=== PATIENT | female | born 1955 | race Caucasian/White ===

== ENCOUNTER 2022-11-21 11:33 | Day surgery (SDC) | payer MEDICARE, OTHER ==
[~2022-11-21 11:33] MED LIST: SODIUM CHLORIDE 0.9% 500 ML 500 ML in EMPTY BAG 1 BAG IV PRN
[2022-11-21 12:43] VITALS: RESP 16
[2022-11-21 14:22] VITALS: BP 119/75; PULSE 95; TEMP 98.8
--- NOTE | 2022-11-21 14:26 | XR ---
EXAMINATION TYPE: XR chest 1V portable DATE OF EXAM: 11/21/2022 COMPARISON: 11/19/2022 HISTORY: Postthoracentesis TECHNIQUE: Single frontal view of the chest is obtained. FINDINGS: There is right upper lobe and lower lobe consolidation with no sizable pleural effusion. N o definite pneumothorax. The right lung is clear. IMPRESSION: Left upper lobe and lower lobe consolidation with no sizable pneumothorax. Underlying ne oplasm in the differential diagnosis of the left hilum.
--- NOTE | 2022-11-21 15:06 | US ---
EXAMINATION TYPE: US chest DATE OF EXAM: 11/21/2022 COMPARISON: XR CLINICAL INDICATION: Female, 67 years old with history of J90 Pleural Effusion L; Pleural effusion le ft side. TECHNIQUE: Targeted ultrasound of the posterior lower bilateral hemithoraces EXAM MEASUREMENTS: Right Pleural Effusion pocket size: No fluid seen Left Pleural Effusion pocket size: 9.1 cm Left skin surface to fluid distance: 3.2 cm Right side NOT marked for possible thoracentesis outside the dept. Left side marked for possible thoracentesis outside the dept. Pulmonologists are able to review the images in the patient?s EMR. IMPRESSIONS: 1. Large left pleural effusion. 2. No sizable right pleural effusion.
[2022-11-22 03:00] LABS: Glucose, BF Source Pleural Fluid; Glucose, Body Fluid 89 mg/dL; LDH, Body Fluid Source Pleural Fluid; T. Protein, Body Fluid Source Pleural Fluid; Total Protein, Body Fluid 3860 mg/dL
[2022-11-22 04:30] LABS: Appearance,BF Clear
--- NOTE | 2022-11-26 15:28 | P.PCN ---
Date of Procedure: 11/21/22 Preoperative Diagnosis: left sided effusion Postoperative Diagnosis: left sided effusion Procedure(s) Performed: thoracentesis Anesthesia: local Surgeon: Chip Cruz Pathology: other Condition: stable Disposition: same day Operative Findings: A time out was performed and the chest x-ray was reviewed, the appropriate side was confirmed and marked. US marking was also obtained. My hands were washed immediately prior to the procedure. I wore a surgical cap, mask with protective eyewear, sterile gown and sterile gloves throughout the procedure. The patient was prepped and draped in a sterile manner using chlorhexidine scrub after the appropriate level was percussed and confirmed by ultrasound. 1% lidocaine was used to anesthesize the skin, subcutaneous tissue, superior aspect of the rib periosteum and parietal pleura. A finder needle was then introduced over the superior aspect of the rib to locate the pleural fluid; 2colored fluid was aspirated at a depth of approximately 2 cm. A 10-blade scalpel was used to vernon the skin at the insertion site. The [id number] needle was then introduced through the skin incision into the pleural space using negative aspiration pressure and the red colometric indicator to confirm appropriate positioning of the needle. The thoracentesis catheter was then threaded without difficulty. 600 ml of turbid colored-milky fluid was removed without difficulty. The catheter was then removed. No immediate complications were noted during the procedure. A post-procedure chest x-ray is pending at the time of this note. The fluid will be sent for studies. Estimated blood loss is 0cc
== END 2022-11-22 13:58 | disposition home or self-care (01) ==
LOC: PROCWHC3 11:33
PROVIDERS: ATTEND Internal Medicine Critical Care Medicine
DX: J90 Pleural effusion, not elsewhere classified (principal)
CPT/HCPCS: 32554; 71045; 76604; 82945; 83615; 84157; 87070; 87075; 87116; 87205; 87206; 88108; 88305; 88341; 88342; 89050

== ENCOUNTER 2022-12-06 09:09 | Emergency (ER) | payer MEDICARE, OTHER ==
[2022-12-06] MEDS ORDERED: SODIUM CHLORIDE 0.9% 1,000 ML IV STA (09:52)
[2022-12-06] MEDS ORDERED: ONDANSETRON 4 MG/2 ML VIAL IVP STA (09:52)
[2022-12-06] MEDS ORDERED: MORPHINE SULFATE 4 MG/ML SYRINGE IVP STA (09:52)
--- NOTE | 2022-12-06 09:55 | ED ---
Abdominal Pain HPI - General Chief Complaint: Abdominal Pain Stated Complaint: Middle Back Pain Time Seen by Provider: 12/06/22 09:34 Source: patient, RN notes reviewed Mode of arrival: ambulatory Limitations: no limitations - History of Present Illness Initial Comments: Patient is a 59-year-old female presenting to the emergency room with complaints of abdominal pain and nausea without vomiting along with decreased appetite. She is also reporting generalized malaise which has been ongoing but worsened in the last 48 hours. She is currently undergoing and oncologic workup. She had a thoracentesis completed by Dr. 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 Consequently she was referred to GI for EGD colonoscopy to further evaluate this etiology she underwent a colonoscopy yesterday along with EGD this was not completed at our facility but her sister has the reports with her along with images which demonstrates diverticulosis, peptic ulcer disease, and internal hem orrhoids with no identified malignancy. She is scheduled for a PET scan today at 2 PM. She does report some shortness of breath which has been ongoing but unchanged overall. She denies any chest pain, fevers or chills. Prior to her recent pleural effusion with workup resulting and metastatic adenocarcinoma she had no significant past medical history with the exception of glaucoma. - Related Data Home Medications Medication Instructions Recorded Confirmed Acetaminophen Tab [Tylenol] 1,000 mg PO DAILY PRN 11/21/22 11/21/22 Cholecalciferol [Vitamin D3 (25 1,000 unit PO DAILY 11/21/22 11/21/22 Mcg = 1000 Iu)] Latanoprost/Pf [Latanoprost 0.005% 1 drop BOTH EYES HS 11/21/22 11/21/22 Eye Drop] Loratadine [Claritin] 10 mg PO DAILY 11/21/22 11/21/22 Previous Rx's Medication Instructions Recorded LORazepam [Ativan] 0.5 mg PO TID PRN 3 Days #9 tab 12/06/22 Ondansetron Odt [Zofran Odt] 4 mg PO Q8HR PRN 7 Days #21 tab 12/06/22 Allergies Allergy/AdvReac Type Severity Reaction Status Date / Time No Known Allergies Allergy Verified 12/06/22 09:18 Review of Systems ROS Statement: Those systems with pertinent positive or pertinent negative responses have been documented in the HPI. ROS Other: All systems not noted in ROS Statement are negative. Past Medical History Past Medical History: Cancer Additional Past Medical History / Comment(s): LEFT CHEST DISCOMFORT RECENTLY. History of Any Multi-Drug Resistant Organisms: None Reported Past Surgical History: Adenoidectomy, Hysterectomy, Tonsillectomy Additional Past Surgical History / Comment(s): D& C. Past Anesthesia/Blood Transfusion Reactions: No Reported Reaction Past Psychological History: No Psychological Hx Reported Smoking Status: Never smoker Past Alcohol Use History: Occasional Past Drug Use History: None Reported General Exam - General Exam Comments Initial Comments: GENERAL: No acute distress, well developed, well nourished. Appears fatigued HEENT: Normocephalic, atraumatic. Pupils equal, round, reactive to light. Moist mucous membranes. LUNGS: No respiratory distress. Clear to auscultation, no adventitious sounds, no use of accessory muscles. HEART: Regular rate and rhythm without murmur, rub, or gallop. ABDOMEN: Normal bowel sounds. Concern for pelvic mass and hepatic nodule on palpation. Tenderness throughout, no rebound tenderness. BACK: Normal inspection. EXTREMITIES: No edema. No tenderness. Moves all extremities. NEUROLOGIC: Alert & oriented x 3. CN II-XII grossly intact. PSYCHIATRIC:Depressed and anxious at times. DERMATOLOGIC: Skin intact, without rashes or lesions noted. Limitations: no limitations Course Vital Signs 12/06/22 12/06/22 12/06/22 09:15 11:18 13:22 Temperature 97.3 F L 97 F L 97.6 F Pulse Rate 82 103 H 100 Respiratory 20 16 18 Rate Blood Pressure 155/78 187/88 175/79 O2 Sat by Pulse 99 96 97 Oximetry Medical Decision Making - Medical Decision Making Was pt. sent in by a medical professional or institution (, PA, PRE WAVE ASSEMBLER, urgent care, hospital, or [facility]...) When possible be specific @ -No Did you speak to anyone other than the patient for history (EMS, parent, family, police, friend...)? What history was obtained from this source @ -Yes, spoke with sister at bedside who is providing further information regarding history of present illness and most recent medical history events. Did you review nursing and triage notes (agree or disagree)? Why? @ -I reviewed and agree with nursing and triage notes Were old charts reviewed (outside hosp., previous admission, EMS record, old EKG, old radiological studies, urgent care reports/EKG's, [facility] records)? Report findings @ -Yes, pathology of pleural fluid 11/25/2022 reviewed along with paper reports and photographs of EGD colonoscopy that patient brought in with her from procedure completed yesterday 12/05/2022. Differential Diagnosis (chest pain, altered mental status, abdominal pain women, abdominal pain men, vaginal bleeding, weakness, fever, dyspnea, syncope, headache, dizziness, GI bleed, back pain, seizure, CVA, palpatations, mental health, musculoskeletal)? @ -Differential Abdominal Pain Women: Appendicitis, Cholecystitis, diverticulosis, ischemic bowel, pancreatitis, hepatitis, UTI, gastroenteritis, AAA, incarcerated hernia, bowel obstruction, constipation, inflammatory bowel, hepatitis, peptic ulcer disease, splenic infarction, perforated viscus, vulvitis, ovarian torsion, PID, kidney stone, placenta abruption, this is not meant to be an all-inclusive list EKG interpreted by me (3pts min.). @ -None done X-rays interpreted by me (1pt min.). @ -None done CT interpreted by me (1pt min.). @ -None done U/S interpreted by me (1pt. min.). @ -None done What testing was considered but not performed or refused? (CT, X-rays, U/S, labs)? Why? @ -Computed tomography scan was considered however due to the PET scan being scheduled at 2 PM today will defer diagnostic imaging at this time to prevent any interference with PET scan to be completed. What meds were considered but not given or refused? Why? @ -None Did you discuss the management of the patient with other professionals ( professionals i.e. , PA, PRE WAVE ASSEMBLER, lab, RT, psych nurse, director social service, systems software specialist, teacher, security officers and guards, case manager specialist)? Give summary @ -Yes, spoke with PET department regarding patients visit and adherence to restrictions require pre PET scan, patient to be discharge and proceed to PET scan. Was smoking cessation discussed for >3mins.? @ -No Was critical care preformed (if so, how long)? @ -No Were there social determinants of health that impacted care today? How? (Homelessness, low income, unemployed, alcoholism, drug addiction, transportation, low edu. Level, literacy, decrease access to med. care, correction, rehab)? @ -No Was there de-escalation of care discussed even if they declined (Discuss DNR or withdrawal of care, Hospice)? DNR status @ -No What co-morbidities impacted this encounter? (DM, HTN, Smoking, COPD, CAD, Cancer, CVA, ARF, Chemo, Hep., AIDS, mental health diagnosis, sleep apnea, morbid obesity)? @ -Recently diagnosed metastatic adenocarcinoma compatible with gastro intestinal origin. Was patient admitted / discharged? Hospital course, mention meds given and route, prescriptions, significant lab abnormalities, going to OR and other pertinent info. @ -67-year-old female presenting to the emergency room with complai nts of abdominal pain and nausea without vomiting along with decreased appetite. She is also reporting generalized malaise which has been ongoing but worsened in the last 48 hours. She is currently undergoing and oncologic workup. She had a thoracentesis completed by Dr. 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 No vomiting and vital signs stable. Long discussion with patient and sister at bedside regarding need for completion of PET scan is scheduled later today at 2 PM consequently computed tomography scan with contrast which would be the indicated study for her symptomatology workup is being deferred. Will obtain laboratory studies of CBC, CMP, amylase and lipase to ensure no acute abnormalities requiring treatment prior to PET scan. Will give IV hydration, morphine for pain and Zofran for nausea. Sister and patient both agreeable to this plan. Nausea improved with Zofran hydration pain persists despite morphine will give additional 1 L fluid bolus and Dilaudid. Laboratory studies overall stable CBC with elevated neutrophils 8.9 low lymphocytes 0.9 otherwise no abnormalities. CMP sodium low 131 chloride low 93, creatinine low 0.1 with a normal BUN glucose elevated 133 remaining electrolytes normal, liver function normal, amylase and lipase normal. PET scan department called regarding concerns of non adherence to protocol restrictions prior to PET scan; department advised no food or medications given that could alter results or prevent testing, patient to be discharge and proceed to PET scan. Pain improved with Dilaudid. Patient remains anxious and concerned about her inability to sleep at home. Discussion with patient and sister regarding need for continue tramadol for pain prescribed by oncology with furher discussion for pain medication adjustment with her oncologist. Will give short course of Ativan to utilize at for anxiety. Advised caution when taking multiple medications that may cause drowsiness. Questions and concerns answered. Strict return perimeters to the ER discussed. Will discharge home in stable condition with symptomatic management of abdominal pain and anxiety advising further follow up with her oncogist and primary care provider. Undiagnosed new problem with uncertain prognosis? @ -No Drug Therapy requiring intensive monitoring for toxicity (Heparin, Nitro, Insulin, Cardizem)? @ -No Were any procedures done? @ -No Diagnosis/symptom? @ -Abdominal pain Acute, or Chronic, or Acute on Chronic? @ -Acute Uncomplicated (without systemic symptoms) or Complicated (systemic symptoms)? @ -Uncomplicated Side effects of treatment? @ -No Exacerbation, Progression, or Severe Exacerbation? @ -No Poses a threat to life or bodily function? How? (Chest pain, [place], [place], pneumonia, PE, COPD, DKA, ARF, appy, cholecystitis, CVA, Diverticulitis, Homicidal, Suicidal, threat to staff... and all critical care pts) @ -No Diagnosis/symptom? @ -Anxeity with insomnia Acute, or Chronic, or Acute on Chronic? @ -Acute Uncomplicated (without systemic symptoms) or Complicated (systemic symptoms)? @ -Uncomplicated Side effects of treatment? @ -No Exacerbation, Progression, or Severe Exacerbation? @ -No Poses a threat to life or bodily function? How? (Chest pain, [place], [place], pneumonia, PE, COPD, DKA, ARF, appy, cholecystitis, CVA, Diverticulitis, Homicidal, Suicidal, threat to staff... and all critical care pts) @ -No Case discussed with Dr. Jaramillo. - Lab Data Result diagrams: 12/06/22 09:36 12/06/22 09:36 Lab Results 12/06/22 12/06/22 Range/Units 09:36 09:36 WBC 10.6 (3.8-10.6) k/uL RBC 4.13 (3.80-5.40) m/uL Hgb 12.5 (11.4-16.0) gm/dL Hct 37.3 (34.0-46.0) % MCV 90.4 (80.0-100.0) fL MCH 30.3 (25.0-35.0) pg MCHC 33.5 (31.0-37.0) g/dL RDW 14.8 (11.5-15.5) % Plt Count 319 (150-450) k/uL MPV 7.5 Neutrophils % 84 % Lymphocytes % 9 % Monocytes % 6 % Eosinophils % 0 % Basophils % 0 % Neutrophils # 8.9 H (1.3-7.7) k/uL Lymphocytes # 0.9 L (1.0-4.8) k/uL Monocytes # 0.7 (0-1.0) k/uL Eosinophils # 0.0 (0-0.7) k/uL Basophils # 0.0 (0-0.2) k/uL Hypochromasia Slight Poikilocytosis Slight Sodium 131 L (137-145) mmol/L Potassium 4.2 (3.5-5.1) mmol/L Chloride 93 L (98-107) mmol/L Carbon Dioxide 25 (22-30) mmol/L Anion Gap 13 mmol/L BUN 8 (7-17) mg/dL Creatinine 0.51 L (0.52-1.04) mg/dL Est GFR (CKD-EPI)AfAm >90 (>60 ml/min/1.73 sqM) Est GFR (CKD-EPI)NonAf >90 (>60 ml/min/1.73 sqM) Glucose 133 H (74-99) mg/dL Calcium 9.3 (8.4-10.2) mg/dL Total Bilirubin 1.0 (0.2-1.3) mg/dL AST 24 (14-36) U/L ALT 15 (4-34) U/L Alkaline Phosphatase 87 (38-126) U/L Total Protein 7.3 (6.3-8.2) g/dL Albumin 4.3 (3.5-5.0) g/dL Amylase 43 (30-110) U/L Lipase 44 (23-300) U/L Disposition Clinical Impression: Abdominal pain, Insomnia secondary to anxiety Disposition: HOME SELF-CARE Condition: Stable Instructions (If sedation given, give patient instructions): Abdominal Pain (ED) Additional Instructions: Please stay well hydrated. Utilize Zofran for nausea as needed. Utilize Ativan for severe anxiety and insomnia. Proceed with planned PET scan today. Continue follow-up with your oncologist, historical manuscripts curator and primary care provider. Please return to the Emergency Department if symptoms worsen or any other concerns. Prescriptions: LORazepam [Ativan] 0.5 mg PO TID PRN 3 Days #9 tab PRN Reason: Anxiety Ondansetron Odt [Zofran Odt] 4 mg PO Q8HR PRN 7 Days #21 tab PRN Reason: Nausea Is patient prescribed a controlled substance at d/c from ED?: No Referrals: Emeli Tanner MD [Primary Care Provider] - 1-2 days Time of Disposition: 12:53
[2022-12-06 10:03] LABS: Basophils % (A) 0 %; Eosinophils % (A) 0 %; HCT 37.3 % (34.0-46.0); HGB 12.5 gm/dL (11.4-16.0); Hypochromasia Slight; Lymphocytes # (A) 0.9 k/uL (1.0-4.8); Lymphocytes % (A) 9 %; MCH 30.3 pg (25.0-35.0); MCHC 33.5 g/dL (31.0-37.0); MCV 90.4 fL (80.0-100.0); Mean Platelet Volume 7.5; Monocytes # (A) 0.7 k/uL (0-1.0); Monocytes % (A) 6 %; Neutrophils # (A) 8.9 k/uL (1.3-7.7); Neutrophils % (A) 84 %; Platelet Count 319 k/uL (150-450); Poikilocytosis Slight; RBC 4.13 m/uL (3.80-5.40); RDW 14.8 % (11.5-15.5); WBC 10.6 k/uL (3.8-10.6)
[2022-12-06 10:08] LABS: ALT 15 U/L (4-34); AST 24 U/L (14-36); African American GFR (CKD) >90 (>60 ml/min/1.73 sqM); Albumin 4.3 g/dL (3.5-5.0); Alkaline Phosphatase 87 U/L (38-126); Amylase 43 U/L (30-110); Anion Gap 13 mmol/L; Blood Urea Nitrogen 8 mg/dL (7-17); Calcium 9.3 mg/dL (8.4-10.2); Carbon Dioxide 25 mmol/L (22-30); Chloride 93 mmol/L (98-107); Glucose 133 mg/dL (74-99); Lipase 44 U/L (23-300); Non-African American GFR(CKD) >90 (>60 ml/min/1.73 sqM); Potassium 4.2 mmol/L (3.5-5.1); Sodium 131 mmol/L (137-145); Total Protein 7.3 g/dL (6.3-8.2)
[2022-12-06] MEDS ORDERED: HYDROmorphone 1 MG/ML 1 ML SYRINGE IVP STA (10:40)
[2022-12-06] MEDS: SODIUM CHLORIDE 0.9% 1,000 ML IV STA ×2 (10:55→10:59)
[2022-12-06 13:24] VITALS: BP 175/79; PULSE 100; RESP 18; TEMP 97.6
== END 2022-12-06 13:24 | disposition home or self-care (01) ==
LOC: EC 09:09
DX: G47.00 Insomnia, unspecified (principal); R10.9 Unspecified abdominal pain
CPT/HCPCS: 36415; 80053; 82150; 83690; 85025; 99284; 96374; 96375 ×2; 96361 ×2; J2270; J2405; J1170

== ENCOUNTER → 2022-12-06 | Outpatient (CLI) | payer MEDICARE, OTHER ==
--- NOTE | 2022-12-07 09:54 | PE ---
EXAMINATION TYPE: PET CT fusion skull to thigh DATE OF EXAM: 12/06/2022 CLINICAL INDICATION:Female, 67 years old with history of R91.1 Solitary pulmonary nodule; TECHNIQUE: Following the intravenous administration of 11.38 mCi of F-18 FDG, whole body images are performed from the skull base to the midthigh. Images are reviewed on the computer in the coronal, axial, and sagittal planes. Reconstructed rotating images are created on independent workstation and reviewed on the computer. A non-contrast CT is performed in conjunction with the PET scan. Glucose level 115 mg/dL COMPARISON: CT None, PET/CT None, plain film 11/29/2022 FINDINGS: Mediastinal SUV mean is 2.1. Hepatic parenchyma SUV mean is 2.3. SKULL BASE AND NECK: No suspicious radiotracer activity. CHEST, MEDIASTINUM, AND HILAR REGION: Abnormal radiotracer activity throughout the thorax: * Left pulmonary hilum max SUV 7.0 exact measurements are difficult without IV contrast and measures roughly 27 x 19 x 34 mm. * Subtle uptake along the left pleura max SUV 2.2 laterally and inferiorly near the diaphragm max LOZANO V 3.3. Lymphadenopathy throughout the ascending exams include: * Subcarinal max SUV 4.5 measuring 9 mm in short axis. * AP window max SUV 4.0 measuring 10 mm. ABDOMEN AND PELVIS: No suspicious radiotracer activity. OSSEOUS STRUCTURES: * Focus of radiotracer activity within the L2 and T7 vertebrae axis SUV 5.6 and 6.2 respectively. * Additional abnormal radiotracer uptake near the medial aspect of the left 12th rib/posterior eleme nts of T11 max SUV 4.7. * Left sacrum lesion max SUV 8.2. * Right inferior pubic ramus lesion max SUV 4.9 right rib 8 posteriorly max SUV 3.4. OTHER CT: Mild emphysema changes are seen throughout the lungs. Thickening of the intralobular septa. Spleen is at the upper limits normal measuring 13.8 cm. There is scattered hepatic cysts. Gallstone present in the gallbladder. Atherosclerosis of the arterial vasculature. Scattered colonic diverticul a. Fat-containing umbilical hernia. IMPRESSION: Findings compatible with primary left pulmonary hilum malignancy with metastatic disease to the media stinum, osseous structures and likely the pleura given the left pleural effusion.
== END | disposition home or self-care (01) ==
LOC: RADPETMAIN 13:34
PROVIDERS: ATTEND Internal Medicine Critical Care Medicine
DX: J90 Pleural effusion, not elsewhere classified (principal); R91.1 Solitary pulmonary nodule
CPT/HCPCS: 78815; A9552

== ENCOUNTER → 2022-12-24 | Outpatient (CLI) | payer MEDICARE, OTHER ==
--- NOTE | 2022-12-25 22:14 | MR ---
EXAMINATION TYPE: MR brain wo/w con DATE OF EXAM: 12/24/2022 COMPARISON: Correlation PET/CT 12/06/2022 HISTORY: 67-year-old female C80.1, Lung cancer, evaluate for mets. TECHNIQUE: Multiplanar, multisequence images of the brain and brainstem were acquired before and aft er administration of 7 mL IV Gadavist. Diffusion weighted imaging is performed. FINDINGS: No evidence for acute infarction, hemorrhage, mass, mass effect, midline shift, herniation, effacemen t of basal cisterns, or extra-axial fluid collection. The ventricles and sulci are age-appropriate. Major intracranial flow voids are intact. Diminutive caliber to the bilateral vertebral and basilar a rteries. Persistent origin to the bilateral bisque placer. T2/FLAIR weighted sequences show moderate to severe scattered burden of T2 bright white matter change . Numerous foci present throughout the subcortical, deep, and periventricular regions. Changes are co nfluent in the periatrial white matter measuring up to 2.8 cm. Midline structures demonstrate normal morphology. The craniocervical junction is normal. Post contrast images demonstrate no evidence of pathologic enhancement. Dural venous sinuses are pat ent. Trace mucosal thickening. Mild lobulated mucosal thickening left maxillary sinus. IMPRESSION: 1. No acute intracranial abnormality seen. No abnormal enhancement to suggest intracranial metastases . 2. Moderate to severe scattered burden of T2 bright white matter change, likely chronic small vessel ischemic disease. 3. Diminutive caliber to the vertebral and basilar arteries. Correlate for any chronic symptoms of ve rtebrobasilar insufficiency.
== END | disposition home or self-care (01) ==
LOC: RADMRIMAIN 11:27
PROVIDERS: ATTEND Internal Medicine Hematology & Oncology
DX: C80.1 Malignant (primary) neoplasm, unspecified (principal); R90.82 White matter disease, unspecified
CPT/HCPCS: 70553; A9585

== ENCOUNTER 2023-01-13 09:21 | Inpatient (IN) | payer MEDICARE, OTHER ==
[2023-01-13] MEDS ORDERED: SODIUM CHLORIDE 0.9% 1,000 ML IV STA (10:38)
--- NOTE | 2023-01-13 10:39 | ED ---
General Adult HPI - General Chief complaint: Shortness of Breath Stated complaint: sob Time Seen by Provider: 01/13/23 10:14 Source: patient Mode of arrival: ambulatory - History of Present Illness Initial comments: Dictation was produced using [employer] dictation software. please excuse any grammatical, word or spelling errors. Chief Complaint: 67-year-old female presents emergency Department with generalized weakness History of Present Illness: Patient is 59-year-old female presents emergency department for generalized weakness. Patient states that she just started chemotherapy for treatment of lung cancer. She had her first treatment. She thought that her symptoms will last for 4 days however her symptoms are continuing. Patient has any fever. She comes complains of total body pain, nausea and generalized weakness. The ROS documented in this emergency department record has been reviewed and confirmed by me. Those systems with pertinent positive or negative responses have been documented in the HPI. All other systems are other negative and/or noncontributory. - Related Data Home Medications Medication Instructions Recorded Confirmed Cholecalciferol [Vitamin D3 (25 1,000 unit PO DAILY 11/21/22 01/13/23 Mcg = 1000 Iu)] Latanoprost/Pf [Latanoprost 0.005% 1 drop BOTH EYES HS 11/21/22 01/13/23 Eye Drop] Calcium Carbonate [Calcium] 600 mg PO DAILY 01/13/23 01/13/23 Folic Acid 1 mg PO DAILY 01/13/23 01/13/23 HYDROmorphone [Dilaudid] 2 mg PO Q6H 01/13/23 01/13/23 LORazepam [Ativan] 1 tab PO HS PRN 01/13/23 01/13/23 Previous Rx's Medication Instructions Recorded Ondansetron Odt [Zofran Odt] 4 mg PO Q8HR PRN 7 Days #21 tab 12/06/22 Allergies Allergy/AdvReac Type Severity Reaction Status Date / Time No Known Allergies Allergy Verified 01/13/23 12:23 Review of Systems ROS Statement: Those systems with pertinent positive or pertinent negative responses have been documented in the HPI. ROS Other: All systems not noted in ROS Statement are negative. Past Medical History Past Medical History: Cancer Additional Past Medical History / Comment(s): LEFT CHEST DISCOMFORT RECENTLY., chemo History of Any Multi-Drug Resistant Organisms: None Reported Past Surgical History: Adenoidectomy, Hysterectomy, Tonsillectomy Additional Past Surgical History / Comment(s): D& C. Past Anesthesia/Blood Transfusion Reactions: No Reported Reaction Past Psychological History: No Psychological Hx Reported Smoking Status: Never smoker Past Alcohol Use History: Occasional Past Drug Use History: None Reported General Exam - General Exam Comments Initial Comments: PHYSICAL EXAM: General Impression: Alert and oriented x3, pale HEENT: Normocephalic atraumatic, extra-ocular movements intact, pupils equal and reactive to light bilaterally, dry mucous membranes Cardiovascular: Heart regular rate and rhythm Chest: Able to complete full sentences, no retractions, no tachypnea Abdomen: abdomen soft, non-tender, non-distended, no organomegaly Musculoskeletal: Pulses present and equal in all extremities, no peripheral edema Motor: no focal deficits noted Neurological: CN II-XII grossly intact, no focal motor or sensory deficits noted Skin: Intact with no visualized rashes Psych: Normal affect and mood Course Vital Signs 01/13/23 01/13/23 09:29 13:23 Temperature 97.6 F Pulse Rate 131 H 121 H Respiratory 20 18 Rate Blood Pressure 104/69 124/62 O2 Sat by Pulse 98 98 Oximetry EKG Findings - EKG Comments: EKG Findings:: My EKG interpretation: Ventricular rate 123, sinus tachycardia, CT interval 90, QRS 97, QTC 379. No CT prolongation, no QTC prolongation, no ST or T-wave changes noted. Overall, this EKG is unremarkable Medical Decision Making - Medical Decision Making Was pt. sent in by a medical professional or institution (, PA, MINE DEPUTY, urgent care, hospital, or longterm...) When possible be specific @ -No Did you speak to anyone other than the patient for history (EMS, parent, family, police, friend...)? What history was obtained from this source @ -Case discussed with sister states that patient has cancer Did you review nursing and triage notes (agree or disagree)? Why? @ -I reviewed and agree with nursing and triage notes Were old charts reviewed (outside hosp., previous admission, EMS record, old EKG, old radiological studies, urgent care reports/EKG's, longterm records)? Report findings @ -No old charts were reviewed Differential Diagnosis (chest pain, altered mental status, abdominal pain women, abdominal pain men, vaginal bleeding, musculoskeletal, weakness, fever, dyspnea, syncope, headache, dizziness, GI bleed, back pain, seizure, CVA, palpatations, mental health)? @ -Differential Dyspnea: Coronary syndrome, arrhythmia, tamponade, asthma, COPD, pulmonary embolism, pneumonia, pneumothorax, pulmonary effusion, anaphylaxis, diabetic ketoacidosis, flailed chest, pulmonary contusion, diaphragmatic rupture, anemia, neuromuscular, this is not meant to be an all-inclusive list. EKG interpreted by me (3pts min.). @ -See above X-rays interpreted by me (1pt min.). @ -None done CT interpreted by me (1pt min.). @ -CT angiography of the chest shows no pulmonary embolism U/S interpreted by me (1pt. min.). @ -None done What testing was considered but not performed or refused? (CT, X-rays, U/S, labs)? Why? @ -None What meds were considered but not given or refused? Why? @ -None Did you discuss the management of the patient with other professionals (professionals i.e. , PA, MINE DEPUTY, lab, RT, psych nurse, social service assistant, maintenance custodian, teacher, commanding officer garage, top case assembler)? Give summary @ -Case discussed with Nereyda from oncology office who will be on consult Was smoking cessation discussed for >3mins.? @ -No Was critical care preformed (if so, how long)? @ -No Were there social determinants of health that impacted care today? How? (Homelessness, low income, unemployed, alcoholism, drug addiction, transportation, low edu. Level, literacy, decrease access to med. care, fdc, rehab)? @ -No Was there de-escalation of care discussed even if they declined (Discuss DNR or withdrawal of care, Hospice)? DNR status @ -No What co-morbidities impacted this encounter? (DM, HTN, Smoking, COPD, CAD, Cancer, CVA, ARF, Chemo, Hep., AIDS, mental health diagnosis, sleep apnea, morbid obesity)? @ -None Was patient admitted / discharged? Hospital course, mention meds given and route, prescriptions, significant lab abnormalities, going to OR and other pertinent info. @ -67-year-old female presents emergency department for dyspnea. She has history of lung cancer and on chemotherapy. Vital signs shows tachycardia 130. Restless within acceptable limits. Patient has severe pancytopenia. Labs otherwise within acceptable limits. D-dimer is elevated. CT angios the chest shows no acute processes. Occult blood is positive. Patient ordered for blood transfusion. We do have GI coverage in case patient has worsening GI bleeding. Patient be admitted for further care. Undiagnosed new problem with uncertain prognosis? @ -No Drug Therapy requiring intensive monitoring for toxicity (Heparin, Nitro, Insulin, Cardizem)? @ -No Were any procedures done? @ -No Diagnosis/symptom? Acute, or Chronic, or Acute on Chronic? Uncomplicated (without systemic symptoms) or Complicated (systemic symptoms)? @ -Symptomatic anemia secondary to side effect of chemotherapy Side effects of treatment? @ -No Exacerbation, Progression, or Severe Exacerbation? @ -No Poses a threat to life or bodily function? How? (Chest pain, [place], [place], pneumonia, PE, COPD, DKA, ARF, appy, cholecystitis, CVA, Diverticulitis, Homicidal, Suicidal, threat to staff... and all critical care pts) @ -yes - Lab Data Result diagrams: 01/13/23 11:03 01/13/23 11:03 Lab Results 01/13/23 01/13/23 01/13/23 Range/Units 11:03 11:03 11:03 WBC 0.9 L* (3.8-10.6) k/uL RBC 1.77 L (3.80-5.40) m/uL Hgb 5.4 L* D (11.4-16.0) gm/dL Hct 16.6 L* (34.0-46.0) % MCV 93.9 (80.0-100.0) fL MCH 30.5 (25.0-35.0) pg MCHC 32.5 (31.0-37.0) g/dL RDW 15.5 (11.5-15.5) % Plt Count 70 L D (150-450) k/uL MPV 8.3 Neutrophils % Not Reportable Lymphocytes % Not Reportable Monocytes % Not Reportable Eosinophils % Not Reportable Basophils % Not Reportable Neutrophils # Not Reportable Lymphocytes # Not Reportable Monocytes # Not Reportable Eosinophils # Not Reportable Basophils # Not Reportable Differential Comment Manual Slide Review Performed Hypochromasia Slight PT 12.0 (9.0-12.0) sec INR 1.2 H (<1.2) APTT 22.6 (22.0-30.0) sec D-Dimer (<0.60) mg/L FEU Sodium 131 L (137-145) mmol/L Potassium 4.2 (3.5-5.1) mmol/L Chloride 98 (98-107) mmol/L Carbon Dioxide 27 (22-30) mmol/L Anion Gap 6 mmol/L BUN 10 (7-17) mg/dL Creatinine 0.52 (0.52-1.04) mg/dL Est GFR (CKD-EPI)AfAm >90 (>60 ml/min/1.73 sqM) Est GFR (CKD-EPI)NonAf >90 (>60 ml/min/1.73 sqM) Glucose 95 (74-99) mg/dL POC Glucose (mg/dL) (70-110) mg/dL POC Glu Experimental Rocket Sled Mechanic ID Plasma Lactic Acid Jose (0.7-2.0) mmol/L Calcium 7.1 L (8.4-10.2) mg/dL Magnesium 2.2 (1.6-2.3) mg/dL Total Bilirubin 0.8 (0.2-1.3) mg/dL AST 16 (14-36) U/L ALT 16 (4-34) U/L Alkaline Phosphatase 78 (38-126) U/L Total Protein 4.8 L (6.3-8.2) g/dL Albumin 2.6 L (3.5-5.0) g/dL Urine Color Urine Appearance (Clear) Urine pH (5.0-8.0) Ur Specific [place] (1.001-1.035) Urine Protein (Negative) Urine Glucose (UA) (Negative) Urine Ketones (Negative) Urine Blood (Negative) Urine Nitrite (Negative) Urine Bilirubin (Negative) Urine Urobilinogen (<2.0) mg/dL Ur Leukocyte Esterase (Negative) Stool Occult Blood (Negative) Blood Type Blood Type Confirm Blood Type Recheck Bld Type Recheck Status Antibody Screen Crossmatch Spec Expiration Date 01/13/23 01/13/23 01/13/23 Range/Units 11:03 11:03 11:05 WBC (3.8-10.6) k/uL RBC (3.80-5.40) m/uL Hgb (11.4-16.0) gm/dL Hct (34.0-46.0) % MCV (80.0-100.0) fL MCH (25.0-35.0) pg MCHC (31.0-37.0) g/dL RDW (11.5-15.5) % Plt Count (150-450) k/uL MPV Neutrophils % Lymphocytes % Monocytes % Eosinophils % Basophils % Neutrophils # Lymphocytes # Monocytes # Eosinophils # Basophils # Differential Comment Manual Slide Review Hypochromasia PT (9.0-12.0) sec INR (<1.2) APTT (22.0-30.0) sec D-Dimer 2.48 H (<0.60) mg/L FEU Sodium (137-145) mmol/L Potassium (3.5-5.1) mmol/L Chloride (98-107) mmol/L Carbon Dioxide (22-30) mmol/L Anion Gap mmol/L BUN (7-17) mg/dL Creatinine (0.52-1.04) mg/dL Est GFR (CKD-EPI)AfAm (>60 ml/min/1.73 sqM) Est GFR (CKD-EPI)NonAf (>60 ml/min/1.73 sqM) Glucose (74-99) mg/dL POC Glucose (mg/dL) 96 (70-110) mg/dL POC Glu Experimental Rocket Sled Mechanic ID Elicia Conley Plasma Lactic Acid Jose 1.1 (0.7-2.0) mmol/L Calcium (8.4-10.2) mg/dL Magnesium (1.6-2.3) mg/dL Total Bilirubin (0.2-1.3) mg/dL AST (14-36) U/L ALT (4-34) U/L Alkaline Phosphatase (38-126) U/L Total Protein (6.3-8.2) g/dL Albumin (3.5-5.0) g/dL Urine Color Urine Appearance (Clear) Urine pH (5.0-8.0) Ur Specific [place] (1.001-1.035) Urine Protein (Negative) Urine Glucose (UA) (Negative) Urine Ketones (Negative) Urine Blood (Negative) Urine Nitrite (Negative) Urine Bilirubin (Negative) Urine Urobilinogen (<2.0) mg/dL Ur Leukocyte Esterase (Negative) Stool Occult Blood (Negative) Blood Type Blood Type Confirm Blood Type Recheck Bld Type Recheck Status Antibody Screen Crossmatch Spec Expiration Date 01/13/23 01/13/23 01/13/23 Range/Units 13:00 13:05 13:08 WBC (3.8-10.6) k/uL RBC (3.80-5.40) m/uL Hgb (11.4-16.0) gm/dL Hct (34.0-46.0) % MCV (80.0-100.0) fL MCH (25.0-35.0) pg MCHC (31.0-37.0) g/dL RDW (11.5-15.5) % Plt Count (150-450) k/uL MPV Neutrophils % Lymphocytes % Monocytes % Eosinophils % Basophils % Neutrophils # Lymphocytes # Monocytes # Eosinophils # Basophils # Differential Comment Manual Slide Review Hypochromasia PT (9.0-12.0) sec INR (<1.2) APTT (22.0-30.0) sec D-Dimer (<0.60) mg/L FEU Sodium (137-145) mmol/L Potassium (3.5-5.1) mmol/L Chloride (98-107) mmol/L Carbon Dioxide (22-30) mmol/L Anion Gap mmol/L BUN (7-17) mg/dL Creatinine (0.52-1.04) mg/dL Est GFR (CKD-EPI)AfAm (>60 ml/min/1.73 sqM) Est GFR (CKD-EPI)NonAf (>60 ml/min/1.73 sqM) Glucose (74-99) mg/dL POC Glucose (mg/dL) (70-110) mg/dL POC Glu Experimental Rocket Sled Mechanic ID Plasma Lactic Acid Jose (0.7-2.0) mmol/L Calcium (8.4-10.2) mg/dL Magnesium (1.6-2.3) mg/dL Total Bilirubin (0.2-1.3) mg/dL AST (14-36) U/L ALT (4-34) U/L Alkaline Phosphatase (38-126) U/L Total Protein (6.3-8.2) g/dL Albumin (3.5-5.0) g/dL Urine Color Urine Appearance (Clear) Urine pH (5.0-8.0) Ur Specific [place] (1.001-1.035) Urine Protein (Negative) Urine Glucose (UA) (Negative) Urine Ketones (Negative) Urine Blood (Negative) Urine Nitrite (Negative) Urine Bilirubin (Negative) Urine Urobilinogen (<2.0) mg/dL Ur Leukocyte Esterase (Negative) Stool Occult Blood Positive H (Negative) Blood Type O Positive Blood Type Confirm O Positive Blood Type Recheck No Previous Record Bld Type Recheck Status CABO Indicated Antibody Screen NEGATIVE Crossmatch See Detail Spec Expiration Date 01/16/2023 - 230701/13/23 Range/Units 13:23 WBC (3.8-10.6) k/uL RBC (3.80-5.40) m/uL Hgb (11.4-16.0) gm/dL Hct (34.0-46.0) % MCV (80.0-100.0) fL MCH (25.0-35.0) pg MCHC (31.0-37.0) g/dL RDW (11.5-15.5) % Plt Count (150-450) k/uL MPV Neutrophils % Lymphocytes % Monocytes % Eosinophils % Basophils % Neutrophils # Lymphocytes # Monocytes # Eosinophils # Basophils # Differential Comment Manual Slide Review Hypochromasia PT (9.0-12.0) sec INR (<1.2) APTT (22.0-30.0) sec D-Dimer (<0.60) mg/L FEU Sodium (137-145) mmol/L Potassium (3.5-5.1) mmol/L Chloride (98-107) mmol/L Carbon Dioxide (22-30) mmol/L Anion Gap mmol/L BUN (7-17) mg/dL Creatinine (0.52-1.04) mg/dL Est GFR (CKD-EPI)AfAm (>60 ml/min/1.73 sqM) Est GFR (CKD-EPI)NonAf (>60 ml/min/1.73 sqM) Glucose (74-99) mg/dL POC Glucose (mg/dL) (70-110) mg/dL POC Glu Experimental Rocket Sled Mechanic ID Plasma Lactic Acid Jose (0.7-2.0) mmol/L Calcium (8.4-10.2) mg/dL Magnesium (1.6-2.3) mg/dL Total Bilirubin (0.2-1.3) mg/dL AST (14-36) U/L ALT (4-34) U/L Alkaline Phosphatase (38-126) U/L Total Protein (6.3-8.2) g/dL Albumin (3.5-5.0) g/dL Urine Color Light Yellow Urine Appearance Clear (Clear) Urine pH 5.5 (5.0-8.0) Ur Specific [place] 1.006 (1.001-1.035) Urine Protein Negative (Negative) Urine Glucose (UA) Negative (Negative) Urine Ketones 1+ H (Negative) Urine Blood Negative (Negative) Urine Nitrite Negative (Negative) Urine Bilirubin Negative (Negative) Urine Urobilinogen <2.0 (<2.0) mg/dL Ur Leukocyte Esterase Negative (Negative) Stool Occult Blood (Negative) Blood Type Blood Type Confirm Blood Type Recheck Bld Type Recheck Status Antibody Screen Crossmatch Spec Expiration Date Disposition Clinical Impression: Anemia Disposition: ADMITTED IP TO THIS HOSP Condition: Serious Referrals: Emeli Tanner MD [Primary Care Provider] - 1-2 days Decision Time: 14:00
[2023-01-13 11:06] LABS: Glucose,Whole Blood 96 mg/dL (70-110)
[2023-01-13 11:26] LABS: Hypochromasia Slight; MCH 30.5 pg (25.0-35.0); MCHC 32.5 g/dL (31.0-37.0); MCV 93.9 fL (80.0-100.0); Mean Platelet Volume 8.3; RBC 1.77 m/uL (3.80-5.40); RDW 15.5 % (11.5-15.5)
[2023-01-13 11:38] LABS: INR 1.2 (<1.2); Partial Thromboplastin Time 22.6 sec (22.0-30.0)
[2023-01-13 11:41] LABS: HCT 16.6 % (34.0-46.0); HGB 5.4 gm/dL (11.4-16.0); WBC 0.9 k/uL (3.8-10.6)
[2023-01-13 11:51] LABS: ALT 16 U/L (4-34); AST 16 U/L (14-36); African American GFR (CKD) >90 (>60 ml/min/1.73 sqM); Albumin 2.6 g/dL (3.5-5.0); Alkaline Phosphatase 78 U/L (38-126); Anion Gap 6 mmol/L; Blood Urea Nitrogen 10 mg/dL (7-17); Calcium 7.1 mg/dL (8.4-10.2); Carbon Dioxide 27 mmol/L (22-30); Chloride 98 mmol/L (98-107); Glucose 95 mg/dL (74-99); Magnesium 2.2 mg/dL (1.6-2.3); Non-African American GFR(CKD) >90 (>60 ml/min/1.73 sqM); Potassium 4.2 mmol/L (3.5-5.1); Sodium 131 mmol/L (137-145); Total Bilirubin 0.8 mg/dL (0.2-1.3); Total Protein 4.8 g/dL (6.3-8.2)
[2023-01-13 12:22] LABS: Platelet Count 70 k/uL (150-450)
[2023-01-13 13:33] LABS: Appearance,Urine Clear (Clear); Bilirubin,Urine Negative (Negative); Blood,Urine Negative (Negative); Color,Urine Light Yellow; Glucose,Urine (UA) Negative (Negative); Ketones,Urine 1+ (Negative); Leukocyte Esterase,Urine Negative (Negative); Nitrite,Urine Negative (Negative); PH, Urine 5.5 (5.0-8.0); Protein,Urine Negative (Negative); Specific Gravity,Urine 1.006 (1.001-1.035); Urobilinogen,Urine <2.0 mg/dL (<2.0)
--- NOTE | 2023-01-13 14:21 | CT ---
CT CHEST FOR PULMONARY EMBOLISM. EXAMINATION TYPE: CT angio chest DATE OF EXAM: 01/13/2023 INDICATION: Positive D-dimer CT DLP: 310.1 mGycm, Automated exposure control for dose reduction was used. CONTRAST: Patient injected with 100 ml mL of Isovue 370. COMPARISON: None TECHNIQUE: CT of the chest is performed on a spiral scan at 2 mm thick sections. Study is performed with intravenous contrast timed for evaluation for pulmonary embolism. This will limit additional po rtions of the evaluation. 3-D MIP images reconstructed by the technologist are reviewed on the compu ter in the coronal and sagittal planes. FINDINGS: No persistent filling defects are evident to suggest an acute pulmonary embolism. No mediastinal or hilar adenopathy enlarged by CT criteria is evident. The ascending aorta diameter at the level of the main pulmonary artery is 2.8 cm. The main pulmonary artery diameter at the bifur cation is 2.7 cm. There is a moderate loculated appearing pleural effusion on the left with compressive atelectasis at the left lung base. Heart size appears normal. No pericardial effusion is evident. Pulmonary vasculature appears normal. No obvious pulmonary embolism is evident. Limited CT section through the upper abdomen are unremarkable. IMPRESSIONS: 1. Moderate loculated appearing left pleural effusion with adjacent atelectasis. Underlying neoplasm is not excluded. Follow-up is recommended. 2. No acute pulmonary embolism
[2023-01-13] MEDS ORDERED: NALOXONE 0.4 MG/ML 1 ML VIAL IV PRN (14:32)
[2023-01-13] MEDS ORDERED: LORazepam 1 MG TAB PO PRN (15:38)
[2023-01-13] MEDS: PANTOPRAZOLE 40 MG/10 ML VIAL IV SCH (16:33)
[2023-01-13] MEDS: HYDROmorphone 2 MG TAB PO SCH ×2 (16:33→22:47)
[2023-01-13] MEDS: SODIUM CHLORIDE 0.9% 1,000 ML IV SCH ×2 (16:35→23:41)
[2023-01-14] MEDS: HYDROmorphone 2 MG TAB PO SCH ×4 (04:39→23:10)
[2023-01-14 07:23] LABS: Anisocytosis Slight; Hypochromasia Slight; MCH 30.6 pg (25.0-35.0); MCHC 33.5 g/dL (31.0-37.0); MCV 91.2 fL (80.0-100.0); Poikilocytosis Slight; RBC 2.17 m/uL (3.80-5.40); RDW 17.1 % (11.5-15.5)
[2023-01-14 07:35] LABS: WBC 0.6 k/uL (3.8-10.6)
[2023-01-14 07:36] LABS: HCT 19.8 % (34.0-46.0); HGB 6.6 gm/dL (11.4-16.0)
[2023-01-14 07:44] LABS: Platelet Count 48 k/uL (150-450)
--- NOTE | 2023-01-14 09:01 | US ---
EXAMINATION TYPE: US chest DATE OF EXAM: 01/14/2023 Exam done portable COMPARISON: NONE CLINICAL INDICATION: Female, 67 years old with history of Markings for thoracentesis by pulmonary sta ff; TECHNIQUE: Targeted ultrasound of the posterior lower bilateral hemithoraces EXAM MEASUREMENTS: Left Pleural Effusion pocket size: 12.5 cm Left skin surface to fluid distance: 2.4 cm Right side NOT marked for possible thoracentesis outside the dept. Left side marked for possible thoracentesis outside the dept. Pulmonologists are able to review the images in the patient?s EMR. IMPRESSIONS: 1. Moderate to large left pleural effusion. 2. No right pleural effusion.
[2023-01-14] MEDS: FOLIC ACID 1 MG TAB PO SCH (09:47)
[2023-01-14] MEDS: PANTOPRAZOLE 40 MG/10 ML VIAL IV SCH (09:47)
--- NOTE | 2023-01-14 12:06 | P.CNPUL ---
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 She had undergone a thoracentesis on 11/26/2022 with 600 MLS removed and positive for malignancy. She has received radiation therapy to the skeletal system and the metastasis was involving the T7, L2 and posterior left ribs and sacrum of the right pubis. She then received a combination of carboplatinum, Alimta and Keytruda last week on 01/06/2023. She then developed extreme weakness, fatigue and dizziness and presented here to the emergency room yesterday. EKG revealed sinus rhythm. CT angiogram revealed a moderate loculated-appearing left pleural effusion with adjacent atelectasis. No acute pulmonary embolism. White count 0.9. Hemoglobin 5.4 on admission. Platelets 70,000. D-dimer 2.48. Sodium 131. Potassium 4.2. BUN 10. Creatinine 0.52. Stool for occult blood pos itive. She received 2 unit blood cells. She is seen today in consultation on the regular medical floor. She is currently sitting up in a chair at the bedside. Still remains quite weak. Quite pale. Morning labs revealed a WBC of 0.6. Hemoglobin 6.6. Platelets 48,000. Ultrasound revealed a moderate to large left pleural effusion measuring 12.5 cm. She currently denies any worsening shortness of breath, cough or congestion. She is maintaining O2 saturations in the 90s on room air. She's afebrile. Slightly tachycardic. Blood pressure stable. Review of Systems REVIEW OF SYSTEMS: CONSTITUTIONAL: Generalized weakness, fatigue, dizziness. Positive for poor appetite and weight loss. EYES: Denies change in vision. EARS, NOSE, MOUTH, THROAT: Denies headaches, denies sore throat. CARDIOVASCULAR: Denies chest pain, palpitations or syncopal episodes. RESPIRATORY: Denies shortness of breath, cough, congestion or hemoptysis. GASTROINTESTINAL: Positive for poor appetite, denies abdominal pain GENITOURINARY: Denies hematuria, denies infections. MUSKULOSKELETAL: Denies pain, denies swelling. INTEGUMENTARY: Denies rash, denies eczema. NEUROLOGICAL: Denies recent memory loss, no recent seizure activity. PSYCHIATRIC: Denies anxiety, denies depression. HEMATOLOGIC/LYMPHATIC: Positive for anemia. Past Medical History Past Medical History: Cancer Additional Past Medical History / Comment(s): LEFT CHEST DISCOMFORT RECENTLY., chemo 01/06/23. Radiation started beginning on December 2022. History of Any Multi-Drug Resistant Organisms: None Reported Past Surgical History: Adenoidectomy, Hysterectomy, Tonsillectomy Additional Past Surgical History / Comment(s): D& C. Past Anesthesia/Blood Transfusion Reactions: No Reported Reaction Past Psychological History: No Psychological Hx Reported Smoking Status: Never smoker Past Alcohol Use History: Occasional Additional Past Alcohol Use History / Comment(s): before diagnosis pt states she would occasionally have a glass of wine. Past Drug Use History: None Reported Medications and Allergies Home Medications Medication Instructions Recorded Confirmed Type Cholecalciferol [Vitamin D3 (25 1,000 unit PO DAILY 11/21/22 01/13/23 History Mcg = 1000 Iu)] Latanoprost/Pf [Latanoprost 0.005% 1 drop BOTH EYES HS 11/21/22 01/13/23 History Eye Drop] Ondansetron Odt [Zofran Odt] 4 mg PO Q8HR PRN 7 Days #21 tab 12/06/22 01/13/23 Rx Calcium Carbonate [Calcium] 600 mg PO DAILY 01/13/23 01/13/23 History Folic Acid 1 mg PO DAILY 01/13/23 01/13/23 History HYDROmorphone [Dilaudid] 2 mg PO Q6H 01/13/23 01/13/23 History LORazepam [Ativan] 1 tab PO HS PRN 01/13/23 01/13/23 History Allergies Allergy/AdvReac Type Severity Reaction Status Date / Time No Known Allergies Allergy Verified 01/13/23 12:23 Physical Exam Vitals: Vital Signs Temp Pulse Pulse Resp BP BP Pulse Ox 01/14/23 10:07 97.6 F 118 H 16 101/68 97 01/14/23 09:47 97.5 F L 118 H 16 91/54 97 01/14/23 09:37 97.3 F L 115 H 16 101/66 97 01/14/23 07:19 97.5 F L 114 H 18 106/69 98 06/27/23 01:37 98.2 F 127 H 18 133/79 93 L 01/14/23 00:21 121 H 01/13/23 23:26 98.3 F 121 H 18 111/70 92 L 01/13/23 22:56 97.6 F 123 H 16 131/75 95 01/13/23 22:00 115 H 20 140/62 94 L 01/13/23 21:05 97.5 F L 128 H 16 154/82 94 L 01/13/23 21:00 125 H 18 116/58 95 01/13/23 20:00 113 H 18 112/68 99 01/13/23 19:00 120 H 18 114/68 97 01/13/23 18:50 98.0 F 116 H 18 112/68 97 01/13/23 18:30 9.9 F L 128 H 18 135/76 97 01/13/23 18:20 98.2 F 130 H 18 137/75 01/13/23 18:03 98.0 F 125 H 18 136/67 97 01/13/23 17:00 116 H 28 H 119/59 96 01/13/23 16:23 114 H 16 112/64 98 01/13/23 16:00 115 H 26 H 108/56 98 01/13/23 15:30 98.3 F 116 H 16 104/41 98 01/13/23 15:10 97.4 F L 122 H 16 110/60 96 01/13/23 15:00 98 F 121 H 29 H 115/58 94 L 01/13/23 14:00 121 H 22 124/62 01/13/23 13:23 121 H 18 124/62 98 01/13/23 13:00 123 H 23 01/13/23 12:00 122 H 27 H Intake and Output 01/13/23 01/14/23 01/14/23 22:59 06:59 14:59 Intake Total 558 0 0 Balance 558 0 0 Intake: Oral 0 Blood Product 558 0 Unit 0 Rc Pheresis 2 As3 Unit 282 [id number] Rc Pheresis As-3 Unit 276 [id number] Other: Voiding Method Toilet Toilet # Voids 2 Weight 72.575 kg GENERAL EXAM: Alert, pale, weak 67-year-old female, on room air, fairly comfortable in no apparent distress. HEAD: Normocephalic. EYES: Normal reaction of pupils, equal size. NOSE: Clear with pink turbinates. THROAT: No erythema or exudates. NECK: No masses, no JVD. CHEST: No chest wall deformity. LUNGS: Equal air entry with crackles in the left lung base, diminished. CVS: S1 and S2 normal with no audible murmur, regular rhythm. ABDOMEN: No hepatosplenomegaly, normal bowel sounds, no guarding or rigidity. SPINE: No scoliosis or deformity SKIN: No rashes CENTRAL NERVOUS SYSTEM: No focal deficits, tone is normal in all 4 extremities. EXTREMITIES: There is 1+ peripheral edema. No clubbing, no cyanosis. Perip heral pulses are intact. Results - Laboratory Findings CBC and BMP: 01/14/23 06:54 01/13/23 11:03 PT/INR, D-dimer PT 12.0 sec (9.0-12.0) 01/13/23 11:03 INR 1.2 (<1.2) H 01/13/23 11:03 D-Dimer 2.48 mg/L FEU (<0.60) H 01/13/23 11:03 Abnormal lab findings: Abnormal Labs 01/13/23 01/13/23 01/13/23 11:03 11:03 11:03 WBC 0.9 L* RBC 1.77 L Hgb 5.4 L* D Hct 16.6 L* RDW Plt Count 70 L D INR 1.2 H D-Dimer Sodium 131 L Calcium 7.1 L Iron TIBC % Saturation Transferrin Total Protein 4.8 L Albumin 2.6 L Urine Ketones Stool Occult Blood Crossmatch 01/13/23 01/13/23 01/13/23 11:03 13:00 13:08 WBC RBC Hgb Hct RDW Plt Count INR D-Dimer 2.48 H Sodium Calcium Iron TIBC % Saturation Transferrin Total Protein Albumin Urine Ketones Stool Occult Blood Positive H Crossmatch See Detail 01/13/23 01/14/23 01/14/23 13:23 06:46 06:54 WBC 0.6 L* RBC 2.17 L Hgb 6.6 L* Hct 19.8 L* RDW 17.1 H Plt Count 48 L INR D-Dimer Sodium Calcium Iron 23 L TIBC 209 L % Saturation 11.00 L Transferrin 149.0 L Total Protein Albumin Urine Ketones 1+ H Stool Occult Blood Crossmatch - Diagnostic Findings Chest x-ray: image reviewed CT scan - chest: image reviewed Assessment and Plan Assessment: Generalized weakness, fatigue, dizziness secondary to pancytopenia secondary to chemotherapy. Initiated on chemotherapy/immunotherapy 01/06/2023. Possibly carboplatin, Alimta and Keytruda Pancytopenia with presenting hemoglobin 5.5, white count 0.6, platelets 48,000. Status post 3 units of packed red blood cells thus far. Receiving Zarxio Recurrent left-sided pleural effusion measuring 12.5 cm on ultrasound today Recent diagnosis of stage IV adenocarcinoma of suspected pulmonary primary with skeletal metastasis status post radiation Left-sided pleural effusion status post thoracentesis on 11/21/2022 with 600 ML's of fluid removed positive for pulmonary adenocarcinoma, a rare type of non- small cell lung cancer Lifelong nonsmoker Plan: The patient was seen and evaluated Chest x-ray, CT angiogram, labs and medications reviewed Ordered a third unit of packed red blood cells Patient has been initiated on Zarxio Ultrasound of the chest ordered and reviewed We'll plan for left-sided thoracentesis today Currently stable and on room air We will continue to follow and make further recommendations based on her clinical status I have personally seen and examined the patient, performed the documentation and the assessment and plan as written. Number of minutes spent on the visit: 20.
[2023-01-14] MEDS: polyethylene glycoL 3350 17 GM POWD.PACK PO SCH (12:34)
--- NOTE | 2023-01-14 13:36 | P.HPIM ---
History of Present Illness H&P Date: 01/14/23 History of present illness; patient is a 67-year-old lady with history of lung cancer on chemotherapy who presented to The ER because of generalized weakness. Patient stated that she started her chemotherapy recently but ever since her first session she is becoming me more and more weak. Denies any fever, denies any cough. Denies any nausea or vomiting. Did complain of blood in her stool. Patient is also complaining of swelling of her lower extremities that started after chemotherapy. Because of this generalized weakness, patient came to the ER, initial lab work done showed sodium 137, potassium 4.2, BUN 10, creatinine 0.52, CT chest done showed moderate loculated appearing left pleural effusion Patient was admitted to medicine service for further evaluation and treat REVIEW OF SYSTEMS: CONSTITUTIONAL: As mentioned in HPI HEENT: No recent visual problems or hearing problems. Denied any sore throat. CARDIOVASCULAR: No chest pain, orthopnea, PND, no palpitations, no syncope. PULMONARY: no cough, no hemoptysis. Complaining of shortness of breath on exertion GASTROINTESTINAL: No diarrhea, no nausea, no vomiting, no abdominal pain. Complaining of blood in stools NEUROLOGICAL: No headaches, no weakness, no numbness. HEMATOLOGICAL: Denies any bleeding or petechiae. GENITOURINARY: Denies any burning micturition, frequency, or urgency. MUSCULOSKELETAL/RHEUMATOLOGICAL: Denies any joint pain, or any muscle pain. ENDOCRINE: Denies any polyuria or polydipsia. The rest of the 14-point review of systems is negative. PHYSICAL EXAMINATION: GENERAL: The patient is alert and oriented x3, chronically ill-looking. HEENT: Pupils are round and equally reacting to light. EOMI. No scleral icterus. No conjunctival pallor. Normocephalic, atraumatic. No pharyngeal erythema. No thyromegaly. CARDIOVASCULAR: S1 and S2 present. No murmurs, rubs, or gallops. PULMONARY: Chest is clear to auscultation, no wheezing or crackles. ABDOMEN: Soft, nontender, nondistended, normoactive bowel sounds. No palpable organomegaly. MUSCULOSKELETAL: No joint swelling or deformity. EXTREMITIES: No cyanosis, clubbing. 1+ pitting edema lower extremities NEUROLOGICAL: Gross neurological examination did not reveal any focal deficits. SKIN: No rashes. Assessment and plan Pancytopenia secondary to chemotherapy Recurrent left-sided pleural effusion Recent diagnosis of stage IV adenocarcinoma of suspected pulmonary primary with skeletal metastasis status post radiation Blood in stools Monitor vital signs Monitor CBC Monitor CMP Patient received 2 units of packed red blood cells on 01/13 in the ER FOBT positive, consult GI Continue IV fluid Continue antiemetics Continue pain management Consult hematology oncolog pulmonology consulted for left sided pleural effusion Past Medical History Past Medical History: Cancer Additional Past Medical History / Comment(s): LEFT CHEST DISCOMFORT RECENTLY., chemo 01/06/23. Radiation started beginning on December 2022. History of Any Multi-Drug Resistant Organisms: None Reported Past Surgical History: Adenoidectomy, Hysterectomy, Tonsillectomy Additional Past Surgical History / Comment(s): D& C. Past Anesthesia/Blood Transfusion Reactions: No Reported Reaction Past Psychological History: No Psychological Hx Reported Smoking Status: Never smoker Past Alcohol Use History: Occasional Additional Past Alcohol Use History / Comment(s): before diagnosis pt states she would occasionally have a glass of wine. Past Drug Use History: None Reported Medications and Allergies Home Medications Medication Instructions Recorded Confirmed Type Cholecalciferol [Vitamin D3 (25 1,000 unit PO DAILY 11/21/22 01/13/23 History Mcg = 1000 Iu)] Latanoprost/Pf [Latanoprost 0.005% 1 drop BOTH EYES HS 11/21/22 01/13/23 History Eye Drop] Ondansetron Odt [Zofran Odt] 4 mg PO Q8HR PRN 7 Days #21 tab 12/06/22 01/13/23 Rx Calcium Carbonate [Calcium] 600 mg PO DAILY 01/13/23 01/13/23 History Folic Acid 1 mg PO DAILY 01/13/23 01/13/23 History HYDROmorphone [Dilaudid] 2 mg PO Q6H 01/13/23 01/13/23 History LORazepam [Ativan] 1 tab PO HS PRN 01/13/23 01/13/23 History Allergies Allergy/AdvReac Type Severity Reaction Status Date / Time No Known Allergies Allergy Verified 01/13/23 12:23 Physical Exam Vitals: Vital Signs Temp Pulse Pulse Resp BP BP Pulse Ox 01/14/23 10:07 97.6 F 118 H 16 101/68 97 01/14/23 09:47 97.5 F L 118 H 16 91/54 97 01/14/23 09:37 97.3 F L 115 H 16 101/66 97 01/14/23 07:19 97.5 F L 114 H 18 106/69 98 01/14/23 01:37 98.2 F 127 H 18 133/79 93 L 01/14/23 00:21 121 H 01/13/23 23:26 98.3 F 121 H 18 111/70 92 L 01/13/23 22:56 97.6 F 123 H 16 131/75 95 01/13/23 22:00 115 H 20 140/62 94 L 01/13/23 21:05 97.5 F L 128 H 16 154/82 94 L 01/13/23 21:00 125 H 18 116/58 95 01/13/23 20:00 113 H 18 112/68 99 01/13/23 19:00 120 H 18 114/68 97 01/13/23 18:50 98.0 F 116 H 18 112/68 97 01/13/23 18:30 9.9 F L 128 H 18 135/76 97 01/13/23 18:20 98.2 F 130 H 18 137/75 01/13/23 18:03 98.0 F 125 H 18 136/67 97 01/13/23 17:00 116 H 28 H 119/59 96 01/13/23 16:23 114 H 16 112/64 98 01/13/23 16:00 115 H 26 H 108/56 98 01/13/23 15:30 98.3 F 116 H 16 104/41 98 01/13/23 15:10 97.4 F L 122 H 16 110/60 96 01/13/23 15:00 98 F 121 H 29 H 115/58 94 L 01/13/23 14:00 121 H 22 124/62 01/13/23 13:23 121 H 18 124/62 98 01/13/23 13:00 123 H 23 01/13/23 12:00 122 H 27 H 01/13/23 11:00 125 H 29 H Intake and Output 01/13/23 01/14/23 01/14/23 22:59 06:59 14:59 Intake Total 558 0 0 Balance 558 0 0 Intake: Oral 0 Blood Product 558 0 Unit 0 Rc Pheresis 2 As3 Unit 282 [id number] Rc Pheresis As-3 Unit 276 [id number] Other: Voiding Method Toilet Toilet # Voids 2 Weight 72.575 kg Results CBC & Chem 7: 01/14/23 06:54 01/13/23 11:03 Labs: Abnormal Lab Results - Last 24 Hours (Table) 01/13/23 01/13/23 01/13/23 Range/Units 11:03 11:03 11:03 WBC 0.9 L* (3.8-10.6) k/uL RBC 1.77 L (3.80-5.40) m/uL Hgb 5.4 L* D (11.4-16.0) gm/dL Hct 16.6 L* (34.0-46.0) % RDW (11.5-15.5) % Plt Count 70 L D (150-450) k/uL INR 1.2 H (<1.2) D-Dimer (<0.60) mg/L FEU Sodium 131 L (137-145) mmol/L Calcium 7.1 L (8.4-10.2) mg/dL Total Protein 4.8 L (6.3-8.2) g/dL Albumin 2.6 L (3.5-5.0) g/dL Urine Ketones (Negative) Stool Occult Blood (Negative) Crossmatch 01/13/23 01/13/23 01/13/23 Range/Units 11:03 13:00 13:08 WBC (3.8-10.6) k/uL RBC (3.80-5.40) m/uL Hgb (11.4-16.0) gm/dL Hct (34.0-46.0) % RDW (11.5-15.5) % Plt Count (150-450) k/uL INR (<1.2) D-Dimer 2.48 H (<0.60) mg/L FEU Sodium (137-145) mmol/L Calcium (8.4-10.2) mg/dL Total Protein (6.3-8.2) g/dL Albumin (3.5-5.0) g/dL Urine Ketones (Negative) Stool Occult Blood Positive H (Negative) Crossmatch See Detail 06/26/23 06/27/23 Range/Units 13:23 06:54 WBC 0.6 L* (3.8-10.6) k/uL RBC 2.17 L (3.80-5.40) m/uL Hgb 6.6 L* (11.4-16.0) gm/dL Hct 19.8 L* (34.0-46.0) % RDW 17.1 H (11.5-15.5) % Plt Count 48 L (150-450) k/uL INR (<1.2) D-Dimer (<0.60) mg/L FEU Sodium (137-145) mmol/L Calcium (8.4-10.2) mg/dL Total Protein (6.3-8.2) g/dL Albumin (3.5-5.0) g/dL Urine Ketones 1+ H (Negative) Stool Occult Blood (Negative) Crossmatch Thrombosis Risk Factor Assmnt - Choose All That Apply Each Factor Represents 1 point: Swollen legs (current) Each Risk Factor Represents 2 Points: Age 61-74 years, Malignancy Other congenital or acquired thrombophilia - If yes, enter type in comment: No Thrombosis Risk Factor Assessment Total Risk Factor Score: 5 Thrombosis Risk Factor Assessment Level: High Risk
--- NOTE | 2023-01-14 14:25 | P.CONS ---
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 Patient was having increased shortness of breath and weakness. She came in for further evaluation was noted to have a hemoglobin of 5.4. 2 units of blood was ordered and transfused. Patient had a repeat hemoglobin this morning of 6.6 with another unit ordered and currently transfusing. Patient denies being on any anticoagulation, no previous history of GI bleed. Patient did have positive occult stool in the emergency department. She states that she has been having significant amount of constipation with only very small bowel movements due to getting Dilaudid regularly. She states last week she had a very hard stool she noticed that it was dark but denies any further plaque tarry stool, no blood in her stool. Denies any abdominal pain, nausea or vomiting. She also states she's noticed some increased swelling in her lower extremities. She had an EGD and colonoscopy done in November of this year done by Dr. Fields with small ulcer noted in upper endoscopy and diverticulosis on colonoscopy. She states it was done at [facility] as part of screening for her lung cancer. Patient currently denies any shortness of breath or chest pain, states that she has just chest discomfort and back pain, no abdominal pain, nausea or vomiting. Had a bowel movement yesterday denies any blood. She had a CT angiogram of the chest reporting moderate loculated appearing left pleural effusion with adjacent atelectasis. Underlying neoplasm is not excluded. Follow-up recommended. No acute pulmonary embolism. Chest ultrasound moderate to large left pleural effusion. No right pleural ef fusion. Labs WBC 0.6 hemoglobin 6.6 hematocrit 19.8 platelet count 48 pounds and height are 1.2 d-dimer 2.4 sodium 131 potassium 4.2 BUN 10 creatinine 0.5 iron 23 TIBC 209 saturation 11 ferritin 5087 total bilirubin 0.8 AST 16 ALT 16 alkaline phosphatase 78, vitamin B12 747 and folate 11.8 Review of Systems REVIEW OF SYSTEMS: CARDIOPULMONARY: No chest pain, positive shortness of breath. Positive chest wall discomfort. Gastrointestinal: No abdominal pain. No nausea or vomiting. No hematemesis, coffee-ground emesis. No rectal bleeding, or melena. GENITOURINARY: No dysuria or hematuria. MUSCULOSKELETAL: Reports normal range of motion. Complains of back pain and rib pain. SKIN: No rashes. No jaundice. ENDOCRINE: No chills, fevers. No excessive weight gain or loss. No polydipsia or polyuria. PSYCHIATRIC: Unremarkable. NEUROLOGY: No change in mental status. Denies dizziness, headache. ENT: Vision unremarkable. CONSTITUTIONAL: No recent weight loss. No fever, chills, night sweats. Past Medical History Past Medical History: Cancer Additional Past Medical History / Comment(s): LEFT CHEST DISCOMFORT RECENTLY., chemo 01/06/23. Radiation started beginning on December 2022. History of Any Multi-Drug Resistant Organisms: None Reported Past Surgical History: Adenoidectomy, Hysterectomy, Tonsillectomy Additional Past Surgical History / Comment(s): D& C. Past Anesthesia/Blood Transfusion Reactions: No Reported Reaction Past Psychological History: No Psychological Hx Reported Smoking Status: Never smoker Past Alcohol Use History: Occasional Additional Past Alcohol Use History / Comment(s): before diagnosis pt states she would occasionally have a glass of wine. Past Drug Use History: None Reported Medications and Allergies Home Medications Medication Instructions Recorded Confirmed Type Cholecalciferol [Vitamin D3 (25 1,000 unit PO DAILY 11/21/22 01/13/23 History Mcg = 1000 Iu)] Latanoprost/Pf [Latanoprost 0.005% 1 drop BOTH EYES HS 11/21/22 01/13/23 History Eye Drop] Ondansetron Odt [Zofran Odt] 4 mg PO Q8HR PRN 7 Days #21 tab 12/06/22 01/13/23 Rx Calcium Carbonate [Calcium] 600 mg PO DAILY 01/13/23 01/13/23 History Folic Acid 1 mg PO DAILY 01/13/23 01/13/23 History HYDROmorphone [Dilaudid] 2 mg PO Q6H 01/13/23 01/13/23 History LORazepam [Ativan] 1 tab PO HS PRN 01/13/23 01/13/23 History Allergies Allergy/AdvReac Type Severity Reaction Status Date / Time No Known Allergies Allergy Verified 01/13/23 12:23 Physical Exam Vitals: Vital Signs Temp Pulse Pulse Resp BP BP Pulse Ox 01/14/23 10:07 97.6 F 118 H 16 101/68 97 01/14/23 09:47 97.5 F L 118 H 16 91/54 97 01/14/23 09:37 97.3 F L 115 H 16 101/66 97 01/14/23 07:19 97.5 F L 114 H 18 106/69 98 01/14/23 01:37 98.2 F 127 H 18 133/79 93 L 01/14/23 00:21 121 H 01/13/23 23:26 98.3 F 121 H 18 111/70 92 L 01/13/23 22:56 97.6 F 123 H 16 131/75 95 01/13/23 22:00 115 H 20 140/62 94 L 01/13/23 21:05 97.5 F L 128 H 16 154/82 94 L 01/13/23 21:00 125 H 18 116/58 95 01/13/23 20:00 113 H 18 112/68 99 01/13/23 19:00 120 H 18 114/68 97 01/13/23 18:50 98.0 F 116 H 18 112/68 97 01/13/23 18:30 9.9 F L 128 H 18 135/76 97 01/13/23 18:20 98.2 F 130 H 18 137/75 01/13/23 18:03 98.0 F 125 H 18 136/67 97 01/13/23 17:00 116 H 28 H 119/59 96 01/13/23 16:23 114 H 16 112/64 98 01/13/23 16:00 115 H 26 H 108/56 98 01/13/23 15:30 98.3 F 116 H 16 104/41 98 01/13/23 15:10 97.4 F L 122 H 16 110/60 96 01/13/23 15:00 98 F 121 H 29 H 115/58 94 L 01/13/23 14:00 121 H 22 124/62 01/13/23 13:23 121 H 18 124/62 98 01/13/23 13:00 123 H 23 01/13/23 12:00 122 H 27 H 01/13/23 11:00 125 H 29 H 01/13/23 10:45 31 H Intake and Output 01/13/23 01/14/23 01/14/23 22:59 06:59 14:59 Intake Total 558 0 0 Balance 558 0 0 Intake: Oral 0 Blood Product 558 0 Unit 0 Rc Pheresis 2 As3 Unit 282 [id number] Rc Pheresis As-3 Unit 276 [id number] Other: Voiding Method Toilet Toilet # Voids 2 Weight 72.575 kg General appearance: The patient is alert, oriented, appears in no acute distress. HET: Head is normocephalic and atraumatic. Conjunctiva pink. Sclera anicteric. Neck: Supple without lymphadenopathy. Trachea midline. Heart: S1 S2. Regular rate and rhythm. Lungs: Clear to auscultation. Abdomen: Soft, nontender, nondistended with bowel sounds. No guarding or rigidity. Skin: No rashes. No jaundice. Extremities: Normal skin color and turgor. No pedal edema. Neurological: No focal deficits. Alert and oriented x3. Results CBC & Chem 7: 01/14/23 06:54 01/13/23 11:03 Labs: Abnormal Lab Results - Last 24 Hours (Table) 01/13/23 01/13/23 01/13/23 Range/Units 11:03 11:03 11:03 WBC 0.9 L* (3.8-10.6) k/uL RBC 1.77 L (3.80-5.40) m/uL Hgb 5.4 L* D (11.4-16.0) gm/dL Hct 16.6 L* (34.0-46.0) % RDW (11.5-15.5) % Plt Count 70 L D (150-450) k/uL INR 1.2 H (<1.2) D-Dimer (<0.60) mg/L FEU Sodium 131 L (137-145) mmol/L Calcium 7.1 L (8.4-10.2) mg/dL Total Protein 4.8 L (6.3-8.2) g/dL Albumin 2.6 L (3.5-5.0) g/dL Urine Ketones (Negative) Stool Occult Blood (Negative) Crossmatch 01/13/23 01/13/23 01/13/23 Range/Units 11:03 13:00 13:08 WBC (3.8-10.6) k/uL RBC (3.80-5.40) m/uL Hgb (11.4-16.0) gm/dL Hct (34.0-46.0) % RDW (11.5-15.5) % Plt Count (150-450) k/uL INR (<1.2) D-Dimer 2.48 H (<0.60) mg/L FEU Sodium (137-145) mmol/L Calcium (8.4-10.2) mg/dL Total Protein (6.3-8.2) g/dL Albumin (3.5-5.0) g/dL Urine Ketones (Negative) Stool Occult Blood Positive H (Negative) Crossmatch See Detail 01/13/23 01/14/23 Range/Units 13:23 06:54 WBC 0.6 L* (3.8-10.6) k/uL RBC 2.17 L (3.80-5.40) m/uL Hgb 6.6 L* (11.4-16.0) gm/dL Hct 19.8 L* (34.0-46.0) % RDW 17.1 H (11.5-15.5) % Plt Count 48 L (150-450) k/uL INR (<1.2) D-Dimer (<0.60) mg/L FEU Sodium (137-145) mmol/L Calcium (8.4-10.2) mg/dL Total Protein (6.3-8.2) g/dL Albumin (3.5-5.0) g/dL Urine Ketones 1+ H (Negative) Stool Occult Blood (Negative) Crossmatch Assessment and Plan (1) Anemia Narrative/Plan: This is an 59-year-old female with recent diagnosis of 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 Patient was noted to be severely anemic on admission with a hemoglobin of 5.4, as well as being pancytopenic. She is on chronic pain management and has had severe constipation causing hard stools and straining. States that last week she has only had possible Seybert dark but she reports no rectal bleeding. She did undergo EGD and colonoscopy as part of screening for her cancer workup in November of this year with Dr. Fields. Reports currently unavailable. Patient did have a positive occult stool however patient also has been having significant constipation and straining could be related to hemorrhoid or fissure. No other reports of blood in her stool. Continue with transfusion and recommendations from oncology. We'll defer endoscopic evaluation at this time continue to transfuse for hemoglobin less than 7. Current Visit: Yes Status: Acute Code(s): D64.9 - ANEMIA, UNSPECIFIED SNOMED Code(s): 185277310 (2) Pancytopenia Current Visit: Yes Status: Acute Code(s): D61.818 - OTHER PANCYTOPENIA SNOMED Code(s): 364930836 (3) Adenocarcinoma of lung, stage 4 Current Visit: Yes Status: Acute Code(s): C34.90 - MALIGNANT NEOPLASM OF UNSP PART OF UNSP BRONCHUS OR LUNG SNOMED Code(s): 625933767 (4) Constipation Narrative/Plan: MiraLAX added daily, can titrate to increase to twice a day if needed Current Visit: Yes Status: Acute Code(s): K59.00 - CONSTIPATION, UNSPECIFIED SNOMED Code(s): 14015481 (5) Positive fecal occult blood test Current Visit: Yes Status: Acute Code(s): R19.5 - OTHER FECAL ABNORMALITIES SNOMED Code(s): 73387130 Plan: 1. Continue symptomatic and supportive care 2. Diet as tolerated 3. Daily CBC, transfuse for hemoglobin less than 7 4. MiraLAX daily, can titrate up to twice a day if needed 5. We'll defer endoscopic evaluation at this time and await recommendations from oncology patient had recent EGD and colonoscopy done last month. 6. Await recommendations from hematology/oncology Thank you for this consultation, we will continue to follow. Dr. Eder Fields I agree with the dictator's note, documented as a scribe by Huong Fuentes.
--- NOTE | 2023-01-14 14:46 | XR ---
EXAMINATION TYPE: XR chest 1V portable DATE OF EXAM: 01/14/2023 2:37 PM COMPARISON: Chest radiographs from 11/21/2022 TECHNIQUE: XR chest 1V portable Frontal view of the chest. CLINICAL INDICATION:Female, 67 years old with history of post thoracentesis; FINDINGS: Lungs/Pleura: Small left pleural effusion associated atelectasis. There is no evidence of pleural eff usion, focal consolidation, or pneumothorax. Pulmonary vascularity: Unremarkable. Heart/mediastinum: Cardiomediastinal silhouette is unremarkable. Musculoskeletal: No acute osseous pathology. IMPRESSION: No evidence for pneumothorax, status post left thoracentesis. Persistent small left pleural effusion.
--- NOTE | 2023-01-14 15:54 | OP ---
OPERATIVE REPORT DATE OF SERVICE : PROCEDURE PERFORMED: Left-sided thoracentesis. PREOPERATIVE DIAGNOSIS: Malignant pleural effusion. POSTOPERATIVE DIAGNOSIS: Malignant pleural effusion. ANESTHESIA USED: 2 mL of 1% lidocaine. DESCRIPTION OF PROCEDURE: The patient was placed in a sitting upright position, and the area below the left scapula was prepared in a sterile fashion, and drapes were applied. The area was earlier localized by ultrasound, and the marking was placed roughly at the level of the 8th intercostal space and tip of the scapula. The area was anesthetized locally with lidocaine. Then, a small tiny stab wound was made. A 26-gauge needle was inserted at that site and advanced into the pleural space until the fluid was localized. Then, a standard thoracentesis catheter was inserted at the same site and advanced into the pleural space. As soon as the fluid was obtained, the catheter was advanced out of the needle into the pleural space, and the needle was pulled out of the pleural space. Freely flowing fluid was removed, roughly 1050 mL of carline-colored fluid was removed from the pleural space. Procedure was well tolerated. No complications. Chest x-ray showed no pneumothorax post thoracentesis. The fluid was discarded and was not sent for any diagnostic studies since the diagnosis was made previously on her pleural effusion. MMODL / IJN: [id number] /
[2023-01-14] MEDS: SALT AND SODA MOUTHWASH 1,000 ML PO SCH ×2 (17:50→22:31)
[2023-01-14] MEDS ORDERED: FILGRASTIM-SNDZ 480 MCG/0.8 ML SYRINGE SQ SCH (18:00)
--- NOTE | 2023-01-14 18:09 | P.CONS ---
History of Present Illness - Reason for Consult Consult date: 01/14/23 On treatment for NSCLC Requesting physician: Gabe Iyer - Chief Complaint SOB - History of Present Illness Mrs. Mcelroy is a female patient of Dr. Kang with a benign past medical history, recently diagnosed with NSCLC. Currently admitted for SOB, generalized body pain, weakness, persistent over last 2-3 days, reports that she has felt bad since treatment 8 days ago. She had associated symptoms of loss of appetite, very dry mouth, dry cough, bilateral lower extremity swelling. She reported some bright red blood with stool, she has been constipated, thought it was related to hemorrhoids, denied hematochezia or melena. Her shortness of breath is stable. Denied fevers, chills, chest pain, abdominal pain or distention, dysuria, hematuria, rashes, unusual bruising or petechiae. Patient went to her PCP with complaints of progressive cough and dyspnea x few weeks, she had a chest x-ray, referred for a CT chest due to elevated d-dimer, done at [facility]. This found 3.5 cm left pleural effusion, left infrahilar mass with postobstructive changes. 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 12/06/22 staging PET scan showed uptake in the left lung, left pleura and suspicious bone lesions at T7, L2, 12 posterior rib, left sacrum, right pubic ramus. EGD and colonoscopy were negative, gastric biopsy was ultimately benign. PDL 1, HER-2 were negative, TYRONE, NGS and liquid biopsy negative for targetable mutation. Patient was experiencing pain so, she received palliative radiation to sacrum and T7. She completed that around 01/01. She received her first cycle of Alimta and keytruda 01/06. Review of Systems 10 point review of systems is negative except as stated in HPI Past Medical History Past Medical History: Cancer Additional Past Medical History / Comment(s): LEFT CHEST DISCOMFORT RECENTLY., chemo 01/06/23. Radiation started beginning on December 2022. History of Any Multi-Drug Resistant Organisms: None Reported Past Surgical History: Adenoidectomy, Hysterectomy, Tonsillectomy Additional Past Surgical History / Comment(s): D& C. Past Anesthesia/Blood Transfusion Reactions: No Reported Reaction Past Psychological History: No Psychological Hx Reported Smoking Status: Never smoker Past Alcohol Use History: Occasional Additional Past Alcohol Use History / Comment(s): before diagnosis pt states she would occasionally have a glass of wine. Past Drug Use History: None Reported - Past Family History Father Family Medical History: No Reported History Mother Family Medical History: No Reported History Medications and Allergies Home Medications Medication Instructions Recorded Confirmed Type Cholecalciferol [Vitamin D3 (25 1,000 unit PO DAILY 11/21/22 01/13/23 History Mcg = 1000 Iu)] Latanoprost/Pf [Latanoprost 0.005% 1 drop BOTH EYES HS 11/21/22 01/13/23 History Eye Drop] Ondansetron Odt [Zofran Odt] 4 mg PO Q8HR PRN 7 Days #21 tab 12/06/22 01/13/23 Rx Calcium Carbonate [Calcium] 600 mg PO DAILY 01/13/23 01/13/23 History Folic Acid 1 mg PO DAILY 01/13/23 01/13/23 History HYDROmorphone [Dilaudid] 2 mg PO Q6H 01/13/23 01/13/23 History LORazepam [Ativan] 1 tab PO HS PRN 01/13/23 01/13/23 History Allergies Allergy/AdvReac Type Severity Reaction Status Date / Time No Known Allergies Allergy Verified 01/13/23 12:23 Physical Exam Vitals: Vital Signs Temp Pulse Pulse Resp BP BP Pulse Ox 01/14/23 10:07 97.6 F 118 H 16 101/68 97 01/14/23 09:47 97.5 F L 118 H 16 91/54 97 01/14/23 09:37 97.3 F L 115 H 16 101/66 97 01/14/23 07:19 97.5 F L 114 H 18 106/69 98 01/14/23 01:37 98.2 F 127 H 18 133/79 93 L 01/14/23 00:21 121 H 01/13/23 23:26 98.3 F 121 H 18 111/70 92 L 01/13/23 22:56 97.6 F 123 H 16 131/75 95 01/13/23 22:00 115 H 20 140/62 94 L 01/13/23 21:05 97.5 F L 128 H 16 154/82 94 L 01/13/23 21:00 125 H 18 116/58 95 01/13/23 20:00 113 H 18 112/68 99 01/13/23 19:00 120 H 18 114/68 97 01/13/23 18:50 98.0 F 116 H 18 112/68 97 01/13/23 18:30 9.9 F L 128 H 18 135/76 97 01/13/23 18:20 98.2 F 130 H 18 137/75 01/13/23 18:03 98.0 F 125 H 18 136/67 97 01/13/23 17:00 116 H 28 H 119/59 96 01/13/23 16:23 114 H 16 112/64 98 01/13/23 16:00 115 H 26 H 108/56 98 01/13/23 15:30 98.3 F 116 H 16 104/41 98 01/13/23 15:10 97.4 F L 122 H 16 110/60 96 01/13/23 15:00 98 F 121 H 29 H 115/58 94 L 01/13/23 14:00 121 H 22 124/62 01/13/23 13:23 121 H 18 124/62 98 01/13/23 13:00 123 H 23 01/13/23 12:00 122 H 27 H 01/13/23 11:00 125 H 29 H 01/13/23 10:45 31 H Intake and Output 01/13/23 01/14/23 01/14/23 22:59 06:59 14:59 Intake Total 558 0 0 Balance 558 0 0 Intake: Oral 0 Blood Product 558 0 Unit 0 Rc Pheresis 2 As3 Unit 282 [id number] Rc Pheresis As-3 Unit 276 [id number] Other: Voiding Method Toilet Toilet # Voids 2 Weight 72.575 kg - Constitutional General appearance: average body habitus, cooperative, no acute distress - EENT Dry mucous membranes, no ulcerations or thrush Eyes: anicteric sclerae, EOMI ENT: hearing grossly normal - Neck Neck: no lymphadenopathy - Respiratory Respiratory: right: CTA, left: diminished - Cardiovascular Rhythm: regular Heart sounds: normal: S1, S2 Abnormal Heart Sounds: no systolic murmur, no diastolic murmur, no rub, no S3 Gallop, no S4 Gallop, no click, no other leg Peripheral Edema: bilateral: 1+ (Nonpitting) - Gastrointestinal General gastrointestinal: no absent bowel sounds, no decreased bowel sounds, no distended, no hepatomegaly, no hyperactive bowel sounds, normal bowel sounds, no organomegaly, no rigid, no scaphoid, soft, no splenomegaly, no tenderness, no umbilical hernia, no ventral hernia - Integumentary Integumentary: normal - Neurologic Neurologic: CNII-XII intact - Musculoskeletal Musculoskeletal: strength equal bilaterally - Psychiatric Psychiatric: A&O x's 3, appropriate affect, intact judgment & insight Results CBC & Chem 7: 01/14/23 06:54 01/13/23 11:03 Labs: Abnormal Lab Results - Last 24 Hours (Table) 01/13/23 01/13/23 01/13/23 Range/Units 11:03 11:03 11:03 WBC 0.9 L* (3.8-10.6) k/uL RBC 1.77 L (3.80-5.40) m/uL Hgb 5.4 L* D (11.4-16.0) gm/dL Hct 16.6 L* (34.0-46.0) % RDW (11.5-15.5) % Plt Count 70 L D (150-450) k/uL INR 1.2 H (<1.2) D-Dimer (<0.60) mg/L FEU Sodium 131 L (137-145) mmol/L Calcium 7.1 L (8.4-10.2) mg/dL Total Protein 4.8 L (6.3-8.2) g/dL Albumin 2.6 L (3.5-5.0) g/dL Urine Ketones (Negative) Stool Occult Blood (Negative) Crossmatch 01/13/23 01/13/23 01/13/23 Range/Units 11:03 13:00 13:08 WBC (3.8-10.6) k/uL RBC (3.80-5.40) m/uL Hgb (11.4-16.0) gm/dL Hct (34.0-46.0) % RDW (11.5-15.5) % Plt Count (150-450) k/uL INR (<1.2) D-Dimer 2.48 H (<0.60) mg/L FEU Sodium (137-145) mmol/L Calcium (8.4-10.2) mg/dL Total Protein (6.3-8.2) g/dL Albumin (3.5-5.0) g/dL Urine Ketones (Negative) Stool Occult Blood Positive H (Negative) Crossmatch See Detail 01/13/23 01/14/23 Range/Units 13:23 06:54 WBC 0.6 L* (3.8-10.6) k/uL RBC 2.17 L (3.80-5.40) m/uL Hgb 6.6 L* (11.4-16.0) gm/dL Hct 19.8 L* (34.0-46.0) % RDW 17.1 H (11.5-15.5) % Plt Count 48 L (150-450) k/uL INR (<1.2) D-Dimer (<0.60) mg/L FEU Sodium (137-145) mmol/L Calcium (8.4-10.2) mg/dL Total Protein (6.3-8.2) g/dL Albumin (3.5-5.0) g/dL Urine Ketones 1+ H (Negative) Stool Occult Blood (Negative) Crossmatch Comments: Chest US report reviewed-marker for lt thoracentesis CT scan - chest: report reviewed (lt pl effusion, atelectasis, no PE) Assessment and Plan (1) Malaise and fatigue Current Visit: Yes Status: Acute Priority: High Code(s): R53.81 - OTHER MALAISE; R53.83 - OTHER FATIGUE SNOMED Code(s): 186000872 (2) Antineoplastic chemotherapy induced pancytopenia Current Visit: Yes Status: Acute Code(s): D61.810 - ANTINEOPLASTIC CHEMOTHERAPY INDUCED PANCYTOPENIA; T45.1X5A - ADVERSE EFFECT OF ANTINEOPLASTIC AND IMMUNOSUP DRUGS, INIT SNOMED Code(s): 755506310119835 (3) Adenocarcinoma of lung, stage 4 Current Visit: Yes Status: Acute Code(s): C34.90 - MALIGNANT NEOPLASM OF UNSP PART OF UNSP BRONCHUS OR LUNG SNOMED Code(s): 885969204 Plan: Malaise and fatigue -secondary to treatment, low counts, poor oral intake -She is receiving fluids -Patient reports that she ate breakfast this morning, tolerated well Chemotherapy induced pancytopenia -G-CSF started for a WBC of 0.6, no ANC. Continue until ANC is 1000 or higher -Hemoglobin 5.4 on admit. She has received 3 units of blood. Pending CBC in the a.m. to assess response. No gross bleeding reported. GI consulted. Transfuse for hemoglobin less than 7 -Platelets 48,000. Please hold aspirin, NSAIDs. Use SCDs for DVT prophylaxis. Metastatic non-small cell lung cancer -Palliative radiation to painful bone mets completed earlier this month -Patient is status post 1 cycle of chemotherapy/immunotherapy. -She had significant hematological toxicity after 1 treatment. Next cycle will be held until pt is fully recovered. F/U with Primary Onc before next cycle for evaluation and possible changes to therapy.
[2023-01-14] MEDS: LATANOPROST 0.005% OPHTH DROPS 2.5 ML BTL BOTH EYES SCH (22:31)
[2023-01-15] MEDS: SALT AND SODA MOUTHWASH 1,000 ML PO SCH ×5 (01:52→21:06)
[2023-01-15] MEDS: HYDROmorphone 2 MG TAB PO SCH ×4 (05:08→21:55)
[2023-01-15] MEDS: FOLIC ACID 1 MG TAB PO SCH (09:08)
[2023-01-15] MEDS: PANTOPRAZOLE 40 MG/10 ML VIAL IV SCH (09:08)
--- NOTE | 2023-01-15 10:40 | P.PN ---
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 She had undergone a thoracentesis on 11/26/2022 with 600 MLS removed and positive for malignancy. She has received radiation therapy to the skeletal system and the metastasis was involving the T7, L2 and posterior left ribs and sacrum of the right pubis. She then received a combination of carboplatinum, Alimta and Keytruda last week on 01/06/2023. She then developed extreme weakness, fatigue and dizziness and presented here to the emergency room yesterday. EKG revealed sinus rhythm. CT angiogram revealed a moderate loculated-appearing left pleural effusion with adjacent atelectasis. No acute pulmonary embolism. White count 0.9. Hemoglobin 5.4 on admission. Platelets 70,000. D-dimer 2.48. Sodium 131. Potassium 4.2. BUN 10. Creatinine 0.52. Stool for occult blood positive. She received 2 unit blood cells. She is seen today in consultation on the regular medical floor. She is currently sitting up in a chair at the bedside. Still remains quite weak. Quite pale. Morning labs revealed a WBC of 0.6. Hemoglobin 6.6. Platelets 48,000. Ultrasound revealed a moderate to large left pleural effusion measuring 12.5 cm. She currently denies any worsening shortness of breath, cough or congestion. She is maintaining O2 saturations in the 90s on room air. She's afebrile. Slightly tachycardic. Blood pressure stable. The patient is seen today 01/15/2023 in follow-up on the regular medical floor. She is currently sitting up in a chair at the bedside. Awake and alert in no acute distress. Feeling a bit better today compared to yesterday. Maintaining good O2 saturations in the mid to upper 90s on room air. Afebrile. Hemodynamically stable. She did undergo a left-sided thoracentesis yesterday with 1 L of cloudy yellow fluid removed. This was not sent for analysis again. Follow-up chest x-ray revealed improved aeration of the left lung. She is status post 3 units of packed red blood cells. Today's labs are still pending. She remains on Zarxio. Objective - Vital Signs Vital signs: Vital Signs Temp 98.4 F 01/15/23 07:12 Pulse 117 H 01/15/23 07:12 Resp 16 01/15/23 07:12 BP 109/70 01/15/23 07:12 Pulse Ox 100 01/15/23 07:12 FiO2 Intake & Output 01/14/23 01/15/23 01/15/23 18:59 06:59 18:59 Intake Total 790 Balance 790 Weight 72.575 kg Intake: Intake, IV Titration 240 Amount Sodium Chloride 0.9% 1, 240 000 ml @ 20 mls/hr IV . Q24H [facility] Rx#:[id number] Oral 240 Blood Product 310 Rc As-1 Unit 310 [id number] Other: Voiding Method Toilet Toilet # Voids 1 - Exam GENERAL EXAM: Alert, 67-year-old female, on room air, sitting up in a chair, fairly comfortable in no apparent distress. HEAD: Normocephalic. EYES: Normal reaction of pupils, equal size. NOSE: Clear with pink turbinates. THROAT: No erythema or exudates. NECK: No masses, no JVD. CHEST: No chest wall deformity. LUNGS: Equal air entry with crackles in the left lung base, diminished. CVS: S1 and S2 normal with no audible murmur, regular rhythm. ABDOMEN: No hepatosplenomegaly, normal bowel sounds, no guarding or rigidity. SPINE: No scoliosis or deformity SKIN: No rashes CENTRAL NERVOUS SYSTEM: No focal deficits, tone is normal in all 4 extremities. EXTREMITIES: There is 1+ peripheral edema. No clubbing, no cyanosis. Peripheral pulses are intact. - Labs CBC & Chem 7: 01/14/23 06:54 01/13/23 11:03 Labs: Abnormal Lab Results - Last 24 Hours (Table) 01/13/23 01/14/23 Range/Units 13:00 06:46 Iron 23 L (50-170) UG/DL TIBC 209 L (228-460) UG/DL % Saturation 11.00 L (12.00-45.00) Transferrin 149.0 L (204.0-354.0) mg/dL Ferritin 5087.0 H (10.0-291.0) ng/mL Crossmatch See Detail Assessment and Plan Assessment: Generalized weakness, fatigue, dizziness secondary to pancytopenia secondary to chemotherapy. Initiated on chemotherapy/immunotherapy 01/06/2023. Possibly carboplatin, Alimta and Keytruda Pancytopenia with presenting hemoglobin 5.5, white count 0.6, platelets 48,000. Status post 3 units of packed red blood cells thus far. Receiving Zarxio Recurrent left-sided pleural effusion status post left-sided thoracentesis on 0 01/14/2023 with 1 L of fluid removed Recent diagnosis of stage IV adenocarcinoma of pulmonary primary with skeletal metastasis status post radiation Left-sided pleural effusion status post thoracentesis on 11/21/2022 with 600 ML's of fluid removed positive for pulmonary adenocarcinoma, a rare type of non- small cell lung cancer Lifelong nonsmoker Plan: The patient was seen and evaluated Status post left-sided thoracentesis 01/14/2023 Chest x-ray showed improved aeration Medications reviewed Labs pending today Continued on Zarxio Currently stable and on room air We will continue to follow I have personally seen and examined the patient, performed the documentation and the assessment and plan as written. Number of minutes spent on the visit: 10.
[2023-01-15 11:04] LABS: ALT 13 U/L (8-44); AST 15 U/L (13-35); Albumin 2.8 d/dL (3.8-4.9); Albumin/Globulin Ratio 1.33 Ratio (1.60-3.17); Alkaline Phosphatase 73 U/L (41-126); BUN/Creat Ratio 13.67 Ratio (12.00-20.00); Blood Urea Nitrogen 8.2 mg/dL (9.0-27.0); Calcium 7.8 mg/dL (8.7-10.3); Carbon Dioxide 23.7 mmol/L (21.6-31.8); Chloride 104 mmol/L (96-109); Globulin 2.1 d/dL (1.6-3.3); Glucose 96 mg/dL (70-110); Potassium 3.7 mmol/L (3.5-5.5); Sodium 139 mmol/L (135-145); Total Bilirubin 0.9 mg/dL (0.3-1.2); Total Protein 4.9 d/dL (6.2-8.2)
[2023-01-15 11:56] LABS: Basophils # (M) 0 X 10*3/uL (0.00-0.10); HCT 27.8 % (37.2-46.3); Immature Platelet Fraction 7.7 % (1.1-6.1); MCH 29.6 pg (27.0-32.0); MCHC 32.4 d/dL (32.0-37.0); MCV 91.4 FL (80.0-97.0); Mean Platelet Volume 10.6 FL (9.5-12.2); NRBC Per 100 WBC 0.09 X 10*3/uL (0.00-0.01); Platelet Count 40 X 10*3/uL (140-440); RBC 3.04 X 10*6/uL (4.10-5.20); RDW 16.9 % (11.5-14.5); WBC 4.61 X 10*3/uL (4.50-10.00)
--- NOTE | 2023-01-15 15:12 | P.PN ---
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 Patient was having increased shortness of breath and weakness. She came in for further evaluation was noted to have a hemoglobin of 5.4. 2 units of blood was ordered and transfused. Patient had a repeat hemoglobin this morning of 6.6 with another unit ordered and currently transfusing. Patient denies being on any anticoagulation, no previous history of GI bleed. Patient did have positive occult stool in the emergency department. She states that she has been having significant amount of constipation with only very small bowel movements due to getting Dilaudid regularly. She states last week she had a very hard stool she noticed that it was dark but denies any further plaque tarry stool, no blood in her stool. Denies any abdominal pain, nausea or vomiting. She also states she's noticed some increased swelling in her lower extremities. She had an EGD and colonoscopy done in November of this year done by Dr. Fields with small ulcer noted in upper endoscopy and diverticulosis on colonoscopy. She states it was done at [facility] as part of screening for her lung cancer. Patient currently denies any shortness of breath or chest pain, states that she has just chest discomfort and back pain, no abdominal pain, nausea or vomiting. Had a bowel movement yesterday denies any blood. She had a CT angiogram of the chest reporting moderate loculated appearing left pleural effusion with adjacent atelectasis. Underlying neoplasm is not excluded. Follow-up recommended. No acute pulmonary embolism. Chest ultrasound moderate to large left pleural effusion. No right pleural ef fusion. 01/15/2023 Patient seen and examined today as a follow-up. Still complaints of any evidenc e of GI bleed. Denies abdominal pain, nausea or vomiting. Patient received a total of 3 units of blood. She states she is feeling better today. Oncology following closely. No acute changes through the night. Objective - Vital Signs Vital signs: Vital Signs Temp 98.4 F 01/15/23 07:12 Pulse 117 H 01/15/23 07:12 Resp 16 01/15/23 07:12 BP 109/70 01/15/23 07:12 Pulse Ox 100 01/15/23 07:12 FiO2 Intake & Output 01/14/23 01/15/23 01/15/23 18:59 06:59 18:59 Intake Total 790 Balance 790 Weight 72.575 kg Intake: Intake, IV Titration 240 Amount Sodium Chloride 0.9% 1, 240 000 ml @ 20 mls/hr IV . Q24H [facility] Rx#:[id number] Oral 240 Blood Product 310 Rc As-1 Unit 310 [id number] Other: Voiding Method Toilet Toilet # Voids 1 - Exam General appearance: The patient is alert, oriented, appears in no acute distress. HET: Head is normocephalic and atraumatic. Conjunctiva pink. Sclera anicteric. Neck: Supple without lymphadenopathy. Abdomen: Soft, nontender, nondistended with bowel sounds. No guarding or rigidity. Extremities: Normal skin color and turgor. No pedal edema Skin: No rashes, no jaundice Neurological: No focal deficits. Alert and oriented. 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 Patient was noted to be severely anemic on admission with a hemoglobin of 5.4, as well as being pancytopenic. She is on chronic pain management and has had severe constipation causing hard stools and straining. States that last week she has only had possible Seybert dark but she reports no rectal bleeding. She did undergo EGD and colonoscopy as part of screening for her cancer workup in November of this year with Dr. Fields. Reports currently unavailable. Patient did have a positive occult stool however patient also has been having significant constipation and straining could be related to hemorrhoid or fissure. No other reports of blood in her stool. Continue with transfusion and recommendations from oncology. We'll defer endoscopic evaluation at this time continue to transfuse for hemoglobin less than 7. Current Visit: Yes Status: Acute Code(s): D64.9 - ANEMIA, UNSPECIFIED SNOMED Code(s): 125795589 (2) Pancytopenia Current Visit: Yes Status: Acute Code(s): D61.818 - OTHER PANCYTOPENIA SNOMED Code(s): 096165918 (3) Adenocarcinoma of lung, stage 4 Current Visit: Yes Status: Acute Code(s): C34.90 - MALIGNANT NEOPLASM OF UNSP PART OF UNSP BRONCHUS OR LUNG SNOMED Code(s): 225119951 (4) Constipation Narrative/Plan: MiraLAX added daily, can titrate to increase to twice a day if needed Current Visit: Yes Status: Acute Code(s): K59.00 - CONSTIPATION, UNSPECIFIED SNOMED Code(s): 72989755 (5) Positive fecal occult blood test Current Visit: Yes Status: Acute Code(s): R19.5 - OTHER FECAL ABNORMALITIES SNOMED Code(s): 40218171 Plan: 1. Continue symptomatic and supportive care 2. Diet as tolerated 3. MiraLAX daily, can titrate up to twice a day if needed 4. We'll defer endoscopic evaluation at this time patient had recent EGD and co lonoscopy done last month. 5. Continue with recommendations from oncology Thank you for this consultation, we will sign off at this time. Dr. Eder Fields I agree with the dictator's note, documented as a scribe by Huong Fuentes.
[2023-01-15] MEDS: polyethylene glycoL 3350 17 GM POWD.PACK PO SCH (16:24)
--- NOTE | 2023-01-15 17:20 | P.PN ---
Subjective Progress Note Date: 01/15/23 Principal diagnosis: Severe anemia, chemotherapy induced pancytopenia In follow-up today patient reports feelingBetter. Denies any oral irritation, shortness of breath, she received some MiraLAX and had a good bowel movement, he denies any dark stool, no bright red blood. She had a 1050 cc left thoracentesis, no postprocedure complications. Objective - Vital Signs Vital signs: Vital Signs Temp 98.4 F 01/15/23 07:12 Pulse 117 H 01/15/23 07:12 Resp 16 01/15/23 07:12 BP 109/70 01/15/23 07:12 Pulse Ox 100 01/15/23 07:12 FiO2 Intake & Output 01/14/23 01/15/23 01/15/23 18:59 06:59 18:59 Intake Total 790 Balance 790 Weight 72.575 kg Intake: Intake, IV Titration 240 Amount Sodium Chloride 0.9% 1, 240 000 ml @ 20 mls/hr IV . Q24H [facility] Rx#:[id number] Oral 240 Blood Product 310 Rc As-1 Unit 310 [id number] Other: Voiding Method Toilet Toilet # Voids 1 - Constitutional General appearance: Present: average body habitus, cooperative, no acute distress - EENT Eyes: Present: anicteric sclerae, EOMI ENT: Present: hearing grossly normal - Respiratory Respiratory: right: CTA, left: wheezing (Left lower lobe) - Cardiovascular Rhythm: regular Heart sounds: normal: S1, S2 Abnormal Heart Sounds: Absent: systolic murmur, diastolic murmur, rub, S3 Gallop, S4 Gallop, click, other - Peripheral edema leg Peripheral Edema: bilateral: Trace - Integumentary Integumentary: Present: normal - Neurologic Neurologic: Present: CNII-XII intact - Musculoskeletal Musculoskeletal: Present: strength equal bilaterally - Psychiatric Psychiatric: Present: A&O x's 3, appropriate affect, intact judgment & insight - Labs CBC & Chem 7: 01/15/23 05:49 01/15/23 05:49 Labs: Abnormal Lab Results - Last 24 Hours (Table) 01/13/23 01/15/23 01/15/23 Range/Units 13:00 05:49 05:49 RBC 3.04 L (4.10-5.20) X 10*6/uL Hgb 9.0 L (12.0-15.0) d/dL Hct 27.8 L (37.2-46.3) % RDW 16.9 H (11.5-14.5) % Plt Count 40 L (140-440) X 10*3/uL NRBC/100 WBC Diff 0.09 H (0.00-0.01) X 10*3/uL Immature Plt Fraction 7.7 H (1.1-6.1) % BUN 8.2 L (9.0-27.0) mg/dL Calcium 7.8 L (8.7-10.3) mg/dL Total Protein 4.9 L (6.2-8.2) d/dL Albumin 2.8 L (3.8-4.9) d/dL Albumin/Globulin Ratio 1.33 L (1.60-3.17) Ratio Crossmatch See Detail Assessment and Plan (1) Malaise and fatigue Current Visit: Yes Status: Acute Priority: High Code(s): R53.81 - OTHER MALAISE; R53.83 - OTHER FATIGUE SNOMED Code(s): 665943060 (2) Antineoplastic chemotherapy induced pancytopenia Current Visit: Yes Status: Acute Code(s): D61.810 - ANTINEOPLASTIC CHEMOTHERAPY INDUCED PANCYTOPENIA; T45.1X5A - ADVERSE EFFECT OF ANTINEOPLASTIC AND IMMUNOSUP DRUGS, INIT SNOMED Code(s): 322878649601251 (3) Adenocarcinoma of lung, stage 4 Current Visit: Yes Status: Acute Code(s): C34.90 - MALIGNANT NEOPLASM OF UNSP PART OF UNSP BRONCHUS OR LUNG SNOMED Code(s): 286047716 Plan: Malaise and fatigue -secondary to treatment, low counts, poor oral intake -Patient doing much better today after blood transfusions, hydration Chemotherapy induced pancytopenia -WBC 4.6 today, no differential was done. Held G-CSF. CBC with differential in the a.m. -Hemoglobin 5.4 on admit. She has received 3 units of blood. Hemoglobin 9 this morning. Appropriate response to transfusions. -Platelets 40,000. Please hold aspirin, NSAIDs. Use SCDs for DVT prophylaxis. Metastatic non-small cell lung cancer -Palliative radiation to painful bone mets completed earlier this month -Patient is status post 1 cycle of chemotherapy/immunotherapy. -She had significant hematological toxicity after 1 treatment. Next cycle will be held until pt is fully recovered. F/U with Primary Onc before next cycle for evaluation and possible changes to therapy. -1050 cc left thoracentesis. Pleural fluid on the left side was positive previously. attests: I seen and examined patient, performed H&P, developed impression and plan of care. Discussed with dictator. Agree with documentation, dictated as a scribe.
[2023-01-15] MEDS: SODIUM CHLORIDE 0.9% 1,000 ML IV SCH ×2 (18:13→21:37)
[2023-01-15 18:21] LABS: Elliptocytes 2+; Eosinophils # (M) 0.05 X 10*3/uL (0.04-0.35); Lymphocytes # (M) 1.15 X 10*3/uL (0.90-5.00); Metamyelocytes % 1 % (0-0); Monocytes # (M) 0.74 X 10*3/uL (0.20-1.00); Neutrophils # (M) 2.63 X 10*3/uL (1.80-7.70); Neutrophils % (M) 57 %; Nucleated Red Blood Cells 5 /100 WBCS
[2023-01-15] MEDS: LATANOPROST 0.005% OPHTH DROPS 2.5 ML BTL BOTH EYES SCH (21:06)
[2023-01-16] MEDS: SALT AND SODA MOUTHWASH 1,000 ML PO SCH ×5 (02:18→20:49)
[2023-01-16] MEDS: HYDROmorphone 2 MG TAB PO SCH ×4 (05:18→21:58)
[2023-01-16 06:14] LABS: Glucose,Whole Blood 94 mg/dL (70-110)
[2023-01-16 06:43] LABS: Glucose,Whole Blood 105 mg/dL (70-110)
[2023-01-16 06:52] LABS: Anisocytosis Slight; HCT 31.5 % (34.0-46.0); HGB 10.7 gm/dL (11.4-16.0); Hypochromasia Slight; MCH 30.9 pg (25.0-35.0); MCHC 33.9 g/dL (31.0-37.0); Mean Platelet Volume 10.4; Poikilocytosis Slight; RBC 3.46 m/uL (3.80-5.40); RDW 16.1 % (11.5-15.5)
[2023-01-16 06:53] LABS: Platelet Count 37 k/uL (150-450)
[2023-01-16] MEDS ORDERED: ADENOSINE 3 MG/ML 2 ML VIAL IVP ONE (07:13)
--- NOTE | 2023-01-16 07:21 | XR ---
EXAMINATION TYPE: XR chest 1V portable DATE OF EXAM: 01/16/2023 7:11 AM COMPARISON: Chest radiographs from 01/14/2023 TECHNIQUE: XR chest 1V portable Portable AP radiograph of the chest. CLINICAL INDICATION:Female, 67 years old with history of Post thoracentesis; FINDINGS: Lungs/Pleura: Similar small left pleural effusion with associated atelectasis. No pneumothorax. Pulmonary vascularity: Unremarkable. Heart/mediastinum: Cardiomediastinal silhouette is prominent and stable. Musculoskeletal: No acute osseous pathology. IMPRESSION: Small left pleural effusion with associated atelectasis. No pneumothorax.
[2023-01-16 08:29] LABS: Eosinophils # (M) 0.09 k/uL (0-0.7); Neutrophils % (M) 84 %; Nucleated Red Blood Cells 2 /100 WBC (0-0); Total Cells Counted 200
[2023-01-16 08:30] LABS: Lymphocytes # (M) 0.88 k/uL (1.0-4.8); Monocytes # (M) 0.53 k/uL (0-1.0); Neutrophils # (M) 7.39 k/uL (1.3-7.7); WBC 8.8 k/uL (3.8-10.6)
[2023-01-16] MEDS ORDERED: AMIODARONE 360 MG in DEXTROSE 5% IN WATER 200 ML IV ONE ×2 (08:30)
[2023-01-16] MEDS ORDERED: DEXTROSE 5% IN WATER 100 ML with AMIODARONE 150 MG IV ONE (08:30)
[2023-01-16] MEDS: PANTOPRAZOLE 40 MG/10 ML VIAL IV SCH (09:16)
[2023-01-16] MEDS: FOLIC ACID 1 MG TAB PO SCH (09:20)
[2023-01-16] MEDS: polyethylene glycoL 3350 17 GM POWD.PACK PO SCH (09:21)
[2023-01-16 09:30] LABS: Magnesium 1.8 mg/dL (1.6-2.3)
--- NOTE | 2023-01-16 09:34 | P.PN ---
Subjective Progress Note Date: 01/15/23 Patient is evaluated today in the medical floor status post 3 units of packed red blood cells and hemoglobin today is stable at 9.0. Patient does report having a bowel movement that was not black tarry reports not having to strain as hard for BM after being started on MiraLAX. Pulmonary is following closely patient is status post left thoracentesis. She is currently resting comfortably on room air and is less short of breath ambulation. White count has improved up to 4.61 today. Sodium improved to 139. Folate and B12 normal. Remains tachycardic heart rate 120s. Review of Systems Constitutional: Denied any fatigue denied any fever. Cardio vascular: denied any chest pain, palpitations Gastrointestinal: denied any nausea, vomiting, diarrhea Pulmonary: Denied any shortness of breath cough Neurologic denied any new focal deficits All inpatient medications were reviewed and appropriate changes in these medications as dictated in the interval history and assessment and plan. PHYSICAL EXAMINATION: GENERAL: The patient is alert and oriented x3, not in any acute distress. Well developed, well nourished. HEENT: Pupils are round and equally reacting to light. EOMI. No scleral icterus. No conjunctival pallor. Normocephalic, atraumatic. No pharyngeal erythema. No thyromegaly. CARDIOVASCULAR: S1 and S2 present. No murmurs, rubs, or gallops. PULMONARY: Chest is clear to auscultation, no wheezing or crackles. ABDOMEN: Soft, nontender, nondistended, normoactive bowel sounds. No palpable organomegaly. MUSCULOSKELETAL: No joint swelling or deformity. EXTREMITIES: No cyanosis, clubbing, or pedal edema. NEUROLOGICAL: Gross neurological examination did not reveal any focal deficits. SKIN: No rashes. Assessment Pancytopenia secondary to chemotherapy Positive hemeoccult could be related to issues with chronic constipation Recurrent left-sided pleural effusion status post thoracentesis Acute hypoxic respiratory failure secondary to above improved and on room air Elevated D-Dimer with CTA negative for pulmonary embolism Recent diagnosis of stage IV adenocarcinoma of suspected pulmonary primary with skeletal metastasis status post radiation Chronic constipation GI prophylaxis protonix DVT prophylaxis mechanical with SCDs Full Code Plan Status post 3 units of PRBC this admission hemoglobin remains stable Patient has been weaned to room air GI consultation in place deferring endoscopic evaluation at this time recommending to transfuse for hemoglobin less than 7 Increase fluids to 55cc/hr Continue on bowel regimen with miralax and avoid straining with BM Pulmonary following Follow up AM labs monitor hemoglobin level The impression and plan of care has been dictated by Lali Wang, Nurse Practitioner as directed. Dr. Racquel MD I have performed a history and physical examination and medical decision making of this patient, discussed the same with the dictator, and agree with the dictators assessment and plan as written, documented as a scribe. Based on total visit time, I have performed more than 50% of this visit. Objective - Vital Signs Vital signs: Vital Signs Temp 98.8 F 01/15/23 12:55 Pulse 122 H 01/15/23 12:55 Resp 16 01/15/23 12:55 BP 122/75 01/15/23 12:55 Pulse Ox 99 01/15/23 12:55 FiO2 Intake & Output 01/14/23 01/15/23 01/15/23 18:59 06:59 18:59 Intake Total 790 Balance 790 Weight 72.575 kg Intake: Intake, IV Titration 240 Amount Sodium Chloride 0.9% 1, 240 000 ml @ 20 mls/hr IV . Q24H [facility] Rx#:[id number] Oral 240 Blood Product 310 Rc As-1 Unit 310 [id number] Other: Voiding Method Toilet Toilet # Voids 1 - Labs CBC & Chem 7: 01/16/23 06:16 01/15/23 05:49 Labs: Abnormal Lab Results - Last 24 Hours (Table) 01/13/23 01/15/23 01/15/23 Range/Units 13:00 05:49 05:49 RBC 3.04 L (4.10-5.20) X 10*6/uL Hgb 9.0 L (12.0-15.0) d/dL Hct 27.8 L (37.2-46.3) % RDW 16.9 H (11.5-14.5) % Plt Count 40 L (140-440) X 10*3/uL NRBC/100 WBC Diff 0.09 H (0.00-0.01) X 10*3/uL Immature Plt Fraction 7.7 H (1.1-6.1) % BUN 8.2 L (9.0-27.0) mg/dL Calcium 7.8 L (8.7-10.3) mg/dL Total Protein 4.9 L (6.2-8.2) d/dL Albumin 2.8 L (3.8-4.9) d/dL Albumin/Globulin Ratio 1.33 L (1.60-3.17) Ratio Crossmatch See Detail Assessment and Plan Time with Patient: Less than 30
--- NOTE | 2023-01-16 09:48 | US ---
EXAMINATION TYPE: US venous doppler duplex LE BI DATE OF EXAM: 01/16/2023 8:49 AM COMPARISON: NONE CLINICAL INDICATION: Female, 67 years old with history of ? DVT, edema; swelling, no h/o dvt, chemo p atient SIDE PERFORMED: Bilateral TECHNIQUE: The lower extremity deep venous system is examined utilizing real time linear array sonog viraj with graded compression, doppler sonography and color-flow sonography. VESSELS IMAGED: Common Femoral Vein Deep Femoral Vein Greater Saphenous Vein * Femoral Vein Popliteal Vein Small Saphenous Vein * Proximal Calf Veins (* superficial vessels) Grayscale, color doppler, spectral doppler imaging performed of the deep veins of the lower extremiti es. There is normal flow, compressibility, vascular waveforms. Right Leg: Negative for DVT Left Leg: Negative for DVT IMPRESSION: No ultrasound evidence for deep venous thrombosis of the bilateral lower extremities.
--- NOTE | 2023-01-16 10:58 | P.PN ---
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 She had undergone a thoracentesis on 11/26/2022 with 600 MLS removed and positive for malignancy. She has received radiation therapy to the skeletal system and the metastasis was involving the T7, L2 and posterior left ribs and sacrum of the right pubis. She then received a combination of carboplatinum, Alimta and Keytruda last week on 01/06/2023. She then developed extreme weakness, fatigue and dizziness and presented here to the emergency room yesterday. EKG revealed sinus rhythm. CT angiogram revealed a moderate loculated-appearing left pleural effusion with adjacent atelectasis. No acute pulmonary embolism. White count 0.9. Hemoglobin 5.4 on admission. Platelets 70,000. D-dimer 2.48. Sodium 131. Potassium 4.2. BUN 10. Creatinine 0.52. Stool for occult blood positive. She received 2 unit blood cells. She is seen today in consultation on the regular medical floor. She is currently sitting up in a chair at the bedside. Still remains quite weak. Quite pale. Morning labs revealed a WBC of 0.6. Hemoglobin 6.6. Platelets 48,000. Ultrasound revealed a moderate to large left pleural effusion measuring 12.5 cm. She currently denies any worsening shortness of breath, cough or congestion. She is maintaining O2 sa turations in the 90s on room air. She's afebrile. Slightly tachycardic. Blood pressure stable. The patient is seen today 01/15/2023 in follow-up on the regular medical floor. She is currently sitting up in a chair at the bedside. Awake and alert in no acute distress. Feeling a bit better today compared to yesterday. Maintaining good O2 saturations in the mid to upper 90s on room air. Afebrile. Hemodynamically stable. She did undergo a left-sided thoracentesis yesterday with 1 L of cloudy yellow fluid removed. This was not sent for analysis again. Follow-up chest x-ray revealed improved aeration of the left lung. She is status post 3 units of packed red blood cells. Today's labs are still pending. She remains on Zarxio. Patient was reevaluated today on 01/16/2023, patient had to be transferred to the ICU last night, mostly because she develops mostly cardiac arrhythmia in the form of supraventricular tachycardia.she was seen by cardiology on consultation, and now she is on amiodarone drip. Presently in sinus tachycardia,rate in the 125 range, hence am recommending a d-dimer today, also recommending a Doppler of the lower extremities, magnesium level, and thyroid profile. Considering low platelets, I'm not recommending a CT angiogram of the chest.clinically, the patient does not have the picture of acute pulmonary embolism.patient looks very comfortable, she is only on room air O2 saturations 99%.WBC count is 8.8 hemoglobin is 10.7.d-dimer is 2.49., magnesium level is 1.8. Objective - Vital Signs Vital signs: Vital Signs Temp 97.6 F 01/16/23 02:00 Pulse 102 H 01/16/23 10:00 Resp 16 01/16/23 10:00 BP 95/51 01/16/23 10:00 Pulse Ox 99 01/16/23 10:00 FiO2 Intake & Output 01/15/23 01/16/23 01/16/23 18:59 06:59 18:59 Intake Total 600 590 200 Output Total 400 Balance 600 590 -200 Intake: Intake, IV Titration 600 200 Amount Dextrose 5% in Water 100 100 ml @ 618 mls/hr IV .Q10M ONE with Amiodarone 150 mg Rx#:[id number] Sodium Chloride 0.9% 1, 600 100 000 ml @ 50 mls/hr IV . Q20H [facility] Rx#:[id number] Oral 590 Output: Urine 400 Other: Voiding Method Toilet # Voids 4 - Exam Physical Exam: Revealed a 67-year-old female in no distress. Head: Atraumatic, normocephalic. HEENT:[Neck is supple.] [No neck masses.] [No thyromegaly.] [No JVD.] Chest: [clear on the right side, diminished breath sounds and dullness at the left base. Cardiac Exam:tachycardic. [Normal S1 and S2, no S3 gallop, no murmur.] Abdomen: [Soft, nontender, no megaly, no rebound, no guarding, normal bowel sounds.] Extremities: [No clubbing, 2+ bipedal edema, no cyanosis.] Neurological Exam: [No focal neurologic deficit.] psychiatric: Normal mood, affect and normal mental status examination. Skin: No rashes. - Labs CBC & Chem 7: 01/16/23 06:16 01/15/23 05:49 Labs: Abnormal Lab Results - Last 24 Hours (Table) 01/15/23 01/15/23 01/16/23 Range/Units 05:49 05:49 06:16 RBC 3.04 L 3.46 L (4.10-5.20) X 10*6/uL Hgb 9.0 L 10.7 L D (12.0-15.0) d/dL Hct 27.8 L 31.5 L (37.2-46.3) % RDW 16.9 H 16.1 H (11.5-14.5) % Plt Count 40 L 37 L (140-440) X 10*3/uL Lymphocytes # (Manual) 0.88 L (1.0-4.8) k/uL Nucleated RBCs 2 H (0-0) /100 WBC NRBC/100 WBC Diff 0.09 H (0.00-0.01) X 10*3/uL Immature Plt Fraction 7.7 H (1.1-6.1) % Elliptocytes 2+ A D-Dimer (<0.60) mg/L FEU BUN 8.2 L (9.0-27.0) mg/dL Calcium 7.8 L (8.7-10.3) mg/dL Total Protein 4.9 L (6.2-8.2) d/dL Albumin 2.8 L (3.8-4.9) d/dL Albumin/Globulin Ratio 1.33 L (1.60-3.17) Ratio 01/16/23 Range/Units 08:58 RBC (4.10-5.20) X 10*6/uL Hgb (12.0-15.0) d/dL Hct (37.2-46.3) % RDW (11.5-14.5) % Plt Count (140-440) X 10*3/uL Lymphocytes # (Manual) (1.0-4.8) k/uL Nucleated RBCs (0-0) /100 WBC NRBC/100 WBC Diff (0.00-0.01) X 10*3/uL Immature Plt Fraction (1.1-6.1) % Elliptocytes D-Dimer 2.49 H (<0.60) mg/L FEU BUN (9.0-27.0) mg/dL Calcium (8.7-10.3) mg/dL Total Protein (6.2-8.2) d/dL Albumin (3.8-4.9) d/dL Albumin/Globulin Ratio (1.60-3.17) Ratio Assessment and Plan Assessment: impression:new onset supraventricular tachycardia, presently on amiodarone. Workup is in progress. Generalized weakness, fatigue, dizziness secondary to pancytopenia secondary to chemotherapy. Initiated on chemotherapy/immunotherapy 01/06/2023. Possibly carboplatin, Alimta and Keytruda, patient is improving as far as her symptoms of generalized weakness Pancytopenia with presenting hemoglobin 5.5, white count 0.6, platelets 48,000. Status post 3 units of packed red blood cells thus far. Receiving Zarxio. Improving based on CBC today however the platelets remained low Recurrent left-sided pleural effusion status post left-sided thoracentesis on 01/14/2023 with 1 L of fluid removed Recent diagnosis of stage IV adenocarcinoma of pulmonary primary with skeletal metastasis status post radiation Left-sided pleural effusion status post thoracentesis on 11/21/2022 with 600 ML's of fluid removed positive for pulmonary adenocarcinoma, a rare type of non- small cell lung cancer Lifelong nonsmoker Recommendation: may have to consider CT angiogram of the chest at this point however clinically my index of suspicion for pulmonary embolism is rather low. We will check v enous Doppler in the meantime continue to monitor in the ICU Continue amiodarone Check venous Doppler Check electrolytes and magnesium Medications reviewed Labs pending today GI and DVT prophylaxis Currently stable and on room air We will continue to follow Time with Patient: Less than 30
[2023-01-16 11:35] LABS: African American GFR (CKD) >90 (>60 ml/min/1.73 sqM); Anion Gap 3 mmol/L; Blood Urea Nitrogen 5 mg/dL (7-17); Carbon Dioxide 27 mmol/L (22-30); Chloride 107 mmol/L (98-107); Glucose 113 mg/dL (74-99); Non-African American GFR(CKD) >90 (>60 ml/min/1.73 sqM); Potassium 3.3 mmol/L (3.5-5.1); Sodium 137 mmol/L (137-145)
[2023-01-16] MEDS ORDERED: Potassium Replacement Protocol 1 EACH MISC MISCELLANE PRN (11:40)
[2023-01-16] MEDS ORDERED: MAGNESIUM SULFATE-D5W PMX 1 GM in DEXTROSE/WATER 1 100ML.BAG IVPB ONE (11:42)
[2023-01-16] MEDS ORDERED: Magnesium Replacement Protocol 1 EACH MISC MISCELLANE PRN (11:42)
--- NOTE | 2023-01-16 11:42 | CONS ---
CONSULTATION CHIEF COMPLAINT: SVT. HISTORY OF PRESENT ILLNESS: Petra is a 67-year-old lady with history of metastatic adenocarcinoma of the lung, stage IV, with pleural effusion, thoracenteses, pancytopenia and anemia, who presented to hospital with shortness of breath and tachycardia. She was in sinus tachycardia on her initial presentation, subsequently developed an SVT and was given adenosine following which she converted to sinus rhythm. We were consulted for the same. At the time of my evaluation, she is in sinus rhythm with sinus tachycardia. I started the patient on amiodarone because of recurrent SVT. She is looking poorly. Denies any chest pain or difficulty in breathing. PAST MEDICAL HISTORY: Significant for metastatic adenocarcinoma. MEDICATIONS: Include, 1. Dilaudid. 2. Ativan. 3. Vitamin D. 4. Zofran. 5. calcium. ALLERGIES: There are no known drug allergies. FAMILY HISTORY: Negative for premature coronary artery disease. SOCIAL HISTORY: Negative for current smoking, chews, or drug abuse. REVIEW OF SYSTEMS: A review of systems has been performed. Pertinents are as documented. PHYSICAL EXAMINATION: VITAL SIGNS: Heart rate is 110 beats per minute, blood pressure is 94/50, respiratory rate is 18. NECK: There is no jugular venous distention. Carotid upstroke is diminished. There is no bruit. CHEST: Reveals diminished air entry at the bases. HEART: Reveals first and second heart sounds. Systolic murmur at the left lower sternal border. ABDOMEN: Soft. EXTREMITIES: Exam of extremities did not reveal any edema. Peripheral pulses are felt. LABORATORY DATA: Showed a hemoglobin of 10.7, platelet count is 37. TSH is normal at 1.9. ASSESSMENT: 1. Paroxysmal supraventricular tachycardia. 2. Stage IV lung cancer. 3. Pancytopenia. PLAN: We will obtain a 2D echo and leave the patient on amiodarone at this time. MMODL / IJN: [id number] /
[2023-01-16] MEDS: POTASSIUM CHLORIDE ER 20 MEQ TAB.ER PO SCH ×2 (12:25→14:41)
--- NOTE | 2023-01-16 13:16 | P.PN ---
Subjective Progress Note Date: 01/16/23 Patient is evaluated today in the medical floor status post 3 units of packed red blood cells and hemoglobin today is stable at 9.0. Patient does report having a bowel movement that was not black tarry reports not having to strain as hard for BM after being started on MiraLAX. Pulmonary is following closely patient is status post left thoracentesis. She is currently resting comfortably on room air and is less short of breath ambulation. White count has improved up to 4.61 today. Sodium improved to 139. Folate and B12 normal. Remains tachycardic heart rate 120s. 01/16/2023 Patient is evaluated today in the intensive care unit. Had an episode up in the bathroom today attempting to have a BM. Heart rate up into the 160s and EKG reveals SVT patient received adenosine and was started on amiodarone bolus and gtt. Cardiology was consulted. Hemoglobin today 10.7. Platelet count of 37. No evidence of active bleeding. Potassium of 3.3. kidney function stable. TSH normal at 1.960. D-Dimer repeated at 2.49 venous doppler performed negative for DVT bilaterally. Echocardiogram done and pending. Heart rate has improved. Review of Systems Constitutional: Denied any fatigue denied any fever. Cardio vascular: denied any chest pain, palpitations Gastrointestinal: denied any nausea, vomiting, diarrhea Pulmonary: Denied any shortness of breath cough Neurologic denied any new focal deficits All inpatient medications were reviewed and appropriate changes in these medications as dictated in the interval history and assessment and plan. PHYSICAL EXAMINATION: GENERAL: The patient is alert and oriented x3, not in any acute distress. Well developed, well nourished. HEENT: Pupils are round and equally reacting to light. EOMI. No scleral icterus. No conjunctival pallor. Normocephalic, atraumatic. No pharyngeal erythema. No thyromegaly. CARDIOVASCULAR: S1 and S2 present. No murmurs, rubs, or gallops. PULMONARY: Chest is clear to auscultation, no wheezing or crackles. ABDOMEN: Soft, nontender, nondistended, normoactive bowel sounds. No palpable organomegaly. MUSCULOSKELETAL: No joint swelling or deformity. EXTREMITIES: No cyanosis, clubbing, or pedal edema. NEUROLOGICAL: Gross neurological examination did not reveal any focal deficits. SKIN: No rashes. Assessment Paroxysmal suprventricular tachycardia Pancytopenia secondary to chemotherapy Positive hemeoccult could be related to issues with chronic constipation Recurrent left-sided pleural effusion status post thoracentesis Acute hypoxic respiratory failure secondary to above improved and on room air Elevated D-Dimer with CTA negative for pulmonary embolism Recent diagnosis of stage IV adenocarcinoma of suspected pulmonary primary with skeletal metastasis status post radiation Chronic constipation GI prophylaxis protonix DVT prophylaxis mechanical with SCDs Full Code Plan Continue close monitoring in intensive care unit on amiodarone gtt Echocardiogram pending Status post 3 units of PRBC this admission hemoglobin remains stable Patient has been weaned to room air GI consultation in place deferring endoscopic evaluation at this time recommending to transfuse for hemoglobin less than 7 Continue on bowel regimen with miralax and avoid straining with BM Pulmonary following Follow up AM labs monitor hemoglobin level The impression and plan of care has been dictated by Lali Wang, Nurse Practitioner as directed. Dr. Racquel MD I have performed a history and physical examination and medical decision making of this patient, discussed the same with the dictator, and agree with the dictators assessment and plan as written, documented as a scribe. Based on total visit time, I have performed more than 50% of this visit. Objective - Vital Signs Vital signs: Vital Signs Temp 97.6 F 01/16/23 02:00 Pulse 150 H 01/16/23 06:30 Resp 18 01/16/23 06:10 BP 127/75 01/16/23 06:30 Pulse Ox 98 01/16/23 06:24 FiO2 Intake & Output 01/15/23 01/16/23 01/16/23 18:59 06:59 18:59 Intake Total 600 590 Balance 600 590 Intake: Intake, IV Titration 600 Amount Sodium Chloride 0.9% 1, 600 000 ml @ 50 mls/hr IV . Q20H [facility] Rx#:[id number] Oral 590 Other: Voiding Method Toilet # Voids 4 - Labs CBC & Chem 7: 01/16/23 06:16 01/16/23 09:38 Labs: Abnormal Lab Results - Last 24 Hours (Table) 01/15/23 01/15/23 01/16/23 Range/Units 05:49 05:49 06:16 RBC 3.04 L 3.46 L (4.10-5.20) X 10*6/uL Hgb 9.0 L 10.7 L D (12.0-15.0) d/dL Hct 27.8 L 31.5 L (37.2-46.3) % RDW 16.9 H 16.1 H (11.5-14.5) % Plt Count 40 L 37 L (140-440) X 10*3/uL Lymphocytes # (Manual) 0.88 L (1.0-4.8) k/uL Nucleated RBCs 2 H (0-0) /100 WBC NRBC/100 WBC Diff 0.09 H (0.00-0.01) X 10*3/uL Immature Plt Fraction 7.7 H (1.1-6.1) % Elliptocytes 2+ A D-Dimer (<0.60) mg/L FEU BUN 8.2 L (9.0-27.0) mg/dL Calcium 7.8 L (8.7-10.3) mg/dL Total Protein 4.9 L (6.2-8.2) d/dL Albumin 2.8 L (3.8-4.9) d/dL Albumin/Globulin Ratio 1.33 L (1.60-3.17) Ratio // Range/Units 08:58 RBC (4.10-5.20) X 10*6/uL Hgb (12.0-15.0) d/dL Hct (37.2-46.3) % RDW (11.5-14.5) % Plt Count (140-440) X 10*3/uL Lymphocytes # (Manual) (1.0-4.8) k/uL Nucleated RBCs (0-0) /100 WBC NRBC/100 WBC Diff (0.00-0.01) X 10*3/uL Immature Plt Fraction (1.1-6.1) % Elliptocytes D-Dimer 2.49 H (<0.60) mg/L FEU BUN (9.0-27.0) mg/dL Calcium (8.7-10.3) mg/dL Total Protein (6.2-8.2) d/dL Albumin (3.8-4.9) d/dL Albumin/Globulin Ratio (1.60-3.17) Ratio Assessment and Plan Time with Patient: Less than 30
[2023-01-16] MEDS: SODIUM CHLORIDE 0.9% 1,000 ML IV SCH (16:05)
[2023-01-16] MEDS: AMIODARONE 450 MG in DEXTROSE 5% IN WATER 250 ML IV SCH ×2 (16:08)
--- NOTE | 2023-01-16 16:10 | P.PN ---
Subjective Progress Note Date: 01/16/23 Principal diagnosis: Severe anemia, chemotherapy induced pancytopenia In follow-up today patient seen in ICU, transferred here overnight for SVT. She is getting an echo when seen, she was very scared, near tears but, she calmed down as I spoke to her. She had no acute c/o. Objective - Vital Signs Vital signs: Vital Signs Temp 97.6 F 01/16/23 02:00 Pulse 108 H 01/16/23 14:00 Resp 32 H 01/16/23 14:00 BP 112/62 01/16/23 14:00 Pulse Ox 97 01/16/23 14:00 FiO2 Intake & Output 01/15/23 01/16/23 01/16/23 18:59 06:59 18:59 Intake Total 376 609 2271 Output Total 1250 Balance 600 590 -225 Intake: Intake, IV Titration 600 565 Amount Amiodarone 360 mg In 165 Dextrose 5% in Water 200 ml @ 1 MG/MIN 33.333 mls/ hr IV .Q6H [facility] Rx#: [id number] Dextrose 5% in Water 100 100 ml @ 618 mls/hr IV .Q10M ONE with Amiodarone 150 mg Rx#:[id number] Sodium Chloride 0.9% 1, 600 300 000 ml @ 50 mls/hr IV . Q20H [facility] Rx#:[id number] Oral 590 460 Output: Urine 1250 Other: Voiding Method Toilet Bedpan # Voids 4 - Constitutional General appearance: Present: average body habitus, cooperative, no acute distress - EENT Eyes: Present: anicteric sclerae, EOMI ENT: Present: hearing grossly normal - Respiratory Details: Respirations even and unlabored at rest - Cardiovascular Details: Tachycardia on monitor - Neurologic Neurologic: Present: CNII-XII intact (Grossly) - Psychiatric Psychiatric: Present: A&O x's 3, appropriate affect, intact judgment & insight - Labs CBC & Chem 7: 01/16/23 06:16 01/16/23 09:38 Labs: Abnormal Lab Results - Last 24 Hours (Table) 01/15/23 01/16/23 01/16/23 Range/Units 05:49 06:16 08:58 RBC 3.46 L (3.80-5.40) m/uL Hgb 10.7 L D (11.4-16.0) gm/dL Hct 31.5 L (34.0-46.0) % RDW 16.1 H (11.5-15.5) % Plt Count 37 L (150-450) k/uL Lymphocytes # (Manual) 0.88 L (1.0-4.8) k/uL Nucleated RBCs 2 H (0-0) /100 WBC Elliptocytes 2+ A D-Dimer 2.49 H (<0.60) mg/L FEU Potassium (3.5-5.1) mmol/L BUN (7-17) mg/dL Creatinine (0.52-1.04) mg/dL Glucose (74-99) mg/dL Calcium (8.4-10.2) mg/dL 01/16/23 Range/Units 09:38 RBC (3.80-5.40) m/uL Hgb (11.4-16.0) gm/dL Hct (34.0-46.0) % RDW (11.5-15.5) % Plt Count (150-450) k/uL Lymphocytes # (Manual) (1.0-4.8) k/uL Nucleated RBCs (0-0) /100 WBC Elliptocytes D-Dimer (<0.60) mg/L FEU Potassium 3.3 L (3.5-5.1) mmol/L BUN 5 L (7-17) mg/dL Creatinine 0.46 L (0.52-1.04) mg/dL Glucose 113 H (74-99) mg/dL Calcium 7.0 L (8.4-10.2) mg/dL - Imaging and Cardiology Chest x-ray: report reviewed Venous US: report reviewed Assessment and Plan (1) SVT (supraventricular tachycardia) Current Visit: Yes Status: Acute Priority: High Code(s): I47.1 - SUPRAVENTRICULAR TACHYCARDIA SNOMED Code(s): 9894850 (2) Malaise and fatigue Current Visit: Yes Status: Resolved Priority: High Code(s): R53.81 - OTHER MALAISE; R53.83 - OTHER FATIGUE SNOMED Code(s): 511548770 (3) Antineoplastic chemotherapy induced pancytopenia Current Visit: Yes Status: Acute Priority: High Code(s): D61.810 - ANTINEOPLASTIC CHEMOTHERAPY INDUCED PANCYTOPENIA; T45.1X5A - ADVERSE EFFECT OF ANTINEOPLASTIC AND IMMUNOSUP DRUGS, INIT SNOMED Code(s): 158636181541688 (4) Adenocarcinoma of lung, stage 4 Current Visit: Yes Status: Acute Priority: High Code(s): C34.90 - MALIGNANT NEOPLASM OF UNSP PART OF UNSP BRONCHUS OR LUNG SNOMED Code(s): 313938706 Plan: SVT -Cardiology has seen patient -Patient is in the ICU, on amiodarone -Pending echo results -Patient is status post thoracentesis yesterday, chest x-ray did not show pneumothorax -Doppler of the bilateral lower extremities was negative for DVT -Found 2 case studies about sustained SVT and IO therapy. CK, troponin, ESR, CRP all ordered. Pending echo results-trying to contact dept. If there are suspicious findings on the echo suggestive of myocarditis, without other underlying causes ruled out, pulse dose steroid therapy should be initiated. Will f/u on labs ordered STAT Malaise and fatigue -secondary to treatment, low counts, poor oral intake -Patient was doing much better yesterday. She does not seem to be worse today, other then being scared. Chemotherapy induced pancytopenia -WBC 8.8. ANC 7300. G-CSF stopped yesterday. -Hemoglobin 5.4 on admit. She has received 3 units of blood. Hemoglobin 10.7 today. -Platelets 37,000. Please hold aspirin, NSAIDs. Use SCDs for DVT prophylaxis. Metastatic non-small cell lung cancer -Palliative radiation to painful bone mets completed earlier this month -Patient is status post 1 cycle of chemotherapy/immunotherapy. -She had significant hematological toxicity after 1 treatment. Next cycle will be held until pt is fully recovered. F/U with Primary Onc before next cycle for evaluation and possible changes to therapy. -1050 cc left thoracentesis. Pleural fluid on the left side was positive previously. CXR today did not show significant re-accumulation or pneumothorax
[2023-01-16 17:10] LABS: Creatine Kinase MB 0.6 ng/mL (0.0-2.4); Troponin I <0.012 ng/mL (0.000-0.034)
[2023-01-16] MEDS: LATANOPROST 0.005% OPHTH DROPS 2.5 ML BTL BOTH EYES SCH (20:49)
[2023-01-17] MEDS: HYDROmorphone 2 MG TAB PO SCH ×4 (04:05→21:19)
[2023-01-17] MEDS: SALT AND SODA MOUTHWASH 1,000 ML PO SCH ×6 (04:06→23:34)
[2023-01-17 04:29] LABS: African American GFR (CKD) >90 (>60 ml/min/1.73 sqM); Anion Gap 0 mmol/L; Blood Urea Nitrogen 3 mg/dL (7-17); Calcium 6.9 mg/dL (8.4-10.2); Carbon Dioxide 29 mmol/L (22-30); Chloride 108 mmol/L (98-107); Glucose 103 mg/dL (74-99); Non-African American GFR(CKD) >90 (>60 ml/min/1.73 sqM); Potassium 3.9 mmol/L (3.5-5.1); Sodium 137 mmol/L (137-145)
[2023-01-17 04:36] LABS: Anisocytosis Slight; HCT 24.5 % (34.0-46.0); HGB 7.9 gm/dL (11.4-16.0); Hypochromasia Slight; MCH 29.9 pg (25.0-35.0); MCHC 32.5 g/dL (31.0-37.0); MCV 92.2 fL (80.0-100.0); Mean Platelet Volume 11.6; Platelet Count 30 k/uL (150-450); Poikilocytosis Slight; RBC 2.66 m/uL (3.80-5.40); RDW 16.2 % (11.5-15.5); WBC 5.7 k/uL (3.8-10.6)
[2023-01-17 05:25] LABS: Anisocytosis (M) Present; Band Neutrophils % 6 %; Lymphocytes # (M) 0.91 k/uL (1.0-4.8); Metamyelocytes # (M) 0.11 k/uL (0); Metamyelocytes % 2 %; Monocytes # (M) 0.86 k/uL (0-1.0); Neutrophils % (M) 61 %; Nucleated Red Blood Cells 0 /100 WBC (0-0); Polychromasia Present; Total Cells Counted 100
[2023-01-17] MEDS ORDERED: Potassium Replacement Protocol 1 EACH MISC MISCELLANE PRN (07:13)
[2023-01-17] MEDS ORDERED: POTASSIUM CHLORIDE ER 20 MEQ TAB.ER PO SCH (08:00)
--- NOTE | 2023-01-17 08:35 | XR ---
EXAMINATION TYPE: XR chest 1V DATE OF EXAM: 01/16/2023 CLINICAL HISTORY: Difficulty breathing progress study. TECHNIQUE: Single AP portable semiupright view of the chest is obtained. COMPARISON: Chest x-ray from one day earlier and older studies. FINDINGS: Persistent cardiomegaly with small to moderate size left pleural effusion and associated l eft basilar opacity. Persistent tiny right pleural effusion. Stable mild cardiomegaly. Osseous struct ures are intact. IMPRESSION: Cardiomegaly with small to moderate size left pleural fluid collection and associated lef t basilar compressive atelectasis and tiny right pleural effusion all redemonstrated. No significant change from one day earlier.
[2023-01-17] MEDS: PANTOPRAZOLE 40 MG/10 ML VIAL IV SCH (08:41)
[2023-01-17] MEDS: FUROSEMIDE 10 MG/ML 4 ML VIAL IV SCH (08:53)
[2023-01-17] MEDS: polyethylene glycoL 3350 17 GM POWD.PACK PO SCH (08:59)
[2023-01-17] MEDS: FOLIC ACID 1 MG TAB PO SCH (08:59)
--- NOTE | 2023-01-17 10:23 | PN ---
PROGRESS NOTE SUBJECTIVE: This is a 67-year-old lady who is admitted to ICU with metastatic adenocarcinoma of the lung, pleural effusion, pancytopenia, and anemia, and had an episode of SVT, for which we were consulted. She was started on IV amiodarone and is currently on oral amiodarone, doing well and remains in sinus rhythm. I am going to change the amiodarone p.o. 400 b.i.d. OBJECTIVE: VITAL SIGNS: Heart rate is 100 beats per minute, blood pressure is 97/69, respiratory rate 18. CHEST: Reveals diminished air entry at the bases. HEART: Reveals first and second heart sounds. No gallop. Has a systolic murmur at the left lower sternal border. ABDOMEN: Soft. EXTREMITIES: Did not reveal any edema. Peripheral pulses are felt. LABORATORY DATA: Lab show that the TSH is 1.9. Troponin is negative. Hemoglobin is 7.9, potassium is 3.9, creatinine is 0.5. ASSESSMENT AND PLAN: 1. Paroxysmal supraventricular tachycardia. 2. Metastatic adenocarcinoma of the lung. PLAN: The patient is stable from cardiac standpoint. Continue the oral amiodarone. MMODL / IJN: [id number] /
[2023-01-17] MEDS: AMIODARONE 450 MG in DEXTROSE 5% IN WATER 250 ML IV SCH ×2 (11:07)
[2023-01-17] MEDS: AMIODARONE 200 MG TAB PO SCH ×2 (11:20→21:19)
--- NOTE | 2023-01-17 12:03 | P.PN ---
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 She had undergone a thoracentesis on 11/26/2022 with 600 MLS removed and positive for malignancy. She has received radiation therapy to the skeletal system and the metastasis was involving the T7, L2 and posterior left ribs and sacrum of the right pubis. She then received a combination of carboplatinum, Alimta and Keytruda last week on 01/06/2023. She then developed extreme weakness, fatigue and dizziness and presented here to the emergency room yesterday. EKG revealed sinus rhythm. CT angiogram revealed a moderate loculated-appearing left pleural effusion with adjacent atelectasis. No acute pulmonary embolism. White count 0.9. Hemoglobin 5.4 on admission. Platelets 70,000. D-dimer 2.48. Sodium 131. Potassium 4.2. BUN 10. Creatinine 0.52. Stool for occult blood positive. She received 2 unit blood cells. She is seen today in consultation on the regular medical floor. She is currently sitting up in a chair at the bedside. Still remains quite weak. Quite pale. Morning labs revealed a WBC of 0.6. Hemoglobin 6.6. Platelets 48,000. Ultrasound revealed a moderate to large left pleural effusion measuring 12.5 cm. She currently denies any worsening shortness of breath, cough or congestion. She is maintaining O2 sa turations in the 90s on room air. She's afebrile. Slightly tachycardic. Blood pressure stable. The patient is seen today 01/15/2023 in follow-up on the regular medical floor. She is currently sitting up in a chair at the bedside. Awake and alert in no acute distress. Feeling a bit better today compared to yesterday. Maintaining good O2 saturations in the mid to upper 90s on room air. Afebrile. Hemodynamically stable. She did undergo a left-sided thoracentesis yesterday with 1 L of cloudy yellow fluid removed. This was not sent for analysis again. Follow-up chest x-ray revealed improved aeration of the left lung. She is status post 3 units of packed red blood cells. Today's labs are still pending. She remains on Zarxio. Patient was reevaluated today on 01/16/2023, patient had to be transferred to the ICU last night, mostly because she develops mostly cardiac arrhythmia in the form of supraventricular tachycardia.she was seen by cardiology on consultation, and now she is on amiodarone drip. Presently in sinus tachycardia,rate in the 125 range, hence am recommending a d-dimer today, also recommending a Doppler of the lower extremities, magnesium level, and thyroid profile. Considering low platelets, I'm not recommending a CT angiogram of the chest.clinically, the patient does not have the picture of acute pulmonary embolism.patient looks very comfortable, she is only on room air O2 saturations 99%.WBC count is 8.8 hemoglobin is 10.7.d-dimer is 2.49., magnesium level is 1.8. patient was reevaluated today on 01/17/2023, remains in the ICU, patient was actually transferred to the ICU mostly because of paroxysmal supraventricular tachycardia. We saw this patient initially for pleural effusion/malignant pleural effusion secondary to metastatic adenocarcinoma of the lung. Patient is doing well, she is on amiodarone of 0.5 mg per minute, chest x-ray is showing evidence of mild interstitial edema, and recurrent left-sided pleural effusion, hence I'm recommending a dose of Lasix 40 mg IV push daily. Patient will develop worsening pleural effusion again because it was malignant and Provera malignant and this was the second time we drained this patient, she will eventually require a Pleurx catheter placement on outpatient basis as well as thoracic surgery to evaluate and possibly set her up on outpatient basis for Pleurx catheter placement.WC count today is 5.7 hemoglobin is 7.9, patient did receivea total of 3 units of packed RBCs since admission, and the patient developed basically pancytopenia from chemotherapy. She also had some positive Hemoccult.platelets remained low at 13,000. Electrolytes are normal renal profile is normal Objective - Vital Signs Vital signs: Vital Signs Temp 97.9 F 01/17/23 08:00 Pulse 117 H 01/17/23 11:00 Resp 22 01/17/23 11:00 BP 111/74 01/17/23 11:00 Pulse Ox 100 01/17/23 10:00 FiO2 Intake & Output 01/16/23 01/17/23 01/17/23 18:59 06:59 18:59 Intake Total 1289 502 76 Output Total 1600 1750 1500 Balance -338 -7784 -9801 Weight 73 kg Intake: Intake, IV Titration 829 402 76 Amount Amiodarone 360 mg In 165 Dextrose 5% in Water 200 ml @ 1 MG/MIN 33.333 mls/ hr IV .Q6H ONE Rx#: [id number] Amiodarone 450 mg In 64 192 16 Dextrose 5% in Water 250 ml @ 0.5 MG/MIN 16.667 mls/hr IV .Q15H GURU Rx#: [id number] Dextrose 5% in Water 100 100 ml @ 618 mls/hr IV .Q10M ONE with Amiodarone 150 mg Rx#:[id number] Sodium Chloride 0.9% 1, 500 210 60 000 ml @ 50 mls/hr IV . Q20H GURU Rx#:[id number] Oral 460 100 Output: Urine 1600 1750 1500 Other: Voiding Method Bedpan Bedpan - Exam Physical Exam: Revealed a 67-year-old female in no distress.on room air. Head: Atraumatic, normocephalic. HEENT:[Neck is supple.] [No neck masses.] [No thyromegaly.] [No JVD.] Chest: [clear on the right side, diminished breath sounds and dullness at the left base. Cardiac Exam:tachycardic. [Normal S1 and S2, no S3 gallop, no murmur.] Abdomen: [Soft, nontender, no megaly, no rebound, no guarding, normal bowel sounds.] Extremities: [No clubbing, 2+ bipedal edema, no cyanosis.] Neurological Exam: [No focal neurologic deficit.] psychiatric: Normal mood, affect and normal mental status examination. Skin: No rashes. - Labs CBC & Chem 7: 01/17/23 03:52 01/17/23 03:52 Labs: Abnormal Lab Results - Last 24 Hours (Table) 01/16/23 01/16/23 01/17/23 Range/Units 16:12 16:12 03:52 RBC 2.66 L (3.80-5.40) m/uL Hgb 7.9 L D (11.4-16.0) gm/dL Hct 24.5 L (34.0-46.0) % RDW 16.2 H (11.5-15.5) % Plt Count 30 L (150-450) k/uL Lymphocytes # (Manual) 0.91 L (1.0-4.8) k/uL Metamyelocytes # (Man) 0.11 H (0) k/uL ESR 46 H (0-20) mm/hr Chloride (98-107) mmol/L BUN (7-17) mg/dL Creatinine (0.52-1.04) mg/dL Glucose (74-99) mg/dL Calcium (8.4-10.2) mg/dL C-Reactive Protein 5.8 H (<1.0) mg/dL 01/17/23 Range/Units 03:52 RBC (3.80-5.40) m/uL Hgb (11.4-16.0) gm/dL Hct (34.0-46.0) % RDW (11.5-15.5) % Plt Count (150-450) k/uL Lymphocytes # (Manual) (1.0-4.8) k/uL Metamyelocytes # (Man) (0) k/uL ESR (0-20) mm/hr Chloride 108 H (98-107) mmol/L BUN 3 L (7-17) mg/dL Creatinine 0.51 L (0.52-1.04) mg/dL Glucose 103 H (74-99) mg/dL Calcium 6.9 L (8.4-10.2) mg/dL C-Reactive Protein (<1.0) mg/dL Assessment and Plan Assessment: impression:new onset supraventricular tachycardia, remains on amiodaronewe will avoid heparin since the patient has very low platelets. Generalized weakness, fatigue, dizziness secondary to pancytopenia secondary to chemotherapy. Initiated on chemotherapy/immunotherapy 01/06/2023. Possibly carboplatin, Alimta and Keytruda, patient is improving as far as her symptoms of generalized weakness Pancytopenia with presenting hemoglobin 5.5, white count 0.6, platelets 48,000. Status post 3 units of packed red blood cells thus far. received Zarxio. Improving based on CBC today however the platelets remained low Recurrent left-sided pleural effusion status post left-sided thoracentesis on 01/14/2023 with 1 L of fluid removed, patient has thoracentesis 2, she will eventually require a Pleurx catheter placement on outpatient basis will ask thoracic surgery to evaluate and set up for evaluation on outpatient basis Recent diagnosis of stage IV adenocarcinoma of pulmonary primary with skeletal metastasis status post radiation Left-sided pleural effusion status post thoracentesis on 11/21/2022 with 600 ML's of fluid removed positive for pulmonary adenocarcinoma, a rare type of non- small cell lung cancer Lifelong nonsmoker chemotherapy-induced thrombocytopenia Recommendation: continue to monitor in the ICU Continue amiodarone, as per cardiology on the case. lower extremities venous Doppler came back negative for DVT. Medications reviewed continue GI prophylaxis Currently stable and on room air once the patient is on oral amiodarone, could consider transferring the patient to a monitor bed on the cardiac floor. We will continue to follow Time with Patient: Less than 30
--- NOTE | 2023-01-17 12:53 | CA ---
Transthoracic Echo Report Name: Petra Mcelroy Age: 67 Gender: F : 1955 Exam Date: 01/16/2023 11:05 Exam Location: [facility] Ht (in): 63 Wt (lb): 160 Ordering Physician: Louie Fields MD ([id number]) Attending/Referring Phys: Chip Cruz MD Toppiece Chopper Nikita Bee Procedure CPT: Indications: New SVT Cardiac Hx: Technical Quality: Technically very difficult. Contrast 1: Lumason Total Dose (mL): 5 Contrast 2: Agitated Saline Total Dose (mL): 10 MEASUREMENTS (Male / Female) Normal Values 2D ECHO LV Diastolic Diameter PLAX 4.0 cm 4.2 - 5.9 / 3.9 - 5.3 cm LV Systolic Diameter PLAX 2.6 cm IVS Diastolic Thickness 0.9 cm 0.6 - 1.0 / 0.6 - 0.9 cm LVPW Diastolic Thickness 1.0 cm 0.6 - 1.0 / 0.6 - 0.9 cm LV Relative Wall Thickness 0.5 RV Internal Dim ED PLAX 3.2 cm LVOT Diameter 1.8 cm Aortic Root Diameter 2.7 cm LA Systolic Diameter LX 2.0 cm 3.0 - 4.0 / 2.7 - 3.8 cm LV Diastolic Volume MOD BP 40.6 cm??? 67 - 155 / 56 - 104 cm??? LV Systolic Volume MOD BP 20.3 cm??? 22 - 58 / 19 - 49 cm??? LV Ejection Fraction MOD BP 50.0 % >= 55 % LV Diastolic Volume MOD 4C 41.5 cm??? LV Systolic Volume MOD 4C 17.3 cm??? LV Ejection Fraction MOD 4C 58.3 % LV Diastolic Length 4C 6.9 cm LV Systolic Length 4C 6.3 cm LV Diastolic Volume MOD 2C 37.8 cm??? LV Systolic Volume MOD 2C 21.7 cm??? LV Ejection Fraction MOD 2C 42.7 % LV Diastolic Length 2C 7.3 cm LV Systolic Length 2C 7.0 cm DOPPLER AV Peak Velocity 173.2 cm/s AV Peak Gradient 12.0 mmHg LVOT Peak Velocity 147.1 cm/s LVOT Peak Gradient 8.7 mmHg AV Area Cont Eq pk 2.1 cm??? MV Peak Velocity 118.3 cm/s MV Peak Gradient 5.6 mmHg MV Mean Velocity 71.6 cm/s MV Mean Gradient 2.4 mmHg MV Velocity Time Integral 26.9 cm Mitral E Point Velocity 90.9 cm/s Mitral A Point Velocity 91.3 cm/s Mitral E to A Ratio 1.0 MV Deceleration Time 116.2 ms TR Peak Velocity 208.3 cm/s TR Peak Gradient 17.4 mmHg Right Ventricular Systolic Press 22.9 mmHg FINDINGS Left Ventricle Left ventricular ejection fraction is estimated at 50-55 %. Normal LV size and wall thickness. Right Ventricle Normal right ventricular size. RVSP= 32 mmhg Right Atrium Normal right atrial size. Left Atrium Normal left atrial size. Mitral Valve Mitral valve not well visualized. No mitral regurgitation. No mitral stenosis. Aortic Valve Aortic valve not well visualized. No aortic valve stenosis or regurgitation. Tricuspid Valve Structurally normal tricuspid valve. Mild to moderate TR. Pulmonic Valve Structurally normal pulmonic valve. No pulmonic regurgitation. Pericardium Pleural effusion. Aorta Normal size aortic root and proximal ascending aorta. CONCLUSIONS Technically difficult with limited views. Echo contrast was used LV systolic function is normal mild mitral and tricuspid regurgitation no pulmonary hypertension no pericardial effusion Previewed by: Dr. Damon Merino MD (Electronically Signed) Final Date: 17 January 2023 12:52
--- NOTE | 2023-01-17 13:29 | P.GSCN ---
History of Present Illness Consult date: 01/17/23 Reason for Consult: Recurrent left-sided malignant pleural effusion, need for Pleurx catheter Requesting physician: Valeria Kunz History of present illness: This is a 67-year-old female who follows outpatient with Dr. Emeli Tanner for primary care, Dr. Celestino Dubon for radiation oncology, and Dr. Анна Kang for oncology. She has a history of stage IV metastatic adenocarcinoma of the lung status post 1 round of chemo and immunotherapy as well as radiation to bony metastasis. She has never smoked. She underwent left sided thoracentesis on 11/21/2022 with removal of 600 mL of pleural fluid which was positive for adenocarcinoma. Unfortunately she reported to [facility] emergency room 12/13/2022 with complaints of generalized weakness. On admission she was noted to be pancytopenic with hemoglobin of 5.4 and platelet count 70,000, she did receive 3 units packed red blood cells. She was admitted for evaluation and treatment. She did develop paroxysmal SVT and was seen by cardiology, currently on amiodarone for such. In addition, she was short of breath and was noted to have a recurrent left-sided pleural effusion on chest x-ray as well as CAT scan. She underwent a second thoracentesis on the left side on January 14 with removal of 1 L of fluid. Due to anticipation of future recurrent pleural effusion consultation was placed to cardiothoracic surgery for Pleurx catheter placement by Dr. Kunz. Review of Systems Review of systems was completed and was negative except as noted - Constitutional Reports fatigue, Reports malaise, Reports weakness - Cardiovascular Reports rapid heart beat, Reports shortness of breath Past Medical History Past Medical History: Cancer Additional Past Medical History / Comment(s): LEFT CHEST DISCOMFORT RECENTLY., chemo 01/06/23. Radiation started beginning on December 2022. Recurrent malignant left-sided pleural effusion History of Any Multi-Drug Resistant Organisms: None Reported Past Surgical History: Adenoidectomy, Hysterectomy, Tonsillectomy Additional Past Surgical History / Comment(s): D& C. left sided thoracentesis 11/21/2022 with removal of 600 mL malignant effusion, left-sided thoracentesis 01/14/2023 with removal of 1 L fluid Past Anesthesia/Blood Transfusion Reactions: No Reported Reaction Past Psychological History: No Psychological Hx Reported Smoking Status: Never smoker Past Alcohol Use History: Occasional Additional Past Alcohol Use History / Comment(s): before diagnosis pt states she would occasionally have a glass of wine. Past Drug Use History: None Reported - Past Family History Father Family Medical History: No Reported History Mother Family Medical History: No Reported History Medications and Allergies Home Medications Medication Instructions Recorded Confirmed Type Cholecalciferol [Vitamin D3 (25 1,000 unit PO DAILY 11/21/22 01/13/23 History Mcg = 1000 Iu)] Latanoprost/Pf [Latanoprost 0.005% 1 drop BOTH EYES HS 11/21/22 01/13/23 History Eye Drop] Ondansetron Odt [Zofran Odt] 4 mg PO Q8HR PRN 7 Days #21 tab 12/06/22 01/13/23 Rx Calcium Carbonate [Calcium] 600 mg PO DAILY 01/13/23 01/13/23 History Folic Acid 1 mg PO DAILY 01/13/23 01/13/23 History HYDROmorphone [Dilaudid] 2 mg PO Q6H 01/13/23 01/13/23 History LORazepam [Ativan] 1 tab PO HS PRN 01/13/23 01/13/23 History Allergies Allergy/AdvReac Type Severity Reaction Status Date / Time No Known Allergies Allergy Verified 01/13/23 12:23 Surgical - Exam Vital Signs Temp Pulse Resp BP Pulse Ox 97.6 F 131 H 20 104/69 98 01/13/23 09:29 01/13/23 09:29 01/13/23 09:29 01/13/23 09:29 01/13/23 09:29 CONSTITUTIONAL: Awake and alert, cooperative, no pain, appears exhausted EYES: Pupils equal, round, reactive to light, normal ocular movement ENT: Moist mucous membranes without oral lesions present NECK: No masses, no bruits, trachea midline RESPIRATORY: Lungs sounds clear to auscultation bilaterally. Respirations even, nonlabored. Currently on room air with oxygen saturation 100% CARDIOVASCULAR: S1, S2 present. Tachycardic but regular rate and rhythm, sinus tach on telemetry. Palpable peripheral pulses bilaterally. No edema present. GASTROINTESTINAL: Abdomen soft, nontender, nondistended without masses or organomegaly noted. There is no rebound or guarding present. Active bowel sounds present 4 quadrants. GENITOURINARY: Deferred INTEGUMENTARY: Skin is warm and dry NEUROLOGIC: Cranial nerves II through XII intact, normal coordination, no obvious motor or sensory deficits, speech is normal MUSKULOSKELETAL: Able to move all extremities, strength equal bilaterally, normal posture PSYCHIATRIC: Alert and oriented to person place and time, appropriate affect, intact judgment and insight Results - Labs 01/17/23 03:52 01/17/23 03:52 Abnormal Lab Results - Last 24 Hours (Table) 01/16/23 01/16/23 01/17/23 Range/Units 16:12 16:12 03:52 RBC 2.66 L (3.80-5.40) m/uL Hgb 7.9 L D (11.4-16.0) gm/dL Hct 24.5 L (34.0-46.0) % RDW 16.2 H (11.5-15.5) % Plt Count 30 L (150-450) k/uL Lymphocytes # (Manual) 0.91 L (1.0-4.8) k/uL Metamyelocytes # (Man) 0.11 H (0) k/uL ESR 46 H (0-20) mm/hr Chloride (98-107) mmol/L BUN (7-17) mg/dL Creatinine (0.52-1.04) mg/dL Glucose (74-99) mg/dL Calcium (8.4-10.2) mg/dL C-Reactive Protein 5.8 H (<1.0) mg/dL 01/17/23 Range/Units 03:52 RBC (3.80-5.40) m/uL Hgb (11.4-16.0) gm/dL Hct (34.0-46.0) % RDW (11.5-15.5) % Plt Count (150-450) k/uL Lymphocytes # (Manual) (1.0-4.8) k/uL Metamyelocytes # (Man) (0) k/uL ESR (0-20) mm/hr Chloride 108 H (98-107) mmol/L BUN 3 L (7-17) mg/dL Creatinine 0.51 L (0.52-1.04) mg/dL Glucose 103 H (74-99) mg/dL Calcium 6.9 L (8.4-10.2) mg/dL C-Reactive Protein (<1.0) mg/dL Diabetes panel 01/17/23 Range/Units 03:52 Sodium 137 (137-145) mmol/L Potassium 3.9 (3.5-5.1) mmol/L Chloride 108 H (98-107) mmol/L Carbon Dioxide 29 (22-30) mmol/L BUN 3 L (7-17) mg/dL Creatinine 0.51 L (0.52-1.04) mg/dL Glucose 103 H (74-99) mg/dL Calcium 6.9 L (8.4-10.2) mg/dL Calcium panel 01/17/23 Range/Units 03:52 Calcium 6.9 L (8.4-10.2) mg/dL Pituitary panel 01/17/23 Range/Units 03:52 Sodium 137 (137-145) mmol/L Potassium 3.9 (3.5-5.1) mmol/L Chloride 108 H (98-107) mmol/L Carbon Dioxide 29 (22-30) mmol/L BUN 3 L (7-17) mg/dL Creatinine 0.51 L (0.52-1.04) mg/dL Glucose 103 H (74-99) mg/dL Calcium 6.9 L (8.4-10.2) mg/dL Adrenal panel 01/17/23 Range/Units 03:52 Sodium 137 (137-145) mmol/L Potassium 3.9 (3.5-5.1) mmol/L Chloride 108 H (98-107) mmol/L Carbon Dioxide 29 (22-30) mmol/L BUN 3 L (7-17) mg/dL Creatinine 0.51 L (0.52-1.04) mg/dL Glucose 103 H (74-99) mg/dL Calcium 6.9 L (8.4-10.2) mg/dL - Imaging Chest x-ray: report reviewed, image reviewed CT scan - chest: report reviewed, image reviewed Assessment and Plan Assessment: Stage IV metastatic adenocarcinoma of the lung status post 1 round of chemo and immunotherapy as well as radiation to bony metastasis Pancytopenia, present on admission SVT Recurrent left-sided malignant pleural effusion, status post thoracentesis 2 Fatigue, malaise, shortness of breath, secondary to above Lifelong nonsmoker Plan: The patient was seen and examined sitting up in a chair in the intensive care unit in no acute distress. Chart/diagnostics reviewed. The case will be discussed in detail with Dr. Barrett. Discussed with the patient as well as her sister the recommendation for Pleurx catheter when pleural fluid re-accumulates as is the anticipation due to her lung cancer. The usual perioperative care was discussed with the patient regarding Pleurx catheter, all questions were a nswered. The patient is not interested in Pleurx at this time, she wishes to go home and discuss with Dr. Kang. Our contact information will be given to the patient, she is encouraged to contact our office if and when she decides she would like to proceed with Pleurx catheter placement. I have personally seen and examined the patient, performed the documentation and the assessment and plan as written. Number of minutes spent on the visit: 30. HILARY Hensley
--- NOTE | 2023-01-17 13:35 | P.PN ---
Subjective Progress Note Date: 01/17/23 Principal diagnosis: Severe anemia, chemotherapy induced pancytopenia In follow-up Patient still in ICU. She is sitting up in the chair. She is tolerating oral intake. She denies any chest pain, shortness of breath, palpitations. Objective - Vital Signs Vital signs: Vital Signs Temp 97.9 F 01/17/23 08:00 Pulse 117 H 01/17/23 11:00 Resp 22 01/17/23 11:00 BP 111/74 01/17/23 11:00 Pulse Ox 100 01/17/23 10:00 FiO2 Intake & Output 01/16/23 01/17/23 01/17/23 18:59 06:59 18:59 Intake Total 1289 502 76 Output Total 1600 1750 1500 Balance -311 -6453 -1594 Weight 73 kg Intake: Intake, IV Titration 829 402 76 Amount Amiodarone 360 mg In 165 Dextrose 5% in Water 200 ml @ 1 MG/MIN 33.333 mls/ hr IV .Q6H [facility] Rx#: [id number] Amiodarone 450 mg In 64 192 16 Dextrose 5% in Water 250 ml @ 0.5 MG/MIN 16.667 mls/hr IV .Q15H [facility] Rx#: [id number] Dextrose 5% in Water 100 100 ml @ 618 mls/hr IV .Q10M [facility] with Amiodarone 150 mg Rx#:[id number] Sodium Chloride 0.9% 1, 500 210 60 000 ml @ 50 mls/hr IV . Q20H [facility] Rx#:[id number] Oral 460 100 Output: Urine 1600 1750 1500 Other: Voiding Method Bedpan Bedpan - Constitutional General appearance: Present: average body habitus, cooperative, no acute distress - EENT Eyes: Present: anicteric sclerae, EOMI ENT: Present: hearing grossly normal - Respiratory Details: Diminished Bilaterally - Cardiovascular Details: Tachycardia Heart sounds: normal: S1, S2 Abnormal Heart Sounds: Absent: systolic murmur, diastolic murmur, rub, S3 Gallop, S4 Gallop, click, other - Peripheral edema leg Peripheral Edema: bilateral: 1+ (Nonpitting) - Gastrointestinal General gastrointestinal: Present: normal bowel sounds, soft - Integumentary Integumentary: Present: normal - Neurologic Neurologic: Present: CNII-XII intact - Musculoskeletal Musculoskeletal: Present: strength equal bilaterally - Psychiatric Psychiatric: Present: A&O x's 3, appropriate affect, intact judgment & insight - Labs CBC & Chem 7: 01/17/23 03:52 01/17/23 03:52 Labs: Abnormal Lab Results - Last 24 Hours (Table) 01/16/23 01/16/23 01/17/23 Range/Units 16:12 16:12 03:52 RBC 2.66 L (3.80-5.40) m/uL Hgb 7.9 L D (11.4-16.0) gm/dL Hct 24.5 L (34.0-46.0) % RDW 16.2 H (11.5-15.5) % Plt Count 30 L (150-450) k/uL Lymphocytes # (Manual) 0.91 L (1.0-4.8) k/uL Metamyelocytes # (Man) 0.11 H (0) k/uL ESR 46 H (0-20) mm/hr Chloride (98-107) mmol/L BUN (7-17) mg/dL Creatinine (0.52-1.04) mg/dL Glucose (74-99) mg/dL Calcium (8.4-10.2) mg/dL C-Reactive Protein 5.8 H (<1.0) mg/dL 01/17/23 Range/Units 03:52 RBC (3.80-5.40) m/uL Hgb (11.4-16.0) gm/dL Hct (34.0-46.0) % RDW (11.5-15.5) % Plt Count (150-450) k/uL Lymphocytes # (Manual) (1.0-4.8) k/uL Metamyelocytes # (Man) (0) k/uL ESR (0-20) mm/hr Chloride 108 H (98-107) mmol/L BUN 3 L (7-17) mg/dL Creatinine 0.51 L (0.52-1.04) mg/dL Glucose 103 H (74-99) mg/dL Calcium 6.9 L (8.4-10.2) mg/dL C-Reactive Protein (<1.0) mg/dL - Imaging and Cardiology Chest x-ray: report reviewed Assessment and Plan (1) SVT (supraventricular tachycardia) Current Visit: Yes Status: Acute Priority: High Code(s): I47.1 - SUPRAVENTRICULAR TACHYCARDIA SNOMED Code(s): 6789819 (2) Malaise and fatigue Current Visit: Yes Status: Resolved Priority: High Code(s): R53.81 - OTHER MALAISE; R53.83 - OTHER FATIGUE SNOMED Code(s): 292250533 (3) Antineoplastic chemotherapy induced pancytopenia Current Visit: Yes Status: Acute Priority: High Code(s): D61.810 - ANTINEOPLASTIC CHEMOTHERAPY INDUCED PANCYTOPENIA; T45.1X5A - ADVERSE EFFECT OF ANTINEOPLASTIC AND IMMUNOSUP DRUGS, INIT SNOMED Code(s): 367722104550134 (4) Adenocarcinoma of lung, stage 4 Current Visit: Yes Status: Acute Priority: High Code(s): C34.90 - MALIGNANT NEOPLASM OF UNSP PART OF UNSP BRONCHUS OR LUNG SNOMED Code(s): 640278897 Plan: SVT -Cardiology has seen patient. She is on oral antiarrhythmics. Dose being adjusted per cardiology -ECHO resulted-discussed with Cardiology MACROECONOMICS PROFESSOR who reviewed with Home Insurance Agent. No evidence of myocarditis or pericarditis. -CK, troponin, TSH, cortisol WNL. ESR and CRP elevated. Nothing to suggest myocardial injury. -If pt has refractory arrhythmia then would start high dose steroids. Concern being an immunotherapy related cardiac arrhythmia. -Cont treatment per Cardiology for now -Doppler of the bilateral lower extremities was negative for DVT Malaise and fatigue -secondary to treatment, low counts, poor oral intake -resolved, pt reports feeling overall good. Chemotherapy induced pancytopenia -WBC 5.7. She received 1 dose of G-CSF with recovery of her WBC/ANC. -Hemoglobin 5.4 on admit. She has received 3 units of blood. Hemoglobin 7.9. -Platelets 30,000. Please hold aspirin, NSAIDs. Use SCDs for DVT prophylaxis. Metastatic non-small cell lung cancer -Palliative radiation to painful bone mets completed earlier this month -Patient is status post 1 cycle of chemotherapy/immunotherapy. -She had significant hematological toxicity after 1 treatment. F/U with Primary Onc before next cycle for evaluation and possible change of therapy. -1050 cc left thoracentesis 3 days ago. Pleural fluid on the left side was positive previously. CXR today read stable. -Agree with evaluation for possible pleurex drain in the outpt setting. Agree with note as documented above. Concern for immunotherapy induced arrhythmia currently responding to amiodarone. No evidence for myocarditis at this time. If there is refractory arrhythmia, she would need 1g methylprednisolone daily for 3 days. Discontinuation of pem brolizumab could be considered if no other etiology identified for SVT. Stephanie Sinclair MD
[2023-01-17 13:38] VITALS: BMI 28.5
--- NOTE | 2023-01-17 14:17 | P.PN ---
Subjective Progress Note Date: 01/17/23 Patient is evaluated today in the medical floor status post 3 units of packed red blood cells and hemoglobin today is stable at 9.0. Patient does report having a bowel movement that was not black tarry reports not having to strain as hard for BM after being started on MiraLAX. Pulmonary is following closely patient is status post left thoracentesis. She is currently resting comfortably on room air and is less short of breath ambulation. White count has improved up to 4.61 today. Sodium improved to 139. Folate and B12 normal. Remains tachycardic heart rate 120s. 01/16/2023 Patient is evaluated today in the intensive care unit. Had an episode up in the bathroom today attempting to have a BM. Heart rate up into the 160s and EKG reveals SVT patient received adenosine and was started on amiodarone bolus and gtt. Cardiology was consulted. Hemoglobin today 10.7. Platelet count of 37. No evidence of active bleeding. Potassium of 3.3. kidney function stable. TSH normal at 1.960. D-Dimer repeated at 2.49 venous doppler performed negative for DVT bilaterally. Echocardiogram done and pending. Heart rate has improved. 01/17/2023 Patient evaluated today sitting up in the chair has been downgraded from ICU. Taken off the amiodarone gtt and started on oral amiodarone today. Heart rate remains elevated 110-120s sinus tacyhcardia. Patient is started on IV lasix today, fluids have been stopped. Lower extremity edema continues patient declining compression stocks or dylan wrap and discussed elevating lower extremities when sitting. Chest xray today reveals small to moderate left pleural fluid collection and associated left basilar compressive atelectasis tiny right pleural effusion. Echocardiogram done showing normal LV systolic function mild MR and TR. It was a technically difficult study with limited views. Pleurx cathteter placement was discussed with patient and was evaluated by cardiothoracic services. Patient is declining procedure and will follow up with oncology and CT services outpatient. Hemoglobin 7.9 today, platelet count 30. Discussed with oncology no transfusion today. Review of Systems Constitutional: No fever, reports fatigue. Cardio vascular: denied any chest pain, palpitations Gastrointestinal: denied any nausea, vomiting, diarrhea Pulmonary: Denied any shortness of breath cough Neurologic denied any new focal deficits All inpatient medications were reviewed and appropriate changes in these medications as dictated in the interval history and assessment and plan. PHYSICAL EXAMINATION: GENERAL: The patient is alert and oriented x3, not in any acute distress. Well developed, well nourished. HEENT: Pupils are round and equally reacting to light. EOMI. No scleral icterus. No conjunctival pallor. Normocephalic, atraumatic. No pharyngeal erythema. No th yromegaly. CARDIOVASCULAR: S1 and S2 present. No murmurs, rubs, or gallops. PULMONARY: Chest is clear to auscultation, no wheezing or crackles. Diminished left posterior lung lower lobe ABDOMEN: Soft, nontender, nondistended, normoactive bowel sounds. No palpable organomegaly. MUSCULOSKELETAL: No joint swelling or deformity. EXTREMITIES: No cyanosis, clubbing. Lower extremity foot and ankle edema bilaterally. NEUROLOGICAL: Gross neurological examination did not reveal any focal deficits. SKIN: No rashes. 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 status post radiation Chronic constipation GI prophylaxis protonix DVT prophylaxis mechanical with SCDs Full Code Plan Down graded from intensive care unit Continue on oral amiodarone and cardiac monitoring IV lasix daily started and recommend strict intake and output Status post 3 units of PRBC this admission hemoglobin remains stable Patient has been weaned to room air GI consultation in place deferring endoscopic evaluation at this time recommending to transfuse for hemoglobin less than 7 Continue on bowel regimen with miralax and avoid straining with BM Pulmonary following Follow up AM labs monitor hemoglobin level The impression and plan of care has been dictated by Lali Wang, Nurse Practitioner as directed. Dr. Racquel MD I have performed a history and physical examination and medical decision making of this patient, discussed the same with the dictator, and agree with the dictators assessment and plan as written, documented as a scribe. Based on total visit time, I have performed more than 50% of this visit. Objective - Vital Signs Vital signs: Vital Signs Temp 97.9 F 01/17/23 08:00 Pulse 118 H 01/17/23 12:00 Resp 23 01/17/23 12:00 BP 99/62 01/17/23 12:00 Pulse Ox 100 01/17/23 10:00 FiO2 Intake & Output 01/16/23 01/17/23 01/17/23 18:59 06:59 18:59 Intake Total 1289 502 76 Output Total 1600 1750 2350 Balance -296 -6753 -8542 Weight 73 kg 73 kg Intake: Intake, IV Titration 829 402 76 Amount Amiodarone 360 mg In 165 Dextrose 5% in Water 200 ml @ 1 MG/MIN 33.333 mls/ hr IV .Q6H [facility] Rx#: [id number] Amiodarone 450 mg In 64 192 16 Dextrose 5% in Water 250 ml @ 0.5 MG/MIN 16.667 mls/hr IV .Q15H [facility] Rx#: [id number] Dextrose 5% in Water 100 100 ml @ 618 mls/hr IV .Q10M ONE with Amiodarone 150 mg Rx#:[id number] Sodium Chloride 0.9% 1, 500 210 60 000 ml @ 50 mls/hr IV . Q20H [facility] Rx#:[id number] Oral 460 100 Output: Urine 1600 1750 2350 Other: Voiding Method Bedpan Bedpan Bedside Commode - Labs CBC & Chem 7: 01/17/23 03:52 01/17/23 03:52 Labs: Abnormal Lab Results - Last 24 Hours (Table) 01/16/23 01/16/23 01/17/23 Range/Units 16:12 16:12 03:52 RBC 2.66 L (3.80-5.40) m/uL Hgb 7.9 L D (11.4-16.0) gm/dL Hct 24.5 L (34.0-46.0) % RDW 16.2 H (11.5-15.5) % Plt Count 30 L (150-450) k/uL Lymphocytes # (Manual) 0.91 L (1.0-4.8) k/uL Metamyelocytes # (Man) 0.11 H (0) k/uL ESR 46 H (0-20) mm/hr Chloride (98-107) mmol/L BUN (7-17) mg/dL Creatinine (0.52-1.04) mg/dL Glucose (74-99) mg/dL Calcium (8.4-10.2) mg/dL C-Reactive Protein 5.8 H (<1.0) mg/dL 01/17/23 Range/Units 03:52 RBC (3.80-5.40) m/uL Hgb (11.4-16.0) gm/dL Hct (34.0-46.0) % RDW (11.5-15.5) % Plt Count (150-450) k/uL Lymphocytes # (Manual) (1.0-4.8) k/uL Metamyelocytes # (Man) (0) k/uL ESR (0-20) mm/hr Chloride 108 H (98-107) mmol/L BUN 3 L (7-17) mg/dL Creatinine 0.51 L (0.52-1.04) mg/dL Glucose 103 H (74-99) mg/dL Calcium 6.9 L (8.4-10.2) mg/dL C-Reactive Protein (<1.0) mg/dL Assessment and Plan Time with Patient: Less than 30
[2023-01-17] MEDS: LATANOPROST 0.005% OPHTH DROPS 2.5 ML BTL BOTH EYES SCH (21:20)
[2023-01-18] MEDS: HYDROmorphone 2 MG TAB PO SCH ×4 (04:13→23:12)
[2023-01-18] MEDS: SALT AND SODA MOUTHWASH 1,000 ML PO SCH ×5 (06:16→23:14)
[2023-01-18 06:39] LABS: HCT 25.5 % (34.0-46.0); HGB 8.3 gm/dL (11.4-16.0); Hypochromasia Slight; MCH 30.1 pg (25.0-35.0); MCHC 32.3 g/dL (31.0-37.0); MCV 93.2 fL (80.0-100.0); Mean Platelet Volume 10.7; Poikilocytosis Slight; RBC 2.74 m/uL (3.80-5.40)
[2023-01-18 06:54] LABS: Platelet Count 61 k/uL (150-450)
[2023-01-18 07:03] LABS: African American GFR (CKD) >90 (>60 ml/min/1.73 sqM); Anion Gap 3 mmol/L; Blood Urea Nitrogen 9 mg/dL (7-17); Calcium 7.1 mg/dL (8.4-10.2); Carbon Dioxide 29 mmol/L (22-30); Chloride 104 mmol/L (98-107); Glucose 104 mg/dL (74-99); Non-African American GFR(CKD) >90 (>60 ml/min/1.73 sqM); Sodium 136 mmol/L (137-145)
[2023-01-18] MEDS: FOLIC ACID 1 MG TAB PO SCH (09:24)
[2023-01-18] MEDS: PANTOPRAZOLE 40 MG/10 ML VIAL IV SCH ×2 (09:25→12:52)
[2023-01-18] MEDS: FUROSEMIDE 10 MG/ML 4 ML VIAL IV SCH ×2 (09:25→11:37)
[2023-01-18] MEDS: AMIODARONE 200 MG TAB PO SCH ×2 (09:25→20:26)
[2023-01-18] MEDS: polyethylene glycoL 3350 17 GM POWD.PACK PO SCH ×2 (10:04→15:20)
[2023-01-18] MEDS ORDERED: METOPROLOL SUCCINATE (ER) 25 MG TAB.ER.24H PO SCH (10:15)
--- NOTE | 2023-01-18 10:16 | P.PN ---
Subjective Progress Note Date: 01/18/23 HISTORY OF PRESENT ILLNESS: This is a 59-year-old female who was transferred out of the ICU yesterday to the cardiac stepdown unit. Patient examined this morning at the bedside. She is sitting up in the chair. Patient denies chest pain or pressure. She denies shortness of breath. No further episodes of SVT on telemetry. Vital signs are stable this morning. She was started on oral amiodarone yesterday per Dr. Fields. PHYSICAL EXAM: VITAL SIGNS: Reviewed. GENERAL: Well-developed in no acute distress. NECK: Supple. No JVD or thyromegaly LUNGS: Respirations even and unlabored. Lungs essentially clear to auscultation bilaterally, diminished. HEART: Regular rate and rhythm. S1 and S2 heard. EXTREMITIES: Normal range of motion. No clubbing or cyanosis. Peripheral pulses intact. No lower extremity edema ASSESSMENT: Stage IV metastatic adenocarcinoma of the lung status post chemo and radiation Paroxysmal SVT Pancytopenia Recurrent left-sided malignant pleural effusion, status post thoracentesis 2 PLAN: Continue current cardiac medications Continue oral amiodarone. Decreased to 200 mg twice a day after one week. Begin metoprolol succinate 25mg daily. Continue to monitor blood pressure Patient has been started on IV Lasix per pulmonary medicine. Continue telemetry monitoring Patient is currently stable from a cardiac standpoint Further recommendations pending patient's course Nurse practitioner note has been reviewed by physician. Signing provider agrees with the documented findings, assessment, and plan of care. Objective - Vital Signs Vital signs: Vital Signs Temp 97.9 F 01/18/23 07:48 Pulse 112 H 01/18/23 07:48 Resp 16 01/18/23 07:48 BP 103/68 01/18/23 07:48 Pulse Ox 99 01/18/23 07:48 FiO2 Intake & Output 01/17/23 01/18/23 01/18/23 18:59 06:59 18:59 Intake Total 386 237 180 Output Total 2350 Balance -1964 237 180 Weight 73 kg 76 kg Intake: Intake, IV Titration 76 Amount Amiodarone 450 mg In 16 Dextrose 5% in Water 250 ml @ 0.5 MG/MIN 16.667 mls/hr IV .Q15H [facility] Rx#: [id number] Sodium Chloride 0.9% 1, 60 000 ml @ 50 mls/hr IV . Q20H [facility] Rx#:[id number] Oral 310 237 180 Output: Urine 2350 Other: Voiding Method Bedside Commode Bedside Commode # Voids 2 # Bowel Movements 1 1 - Labs CBC & Chem 7: 01/18/23 06:18 01/18/23 06:18 Labs: Abnormal Lab Results - Last 24 Hours (Table) 01/18/23 01/18/23 Range/Units 06:18 06:18 RBC 2.74 L (3.80-5.40) m/uL Hgb 8.3 L (11.4-16.0) gm/dL Hct 25.5 L (34.0-46.0) % RDW 16.0 H (11.5-15.5) % Plt Count 61 L D (150-450) k/uL Sodium 136 L (137-145) mmol/L Glucose 104 H (74-99) mg/dL Calcium 7.1 L (8.4-10.2) mg/dL
--- NOTE | 2023-01-18 10:23 | P.PN ---
Subjective Progress Note Date: 01/18/23 Principal diagnosis: chemotherapy-induced pancytopenia,metastatic lung cancer This is a very pleasant 67-year-old female patient with a recent diagnosis of stage IV metastatic adenocarcinoma of the lung with skeletal involvement. She had undergone a thoracentesis on 11/26/2022 with 600 MLS removed and positive for malignancy. She has received radiation therapy to the skeletal system and the metastasis was involving the T7, L2 and posterior left ribs and sacrum of the right pubis. She then received a combination of carboplatinum, Alimta and Keytruda last week on 01/06/2023. She then developed extreme weakness, fatigue and dizziness and presented here to the emergency room yesterday. EKG revealed sinus rhythm. CT angiogram revealed a moderate loculated-appearing left pleural effusion with adjacent atelectasis. No acute pulmonary embolism. White count 0.9. Hemoglobin 5.4 on admission. Platelets 70,000. D-dimer 2.48. Sodium 131. Potassium 4.2. BUN 10. Creatinine 0.52. Stool for occult blood positive. She received 2 unit blood cells. She is seen today in consultation on the regular medical floor. She is currently sitting up in a chair at the bedside. Still remains quite weak. Quite pale. Morning labs revealed a WBC of 0.6. Hemoglobin 6.6. Platelets 48,000. Ultrasound revealed a moderate to large left pleural effusion measuring 12.5 cm. She currently denies any worsening shortness of breath, cough or congestion. She is maintaining O2 sa turations in the 90s on room air. She's afebrile. Slightly tachycardic. Blood pressure stable. The patient is seen today 01/15/2023 in follow-up on the regular medical floor. She is currently sitting up in a chair at the bedside. Awake and alert in no acute distress. Feeling a bit better today compared to yesterday. Maintaining good O2 saturations in the mid to upper 90s on room air. Afebrile. Hemodynamically stable. She did undergo a left-sided thoracentesis yesterday with 1 L of cloudy yellow fluid removed. This was not sent for analysis again. Follow-up chest x-ray revealed improved aeration of the left lung. She is status post 3 units of packed red blood cells. Today's labs are still pending. She remains on Zarxio. Patient was reevaluated today on 01/16/2023, patient had to be transferred to the ICU last night, mostly because she develops mostly cardiac arrhythmia in the form of supraventricular tachycardia.she was seen by cardiology on consultation, and now she is on amiodarone drip. Presently in sinus tachycardia,rate in the 125 range, hence am recommending a d-dimer today, also recommending a Doppler of the lower extremities, magnesium level, and thyroid profile. Considering low platelets, I'm not recommending a CT angiogram of the chest.clinically, the patient does not have the picture of acute pulmonary embolism.patient looks very comfortable, she is only on room air O2 saturations 99%.WBC count is 8.8 hemoglobin is 10.7.d-dimer is 2.49., magnesium level is 1.8. patient was reevaluated today on 01/17/2023, remains in the ICU, patient was actually transferred to the ICU mostly because of paroxysmal supraventricular tachycardia. We saw this patient initially for pleural effusion/malignant pleural effusion secondary to metastatic adenocarcinoma of the lung. Patient is doing well, she is on amiodarone of 0.5 mg per minute, chest x-ray is showing evidence of mild interstitial edema, and recurrent left-sided pleural effusion, hence I'm recommending a dose of Lasix 40 mg IV push daily. Patient will develop worsening pleural effusion again because it was malignant and Provera malignant and this was the second time we drained this patient, she will eventually require a Pleurx catheter placement on outpatient basis as well as thoracic surgery to evaluate and possibly set her up on outpatient basis for Pleurx catheter placement.WC count today is 5.7 hemoglobin is 7.9, patient did receivea total of 3 units of packed RBCs since admission, and the patient developed basically pancytopenia from chemotherapy. She also had some positive Hemoccult.platelets remained low at 13,000. Electrolytes are normal renal profile is normal Reevaluated today on , patient is now on the cardiac floor, doing well, relatively asymptomatic, on room air, O2 sats is 99%, she is hemodynamically stable, and her arrhythmia has been under control. Patient is being followed by many consultants including cardiology for her SVT, and she is on multiple meds including amiodarone orally, and she is also on metoprolol 25 mg daily. Patient remains on Lasix 40 mg IV push daily. Objective - Vital Signs Vital signs: Vital Signs Temp 97.9 F 01/18/23 07:48 Pulse 112 H 01/18/23 07:48 Resp 16 01/18/23 07:48 BP 103/68 01/18/23 07:48 Pulse Ox 99 01/18/23 07:48 FiO2 Intake & Output 01/17/23 01/18/23 01/18/23 18:59 06:59 18:59 Intake Total 386 237 180 Output Total 2350 Balance -1964 237 180 Weight 73 kg 76 kg Intake: Intake, IV Titration 76 Amount Amiodarone 450 mg In 16 Dextrose 5% in Water 250 ml @ 0.5 MG/MIN 16.667 mls/hr IV .Q15H [facility] Rx#: [id number] Sodium Chloride 0.9% 1, 60 000 ml @ 50 mls/hr IV . Q20H [facility] Rx#:[id number] Oral 310 237 180 Output: Urine 2350 Other: Voiding Method Bedside Commode Bedside Commode # Voids 2 # Bowel Movements 1 1 - Exam Physical Exam: Revealed a 67-year-old female in no distress.on room air. Head: Atraumatic, normocephalic. HEENT:[Neck is supple.] [No neck masses.] [No thyromegaly.] [No JVD.] Chest: [clear on the right side, diminished breath sounds and dullness at the left base. Cardiac Exam:. [Normal S1 and S2, no S3 gallop, no murmur.] Abdomen: [Soft, nontender, no megaly, no rebound, no guarding, normal bowel sounds.] Extremities: [No clubbing, 2+ bipedal edema, no cyanosis.] Neurological Exam: [No focal neurologic deficit.] psychiatric: Normal mood, affect and normal mental status examination. Skin: No rashes. - Labs CBC & Chem 7: 01/18/23 06:18 01/18/23 06:18 Labs: Abnormal Lab Results - Last 24 Hours (Table) 01/18/23 01/18/23 Range/Units 06:18 06:18 RBC 2.74 L (3.80-5.40) m/uL Hgb 8.3 L (11.4-16.0) gm/dL Hct 25.5 L (34.0-46.0) % RDW 16.0 H (11.5-15.5) % Plt Count 61 L D (150-450) k/uL Sodium 136 L (137-145) mmol/L Glucose 104 H (74-99) mg/dL Calcium 7.1 L (8.4-10.2) mg/dL Assessment and Plan Assessment: impression: new onset supraventricular tachycardia, remains on amiodarone, being addressed by cardiology. Generalized weakness, fatigue, dizziness secondary to pancytopenia secondary to chemotherapy. Resolved. Thrombocytopenia secondary to chemotherapy, improving platelet count today is 61,000 Recurrent left-sided pleural effusion status post left-sided thoracentesis on 01/14/2023 with 1 L of fluid removed, patient has thoracentesis 2, may require Pleurx catheter placement on outpatient basis patient declined to have one done on this admission Recent diagnosis of stage IV adenocarcinoma of pulmonary primary with skeletal metastasis status post radiation Left-sided pleural effusion status post thoracentesis on 11/21/2022 with 600 ML 's of fluid removed positive for pulmonary adenocarcinoma, a rare type of non- small cell lung cancer Lifelong nonsmoker Recommendation: Continue present treatment plan Consider discharge planning if cleared by other consultants including cardiology. Medications reviewed, no changes made. Patient should have follow-up on outpatient basis with Dr. Cruz regarding her pleural effusion continue GI prophylaxis Currently stable and on room air We will continue to follow Time with Patient: Less than 30
[2023-01-18 10:25] LABS: Band Neutrophils % 7 %; Metamyelocytes % 7 %; Neutrophils % (M) 51 %; Promyelocytes % 1 %
[2023-01-18] MEDS: PANTOPRAZOLE 40 MG TABLET PO SCH (11:47)
[2023-01-18] MEDS: FUROSEMIDE 20 MG TAB PO SCH (11:47)
[2023-01-18 12:38] LABS: Blast Cells # (M) 0.06 k/uL (0); Nucleated Red Blood Cells 1 /100 WBC (0-0); Promyelocytes # (M) 0.06 k/uL (0); Total Cells Counted 200
[2023-01-18 13:48] LABS: Myelocytes % 10 %
[2023-01-18 14:01] LABS: WBC 6.3 k/uL (3.8-10.6)
[2023-01-18 14:02] LABS: Lymphocytes # (M) 0.88 k/uL (1.0-4.8)
[2023-01-18 14:03] LABS: Metamyelocytes # (M) 0.44 k/uL (0); Monocytes # (M) 0.76 k/uL (0-1.0); Myelocytes # (M) 0.63 k/uL (0)
--- NOTE | 2023-01-18 16:55 | P.PN ---
Subjective Progress Note Date: 01/18/23 Patient is evaluated today in the medical floor status post 3 units of packed red blood cells and hemoglobin today is stable at 9.0. Patient does report having a bowel movement that was not black tarry reports not having to strain as hard for BM after being started on MiraLAX. Pulmonary is following closely patient is status post left thoracentesis. She is currently resting comfortably on room air and is less short of breath ambulation. White count has improved up to 4.61 today. Sodium improved to 139. Folate and B12 normal. Remains tachycardic heart rate 120s. 01/16/2023 Patient is evaluated today in the intensive care unit. Had an episode up in the bathroom today attempting to have a BM. Heart rate up into the 160s and EKG reveals SVT patient received adenosine and was started on amiodarone bolus and gtt. Cardiology was consulted. Hemoglobin today 10.7. Platelet count of 37. No evidence of active bleeding. Potassium of 3.3. kidney function stable. TSH normal at 1.960. D-Dimer repeated at 2.49 venous doppler performed negative for DVT bilaterally. Echocardiogram done and pending. Heart rate has improved. 01/17/2023 Patient evaluated today sitting up in the chair has been downgraded from ICU. Taken off the amiodarone gtt and started on oral amiodarone today. Heart rate remains elevated 110-120s sinus tacyhcardia. Patient is started on IV lasix today, fluids have been stopped. Lower extremity edema continues patient declining compression stocks or camila wrap and discussed elevating lower extremities when sitting. Chest xray today reveals small to moderate left pleural fluid collection and associated left basilar compressive atelectasis tiny right pleural effusion. Echocardiogram done showing normal LV systolic function mild MR and TR. It was a technically difficult study with limited views. Pleurx cathteter placement was discussed with patient and was evaluated by cardiothoracic services. Patient is declining procedure and will follow up with oncology and CT services outpatient. Hemoglobin 7.9 today, platelet count 30. Discussed with oncology no transfusion today. 01/18/2023 Patient is evaluated today sitting up in chair. Continues to report lower extremity edema and ok with CAMILA wrapping yesterday patient had refused. Lost IV access and lasix has been transitioned to oral patient would have benefited from an additional day of IV lasix. Continues on oral amiodarone and patient is given a low-dose of beta gertrude this morning by cardiology services. Coninue to monitor heart rate and blood pressure. Hemoglobin 8.3 today, platelet count to 61, sodium 136. Review of Systems Constitutional: No fever, reports fatigue. Cardio vascular: denied any chest pain, palpitations Gastrointestinal: denied any nausea, vomiting, diarrhea Pulmonary: Denied any shortness of breath cough Neurologic denied any new focal deficits All inpatient medications were reviewed and appropriate changes in these medications as dictated in the interval history and assessment and plan. PHYSICAL EXAMINATION: GENERAL: The patient is alert and oriented x3, not in any acute distress. Well developed, well nourished. HEENT: Pupils are round and equally reacting to light. EOMI. No scleral icterus. No conjunctival pallor. Normocephalic, atraumatic. No pharyngeal erythema. No thyromegaly. CARDIOVASCULAR: S1 and S2 present. No murmurs, rubs, or gallops. PULMONARY: Chest is clear to auscultation, no wheezing or crackles. Diminished left posterior lung lower lobe ABDOMEN: Soft, nontender, nondistended, normoactive bowel sounds. No palpable organomegaly. MUSCULOSKELETAL: No joint swelling or deformity. EXTREMITIES: No cyanosis, clubbing. Lower extremity foot and ankle edema bilaterally. NEUROLOGICAL: Gross neurological examination did not reveal any focal deficits. SKIN: No rashes. 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 Status post 3 units of PRBC this admission hemoglobin remains stable Patient has been weaned to room air GI consultation in place deferring endoscopic evaluation at this time recommending to transfuse for hemoglobin less than 7 Continue on bowel regimen with miralax and avoid straining with BM Pulmonary following Follow up AM labs monitor hemoglobin level Possible DC the next 24 hours The impression and plan of care has been dictated by Lali Wang, Nurse Practitioner as directed. Dr. Racquel MD I have performed a history and physical examination and medical decision making of this patient, discussed the same with the dictator, and agree with the dictators assessment and plan as written, documented as a scribe. Based on total visit time, I have performed more than 50% of this visit. Objective - Vital Signs Vital signs: Vital Signs Temp 98.2 F 01/18/23 12:00 Pulse 105 H 01/18/23 12:00 Resp 15 01/18/23 12:00 BP 107/68 01/18/23 12:00 Pulse Ox 96 01/18/23 12:20 FiO2 Intake & Output 01/17/23 01/18/23 01/18/23 18:59 06:59 18:59 Intake Total 386 237 960 Output Total 2350 Balance -1964 237 960 Weight 73 kg 76 kg Intake: Intake, IV Titration 76 Amount Amiodarone 450 mg In 16 Dextrose 5% in Water 250 ml @ 0.5 MG/MIN 16.667 mls/hr IV .Q15H GURU Rx#: [id number] Sodium Chloride 0.9% 1, 60 000 ml @ 50 mls/hr IV . Q20H GURU Rx#:[id number] Oral 310 237 960 Output: Urine 2350 Other: Voiding Method Bedside Commode Bedside Commode Toilet # Voids 2 # Bowel Movements 1 1 - Labs CBC & Chem 7: 01/18/23 06:18 01/18/23 06:18 Labs: Abnormal Lab Results - Last 24 Hours (Table) 01/18/23 01/18/23 Range/Units 06:18 06:18 RBC 2.74 L (3.80-5.40) m/uL Hgb 8.3 L (11.4-16.0) gm/dL Hct 25.5 L (34.0-46.0) % RDW 16.0 H (11.5-15.5) % Plt Count 61 L D (150-450) k/uL Lymphocytes # (Manual) 0.88 L (1.0-4.8) k/uL Metamyelocytes # (Man) 0.44 H (0) k/uL Myelocytes # (Manual) 0.63 H (0) k/uL Promyelocytes # (Man) 0.06 H (0) k/uL Blast Cells # (Man) 0.06 H (0) k/uL Nucleated RBCs 1 H (0-0) /100 WBC Sodium 136 L (137-145) mmol/L Glucose 104 H (74-99) mg/dL Calcium 7.1 L (8.4-10.2) mg/dL Assessment and Plan Time with Patient: Less than 30
[2023-01-18] MEDS: LATANOPROST 0.005% OPHTH DROPS 2.5 ML BTL BOTH EYES SCH (20:21)
[2023-01-19] MEDS: HYDROmorphone 2 MG TAB PO SCH ×2 (04:21→09:35)
[2023-01-19] MEDS: SALT AND SODA MOUTHWASH 1,000 ML PO SCH ×2 (04:23→12:34)
[2023-01-19] MEDS: PANTOPRAZOLE 40 MG TABLET PO SCH (06:52)
[2023-01-19 08:13] LABS: Anisocytosis Slight; HCT 25.7 % (34.0-46.0); HGB 8.4 gm/dL (11.4-16.0); Hypochromasia Slight; MCH 30.5 pg (25.0-35.0); MCHC 32.7 g/dL (31.0-37.0); MCV 93.4 fL (80.0-100.0); Mean Platelet Volume 10.5; RBC 2.75 m/uL (3.80-5.40); RDW 16.1 % (11.5-15.5)
[2023-01-19 08:26] LABS: Platelet Count 120 k/uL (150-450)
[2023-01-19 08:34] LABS: African American GFR (CKD) >90 (>60 ml/min/1.73 sqM); Anion Gap 3 mmol/L; Blood Urea Nitrogen 9 mg/dL (7-17); Calcium 7.1 mg/dL (8.4-10.2); Carbon Dioxide 31 mmol/L (22-30); Chloride 103 mmol/L (98-107); Glucose 97 mg/dL (74-99); Non-African American GFR(CKD) >90 (>60 ml/min/1.73 sqM); Sodium 137 mmol/L (137-145)
[2023-01-19] MEDS ORDERED: FUROSEMIDE 20 MG TAB PO SCH (09:00)
[2023-01-19] MEDS ORDERED: METOPROLOL SUCCINATE (ER) 50 MG TAB.ER.24H PO SCH (09:00)
[2023-01-19 09:26] LABS: Band Neutrophils % 7 %; Eosinophils # (M) 0.09 k/uL (0-0.7); Metamyelocytes % 11 %; Myelocytes % 12 %; Neutrophils % (M) 48 %; Nucleated Red Blood Cells 1 /100 WBC (0-0); Total Cells Counted 200
[2023-01-19 09:27] LABS: Metamyelocytes # (M) 1.01 k/uL (0); Monocytes # (M) 1.01 k/uL (0-1.0); WBC 9.2 k/uL (3.8-10.6)
[2023-01-19] MEDS: polyethylene glycoL 3350 17 GM POWD.PACK PO SCH (09:34)
[2023-01-19] MEDS: AMIODARONE 200 MG TAB PO SCH (09:35)
[2023-01-19] MEDS: FUROSEMIDE 20 MG TAB PO SCH (09:36)
[2023-01-19] MEDS: FOLIC ACID 1 MG TAB PO SCH (09:37)
--- NOTE | 2023-01-19 10:12 | P.PN ---
Subjective Progress Note Date: 01/19/23 HISTORY OF PRESENT ILLNESS: This is a 59-year-old female who was transferred out of the ICU yesterday to the cardiac stepdown unit. Patient examined this morning at the bedside. She is sitting up in the chair. Patient denies chest pain or pressure. She denies shortness of breath. No further episodes of SVT on telemetry. Vital signs are stable this morning. She was started on oral amiodarone yesterday per Dr. Fields. 01/19 Patient is seen today in follow-up. Yesterday, patient was started on Toprol-XL 25 mg daily. Her heart rate today is running 102-106. She is also on amiodarone at 400 mg twice daily. She is on oral Lasix as an IV could not be started yesterday. She continues to have some lower extremity edema which she states has been chronic. She denies having any chest pain, no palpitations, no fluttering feeling in her chest. She has ambulated with her room and has had no symptoms no lightheadedness or dizziness as well. Blood pressure 99/64, pulse ox 90% on room air. PHYSICAL EXAM: VITAL SIGNS: Reviewed. GENERAL: Well-developed in no acute distress. LUNGS: Respirations even and unlabored. Lungs essentially clear to auscultation bilaterally, diminished. HEART: Regular rate and rhythm. S1 and S2 heard. EXTREMITIES: Normal range of motion. No clubbing or cyanosis. Peripheral pulses intact. 1+ lower extremity edema ASSESSMENT: Stage IV metastatic adenocarcinoma of the lung status post chemo and radiation Paroxysmal SVT Pancytopenia Recurrent left-sided malignant pleural effusion, status post thoracentesis 2 PLAN: Continue current cardiac medications Continue amiodarone at a lower dose of 200 mg twice daily. Increase metoprolol succinate 25 mg daily. Continue to monitor blood pressure Patient continued on Lasix 20 mg oral daily. Continue telemetry monitoring Patient is currently stable from a cardiac standpoint Nurse practitioner note has been reviewed by physician. Signing provider agrees with the documented findings, assessment, and plan of care. Objective - Vital Signs Vital signs: Vital Signs Temp 98.6 F 01/19/23 07:58 Pulse 102 H 01/19/23 07:58 Resp 17 01/19/23 07:58 BP 99/64 01/19/23 07:58 Pulse Ox 98 01/19/23 07:58 FiO2 Intake & Output 01/18/23 01/19/23 01/19/23 18:59 06:59 18:59 Intake Total 1140 220 180 Output Total 300 Balance 1140 -80 180 Weight 75.7 kg Intake: Oral 1140 220 180 Output: Urine 300 Other: Voiding Method Toilet Toilet # Voids 1 - Labs CBC & Chem 7: 01/19/23 07:08 01/19/23 07:08 Labs: Abnormal Lab Results - Last 24 Hours (Table) 01/18/23 01/19/23 01/19/23 Range/Units 06:18 07:08 07:08 RBC 2.75 L (3.80-5.40) m/uL Hgb 8.4 L (11.4-16.0) gm/dL Hct 25.7 L (34.0-46.0) % RDW 16.1 H (11.5-15.5) % Plt Count 120 L D (150-450) k/uL Lymphocytes # (Manual) 0.88 L (1.0-4.8) k/uL Metamyelocytes # (Man) 0.44 H (0) k/uL Myelocytes # (Manual) 0.63 H (0) k/uL Promyelocytes # (Man) 0.06 H (0) k/uL Blast Cells # (Man) 0.06 H (0) k/uL Nucleated RBCs 1 H (0-0) /100 WBC Carbon Dioxide 31 H (22-30) mmol/L Calcium 7.1 L (8.4-10.2) mg/dL
--- NOTE | 2023-01-19 12:42 | P.PN ---
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 She had undergone a thoracentesis on 11/26/2022 with 600 MLS removed and positive for malignancy. She has received radiation therapy to the skeletal system and the metastasis was involving the T7, L2 and posterior left ribs and sacrum of the right pubis. She then received a combination of carboplatinum, Alimta and Keytruda last week on 01/06/2023. She then developed extreme weakness, fatigue and dizziness and presented here to the emergency room yesterday. EKG revealed sinus rhythm. CT angiogram revealed a moderate loculated-appearing left pleural effusion with adjacent atelectasis. No acute pulmonary embolism. White count 0.9. Hemoglobin 5.4 on admission. Platelets 70,000. D-dimer 2.48. Sodium 131. Potassium 4.2. BUN 10. Creatinine 0.52. Stool for occult blood positive. She received 2 unit blood cells. She is seen today in consultation on the regular medical floor. She is currently sitting up in a chair at the bedside. Still remains quite weak. Quite pale. Morning labs revealed a WBC of 0.6. Hemoglobin 6.6. Platelets 48,000. Ultrasound revealed a moderate to large left pleural effusion measuring 12.5 cm. She currently denies any worsening shortness of breath, cough or congestion. She is maintaining O2 sa turations in the 90s on room air. She's afebrile. Slightly tachycardic. Blood pressure stable. The patient is seen today 01/15/2023 in follow-up on the regular medical floor. She is currently sitting up in a chair at the bedside. Awake and alert in no acute distress. Feeling a bit better today compared to yesterday. Maintaining good O2 saturations in the mid to upper 90s on room air. Afebrile. Hemodynamically stable. She did undergo a left-sided thoracentesis yesterday with 1 L of cloudy yellow fluid removed. This was not sent for analysis again. Follow-up chest x-ray revealed improved aeration of the left lung. She is status post 3 units of packed red blood cells. Today's labs are still pending. She remains on Zarxio. Patient was reevaluated today on 01/16/2023, patient had to be transferred to the ICU last night, mostly because she develops mostly cardiac arrhythmia in the form of supraventricular tachycardia.she was seen by cardiology on consultation, and now she is on amiodarone drip. Presently in sinus tachycardia,rate in the 125 range, hence am recommending a d-dimer today, also recommending a Doppler of the lower extremities, magnesium level, and thyroid profile. Considering low platelets, I'm not recommending a CT angiogram of the chest.clinically, the patient does not have the picture of acute pulmonary embolism.patient looks very comfortable, she is only on room air O2 saturations 99%.WBC count is 8.8 hemoglobin is 10.7.d-dimer is 2.49., magnesium level is 1.8. patient was reevaluated today on 01/17/2023, remains in the ICU, patient was actually transferred to the ICU mostly because of paroxysmal supraventricular tachycardia. We saw this patient initially for pleural effusion/malignant pleural effusion secondary to metastatic adenocarcinoma of the lung. Patient is doing well, she is on amiodarone of 0.5 mg per minute, chest x-ray is showing evidence of mild interstitial edema, and recurrent left-sided pleural effusion, hence I'm recommending a dose of Lasix 40 mg IV push daily. Patient will develop worsening pleural effusion again because it was malignant and Provera malignant and this was the second time we drained this patient, she will eventually require a Pleurx catheter placement on outpatient basis as well as thoracic surgery to evaluate and possibly set her up on outpatient basis for Pleurx catheter placement.WC count today is 5.7 hemoglobin is 7.9, patient did receivea total of 3 units of packed RBCs since admission, and the patient developed basically pancytopenia from chemotherapy. She also had some positive Hemoccult.platelets remained low at 13,000. Electrolytes are normal renal profile is normal Reevaluated today on , patient is now on the cardiac floor, doing well, relatively asymptomatic, on room air, O2 sats is 99%, she is hemodynamically stable, and her arrhythmia has been under control. Patient is being followed by many consultants including cardiology for her SVT, and she is on multiple meds including amiodarone orally, and she is also on metoprolol 25 mg daily. Patient remains on Lasix 40 mg IV push daily. Reevaluated today on 01/19/2023, patient is on room air, doing well, relatively asymptomatic, patient is now on amiodarone and on Toprol for her atrial fibrillation. Rate seems to be fairly well controlled. Patient does not seem to be an evidence distress, her pancytopenia has resolved, I believe the patient could be considered for discharge planning if cleared by cardiology to go home. And should follow up with her oncologist regarding her metastatic lung cancer. Labs today are unremarkable, platelets are up to 120,000. WBC count is 9.2 hemoglobin is 8.4 last chest x-ray showed small left-sided pleural effusion, it will eventually re-billed and she will eventually require outpatient thoracentesis or possibly Pleurx catheter placement down the line Objective - Vital Signs Vital signs: Vital Signs Temp 98.6 F 01/19/23 07:58 Pulse 102 H 01/19/23 07:58 Resp 17 01/19/23 07:58 BP 99/64 01/19/23 07:58 Pulse Ox 98 01/19/23 07:58 FiO2 Intake & Output 01/18/23 01/19/23 01/19/23 18:59 06:59 18:59 Intake Total 1140 220 180 Output Total 300 Balance 1140 -80 180 Weight 75.7 kg Intake: Oral 1140 220 180 Output: Urine 300 Other: Voiding Method Toilet Toilet Toilet # Voids 1 - Exam Physical Exam: Revealed a 67-year-old female in no distress.on room air. Head: Atraumatic, normocephalic. HEENT:[Neck is supple.] [No neck masses.] [No thyromegaly.] [No JVD.] Chest: [clear on the right side, diminished breath sounds and dullness at the left base. Cardiac Exam:. [Normal S1 and S2, no S3 gallop, no murmur.] Abdomen: [Soft, nontender, no megaly, no rebound, no guarding, normal bowel sounds.] Extremities: [No clubbing, 2+ bipedal edema, no cyanosis.] Neurological Exam: [No focal neurologic deficit.] psychiatric: Normal mood, affect and normal mental status examination. Skin: No rashes. - Labs CBC & Chem 7: 01/19/23 07:08 01/19/23 07:08 Labs: Abnormal Lab Results - Last 24 Hours (Table) 01/18/23 01/19/23 01/19/23 Range/Units 06:18 07:08 07:08 RBC 2.75 L (3.80-5.40) m/uL Hgb 8.4 L (11.4-16.0) gm/dL Hct 25.7 L (34.0-46.0) % RDW 16.1 H (11.5-15.5) % Plt Count 120 L D (150-450) k/uL Lymphocytes # (Manual) 0.88 L (1.0-4.8) k/uL Monocytes # (Manual) 1.01 H (0-1.0) k/uL Metamyelocytes # (Man) 0.44 H 1.01 H (0) k/uL Myelocytes # (Manual) 0.63 H 1.10 H (0) k/uL Promyelocytes # (Man) 0.06 H (0) k/uL Blast Cells # (Man) 0.06 H (0) k/uL Nucleated RBCs 1 H 1 H (0-0) /100 WBC Carbon Dioxide 31 H (22-30) mmol/L Calcium 7.1 L (8.4-10.2) mg/dL Assessment and Plan Assessment: impression: new onset supraventricular tachycardia, on amiodarone and metoprolol orally. Generalized weakness, fatigue, dizziness secondary to pancytopenia secondary to chemotherapy. Resolved. Thrombocytopenia secondary to chemotherapy, improving platelet count today is 120,000 Recurrent left-sided pleural effusion status post left-sided thoracentesis on 01/14/2023 with 1 L of fluid removed, patient has thoracentesis 2, may require Pleurx catheter placement on outpatient basis patient declined to have one done on this admission Recent diagnosis of stage IV adenocarcinoma of pulmonary primary with skeletal metastasis status post radiation Left-sided pleural effusion status post thoracentesis on 11/21/2022 with 600 ML's of fluid removed positive for pulmonary adenocarcinoma, a rare type of non- small cell lung cancer Lifelong nonsmoker Recommendation: Continue present treatment plan Consider discharge planning once cleared by cardiology. Labs were reviewed today medications were reviewed today and discussed with the patient Patient should have follow-up on outpatient basis with Dr. Cruz regarding her pleural effusion continue GI prophylaxis We will continue to follow Time with Patient: Less than 30
[2023-01-19 12:43] VITALS: BP 106/69; PULSE 99; RESP 16; TEMP 97.9
[2023-01-19] MEDS ORDERED: AMIODARONE 200 MG TAB PO SCH (21:00)
--- NOTE | 2023-01-19 23:53 | P.DS ---
Providers Date of admission: 01/13/23 14:34 Attending physician: Vini Donohue Consults: 01/13/23 13:51 Consult Physician Routine Consulting Provider: Анна Kang Consult Reason/Comments: cancer Do you want consulting provider notified?: Yes 01/14/23 11:01 Consult Physician Routine Consulting Provider: Chip Cruz Consult Reason/Comments: Left-sided pleural effusion Do you want consulting provider notified?: Yes 01/16/23 06:30 Consult Physician Stat Consulting Provider: Louie Fields Consult Reason/Comments: SVT Do you want consulting provider notified?: Yes 01/16/23 06:56 Consult Physician Stat Consulting Provider: Valeria Kunz Consult Reason/Comments: ICU management Do you want consulting provider notified?: Already Contacted 01/17/23 08:48 Consult Physician Routine Consulting Provider: Joss Barrett Consult Reason/Comments: ? Pleurx catheter Do you want consulting provider notified?: Already Contacted Primary care physician: Emeli Tanner Hospital Course: Final Diagnosis Generalized weakness due to chemotherapy has had 1 treatment so far Paroxysmal suprventricular tachycardia now in normal sinus rhythm Pancytopenia secondary to chemotherapy Positive hemeoccult could be related to issues with chronic constipation Recurrent left-sided malignant pleural effusion status post thoracentesis Acute hypoxic respiratory failure secondary to above improved and on room air Mild acute diastolic CHF treated with IV lasix Elevated D-Dimer with CTA negative for pulmonary embolism 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 Recommending to continue on oral lasix 20 mg daily. Has been started on oral amiodarone and oral metoprolol for the SVT and heart rate is now in normal sinus mechanism and heart rate is controlled. Continue with lower extremity compression and elevate lower extremities while sitting. Follow up with Dr. Cruz in 1 week for further monitoring of the pleural effusion. Follow up with CT services if and when patient requires pleruex catheter and wishing to undergo procedure it was offered this hospital stay and patient declined. Follow up labs in 2 to 3 days and follow with cardiology, oncology and primary provider. Hospital Course This is a 67 year old female with recent diagnosis of stage IV lung cancer currently undergoing radiation and chemotherapy. Patient also has recurrent left sided malignant pleural effusion. Patient presents to the hospital with ongoing weakness after receiving first round of chemotherapy. Does not have any fever, no chest pain. Does report generalized body aches an weakness. Was found to have pancytopenia with white count of 0.9, hgb of 5.4, platelet count of 70, sodium of 131. Patient admitted to the hospital under medicine and consult placed to oncology. Patient also had GI and pulmonary consultation. Patient received 3 units of packed red blood cells and hemoglobin has stabilized currently 8.4. Patient has issues of chronic constipation and straining with BM and was given medication this hospital stay as had positive hemeoccult thought to be due to the constipation. Patient does report having a bowel movement that was not black tarry reports not having to strain as hard for BM after being started on MiraLAX. GI has deferred endoscopic evaluation this admission She had an EGD and colonoscopy done in November of this year done by Dr. Fields with small ulcer noted in upper endoscopy and diverticulosis on colonoscopy. On admission CT angiogram of the chest reporting moderate loculated appearing left pleural effusion with adjacent atelectasis. Underlying neoplasm is not excluded. Follow-up recommended. No acute pulmonary embolism. a chest ultrasound was done which does reveal a moderate to large left pleural effusion, no right pleural effusion, pulmonary was consulted and patient underwent left thoracentesis. Patient has remained tachycardic this admission. Patient was being considered for discharge due to stabilized hemoglobin. Patient went into SVT heart rate up to the 170s was given adenosine and amiodarone and required ICU monitoring. Cardiology was consulted patient converted back to normal sinus rhythm and will discharge on amiodarone and metoprolol. Patient did complain of lower extremity edema and was treated with IV lasix. An echocardiogram done reveals normal LV systolic function with mild mitral and tricuspid regurgitation. No pericardial effusion. Patient was transitioned to oral lasix and recommending to elevate lower extremities while sitting and also to use compression stockings. venous doppler negative for DVT. Patient overall feels improved no shortness of breath, no chest pain. Hemoglobin stabilized and currently 8.4 platelets up to 120. Patients lungs are clear, S1 S2 auscultated and abdomen is soft and nontender. Has mild lower extremity edema which has improved. Currently afebrile, heart rate 99, blood pressure 106/69 and 97% on room air. Discharged home with the above mentioned recommendations and follow up. Please see medication reconciliation for a list of current medication. Thank you for allowing us to participate in the care of this patient. The impression and plan of care has been dictated by Lali Wang, Nurse Practitioner as directed. Dr. Racquel MD I have performed a history and physical examination and medical decision making of this patient, discussed the same with the dictator, and agree with the dictators assessment and plan as written, documented as a scribe. Based on total visit time, I have performed more than 50% of this visit. Patient Condition at Discharge: Fair Plan - Discharge Summary Discharge Rx Participant: No New Discharge Prescriptions: New Amiodarone [Cordarone] 200 mg PO BID #60 tab Pantoprazole [Protonix] 40 mg PO AC-BRKFST #30 tab Furosemide [Lasix] 20 mg PO DAILY #30 tab polyethylene glycoL 3350 [Miralax] 17 gm PO DAILY packet Metoprolol Succinate (ER) [Toprol XL] 50 mg PO DAILY #30 tab Continue Cholecalciferol [Vitamin D3 (25 Mcg = 1000 Iu)] 1,000 unit PO DAILY Ondansetron Odt [Zofran ODT] 4 mg PO Q8HR PRN 7 Days #21 tab PRN Reason: Nausea LORazepam [Ativan] 1 tab PO HS PRN PRN Reason: Anxiety Folic Acid 1 mg PO DAILY Latanoprost/Pf [Latanoprost 0.005% Eye Drop] 1 drop BOTH EYES HS HYDROmorphone [Dilaudid] 2 mg PO Q6H Calcium Carbonate [Calcium] 600 mg PO DAILY Discharge Medication List Cholecalciferol [Vitamin D3 (25 Mcg = 1000 Iu)] 1,000 unit PO DAILY 11/21/22 [History] Latanoprost/Pf [Latanoprost 0.005% Eye Drop] 1 drop BOTH EYES HS 11/21/22 [History] Ondansetron Odt [Zofran ODT] 4 mg PO Q8HR PRN 7 Days #21 tab 12/06/22 [Rx] Calcium Carbonate [Calcium] 600 mg PO DAILY 01/13/23 [History] Folic Acid 1 mg PO DAILY 01/13/23 [History] HYDROmorphone [Dilaudid] 2 mg PO Q6H 01/13/23 [History] LORazepam [Ativan] 1 tab PO HS PRN 01/13/23 [History] Amiodarone [Cordarone] 200 mg PO BID #60 tab 01/19/23 [Rx] Furosemide [Lasix] 20 mg PO DAILY #30 tab 01/19/23 [Rx] Metoprolol Succinate (ER) [Toprol XL] 50 mg PO DAILY #30 tab 01/19/23 [Rx] Pantoprazole [Protonix] 40 mg PO AC-BRKFST #30 tab 01/19/23 [Rx] polyethylene glycoL 3350 [Miralax] 17 gm PO DAILY packet 01/19/23 [Rx] Follow up Appointment(s)/Referral(s): Emeli Tanner MD [Primary Care Provider] - 1-2 days Анна Kang MD [STAFF PHYSICIAN] - 2 Weeks Chip Cruz MD [STAFF PHYSICIAN] - 1 Week Joss Barrett MD [STAFF PHYSICIAN] - As Needed (Please call our office if/when you decide on pleurx catheter placement) Louie Fields MD [STAFF PHYSICIAN] - 1 Week Ambulatory/Diagnostic Orders: Basic Metabolic Panel [LAB.AMB] Time Frame: 3 Days, Location: None Selected Complete Blood Count w/diff [LAB.AMB] Time Frame: 3 Days, Location: None Selected Patient Instructions/Handouts: Supraventricular Tachycardia (DC), Pancytopenia (GEN) Activity/Diet/Wound Care/Special Instructions: Continue with lower extremity compression and elevate lower extremities while sitting Follow up with Dr. Cruz in 1 week for further monitoring of the pleural effusion Discharge Disposition: HOME SELF-CARE
== END 2023-01-19 15:08 | disposition home or self-care (01) | DRG 808 ==
LOC: EC 09:21 → 5NMEDONC 14:34 → 2SICU 01-16 06:49 → 3SCARD 01-17 16:30
PROVIDERS: ADMIT Hospitalist; ATTEND Hospitalist
PROC: 30233N1 Transfusion of Nonautologous Red Blood Cells into Peripheral Vein, Percutaneous Approach (ICD-10-PCS; 2023-01-13)
PROC: 0W9B3ZZ Drainage of Left Pleural Cavity, Percutaneous Approach (ICD-10-PCS; principal; 2023-01-14)
DX: D61.810 Antineoplastic chemotherapy induced pancytopenia (principal); I50.33 Acute on chronic diastolic (congestive) heart failure; J96.01 Acute respiratory failure with hypoxia; C79.51 Secondary malignant neoplasm of bone; C34.90 Malignant neoplasm of unspecified part of unspecified bronchus or lung; J91.0 Malignant pleural effusion; I47.1 Supraventricular tachycardia; J98.11 Atelectasis; K92.1 Melena; D69.59 Other secondary thrombocytopenia; I48.91 Unspecified atrial fibrillation; G89.3 Neoplasm related pain (acute) (chronic); T45.1X5A Adverse effect of antineoplastic and immunosuppressive drugs, initial encounter; K59.09 Other constipation; Z79.899 Other long term (current) drug therapy; Z92.3 Personal history of irradiation
CPT/HCPCS: 36415; 36430; 71045; 71275; 76604; 80048; 80053; 81003; 82272; 82533; 82553; 82607; 82728; 82746; 83540; 83550; 83605; 83735; 84443; 84484; 85025; 85379; 85610; 85652; 85730; 86140; 86850; 86900; 86901; 86920; 93005; 93306; 93970; 94760; 96361; 96374; 99285

== ENCOUNTER 2023-02-09 19:12 | Inpatient (IN) | payer MEDICARE, OTHER ==
[2023-02-09 20:24] LABS: Anisocytosis Slight; Basophils % (A) 0 %; Eosinophils # (A) 0.1 k/uL (0-0.7); Eosinophils % (A) 0 %; HCT 23.7 % (34.0-46.0); HGB 7.4 gm/dL (11.4-16.0); Hypochromasia Marked; Lymphocytes # (A) 1.8 k/uL (1.0-4.8); Lymphocytes % (A) 11 %; MCH 28.8 pg (25.0-35.0); MCHC 31.3 g/dL (31.0-37.0); MCV 91.9 fL (80.0-100.0); Mean Platelet Volume 11.1; Monocytes # (A) 1.6 k/uL (0-1.0); Monocytes % (A) 10 %; Neutrophils % (A) 77 %; Platelet Count 154 k/uL (150-450); Poikilocytosis Marked; RBC 2.58 m/uL (3.80-5.40); RDW 17.7 % (11.5-15.5); WBC 16.9 k/uL (3.8-10.6)
[2023-02-09 20:31] LABS: INR 1.3 (<1.2); Partial Thromboplastin Time 24.2 sec (22.0-30.0); Prothrombin Time 12.8 sec (9.0-12.0)
[2023-02-09] MEDS ORDERED: HYDROmorphone 0.5 MG/0.5 ML SYRINGE IVP STA (20:36)
[2023-02-09] MEDS ORDERED: LORazepam 2 MG/ML INJ IV STA (20:36)
--- NOTE | 2023-02-09 20:43 | XR ---
EXAMINATION TYPE: XR chest 2V DATE OF EXAM: 02/09/2023 8:24 PM COMPARISON: Chest radiographs from 01/17/2023, PET/CT 12/06/2022 TECHNIQUE: XR chest 2V Frontal and lateral views of the chest. CLINICAL INDICATION:Female, 67 years old with history of SOB; FINDINGS: Lungs/Pleura: Likely left pleural effusion. No evidence right pleural fusion. There is no evidence of pleural effusion, focal consolidation, or pneumothorax. Pulmonary vascularity: Unremarkable. Heart/mediastinum: Cardiomediastinal silhouette is partially obscured due to overlying and adjacent o pacities. Musculoskeletal: No acute osseous pathology. IMPRESSION: Cardiomediastinal silhouette is partially obscured due to suspected Loculated left pleural effusion s een on prior imaging.
[2023-02-09 20:47] LABS: ALT 15 U/L (4-34); AST 25 U/L (14-36); African American GFR (CKD) 56 (>60 ml/min/1.73 sqM); Albumin 2.6 g/dL (3.5-5.0); Alkaline Phosphatase 134 U/L (38-126); Anion Gap 6 mmol/L; Blood Urea Nitrogen 17 mg/dL (7-17); Calcium 7.7 mg/dL (8.4-10.2); Carbon Dioxide 30 mmol/L (22-30); Chloride 103 mmol/L (98-107); Glucose 99 mg/dL (74-99); Magnesium 1.7 mg/dL (1.6-2.3); Non-African American GFR(CKD) 49 (>60 ml/min/1.73 sqM); Sodium 139 mmol/L (137-145); Total Bilirubin 1.7 mg/dL (0.2-1.3); Total Protein 5.2 g/dL (6.3-8.2)
[2023-02-09 20:55] LABS: NT-Pro-B-Type Natriuretic Pept 1340 pg/mL
[2023-02-09] MEDS ORDERED: NALOXONE 0.4 MG/ML 1 ML VIAL IV PRN (21:29)
[2023-02-09] MEDS ORDERED: HYDROmorphone 1 MG/ML 1 ML SYRINGE IVP PRN (21:29)
[2023-02-09] MEDS ORDERED: cefTRIAXone IN SWFI 1,000 MG/10 ML SYRINGE IVP STA (22:15)
--- NOTE | 2023-02-09 22:27 | ED ---
General Adult HPI - General Chief complaint: Shortness of Breath Stated complaint: SOB Time Seen by Provider: 02/09/23 19:20 Source: patient Mode of arrival: wheelchair Limitations: no limitations - History of Present Illness Initial comments: This is a 67-year-old female with a past medical history including stage IV lung cancer presents emergency department for increasing shortness of breath. The patient was to have a left-sided thoracentesis performed on Friday however noted that she had increasing shortness of breath and hypoxia at home and could not tolerate it until Friday. The patient stated that she had increasing shortness of breath and was speaking in shortened sentences secondary to the shortness of breath. The patient stated that she has been in the ICU after the first dose of chemotherapy and has not had any chemotherapy since December. The patient was otherwise denying any other acute pain or distress. - Related Data Home Medications Medication Instructions Recorded Confirmed Cholecalciferol [Vitamin D3 (25 25 mcg PO DAILY 11/21/22 02/09/23 Mcg = 1000 Iu)] Latanoprost/Pf [Latanoprost 0.005% 1 drop BOTH EYES HS 11/21/22 02/09/23 Eye Drop] Calcium Carbonate [Calcium] 600 mg PO DAILY 01/13/23 02/09/23 Folic Acid 1 mg PO DAILY 01/13/23 02/09/23 HYDROmorphone [Dilaudid] 2 mg PO TID PRN 01/13/23 02/09/23 LORazepam [Ativan] 1 tab PO HS PRN 01/13/23 02/09/23 Pantoprazole [Protonix] 40 mg PO DAILY 02/09/23 02/09/23 Previous Rx's Medication Instructions Recorded Amiodarone [Cordarone] 200 mg PO BID #60 tab 01/19/23 Furosemide [Lasix] 20 mg PO DAILY #30 tab 01/19/23 Metoprolol Succinate (ER) [Toprol 50 mg PO DAILY #30 tab 01/19/23 XL] Allergies Allergy/AdvReac Type Severity Reaction Status Date / Time No Known Allergies Allergy Verified 02/09/23 20:41 Review of Systems ROS Statement: Those systems with pertinent positive or pertinent negative responses have been documented in the HPI. ROS Other: All systems not noted in ROS Statement are negative. Past Medical History Past Medical History: Atrial Fibrillation, Cancer, Hypertension Additional Past Medical History / Comment(s): LEFT CHEST DISCOMFORT RECENTLY., chemo 01/06/23. Radiation started beginning on December 2022. Recurrent malignant left-sided pleural effusion History of Any Multi-Drug Resistant Organisms: None Reported Past Surgical History: Adenoidectomy, Hysterectomy, Tonsillectomy Additional Past Surgical History / Comment(s): D& C. left sided thoracentesis 11/21/2022 with removal of 600 mL malignant effusion, left-sided thoracentesis 01/14/2023 with removal of 1 L fluid Past Anesthesia/Blood Transfusion Reactions: No Reported Reaction Past Psychological History: No Psychological Hx Reported Smoking Status: Never smoker Past Alcohol Use History: Occasional Past Drug Use History: None Reported - Past Family History Father Family Medical History: No Reported History Mother Family Medical History: No Reported History General Exam Limitations: no limitations General appearance: alert, in distress (2/2 to shortness of breath) Head exam: Present: atraumatic, normocephalic, normal inspection Eye exam: Present: normal appearance, PERRL Pupils: Present: normal accommodation ENT exam: Present: normal exam, normal oropharynx, mucous membranes moist Neck exam: Present: normal inspection, full ROM Respiratory exam: Present: decreased breath sounds (on the left lung zarate, clear breath sounds over the right lung zarate), other (Tachypneic) Cardiovascular Exam: Present: regular rate, normal rhythm, normal heart sounds GI/Abdominal exam: Present: soft, normal bowel sounds Extremities exam: Present: normal inspection, full ROM, pedal edema Back exam: Present: normal inspection, full ROM Neurological exam: Present: alert, oriented X3, CN II-XII intact Psychiatric exam: Present: normal affect, normal mood Skin exam: Present: warm, dry Course Vital Signs 02/09/23 02/09/23 02/09/23 19:13 19:54 21:00 Temperature 98.3 F Pulse Rate 107 H 101 H Respiratory 24 32 H Rate Blood Pressure 102/68 121/67 O2 Sat by Pulse 91 L 92 L 96 Oximetry 02/09/23 22:00 Temperature Pulse Rate 96 Respiratory 24 Rate Blood Pressure 103/60 O2 Sat by Pulse 99 Oximetry EKG Findings - EKG Comments: EKG Findings:: An EKG was obtained and was interpreted by myself showing a rate of 105, DC interval of 88, QRS duration 112 and QTC of 423. This EKG showed a sinus tachycardia with short DC interval however there was no ST segment elevation or depression noted. Medical Decision Making - Medical Decision Making Was pt. sent in by a medical professional or institution ([facility] Chiu, [employer] SECRETARY, urgent care, hospital, or residential...) When possible be specific @ -No Did you speak to anyone other than the patient for history (EMS, parent, family, police, friend...)? What history was obtained from this source @ -No Did you review nursing and triage notes (agree or disagree)? Why? @ -I reviewed and agree with nursing and triage notes Were old charts reviewed (outside hosp., previous admission, EMS record, old EKG, old radiological studies, urgent care reports/EKG's, residential records)? Report findings @ -No old charts were reviewed Differential Diagnosis (chest pain, altered mental status, abdominal pain women, abdominal pain men, vaginal bleeding, weakness, fever, dyspnea, syncope, headache, dizziness, GI bleed, back pain, seizure, CVA, palpatations, mental health)? @ -Worsening pleural effusion, pneumonia, lung abscess EKG interpreted by me (3pts min.). @ -As above X-rays interpreted by me (1pt min.). @ -Chest x-ray was obtained and was interpreted by myself showing cardio mediastinal silhouette partially obscured due to suspected loculated left pleural effusion CT interpreted by me (1pt min.). @ -None done U/S interpreted by me (1pt. min.). @ -None done What testing was considered but not performed or refused? (CT, X-rays, U/S, labs)? Why? @ -None What meds were considered but not given or refused? Why? @ -None Did you discuss the management of the patient with other professionals (professionals i.e. [employer]LE[employer] Chiu, ALUMNI SECRETARY, lab, RT, psych nurse, social security specialist, sidewalk repairer, teacher, juvenile corrections officer, case mgr)? Give summary @ -Yes, admitting physician was contacted regarding patient admission. Was smoking cessation discussed for >3mins.? @ -No Was critical care preformed (if so, how long)? @ -No Were there social determinants of health that impacted care today? How? (Homelessness, low income, unemployed, alcoholism, drug addiction, transportation, low edu. Level, literacy, decrease access to med. care, penitentiary, rehab)? @ -No Was there de-escalation of care discussed even if they declined (Discuss DNR or withdrawal of care, Hospice)? DNR status @ -No What co-morbidities impacted this encounter? (DM, HTN, Smoking, COPD, CAD, Cancer, CVA, ARF, Chemo, Hep., AIDS, mental health diagnosis, sleep apnea, morbid obesity)? @ -Stage IV lung cancer Was patient admitted / discharged? Hospital course, mention meds given and route, prescriptions, significant lab abnormalities, going to OR and other per tinent info. @ -The patient was seen and evaluated in the emergency department. Physical exam, the patient was resting in bed with shortness of breath. Vital signs admission were otherwise stable however the patient had some mild hypoxia. The patient was tachypnic. Due to the patient's complaints, laboratory workup was obtained as was a chest x-ray and EKG. Laboratory workup was significant for an elevated white blood cell count of 16.9. The patient's troponin was also mildly elevated however due to the patient's shortness of breath the setting of worsening pleural effusion, there was likely strain on the heart and unlikely ACS at this time. Heparin will be held at this time. The patient did receive Ativan and Dilaudid for her home dose of medications. Due to the patient's elevated white blood cell count of 16.9 in the setting of possible loculated pleural effusion, the patient did have blood cultures obtained and was given a dose of clindamycin and Rocephin for possible lung abscess. The patient remained stable however due to the patient's worsening pleural effusion did require admission. The admitting physician was contacted regarding admission and did accept the patient for admission. The patient's oncologist was placed on consult as well as the interventional radiologist for possible thoracentesis tomorrow. The patient was agreeable to this and was admitted in stable condition. Undiagnosed new problem with uncertain prognosis? @ -No Drug Therapy requiring intensive monitoring for toxicity (Heparin, Nitro, Insulin, Cardizem)? @ -No Were any procedures done? @ -No Diagnosis/symptom? @ -Left pleural effusion, stage IV lung cancer, shortness of breath Acute, or Chronic, or Acute on Chronic? @ -Acute on chronic Uncomplicated (without systemic symptoms) or Complicated (systemic symptoms)? @ -Complicated Side effects of treatment? @ -No Exacerbation, Progression, or Severe Exacerbation? @ -No Poses a threat to life or bodily function? How? (Chest pain, [place], [place], pneumonia, PE, COPD, DKA, ARF, appy, cholecystitis, CVA, Diverticulitis, Homicidal, Suicidal, threat to staff... and all critical care pts) @ -Yes, worsening effusion can lead to hypoxia and permanent damage and possible . - Lab Data Result diagrams: 02/09/23 19:31 02/09/23 19:31 Lab Results 02/09/23 02/09/23 02/09/23 Range/Units 19:31 19:31 19:31 WBC 16.9 H (3.8-10.6) k/uL RBC 2.58 L (3.80-5.40) m/uL Hgb 7.4 L (11.4-16.0) gm/dL Hct 23.7 L (34.0-46.0) % MCV 91.9 (80.0-100.0) fL MCH 28.8 (25.0-35.0) pg MCHC 31.3 (31.0-37.0) g/dL RDW 17.7 H (11.5-15.5) % Plt Count 154 (150-450) k/uL MPV 11.1 Neutrophils % 77 % Lymphocytes % 11 % Monocytes % 10 % Eosinophils % 0 % Basophils % 0 % Neutrophils # 13.0 H (1.3-7.7) k/uL Lymphocytes # 1.8 (1.0-4.8) k/uL Monocytes # 1.6 H (0-1.0) k/uL Eosinophils # 0.1 (0-0.7) k/uL Basophils # 0.0 (0-0.2) k/uL Hypochromasia Marked Poikilocytosis Marked Anisocytosis Slight PT 12.8 H (9.0-12.0) sec INR 1.3 H (<1.2) APTT 24.2 (22.0-30.0) sec Sodium 139 (137-145) mmol/L Potassium 3.0 L (3.5-5.1) mmol/L Chloride 103 (98-107) mmol/L Carbon Dioxide 30 (22-30) mmol/L Anion Gap 6 mmol/L BUN 17 (7-17) mg/dL Creatinine 1.16 H (0.52-1.04) mg/dL Est GFR (CKD-EPI)AfAm 56 (>60 ml/min/1.73 sqM) Est GFR (CKD-EPI)NonAf 49 (>60 ml/min/1.73 sqM) Glucose 99 (74-99) mg/dL Calcium 7.7 L (8.4-10.2) mg/dL Magnesium 1.7 (1.6-2.3) mg/dL Total Bilirubin 1.7 H (0.2-1.3) mg/dL AST 25 (14-36) U/L ALT 15 (4-34) U/L Alkaline Phosphatase 134 H (38-126) U/L Troponin I (0.000-0.034) ng/mL NT-Pro-B Natriuret Pep 1340 pg/mL Total Protein 5.2 L (6.3-8.2) g/dL Albumin 2.6 L (3.5-5.0) g/dL 02/09/23 Range/Units 19:31 WBC (3.8-10.6) k/uL RBC (3.80-5.40) m/uL Hgb (11.4-16.0) gm/dL Hct (34.0-46.0) % MCV (80.0-100.0) fL MCH (25.0-35.0) pg MCHC (31.0-37.0) g/dL RDW (11.5-15.5) % Plt Count (150-450) k/uL MPV Neutrophils % % Lymphocytes % % Monocytes % % Eosinophils % % Basophils % % Neutrophils # (1.3-7.7) k/uL Lymphocytes # (1.0-4.8) k/uL Monocytes # (0-1.0) k/uL Eosinophils # (0-0.7) k/uL Basophils # (0-0.2) k/uL Hypochromasia Poikilocytosis Anisocytosis PT (9.0-12.0) sec INR (<1.2) APTT (22.0-30.0) sec Sodium (137-145) mmol/L Potassium (3.5-5.1) mmol/L Chloride (98-107) mmol/L Carbon Dioxide (22-30) mmol/L Anion Gap mmol/L BUN (7-17) mg/dL Creatinine (0.52-1.04) mg/dL Est GFR (CKD-EPI)AfAm (>60 ml/min/1.73 sqM) Est GFR (CKD-EPI)NonAf (>60 ml/min/1.73 sqM) Glucose (74-99) mg/dL Calcium (8.4-10.2) mg/dL Magnesium (1.6-2.3) mg/dL Total Bilirubin (0.2-1.3) mg/dL AST (14-36) U/L ALT (4-34) U/L Alkaline Phosphatase (38-126) U/L Troponin I 0.047 H* (0.000-0.034) ng/mL NT-Pro-B Natriuret Pep pg/mL Total Protein (6.3-8.2) g/dL Albumin (3.5-5.0) g/dL Disposition Clinical Impression: Loculated pleural effusion, Stage 4 lung cancer, Shortness of breath Disposition: ADMITTED IP TO THIS [facility] Condition: Stable Is patient prescribed a controlled substance at d/c from ED?: No Referrals: Emeli Tanner MD [Primary Care Provider] - 1-2 days Time of Disposition: 21:00 Decision to Admit Reason: Admit from EC Decision Date: 02/09/23 Decision Time: 21:00
[2023-02-09] MEDS ORDERED: CLINDAMYCIN 600 MG in DEXTROSE 5% IN WATER 50 ML IVPB ONE ×2 (22:30)
[2023-02-10] MEDS ORDERED: LORazepam 1 MG TAB PO PRN (08:49)
[2023-02-10 09:29] LABS: Anisocytosis Slight; Basophils % (A) 0 %; Eosinophils # (A) 0.1 k/uL (0-0.7); Eosinophils % (A) 1 %; HCT 23.7 % (34.0-46.0); HGB 7.3 gm/dL (11.4-16.0); Hypochromasia Marked; Lymphocytes # (A) 1.4 k/uL (1.0-4.8); Lymphocytes % (A) 9 %; MCH 28.7 pg (25.0-35.0); MCHC 30.6 g/dL (31.0-37.0); MCV 93.8 fL (80.0-100.0); Mean Platelet Volume 11.2; Monocytes # (A) 1.6 k/uL (0-1.0); Monocytes % (A) 10 %; Neutrophils # (A) 12.6 k/uL (1.3-7.7); Neutrophils % (A) 78 %; Platelet Count 140 k/uL (150-450); Poikilocytosis Moderate; RBC 2.53 m/uL (3.80-5.40); RDW 17.6 % (11.5-15.5); WBC 16.1 k/uL (3.8-10.6)
[2023-02-10 09:47] LABS: African American GFR (CKD) 58 (>60 ml/min/1.73 sqM); Anion Gap 7 mmol/L; Blood Urea Nitrogen 17 mg/dL (7-17); Calcium 7.7 mg/dL (8.4-10.2); Carbon Dioxide 30 mmol/L (22-30); Chloride 105 mmol/L (98-107); Glucose 98 mg/dL (74-99); Non-African American GFR(CKD) 51 (>60 ml/min/1.73 sqM); Potassium 3.1 mmol/L (3.5-5.1); Sodium 142 mmol/L (137-145)
[2023-02-10] MEDS ORDERED: Potassium Replacement Protocol 1 EACH MISC MISCELLANE PRN (10:05)
--- NOTE | 2023-02-10 10:39 | XR ---
EXAMINATION TYPE: XR chest 1V portable DATE OF EXAM: 02/10/2023 10:34 AM COMPARISON: Chest radiographs from 02/09/2023 TECHNIQUE: XR chest 1V portable Portable AP radiograph of the chest. CLINICAL INDICATION:Female, 67 years old with history of post left thoracentesis; FINDINGS: Lungs/Pleura: Decreased size of now small to moderate sized left pleural effusion status post thorace ntesis. There is associated left versus atelectasis. No pneumothorax. Pulmonary vascularity: Unremarkable. Heart/mediastinum: Cardiomediastinal silhouette is enlarged and stable. Musculoskeletal: No acute osseous pathology. IMPRESSION: Decreased size of now small to moderate-sized left pleural effusion status post thoracentesis with as sociated atelectasis. No pneumothorax.
--- NOTE | 2023-02-10 10:43 | US ---
INDICATION: Patient age:Female; 67 years old; Reason for study: Left-sided pleural effusion; PHH. COMPARISON: Chest radiograph 02/09/2023, CTA chest 01/13/2023 PROCEDURE: Informed consent was obtained. The risks of the procedure were extensively explained incl uding risk of pneumothorax and need for chest tube placement. Procedure was performed in the ultraso und procedure suite. Ultrasound imaging of the chest demonstrates large left pleural effusion. An ap propriate access site was localized to the posterior left pleural space. Timeout was taken per protoc ol. The skin was prepped and draped in the usual sterile fashion and then locally anesthetized with 1% lidocaine. The pleural cavity was then accessed via a 5-Arabic one-step needle/catheter. Approxi mately 1060 cc of carline-colored serous fluid was obtained. Samples were sent to the lab for analysis. Patient tolerated procedure well without immediate complication. Hemostasis at the procedural site w as obtained with a sterile bandage placed. Immediate following the procedure, a chest x-ray was revie wed. No post procedure pneumothorax was identified. The patient was sent back to their bed in stable condition. IMPRESSION: Ultrasound guided left thoracentesis, with approximately 1060 cc of carline-colored serous fluid drained. Pathology results pending. No immediate complications were evident.
[2023-02-10] MEDS: CALCIUM CARBONATE 500 MG CHEWABLE PO SCH (10:48)
[2023-02-10] MEDS: AMIODARONE 200 MG TAB PO SCH ×2 (10:49→20:24)
[2023-02-10] MEDS: FOLIC ACID 1 MG TAB PO SCH (10:49)
[2023-02-10] MEDS: PANTOPRAZOLE 40 MG TABLET PO SCH (10:49)
[2023-02-10] MEDS: CHOLECALCIFEROL 25 MCG (1000 IU) TABLET PO SCH (10:49)
[2023-02-10] MEDS: HYDROmorphone 2 MG TAB PO PRN ×2 (11:02→20:30)
[2023-02-10] MEDS: POTASSIUM CHLORIDE 10 MEQ in WATER FOR INJECTION 1 100ML.BAG IVPB SCH ×2 (11:03→12:48)
--- NOTE | 2023-02-10 12:21 | P.CNPUL ---
History of Present Illness Consult date: 02/10/23 Requesting physician: Nara Montero Reason for consult: dyspnea, hypoxemia, pleural effusion, abnormal CXR/CT Chief complaint: Shortness of breath. History of present illness: Pulmonary consult dated 02/10/2023. 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 The patient has had thoracentesis performed a total of 3 times, the most recent today. She has received radiation therapy to the skeletal system, because of metastasis, to T7, L2, posterior left ribs, and sacrum. She's received combination of carboplatin, Alimta, Keytruda. The patient was last evaluated by my partner, in December. At that time, she did undergo another thoracentesis, her second. Also, at that time, he recommended that she see cardiothoracic surgery for placement of a Pleurx catheter. At that time, she decided not to have the Pleurx catheter placed, and unfortunately, she was readmitted to the hospital, with a large left-sided pleural effusion, and was drained. 1060 mL of carline-colored fluid was removed. Currently she is on 2 L of oxygen. Was receiving potassium replacement therapy. White count was 16.1, hemoglobin 7.3, hematocrit 23.7, and a platelet count of 140,000. Sodium 142, potassium 3.1, chlorides 105, CO2 30, BUN 17, and creatinine 1.12. Chest x-ray showed a large left-sided pleural effusion, which was significantly reduced after thoracentesis, without evidence of pneumothorax. Review of Systems REVIEW OF SYSTEMS: CONSTITUTIONAL: Weakness. NEUROLOGIC: [ Negative.] HEENT: [ Negative.] CARDIAC: [Negative.] PULMONARY: Shortness of breath. GI: [Negative.] : [Negative.] RHEUMATOLOGIC: [ Negative.] IMMUNOLOGIC: [ Negative.] ENDOCRINE: [Negative. ] DERMATOLOGIC: [Negative.] Past Medical History Past Medical History: Atrial Fibrillation, Cancer, Hypertension Additional Past Medical History / Comment(s): LEFT CHEST DISCOMFORT RECENTLY., chemo first dose 01/06/23. Radiation started beginning on December 2022. Recurrent m alignant left-sided pleural effusion History of Any Multi-Drug Resistant Organisms: None Reported Past Surgical History: Adenoidectomy, Hysterectomy, Tonsillectomy Additional Past Surgical History / Comment(s): D& C. left sided thoracentesis 11/21/2022 with removal of 600 mL malignant effusion, left-sided thoracentesis 01/14/2023 with removal of 1 L fluid Past Anesthesia/Blood Transfusion Reactions: No Reported Reaction Past Psychological History: No Psychological Hx Reported Smoking Status: Never smoker Past Alcohol Use History: Occasional Additional Past Alcohol Use History / Comment(s): before diagnosis pt states she would occasionally have a glass of wine. Past Drug Use History: None Reported - Past Family History Father Family Medical History: No Reported History Mother Family Medical History: No Reported History Medications and Allergies Home Medications Medication Instructions Recorded Confirmed Type Cholecalciferol [Vitamin D3 (25 25 mcg PO DAILY 11/21/22 02/09/23 History Mcg = 1000 Iu)] Latanoprost/Pf [Latanoprost 0.005% 1 drop BOTH EYES HS 11/21/22 02/09/23 History Eye Drop] Calcium Carbonate [Calcium] 600 mg PO DAILY 01/13/23 02/09/23 History Folic Acid 1 mg PO DAILY 01/13/23 02/09/23 History HYDROmorphone [Dilaudid] 2 mg PO TID PRN 01/13/23 02/09/23 History LORazepam [Ativan] 1 tab PO HS PRN 01/13/23 02/09/23 History Amiodarone [Cordarone] 200 mg PO BID #60 tab 01/19/23 02/09/23 Rx Furosemide [Lasix] 20 mg PO DAILY #30 tab 01/19/23 02/09/23 Rx Metoprolol Succinate (ER) [Toprol 50 mg PO DAILY #30 tab 01/19/23 02/09/23 Rx XL] Pantoprazole [Protonix] 40 mg PO DAILY 02/09/23 02/09/23 History Allergies Allergy/AdvReac Type Severity Reaction Status Date / Time No Known Allergies Allergy Verified 02/09/23 20:41 Physical Exam Osteopathic Statement: *. No significant issues noted on an osteopathic structural exam other than those noted in the History and Physical/Consult. Vitals: Vital Signs Temp Pulse Pulse Resp BP BP Pulse Ox 02/10/23 10:54 98.3 F 103 H 22 107/70 97 02/10/23 10:15 106 H 18 116/65 99 02/10/23 10:08 108 H 18 120/63 100 02/10/23 09:50 106 H 20 108/59 99 02/10/23 07:45 97.5 F L 98 18 93/59 99 02/10/23 01:58 97.8 F 93 20 103/69 98 02/09/23 22:38 98.0 F 103 H 20 124/79 97 02/09/23 22:00 96 24 103/60 99 02/09/23 21:00 101 H 32 H 121/67 96 02/09/23 19:54 92 L 02/09/23 19:15 22 02/09/23 19:13 98.3 F 107 H 24 102/68 91 L Intake and Output 02/09/23 02/10/23 02/10/23 22:59 06:59 14:59 Intake Total 0 Balance 0 Intake: Oral 0 Other: Voiding Method Toilet # Voids 2 Weight 70 kg No acute distress, oriented 3. Pale. Currently on 2 L. HEENT examination is grossly unremarkable. Neck supple. Full range of motion. No adenopathy thyromegaly or neck vein distention. Cardiovascular examination reveals regular rhythm rate. S1-S2 normal. No S3 or S4. No discernible murmur noted. Heart rate 103 bpm. Lungs reveal diminished breath sounds on the left. No wheezes. No rhonchi. 2 L saturation 97%. Abdomen soft bowel sounds are heard. No masses or tenderness. Extremities are intact. No cyanosis clubbing or edema. Skin is without rash or lesion. Neurologic examination is brief but nonfocal. Results - Laboratory Findings CBC and BMP: 02/10/23 09:13 02/10/23 09:13 PT/INR, D-dimer PT 12.8 sec (9.0-12.0) H 02/09/23 19:31 INR 1.3 (<1.2) H 02/09/23 19:31 Abnormal lab findings: Abnormal Labs 02/09/23 02/09/23 02/09/23 19:31 19:31 19:31 WBC 16.9 H RBC 2.58 L Hgb 7.4 L Hct 23.7 L MCHC RDW 17.7 H Plt Count Neutrophils # 13.0 H Monocytes # 1.6 H PT 12.8 H INR 1.3 H Potassium 3.0 L Creatinine 1.16 H Calcium 7.7 L Total Bilirubin 1.7 H Alkaline Phosphatase 134 H Troponin I Total Protein 5.2 L Albumin 2.6 L 02/09/23 02/10/23 02/10/23 19:31 09:13 09:13 WBC 16.1 H RBC 2.53 L Hgb 7.3 L Hct 23.7 L MCHC 30.6 L RDW 17.6 H Plt Count 140 L Neutrophils # 12.6 H Monocytes # 1.6 H PT INR Potassium 3.1 L Creatinine 1.12 H Calcium 7.7 L Total Bilirubin Alkaline Phosphatase Troponin I 0.047 H* Total Protein Albumin - Diagnostic Findings Chest x-ray: image reviewed Assessment and Plan Assessment: Acute on chronic shortness of breath, secondary to recurrent left-sided malignant effusion. Generalized weakness, and fatigue, secondary to anemia, and chemotherapy-induced side effects. Recent diagnosis of stage IV adenocarcinoma of suspected pulmonary primary, with skeletal metastasis, S/P radiation. Recurrent left-sided pleural effusion, status post thoracentesis 3. Lifelong nonsmoker. Plan: Plan dated 02/10/2023. The patient underwent left-sided thoracentesis ready by interventional radiology, with a bit more than 1000 mL of fluid removed. This was her third thoracentesis. On her last visit, in late December, she was offered Pleurx catheter placement, but refused. She was seen by cardiothoracic surgery/Dr. Barrett. We will ask them to see her again, he gets at this time, she is agreeable to Pleurx catheter placement. Consult has not been placed, we will place one. Prognosis is certainly guarded. Time with Patient: Greater than 30
[2023-02-10] MEDS: POTASSIUM CHLORIDE ER 20 MEQ TAB.ER PO SCH ×2 (13:04→14:32)
--- NOTE | 2023-02-10 16:08 | P.GSCN ---
History of Present Illness Consult date: 02/10/23 Reason for Consult: Recurrent pleural effusion, need for Pleurx catheter Requesting physician: Debbi Sheth History of present illness: This is a 67-year-old female patient follows outpatient with Dr. Tanner for primary, Dr. Celestino Dubon for radiation oncology, and Dr. Chelsey Kang for oncology. She is a previous medical history of stage IV metastatic adenocarcinoma of the lung status post chemo and immunotherapy as well as radiation to her bony metastasis, multiple left-sided thoracentesis for recurrent pleural effusions, and lifelong nonsmoker. We saw this patient at the end of December under consultation for Pleurx catheter placement. At that time the patient did not wish to have a Pleurx catheter placed and wanted to discuss with her oncologist outpatient. Our contact information was given to the patient for future Pleurx catheter planning. She was discharged on January 19. Unfortunately she reported back to [facility] emergency room yesterday with complaints of significant shortness of breath and severe weakness and debility. Chest x- ray demonstrated large left-sided effusion and she underwent thoracentesis today with removal of 1 L fluid. Cardiothoracic surgery was again placed on consult for placement of Pleurx catheter. Review of Systems - Constitutional Reports weakness - Respiratory Reports dyspnea Past Medical History Past Medical History: Atrial Fibrillation, Cancer, Hypertension Additional Past Medical History / Comment(s): LEFT CHEST DISCOMFORT RECENTLY., chemo first dose 01/06/23. Radiation started beginning on December 2022. Recurrent malignant left-sided pleural effusion History of Any Multi-Drug Resistant Organisms: None Reported Past Surgical History: Adenoidectomy, Hysterectomy, Tonsillectomy Additional Past Surgical History / Comment(s): D& C. left sided thoracentesis 11/21/2022 with removal of 600 mL malignant effusion, left-sided thoracentesis 01/14/2023 with removal of 1 L fluid, left-sided thoracentesis 02/10/2023 with removal of 1 L fluid Past Anesthesia/Blood Transfusion Reactions: No Reported Reaction Past Psychological History: No Psychological Hx Reported Smoking Status: Never smoker Past Alcohol Use History: Occasional Additional Past Alcohol Use History / Comment(s): before diagnosis pt states she would occasionally have a glass of wine. Past Drug Use History: None Reported - Past Family History Father Family Medical History: No Reported History Mother Family Medical History: No Reported History Medications and Allergies Home Medications Medication Instructions Recorded Confirmed Type Cholecalciferol [Vitamin D3 (25 25 mcg PO DAILY 11/21/22 02/09/23 History Mcg = 1000 Iu)] Latanoprost/Pf [Latanoprost 0.005% 1 drop BOTH EYES HS 11/21/22 02/09/23 History Eye Drop] Calcium Carbonate [Calcium] 600 mg PO DAILY 01/13/23 02/09/23 History Folic Acid 1 mg PO DAILY 01/13/23 02/09/23 History HYDROmorphone [Dilaudid] 2 mg PO TID PRN 01/13/23 02/09/23 History LORazepam [Ativan] 1 tab PO HS PRN 01/13/23 02/09/23 History Amiodarone [Cordarone] 200 mg PO BID #60 tab 01/19/23 02/09/23 Rx Furosemide [Lasix] 20 mg PO DAILY #30 tab 01/19/23 02/09/23 Rx Metoprolol Succinate (ER) [Toprol 50 mg PO DAILY #30 tab 01/19/23 02/09/23 Rx XL] Pantoprazole [Protonix] 40 mg PO DAILY 02/09/23 02/09/23 History Allergies Allergy/AdvReac Type Severity Reaction Status Date / Time No Known Allergies Allergy Verified 02/09/23 20:41 Surgical - Exam Vital Signs Temp Pulse Resp BP Pulse Ox 98.3 F 107 H 24 102/68 91 L 02/09/23 19:13 02/09/23 19:13 02/09/23 19:13 02/09/23 19:13 02/09/23 19:13 CONSTITUTIONAL: Awake and alert, appears very weak EYES: Pupils equal, round, reactive to light, normal ocular movement ENT: Moist mucous membranes without oral lesions present NECK: No masses, no bruits, trachea midline RESPIRATORY: Lungs sounds diminished on the left. Respirations even, nonlabored. Currently on 2 L nasal cannula with oxygen saturation 96% CARDIOVASCULAR: S1, S2 present. Tachycardic but regular rate and rhythm. Palpable peripheral pulses bilaterally. No edema present GASTROINTESTINAL: Abdomen soft, nontender, nondistended without masses or organomegaly noted. There is no rebound or guarding present. Active bowel sounds present 4 quadrants. GENITOURINARY: Deferred INTEGUMENTARY: Skin is warm and dry with evidence of good perfusion. NEUROLOGIC: Cranial nerves II through XII intact, normal coordination, no obvious motor or sensory deficits, speech is normal MUSKULOSKELETAL: Able to move all extremities, strength equal bilaterally, very weak PSYCHIATRIC: Alert and oriented to person place and time Results - Labs 02/13/23 02:56 02/13/23 02:56 Abnormal Lab Results - Last 24 Hours (Table) 02/09/23 02/09/23 02/09/23 Range/Units 19:31 19:31 19:31 WBC 16.9 H (3.8-10.6) k/uL RBC 2.58 L (3.80-5.40) m/uL Hgb 7.4 L (11.4-16.0) gm/dL Hct 23.7 L (34.0-46.0) % MCHC (31.0-37.0) g/dL RDW 17.7 H (11.5-15.5) % Plt Count (150-450) k/uL Neutrophils # 13.0 H (1.3-7.7) k/uL Monocytes # 1.6 H (0-1.0) k/uL PT 12.8 H (9.0-12.0) sec INR 1.3 H (<1.2) Potassium 3.0 L (3.5-5.1) mmol/L Creatinine 1.16 H (0.52-1.04) mg/dL Calcium 7.7 L (8.4-10.2) mg/dL Total Bilirubin 1.7 H (0.2-1.3) mg/dL Alkaline Phosphatase 134 H (38-126) U/L Troponin I (0.000-0.034) ng/mL Total Protein 5.2 L (6.3-8.2) g/dL Albumin 2.6 L (3.5-5.0) g/dL 02/09/23 02/10/23 02/10/23 Range/Units 19:31 09:13 09:13 WBC 16.1 H (3.8-10.6) k/uL RBC 2.53 L (3.80-5.40) m/uL Hgb 7.3 L (11.4-16.0) gm/dL Hct 23.7 L (34.0-46.0) % MCHC 30.6 L (31.0-37.0) g/dL RDW 17.6 H (11.5-15.5) % Plt Count 140 L (150-450) k/uL Neutrophils # 12.6 H (1.3-7.7) k/uL Monocytes # 1.6 H (0-1.0) k/uL PT (9.0-12.0) sec INR (<1.2) Potassium 3.1 L (3.5-5.1) mmol/L Creatinine 1.12 H (0.52-1.04) mg/dL Calcium 7.7 L (8.4-10.2) mg/dL Total Bilirubin (0.2-1.3) mg/dL Alkaline Phosphatase (38-126) U/L Troponin I 0.047 H* (0.000-0.034) ng/mL Total Protein (6.3-8.2) g/dL Albumin (3.5-5.0) g/dL Diabetes panel 02/09/23 02/10/23 Range/Units 19:31 09:13 Sodium 139 142 (137-145) mmol/L Potassium 3.0 L 3.1 L (3.5-5.1) mmol/L Chloride 103 105 (98-107) mmol/L Carbon Dioxide 30 30 (22-30) mmol/L BUN 17 17 (7-17) mg/dL Creatinine 1.16 H 1.12 H (0.52-1.04) mg/dL Glucose 99 98 (74-99) mg/dL Calcium 7.7 L 7.7 L (8.4-10.2) mg/dL AST 25 (14-36) U/L ALT 15 (4-34) U/L Alkaline Phosphatase 134 H (38-126) U/L Total Protein 5.2 L (6.3-8.2) g/dL Albumin 2.6 L (3.5-5.0) g/dL Calcium panel 02/09/23 02/10/23 Range/Units 19:31 09:13 Calcium 7.7 L 7.7 L (8.4-10.2) mg/dL Albumin 2.6 L (3.5-5.0) g/dL Pituitary panel 02/09/23 02/10/23 Range/Units 19:31 09:13 Sodium 139 142 (137-145) mmol/L Potassium 3.0 L 3.1 L (3.5-5.1) mmol/L Chloride 103 105 (98-107) mmol/L Carbon Dioxide 30 30 (22-30) mmol/L BUN 17 17 (7-17) mg/dL Creatinine 1.16 H 1.12 H (0.52-1.04) mg/dL Glucose 99 98 (74-99) mg/dL Calcium 7.7 L 7.7 L (8.4-10.2) mg/dL Adrenal panel 02/09/23 02/10/23 Range/Units 19:31 09:13 Sodium 139 142 (137-145) mmol/L Potassium 3.0 L 3.1 L (3.5-5.1) mmol/L Chloride 103 105 (98-107) mmol/L Carbon Dioxide 30 30 (22-30) mmol/L BUN 17 17 (7-17) mg/dL Creatinine 1.16 H 1.12 H (0.52-1.04) mg/dL Glucose 99 98 (74-99) mg/dL Calcium 7.7 L 7.7 L (8.4-10.2) mg/dL Total Bilirubin 1.7 H (0.2-1.3) mg/dL AST 25 (14-36) U/L ALT 15 (4-34) U/L Alkaline Phosphatase 134 H (38-126) U/L Total Protein 5.2 L (6.3-8.2) g/dL Albumin 2.6 L (3.5-5.0) g/dL - Imaging Chest x-ray: report reviewed, image reviewed Assessment and Plan Assessment: Stage IV metastatic adenocarcinoma of the lung status post 1 round of chemo and immunotherapy as well as radiation to bony metastasis Recurrent left-sided malignant pleural effusion, status post thoracentesis 3 Fatigue, malaise, shortness of breath, secondary to above Lifelong nonsmoker Plan: The patient was seen and examined laying in bed on the medical oncology unit in no acute distress. Chart/diagnostics reviewed. The case was reviewed with Dr. Toro and Dr. Barrett. Discussed with the patient as well as her sister the recommendation for Pleurx catheter, they are agreeable now. As the patient was just drained this morning need to have fluid reaccumulate for Pleurx catheter placement which does not need to be done inpatient. We will plan for elective o utpatient Pleurx catheter placement next Friday, February [address] Barrett. The will allow fluid to reaccumulate appropriately for Pleurx catheter placement. Patient may be discharged from our standpoint to return as an outpatient. Management of other comorbidities per internal medicine, pulmon ology, oncology. I have personally seen and examined the patient, performed the documentation and the assessment and plan as written. Number of minutes spent on the visit: 30. Joyce Teague, DENTAL INSTRUMENT MAKER-C I have seen and evaluated the patient with the DENTAL INSTRUMENT MAKER above. Agree with her assessment and findings. Plan for pleurX placement next week when she re-accumu lates some fluid. I spent 35 minutes reviewing the data and discussing findings with the patient and the team. Time with Patient: Greater than 30
--- NOTE | 2023-02-10 16:11 | P.CONS ---
History of Present Illness - Reason for Consult Consult date: 02/10/23 stage IV lung adeno Requesting physician: Mervin Pond - Chief Complaint SOB - History of Present Illness due to setup he is a pleasant 67-year-old patient of Dr. Kang who presented in late October 2022 with complaints of progressive cough and dyspnea, persistent over several weeks. She had an abnormal chest x-ray and elevated d- dimer so, she was referred for CT Chest which she had done at [facility] 11/14/22. Left pleural effusion with a 3.5 cm left infrahilar mass with postobstructive changes was noted. 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 12/06/22 staging PET showed suspicious uptake in the left lung hilum, mild uptake in the left pleura, suspicious bony lesions at T7, L2, T12 posterior left rib, left sacrum, right pubic ramus. Somatic testing and IHC testing were all negative for any targetable mutations. EGD and colonoscopy were negative, gastric biopsy was likely benign. She had palliative radiation to painful T7 and sacrum. 01/06/23 she started treatment, she was due to be on doublet chemotherapy and one immunotherapy But, [place] agents have been on shortage. Despite receiving only one chemotherapy agent she ended up in the hospital with significant pancytopenia, neutropenic fever, she required transfusions as well as G-CSF. 01/29/[address] Kang and he had a discussion with the patient and her friend. He reiterated that the patient's overall prognosis is poor. She is not a candidate for additional treatment at this time. Comfort care was discussed but patient declined she also declined palliative care and would like to see how she feels over the next few weeks. She declined a Pleurx drain and was provided with a standing order for thoracentesis was generated 02/04, she was scheduled for her first thoracentesis 02/12. Patient is currently admitted because her O2 saturation was low at hime and she was experiencing shortness of breath. She is status post 1L right thoracentesis with some improvement in her respiratory status. She continues to remain weak in general. We discussed that pleural effusion is malignant and would return. She is interested now in meeting with someone for placement of a Pleurx drain so that she will not have to return to the hospital. She denied fevers, nausea, vomiting, her pain is currently controlled on Dilaudid, no acute changes in bowel or bladder habits. Review of Systems 10 point ROS is neg except as stated in HPI Past Medical History Past Medical History: Atrial Fibrillation, Cancer, Hypertension Additional Past Medical History / Comment(s): LEFT CHEST DISCOMFORT RECENTLY., chemo first dose 01/06/23. Radiation started beginning on December 2022. Recurrent malignant left-sided pleural effusion History of Any Multi-Drug Resistant Organisms: None Reported Past Surgical History: Adenoidectomy, Hysterectomy, Tonsillectomy Additional Past Surgical History / Comment(s): D& C. left sided thoracentesis 11/21/2022 with removal of 600 mL malignant effusion, left-sided thoracentesis 01/14/2023 with removal of 1 L fluid Past Anesthesia/Blood Transfusion Reactions: No Reported Reaction Past Psychological History: No Psychological Hx Reported Smoking Status: Never smoker Past Alcohol Use History: Occasional Additional Past Alcohol Use History / Comment(s): before diagnosis pt states she would occasionally have a glass of wine. Past Drug Use History: None Reported - Past Family History Father Family Medical History: No Reported History Mother Family Medical History: No Reported History Medications and Allergies Home Medications Medication Instructions Recorded Confirmed Type Cholecalciferol [Vitamin D3 (25 25 mcg PO DAILY 11/21/22 02/09/23 History Mcg = 1000 Iu)] Latanoprost/Pf [Latanoprost 0.005% 1 drop BOTH EYES HS 11/21/22 02/09/23 History Eye Drop] Calcium Carbonate [Calcium] 600 mg PO DAILY 01/13/23 02/09/23 History Folic Acid 1 mg PO DAILY 01/13/23 02/09/23 History HYDROmorphone [Dilaudid] 2 mg PO TID PRN 01/13/23 02/09/23 History LORazepam [Ativan] 1 tab PO HS PRN 01/13/23 02/09/23 History Amiodarone [Cordarone] 200 mg PO BID #60 tab 01/19/23 02/09/23 Rx Furosemide [Lasix] 20 mg PO DAILY #30 tab 01/19/23 02/09/23 Rx Metoprolol Succinate (ER) [Toprol 50 mg PO DAILY #30 tab 07/02/23 07/23/23 Rx XL] Pantoprazole [Protonix] 40 mg PO DAILY 02/09/23 02/09/23 History Allergies Allergy/AdvReac Type Severity Reaction Status Date / Time No Known Allergies Allergy Verified 02/09/23 20:41 Physical Exam Vitals: Vital Signs Temp Pulse Pulse Resp BP BP Pulse Ox 02/10/23 07:45 97.5 F L 98 18 93/59 99 02/10/23 01:58 97.8 F 93 20 103/69 98 02/09/23 22:38 98.0 F 103 H 20 124/79 97 02/09/23 22:00 96 24 103/60 99 02/09/23 21:00 101 H 32 H 121/67 96 02/09/23 19:54 92 L 02/09/23 19:15 22 02/09/23 19:13 98.3 F 107 H 24 102/68 91 L Intake and Output 02/09/23 02/10/23 02/10/23 22:59 06:59 14:59 Intake Total 0 Balance 0 Intake: Oral 0 Other: Voiding Method Toilet # Voids 2 Weight 70 kg - Constitutional General appearance: average body habitus, cooperative, no acute distress - EENT Eyes: anicteric sclerae, EOMI ENT: hearing grossly normal, normal oropharynx - Neck Neck: no lymphadenopathy - Respiratory Diminished bases right > left - Cardiovascular Rhythm: regular Heart sounds: normal: S1, S2 Abnormal Heart Sounds: no systolic murmur, no diastolic murmur, no rub, no S3 Gallop, no S4 Gallop, no click, no other leg Peripheral Edema: bilateral: 1+, Pitting - Gastrointestinal General gastrointestinal: no absent bowel sounds, no decreased bowel sounds, no distended, no hepatomegaly, no hyperactive bowel sounds, normal bowel sounds, no organomegaly, no rigid, no scaphoid, soft, no splenomegaly, tenderness, no umbilical hernia, no ventral hernia - Neurologic Neurologic: CNII-XII intact (Grossly) - Musculoskeletal Musculoskeletal: generalized weakness - Psychiatric Psychiatric: A&O x's 3, appropriate affect, intact judgment & insight Results CBC & Chem 7: 02/10/23 09:13 02/10/23 09:13 Labs: Abnormal Lab Results - Last 24 Hours (Table) 02/09/23 02/09/23 02/09/23 Range/Units 19:31 19:31 19:31 WBC 16.9 H (3.8-10.6) k/uL RBC 2.58 L (3.80-5.40) m/uL Hgb 7.4 L (11.4-16.0) gm/dL Hct 23.7 L (34.0-46.0) % RDW 17.7 H (11.5-15.5) % Neutrophils # 13.0 H (1.3-7.7) k/uL Monocytes # 1.6 H (0-1.0) k/uL PT 12.8 H (9.0-12.0) sec INR 1.3 H (<1.2) Potassium 3.0 L (3.5-5.1) mmol/L Creatinine 1.16 H (0.52-1.04) mg/dL Calcium 7.7 L (8.4-10.2) mg/dL Total Bilirubin 1.7 H (0.2-1.3) mg/dL Alkaline Phosphatase 134 H (38-126) U/L Troponin I (0.000-0.034) ng/mL Total Protein 5.2 L (6.3-8.2) g/dL Albumin 2.6 L (3.5-5.0) g/dL 02/09/23 Range/Units 19:31 WBC (3.8-10.6) k/uL RBC (3.80-5.40) m/uL Hgb (11.4-16.0) gm/dL Hct (34.0-46.0) % RDW (11.5-15.5) % Neutrophils # (1.3-7.7) k/uL Monocytes # (0-1.0) k/uL PT (9.0-12.0) sec INR (<1.2) Potassium (3.5-5.1) mmol/L Creatinine (0.52-1.04) mg/dL Calcium (8.4-10.2) mg/dL Total Bilirubin (0.2-1.3) mg/dL Alkaline Phosphatase (38-126) U/L Troponin I 0.047 H* (0.000-0.034) ng/mL Total Protein (6.3-8.2) g/dL Albumin (3.5-5.0) g/dL Chest x-ray: report reviewed Assessment and Plan (1) Shortness of breath Current Visit: Yes Status: Acute Priority: High Code(s): R06.02 - SHORTNESS OF BREATH SNOMED Code(s): 481559382 (2) Loculated pleural effusion Current Visit: Yes Status: Acute Priority: High Code(s): J90 - PLEURAL EFFUSION, NOT ELSEWHERE CLASSIFIED SNOMED Code(s): 819697041 (3) Adenocarcinoma of lung, stage 4 Current Visit: Yes Status: Chronic Priority: High Code(s): C34.90 - MALIGNANT NEOPLASM OF UNSP PART OF UNSP BRONCHUS OR LUNG SNOMED Code(s): 009765750 Plan: Pleural effusion -Secondary to malignancy -Patient is status post thoracentesis -Case discussed briefly with Pulmonary DNP. Recommendation is CTS to place Pleurx. -Consult placed for the same Stage IV non-small cell lung cancer -Patient recently met with Dr. Kang. Patient's performance status is poor. She is not a candidate for any additional treatment at this time. Recommendation was for palliative care or hospice. Patient was not interested in either service at that time, was not ready for that type of decision today when seen. Pleurx catheter was recommended because the malignant effusion is going to be recurrent. Patient declined at that time. When seen today patient reports that she would like to discuss having Pleurx catheter placed. As above, consult placed for the same. -Follow-up with Dr. Kang placed in the chart
[2023-02-10] MEDS: LATANOPROST 0.005% OPHTH DROPS 2.5 ML BTL BOTH EYES SCH (20:24)
--- NOTE | 2023-02-11 02:34 | P.HPIM ---
History of Present Illness H&P Date: 02/10/23 This is a 67 year old female with medical history of atrial fibrillation, hypertension, and stage IV lung cancer with recurrent malignant left pleural effusion status post thoracentesis. Patient presents with complaint of increasing shortness of breath. Patient was scheduled for left sided thoracente sis on Friday however had progressive dyspnea and hypoxia at home came into the ER for evaluation. Since recent diagnosis of lung cancer, patient has had one round of chemotherapy which patient ended up in the ICU after and has not had chemo since. Patient had issues with anemia and also during previous hospital stay patient had an episode of SVT which resulted in ICU stay. Patient has been unable to get in with pulmonary in the office since discharge and was concerned with low oxygen at home. Was in to see nitrator operator on Friday and pt reports cardiology felt she was doing well. Chest xray on admission reveals suspected loculated left pleural effusion and intervention radiology has been consulted for left sided thoracentesis. Patient has leukocytosis of 16.4 on admission, hemoglobin 7.4. INR 1.3. Potassium low at 3.0 and magnesium 1.7. Troponin is mildly elevated at 0.047 which will be trended. BNP slightly elevated at 1340. Oncology has been consulted recommending CT to see patient for possible Pleurex catheter placement and pulmonary will also be consulted. Patient is started on empiric antibiotics. REVIEW OF SYSTEMS: CONSTITUTIONAL: No fever, no malaise, no fatigue. HEENT: No recent visual problems or hearing problems. Denied any sore throat. CARDIOVASCULAR: No chest pain, orthopnea, PND, no palpitations, no syncope. PULMONARY: Reports shortness of breath, no cough, no hemoptysis. GASTROINTESTINAL: No diarrhea, no nausea, no vomiting, no abdominal pain. NEUROLOGICAL: No headaches, Reports weakness. HEMATOLOGICAL: Denies any bleeding or petechiae. GENITOURINARY: Denies any burning micturition, frequency, or urgency. MUSCULOSKELETAL/RHEUMATOLOGICAL: Denies any joint pain, swelling, or any muscle pain. ENDOCRINE: Denies any polyuria or polydipsia. The rest of the 14-point review of systems is negative. PHYSICAL EXAMINATION: GENERAL: The patient is alert and oriented x3, not in any acute distress. Well developed, well nourished. HEENT: Pupils are round and equally reacting to light. EOMI. No scleral icterus. No conjunctival pallor. Normocephalic, atraumatic. No pharyngeal erythema. No thyromegaly. CARDIOVASCULAR: S1 and S2 present. No murmurs, rubs, or gallops. PULMONARY: Chest is clear to auscultation, no wheezing or crackles. ABDOMEN: Soft, nontender, nondistended, normoactive bowel sounds. No palpable organomegaly. MUSCULOSKELETAL: No joint swelling or deformity. EXTREMITIES: No cyanosis, clubbing, or pedal edema. NEUROLOGICAL: Gross neurological examination did not reveal any focal deficits. SKIN: No rashes. 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 Dr. Racquel MD I have performed a history and physical examination and medical decision making of this patient, discussed the same with the dictator, and agree with the dictators assessment and plan as written, documented as a scribe. Based on total visit time, I have performed more than 50% of this visit. Past Medical History Past Medical History: Atrial Fibrillation, Cancer, Hypertension Additional Past Medical History / Comment(s): LEFT CHEST DISCOMFORT RECENTLY., chemo first dose 01/06/23. Radiation started beginning on December 2022. Recurrent malignant left-sided pleural effusion History of Any Multi-Drug Resistant Organisms: None Reported Past Surgical History: Adenoidectomy, Hysterectomy, Tonsillectomy Additional Past Surgical History / Comment(s): D& C. left sided thoracentesis 11/21/2022 with removal of 600 mL malignant effusion, left-sided thoracentesis 01/14/2023 with removal of 1 L fluid Past Anesthesia/Blood Transfusion Reactions: No Reported Reaction Past Psychological History: No Psychological Hx Reported Smoking Status: Never smoker Past Alcohol Use History: Occasional Additional Past Alcohol Use History / Comment(s): before diagnosis pt states she would occasionally have a glass of wine. Past Drug Use History: None Reported - Past Family History Father Family Medical History: No Reported History Mother Family Medical History: No Reported History Medications and Allergies Home Medications Medication Instructions Recorded Confirmed Type Cholecalciferol [Vitamin D3 (25 25 mcg PO DAILY 11/21/22 02/09/23 History Mcg = 1000 Iu)] Latanoprost/Pf [Latanoprost 0.005% 1 drop BOTH EYES HS 11/21/22 02/09/23 History Eye Drop] Calcium Carbonate [Calcium] 600 mg PO DAILY 01/13/23 02/09/23 History Folic Acid 1 mg PO DAILY 01/13/23 02/09/23 History HYDROmorphone [Dilaudid] 2 mg PO TID PRN 01/13/23 02/09/23 History LORazepam [Ativan] 1 tab PO HS PRN 01/13/23 02/09/23 History Amiodarone [Cordarone] 200 mg PO BID #60 tab 01/19/23 02/09/23 Rx Furosemide [Lasix] 20 mg PO DAILY #30 tab 01/19/23 02/09/23 Rx Metoprolol Succinate (ER) [Toprol 50 mg PO DAILY #30 tab 01/19/23 02/09/23 Rx XL] Pantoprazole [Protonix] 40 mg PO DAILY 02/09/23 02/09/23 History Allergies Allergy/AdvReac Type Severity Reaction Status Date / Time No Known Allergies Allergy Verified 02/09/23 20:41 Physical Exam Vitals: Vital Signs Temp Pulse Pulse Resp BP BP Pulse Ox 02/10/23 07:45 97.5 F L 98 18 93/59 99 02/10/23 01:58 97.8 F 93 20 103/69 98 02/09/23 22:38 98.0 F 103 H 20 124/79 97 02/09/23 22:00 96 24 103/60 99 02/09/23 21:00 101 H 32 H 121/67 96 02/09/23 19:54 92 L 02/09/23 19:15 22 02/09/23 19:13 98.3 F 107 H 24 102/68 91 L Intake and Output 02/09/23 02/10/23 02/10/23 22:59 06:59 14:59 Intake Total 0 Balance 0 Intake: Oral 0 Other: Voiding Method Toilet # Voids 2 Weight 70 kg Results CBC & Chem 7: 02/10/23 09:13 02/10/23 09:13 Labs: Abnormal Lab Results - Last 24 Hours (Table) 02/09/23 02/09/23 02/09/23 Range/Units 19:31 19:31 19:31 WBC 16.9 H (3.8-10.6) k/uL RBC 2.58 L (3.80-5.40) m/uL Hgb 7.4 L (11.4-16.0) gm/dL Hct 23.7 L (34.0-46.0) % MCHC (31.0-37.0) g/dL RDW 17.7 H (11.5-15.5) % Plt Count (150-450) k/uL Neutrophils # 13.0 H (1.3-7.7) k/uL Monocytes # 1.6 H (0-1.0) k/uL PT 12.8 H (9.0-12.0) sec INR 1.3 H (<1.2) Potassium 3.0 L (3.5-5.1) mmol/L Creatinine 1.16 H (0.52-1.04) mg/dL Calcium 7.7 L (8.4-10.2) mg/dL Total Bilirubin 1.7 H (0.2-1.3) mg/dL Alkaline Phosphatase 134 H (38-126) U/L Troponin I (0.000-0.034) ng/mL Total Protein 5.2 L (6.3-8.2) g/dL Albumin 2.6 L (3.5-5.0) g/dL 02/09/23 02/10/23 02/10/23 Range/Units 19:31 09:13 09:13 WBC 16.1 H (3.8-10.6) k/uL RBC 2.53 L (3.80-5.40) m/uL Hgb 7.3 L (11.4-16.0) gm/dL Hct 23.7 L (34.0-46.0) % MCHC 30.6 L (31.0-37.0) g/dL RDW 17.6 H (11.5-15.5) % Plt Count 140 L (150-450) k/uL Neutrophils # 12.6 H (1.3-7.7) k/uL Monocytes # 1.6 H (0-1.0) k/uL PT (9.0-12.0) sec INR (<1.2) Potassium 3.1 L (3.5-5.1) mmol/L Creatinine 1.12 H (0.52-1.04) mg/dL Calcium 7.7 L (8.4-10.2) mg/dL Total Bilirubin (0.2-1.3) mg/dL Alkaline Phosphatase (38-126) U/L Troponin I 0.047 H* (0.000-0.034) ng/mL Total Protein (6.3-8.2) g/dL Albumin (3.5-5.0) g/dL Thrombosis Risk Factor Assmnt - Choose All That Apply Any of the Below Risk Factors Present?: Yes Each Factor Represents 1 point: Obesity (BMI >25), Serious lung disease incl. pneumonia (< 1month), Swollen legs (current) Other Risk Factors: Yes Each Risk Factor Represents 2 Points: Age 61-74 years, Malignancy Other congenital or acquired thrombophilia - If yes, enter type in comment: No Thrombosis Risk Factor Assessment Total Risk Factor Score: 7 Thrombosis Risk Factor Assessment Level: High Risk Assessment and Plan Time with Patient: Less than 30
--- NOTE | 2023-02-11 06:02 | P.PN ---
Subjective Progress Note Date: 02/11/23 Principal diagnosis: Shortness of breath, recurrent pleural effusion. Pulmonary consult dated 02/10/2023. 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 The patient has had thoracentesis performed a total of 3 times, the most recent today. She has received radiation therapy to the skeletal system, because of metastasis, to T7, L2, posterior left ribs, and sacrum. She's received combination of carboplatin, Alimta, Keytruda. The patient was last evaluated by my partner, in December. At that time, she did underg o another thoracentesis, her second. Also, at that time, he recommended that she see cardiothoracic surgery for placement of a Pleurx catheter. At that time, she decided not to have the Pleurx catheter placed, and unfortunately, she was readmitted to the hospital, with a large left-sided pleural effusion, and was drained. 1060 mL of carline-colored fluid was removed. Currently she is on 2 L of oxygen. Was receiving potassium replacement therapy. White count was 16.1, hemoglobin 7.3, hematocrit 23.7, and a platelet count of 140,000. Sodium 142, potassium 3.1, chlorides 105, CO2 30, BUN 17, and creatinine 1.12. Chest x-ray showed a large left-sided pleural effusion, which was significantly reduced after thoracentesis, without evidence of pneumothorax. Progress note dated 02/11/2023. 67-year-old female with history of stage IV metastatic adenocarcinoma of the lung. The patient has had recurrent left-sided pleural effusion. She has been drained at least 3 times. 2 times, by my partners. This most recent time, by interventional radiology. The patient was offered a Pleurx catheter on her last admission, but refused. She is agreeable now. Yesterday, she had a bit more than 1 L removed from the left pleural space. She is already set up to see Dr. Barrett. No new labs as yet. Currently she is on 2 L of oxygen. No IV fluids. Objective - Vital Signs Vital signs: Vital Signs Temp 97.7 F 02/11/23 01:13 Pulse 102 H 02/11/23 01:13 Resp 20 02/11/23 01:13 BP 107/62 02/11/23 01:13 Pulse Ox 100 07/25/23 01:13 FiO2 Intake & Output 02/10/23 02/10/23 02/11/23 06:59 18:59 06:59 Intake Total 0 350 Balance 0 350 Weight 70 kg Intake: Oral 0 350 Other: Voiding Method Toilet Toilet # Voids 2 3 1 # Bowel Movements 1 - Exam No acute distress, oriented 3. No respiratory distress. 2 L saturations 100%. Oxygen can probably be discontinued. HEENT examination is grossly unremarkable. Neck supple. Full range of motion. No adenopathy thyromegaly or neck vein distention. Cardiovascular examination reveals regular rhythm rate. S1-S2 normal. No S3 or S4. No discernible murmur noted. Heart rate 92 bpm. Lungs reveal diminished breath sounds on the left. Right lung is clear. No wheezes. No rhonchi. No crackles. Abdomen soft bowel sounds are heard. No masses or tenderness. Extremities are intact. No cyanosis clubbing or edema. Skin is without rash or lesion. Neurologic examination is brief but nonfocal. - Labs CBC & Chem 7: 02/10/23 09:13 02/10/23 09:13 Labs: Abnormal Lab Results - Last 24 Hours (Table) 02/10/23 02/10/23 02/10/23 Range/Units 09:13 09:13 11:21 WBC 16.1 H (3.8-10.6) k/uL RBC 2.53 L (3.80-5.40) m/uL Hgb 7.3 L (11.4-16.0) gm/dL Hct 23.7 L (34.0-46.0) % MCHC 30.6 L (31.0-37.0) g/dL RDW 17.6 H (11.5-15.5) % Plt Count 140 L (150-450) k/uL Neutrophils # 12.6 H (1.3-7.7) k/uL Monocytes # 1.6 H (0-1.0) k/uL Potassium 3.1 L (3.5-5.1) mmol/L Creatinine 1.12 H (0.52-1.04) mg/dL Calcium 7.7 L (8.4-10.2) mg/dL Procalcitonin 0.32 H (0.02-0.09) ng/mL Assessment and Plan Assessment: Acute on chronic shortness of breath, secondary to recurrent left-sided malignant effusion. Generalized weakness, and fatigue, secondary to anemia, and chemotherapy-induced side effects. Recent diagnosis of stage IV adenocarcinoma of suspected pulmonary primary, with skeletal metastasis, S/P radiation. Recurrent left-sided pleural effusion, status post thoracentesis 3. Lifelong nonsmoker. Plan: Plan dated 02/10/2023. The patient underwent left-sided thoracentesis ready by interventional radiology, with a bit more than 1000 mL of fluid removed. This was her third thoracentesis. On her last visit, in late December, she was offered Pleurx catheter placement, but refused. She was seen by cardiothoracic surgery/Dr. Barrett. We will ask them to see her again, he gets at this time, she is agreeable to Pleurx catheter placement. Consult has not been placed, we will place one. Prognosis is certainly guarded. Plan dated 02/11/2023. The patient is scheduled to see Dr. Barrett next week for Pleurx catheter placement. The patient's on 2 L and her saturations are 100%. Oxygen can probably be discontinued. No new labs as yet. The patient's in no respiratory distress. Overall prognosis remains guarded. The patient could be considered for discharge, but will leave that up to the primary service. Time with Patient: Less than 30
[2023-02-11] MEDS: HYDROmorphone 2 MG TAB PO PRN ×3 (06:59→23:52)
[2023-02-11] MEDS: PANTOPRAZOLE 40 MG TABLET PO SCH (08:45)
[2023-02-11] MEDS: CALCIUM CARBONATE 500 MG CHEWABLE PO SCH (08:45)
[2023-02-11] MEDS: CHOLECALCIFEROL 25 MCG (1000 IU) TABLET PO SCH (08:46)
[2023-02-11] MEDS: FUROSEMIDE 20 MG TAB PO SCH (08:46)
[2023-02-11] MEDS: AMIODARONE 200 MG TAB PO SCH ×2 (08:46→19:54)
[2023-02-11] MEDS: METOPROLOL SUCCINATE (ER) 50 MG TAB.ER.24H PO SCH (08:47)
[2023-02-11] MEDS: FOLIC ACID 1 MG TAB PO SCH (08:47)
[2023-02-11 11:13] LABS: HCT 22.3 % (37.2-46.3); HGB 6.2 d/dL (12.0-15.0); MCH 27.1 pg (27.0-32.0); MCHC 27.8 d/dL (32.0-37.0); MCV 97.4 FL (80.0-97.0); Mean Platelet Volume 12.9 FL (9.5-12.2); NRBC Per 100 WBC 0.05 X 10*3/uL (0.00-0.01); Platelet Count 133 X 10*3/uL (140-440); RBC 2.29 X 10*6/uL (4.10-5.20); RDW 18.6 % (11.5-14.5); WBC 12.89 X 10*3/uL (4.50-10.00)
[2023-02-11 11:17] LABS: BUN/Creat Ratio 11.27 Ratio (12.00-20.00); Blood Urea Nitrogen 12.4 mg/dL (9.0-27.0); Calcium 8.1 mg/dL (8.7-10.3); Carbon Dioxide 28.5 mmol/L (21.6-31.8); Chloride 112 mmol/L (96-109); Glucose 106 mg/dL (70-110); Magnesium 1.9 mg/dL (1.5-2.4); Potassium 4.1 mmol/L (3.5-5.5); Sodium 149 mmol/L (135-145)
[2023-02-11 11:55] LABS: Anisocytosis (M) 2+; Basophils # (M) 0 X 10*3/uL (0.00-0.10); Eosinophils # (M) 0 X 10*3/uL (0.04-0.35); Hypochromasia (M) 2+; Lymphocytes # (M) 1.16 X 10*3/uL (0.90-5.00); Metamyelocytes % 4 % (0-0); Monocytes # (M) 0.52 X 10*3/uL (0.20-1.00); Myelocytes % 1 % (0-0); Neutrophils # (M) 10.57 X 10*3/uL (1.80-7.70); Neutrophils % (M) 82 %; Nucleated Red Blood Cells 2 /100 WBCS; Polychromasia 2+
--- NOTE | 2023-02-11 14:22 | P.PN ---
Subjective Progress Note Date: 02/11/23 Principal diagnosis: SOB, malignant pleural effusion In follow-up today patient was able to shower, or shortness of breath is improved since the thoracentesis. No fevers, nausea, her lower legs and feet are pretty significantly swollen. She is still able to ambulate short distances though. Objective - Vital Signs Vital signs: Vital Signs Temp 97.4 F L 02/11/23 12:39 Pulse 103 H 02/11/23 12:39 Resp 18 02/11/23 12:39 BP 97/59 02/11/23 12:39 Pulse Ox 100 02/11/23 12:39 FiO2 Intake & Output 02/10/23 02/11/23 02/11/23 18:59 06:59 18:59 Intake Total 350 Balance 350 Intake: Oral 350 Other: Voiding Method Toilet # Voids 3 1 # Bowel Movements 1 - Constitutional General appearance: Present: average body habitus, cooperative, mild distress - EENT Eyes: Present: anicteric sclerae, EOMI ENT: Present: hearing grossly normal - Respiratory Respiratory: bilateral: CTA, diminished, rales (bases) - Cardiovascular Rhythm: regular - Peripheral edema foot Peripheral Edema: bilateral: 3+, Pitting - Gastrointestinal General gastrointestinal: Present: normal bowel sounds, soft - Neurologic Neurologic: Present: CNII-XII intact (Closely) - Musculoskeletal Musculoskeletal: Present: generalized weakness, strength equal bilaterally - Psychiatric Psychiatric: Present: A&O x's 3, appropriate affect, intact judgment & insight - Labs CBC & Chem 7: 02/11/23 06:46 02/11/23 06:46 Labs: Abnormal Lab Results - Last 24 Hours (Table) 02/10/23 02/11/23 02/11/23 Range/Units 11:21 06:46 06:46 WBC 12.89 H (4.50-10.00) X 10*3/uL RBC 2.29 L (4.10-5.20) X 10*6/uL Hgb 6.2 H* (12.0-15.0) d/dL Hct 22.3 L (37.2-46.3) % MCV 97.4 H (80.0-97.0) FL MCHC 27.8 L (32.0-37.0) d/dL RDW 18.6 H (11.5-14.5) % Plt Count 133 L (140-440) X 10*3/uL MPV 12.9 H (9.5-12.2) FL Eosinophils # (Manual) 0 L (0.04-0.35) X 10*3/uL NRBC/100 WBC Diff 0.05 H (0.00-0.01) X 10*3/uL Polychromasia 2+ A Hypochromasia (manual) 2+ A Anisocytosis (manual) 2+ A Sodium 149 H (135-145) mmol/L Chloride 112 H (96-109) mmol/L Est GFR (CKD-EPI) 55 L (>=60) BUN/Creatinine Ratio 11.27 L (12.00-20.00) Ratio Calcium 8.1 L (8.7-10.3) mg/dL Procalcitonin 0.32 H (0.02-0.09) ng/mL Crossmatch 02/11/23 Range/Units 12:58 WBC (4.50-10.00) X 10*3/uL RBC (4.10-5.20) X 10*6/uL Hgb (12.0-15.0) d/dL Hct (37.2-46.3) % MCV (80.0-97.0) FL MCHC (32.0-37.0) d/dL RDW (11.5-14.5) % Plt Count (140-440) X 10*3/uL MPV (9.5-12.2) FL Eosinophils # (Manual) (0.04-0.35) X 10*3/uL NRBC/100 WBC Diff (0.00-0.01) X 10*3/uL Polychromasia Hypochromasia (manual) Anisocytosis (manual) Sodium (135-145) mmol/L Chloride (96-109) mmol/L Est GFR (CKD-EPI) (>=60) BUN/Creatinine Ratio (12.00-20.00) Ratio Calcium (8.7-10.3) mg/dL Procalcitonin (0.02-0.09) ng/mL Crossmatch See Detail Microbiology - Last 24 Hours (Table) 02/09/23 23:26 Blood Culture - Preliminary Blood Assessment and Plan (1) Shortness of breath Current Visit: Yes Status: Acute Priority: High Code(s): R06.02 - SHORTNESS OF BREATH SNOMED Code(s): 455095985 (2) Loculated pleural effusion Current Visit: Yes Status: Acute Priority: High Code(s): J90 - PLEURAL EFFUSION, NOT ELSEWHERE CLASSIFIED SNOMED Code(s): 245436830 (3) Adenocarcinoma of lung, stage 4 Current Visit: Yes Status: Chronic Priority: High Code(s): C34.90 - MALIGNANT NEOPLASM OF UNSP PART OF UNSP BRONCHUS OR LUNG SNOMED Code(s): 509436682 Plan: Pleural effusion -Secondary to malignancy -Patient is status post thoracentesis -CTS has seen pt, plan is to place Pleurx next week outpt. Stage IV non-small cell lung cancer -Patient recently met with Dr. Kang. Patient's performance status is poor. She is not a candidate for systemic treatment at this time. Recommendation was for palliative care or hospice. Patient was not interested in either service at that time, cont to not be ready for that decision today when seen. -Follow-up with Dr. Kang placed in the chart Anemia -Pt Hgb dropped after 1 cycle of treatment, has never fully recovered -Iron studies about 4 weeks ago, anemia of inflammation, ferritin in the 5,000 range -Hemoglobin 6.2 today, IM ordered a unit of blood. 20 mg of Lasix post transfusion. Shortness of breath -Multifactorial including lung cancer, anemia, malignant pleural effusion -Improved s/p thoracentesis. Pleurex drain planned to palliate symptoms -1 unit PRBCs for Hgb 6.2. CBC in AM attests: I have seen and examined patient, performed H&P, developed impres arnaldo and plan of care. Discussed with dictator. Agree with documentation, dictated as a scribe.
[2023-02-11] MEDS ORDERED: FUROSEMIDE 10 MG/ML 2 ML VIAL IV ONE (15:00)
--- NOTE | 2023-02-11 19:12 | P.PN ---
Subjective Progress Note Date: 02/11/23 This is a 67 year old female with medical history of atrial fibrillation, hypertension, and stage IV lung cancer with recurrent malignant left pleural effusion status post thoracentesis. Patient presents with complaint of increasing shortness of breath. Patient was scheduled for left sided thoracentesis on Friday however had progressive dyspnea and hypoxia at home came into the ER for evaluation. Since recent diagnosis of lung cancer, patient has had one round of chemotherapy which patient ended up in the ICU after and has not had chemo since. Patient had issues with anemia and also during previous hospital stay patient had an episode of SVT which resulted in ICU stay. Patient has been unable to get in with pulmonary in the office since discharge and was concerned with low oxygen at home. 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 Chest xray on admission reveals suspected loculated left pleural effusion and intervention radiology has been consulted for left sided thoracentesis. Patient has leukocytosis of 16.4 on admission, hemoglobin 7.4. INR 1.3. Potassium low at 3.0 and magnesium 1.7. Troponin is mildly elevated at 0.047 which will be trended. BNP slightly elevated at 1340. Oncology has been consulted recommending CT to see patient for possible Pleurex catheter placement and pulmonary will also be consulted. Patient is started on empiric antibiotics. 02/11/2023 Patient is evaluated today resting in bed. Continues to report fatigue and weakness. Does report improvement in shortness of breath. Hemoglobin today 6.2, patient will receive 1 unit of PRBC. Cardiothoracic has evaluated and recommending outpatient placement of pleurex/pigtail catheter if/when fluid rebuilds on the lung. White count improved to 12.89. Patient has been resumed on oral lasix, sodium was up to 149 today. Procalcitonin mildly elevated 0.32 and patient remains on IV ceftriaxone. Review of Systems Constitutional: Denied any fatigue denied any fever. Cardio vascular: denied any chest pain, palpitations Gastrointestinal: denied any nausea, vomiting, diarrhea Pulmonary: Reports shortness of breath with exertion cough Neurologic denied any new focal deficits All inpatient medications were reviewed and appropriate changes in these medications as dictated in the interval history and assessment and plan. PHYSICAL EXAMINATION: GENERAL: The patient is alert and oriented x3, not in any acute distress. Well developed, well nourished. HEENT: Pupils are round and equally reacting to light. EOMI. No scleral icterus. No conjunctival pallor. Normocephalic, atraumatic. No pharyngeal erythema. No thyromegaly. CARDIOVASCULAR: S1 and S2 present. No murmurs, rubs, or gallops. PULMONARY: Chest is clear to auscultation, no wheezing or crackles. ABDOMEN: Soft, nontender, nondistended, normoactive bowel sounds. No palpable organomegaly. MUSCULOSKELETAL: No joint swelling or deformity. EXTREMITIES: No cyanosis, clubbing, or pedal edema. NEUROLOGICAL: Gross neurological examination did not reveal any focal deficits. SKIN: No rashes. 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 Generalized weakness due to malignancy Paroxysmal SVT previous admission Chronic constipation GI prophylaxis Full Code Plan Status post thoracentesis Cardiothoracic consultation placed recommending Pleurex catheter placement this will be done on an outpatient basis. Patient to receive 1 unit of PRBC today and follow up labs in AM. Oncology and pulmonary following Home with homecare on discharge. The impression and plan of care has been dictated by Lali Wang Nurse Practitioner as directed. Dr. Racquel MD I have performed a history and physical examination and medical decision making of this patient, discussed the same with the dictator, and agree with the dictators assessment and plan as written, documented as a scribe. Based on total visit time, I have performed more than 50% of this visit. Objective - Vital Signs Vital signs: Vital Signs Temp 97.3 F L 02/11/23 07:22 Pulse 114 H 02/11/23 08:45 Resp 18 02/11/23 07:22 BP 106/69 02/11/23 08:45 Pulse Ox 99 02/11/23 08:22 FiO2 Intake & Output 02/10/23 02/11/23 02/11/23 18:59 06:59 18:59 Intake Total 350 Balance 350 Intake: Oral 350 Other: Voiding Method Toilet # Voids 3 1 # Bowel Movements 1 - Labs CBC & Chem 7: 02/11/23 06:46 02/11/23 06:46 Labs: Abnormal Lab Results - Last 24 Hours (Table) 02/10/23 Range/Units 11:21 Procalcitonin 0.32 H (0.02-0.09) ng/mL Assessment and Plan Time with Patient: Less than 30
[2023-02-11] MEDS: LATANOPROST 0.005% OPHTH DROPS 2.5 ML BTL BOTH EYES SCH (19:51)
[2023-02-12] MEDS: PANTOPRAZOLE 40 MG TABLET PO SCH (09:08)
[2023-02-12] MEDS: CHOLECALCIFEROL 25 MCG (1000 IU) TABLET PO SCH (09:08)
[2023-02-12] MEDS: CALCIUM CARBONATE 500 MG CHEWABLE PO SCH (09:08)
[2023-02-12] MEDS: FOLIC ACID 1 MG TAB PO SCH (09:08)
[2023-02-12] MEDS: AMIODARONE 200 MG TAB PO SCH ×2 (09:09→20:28)
[2023-02-12] MEDS: FUROSEMIDE 20 MG TAB PO SCH (09:09)
[2023-02-12] MEDS: METOPROLOL SUCCINATE (ER) 50 MG TAB.ER.24H PO SCH (09:10)
[2023-02-12] MEDS: HYDROmorphone 2 MG TAB PO PRN ×2 (09:34→20:28)
[2023-02-12 10:49] LABS: African American GFR (CKD) 54 (>60 ml/min/1.73 sqM); Anion Gap 4 mmol/L; Blood Urea Nitrogen 16 mg/dL (7-17); Calcium 7.5 mg/dL (8.4-10.2); Carbon Dioxide 32 mmol/L (22-30); Chloride 106 mmol/L (98-107); Glucose 90 mg/dL (74-99); Non-African American GFR(CKD) 47 (>60 ml/min/1.73 sqM); Potassium 3.7 mmol/L (3.5-5.1); Sodium 142 mmol/L (137-145)
[2023-02-12 11:19] LABS: Anisocytosis Slight; HCT 25.6 % (34.0-46.0); HGB 7.8 gm/dL (11.4-16.0); Hypochromasia Marked; MCH 28.6 pg (25.0-35.0); MCHC 30.5 g/dL (31.0-37.0); Mean Platelet Volume 13.8; Poikilocytosis Marked; RBC 2.72 m/uL (3.80-5.40)
[2023-02-12 12:09] LABS: Band Neutrophils % 1 %; Lymphocytes # (M) 2.03 k/uL (1.0-4.8); Metamyelocytes # (M) 0.16 k/uL (0); Metamyelocytes % 1 %; Monocytes # (M) 1.56 k/uL (0-1.0); Myelocytes # (M) 0.16 k/uL (0); Myelocytes % 1 %; Neutrophils % (M) 75 %; Nucleated Red Blood Cells 1 /100 WBC (0-0); Total Cells Counted 200; WBC 15.6 k/uL (3.8-10.6)
[2023-02-12 12:18] LABS: Polychromasia Present
[2023-02-12 12:19] LABS: Platelet Count 156 k/uL (150-450)
[2023-02-12 12:20] LABS: Large Platelets Present
--- NOTE | 2023-02-12 13:09 | P.PN ---
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 The patient has had thoracentesis performed a total of 3 times, the most recent today. She has received radiation therapy to the skeletal system, because of metastasis, to T7, L2, posterior left ribs, and sacrum. She's received combination of carboplatin, Alimta, Keytruda. The patient was last evaluated by my partner, in December. At that time, she did undergo another thoracentesis, her second. Also, at that time, he recommended that she see cardiothoracic surgery for placement of a Pleurx catheter. At that time, she decided not to have the Pleurx catheter placed, and unfortunately, she was readmitted to the hospital, with a large left-sided pleural effusion, and was drained. 1060 mL of carline-colored fluid was removed. Currently she is on 2 L of oxygen. Was receiving potassium replacement therapy. White count was 16.1, hemoglobin 7.3, hematocrit 23.7, and a platelet count of 140,000. Sodium 142, potassium 3.1, chlorides 105, CO2 30, BUN 17, and creatinine 1.12. Chest x-ray showed a large left-sided pleural effusion, which was significantly reduced after thoracentesis, without evidence of pneumothorax. Progress note dated 02/11/2023. 67-year-old female with history of stage IV metastatic adenocarcinoma of the lung. The patient has had recurrent left-sided pleural effusion. She has been drained at least 3 times. 2 times, by my partners. This most recent time, by interventional radiology. The patient was offered a Pleurx catheter on her last admission, but refused. She is agreeable now. Yesterday, she had a bit more than 1 L removed from the left pleural space. She is already set up to see Dr. Barrett. No new labs as yet. Currently she is on 2 L of oxygen. No IV fluids. The patient is seen today 02/12/2023 and follow-up on the regular medical floor. She is up ambulating in her room. Awake and alert in no acute distress. No worsening shortness of breath, cough or congestion. She is maintaining O2 saturations up to 100% on 1 L/m per nasal cannula. She did receive 1 unit of packed red blood cells yesterday. Current hemoglobin 7.8. White count 15.6. Platelets 156. Sodium 142. Potassium 3.7. Bicarb 32. BUN 16. Creatinine 1.20. Glucose 90. Objective - Vital Signs Vital signs: Vital Signs Temp 98.8 F 02/12/23 11:08 Pulse 109 H 02/12/23 11:08 Resp 16 02/12/23 11:08 BP 86/58 02/12/23 11:08 Pulse Ox 94 L 02/12/23 11:08 FiO2 Intake & Output 02/11/23 02/12/23 02/12/23 18:59 06:59 18:59 Intake Total 521 240 Balance 521 240 Intake: Oral 240 240 Blood Product 281 Rc Pheresis 2 As3 Unit 281 [id number] Other: Voiding Method Toilet # Voids 4 1 # Bowel Movements 2 1 - Exam GENERAL EXAM: Alert, pleasant 67-year-old female, on 1 L nasal cannula, comfortable in no apparent distress. HEAD: Normocephalic. EYES: Normal reaction of pupils, equal size. NOSE: Clear with pink turbinates. THROAT: No erythema or exudates. NECK: No masses, no JVD. CHEST: No chest wall deformity. LUNGS: Equal air entry with no crackles, wheeze, rhonchi or dullness. Diminished on the left base. CVS: S1 and S2 normal with no audible murmur, regular rhythm. ABDOMEN: No hepatosplenomegaly, normal bowel sounds, no guarding or rigidity. SPINE: No scoliosis or deformity SKIN: No rashes CENTRAL NERVOUS SYSTEM: No focal deficits, tone is normal in all 4 extremities. EXTREMITIES: There is no peripheral edema. No clubbing, no cyanosis. Peripheral pulses are intact. - Labs CBC & Chem 7: 02/12/23 09:36 02/12/23 09:36 Labs: Abnormal Lab Results - Last 24 Hours (Table) 02/11/23 02/12/23 02/12/23 Range/Units 12:58 09:36 09:36 WBC 15.6 H (3.8-10.6) k/uL RBC 2.72 L (3.80-5.40) m/uL Hgb 7.8 L (11.4-16.0) gm/dL Hct 25.6 L (34.0-46.0) % MCHC 30.5 L (31.0-37.0) g/dL RDW 17.0 H (11.5-15.5) % Neutrophils # (Manual) 11.80 H (1.3-7.7) k/uL Monocytes # (Manual) 1.56 H (0-1.0) k/uL Metamyelocytes # (Man) 0.16 H (0) k/uL Myelocytes # (Manual) 0.16 H (0) k/uL Nucleated RBCs 1 H (0-0) /100 WBC Carbon Dioxide 32 H (22-30) mmol/L Creatinine 1.20 H (0.52-1.04) mg/dL Calcium 7.5 L (8.4-10.2) mg/dL Crossmatch See Detail Microbiology - Last 24 Hours (Table) 02/09/23 23:26 Blood Culture - Preliminary Blood Assessment and Plan Assessment: Acute on chronic shortness of breath, secondary to recurrent left-sided malignant effusion. Generalized weakness, and fatigue, secondary to anemia, and chemotherapy-induced side effects. Recent diagnosis of stage IV adenocarcinoma of suspected pulmonary primary, with skeletal metastasis, S/P radiation. Recurrent left-sided pleural effusion, status post thoracentesis 3. Lifelong nonsmoker. Plan: The patient was seen and evaluated Medications and labs reviewed Stable for discharge from the pulmonary standpoint Keep her appointment with CT services for probable complex catheter placement Follow-up in our office in 1 week I have personally seen and examined the patient, performed the documentation and the assessment and plan as written. Number of minutes spent on the visit: 10.
--- NOTE | 2023-02-12 15:06 | P.PN ---
Subjective Progress Note Date: 02/12/23 Principal diagnosis: SOB, malignant pleural effusion In follow-up today patient Reporting significant tiredness/fatigue. Her breathing is comfortable at rest. She denies any pain. Objective - Vital Signs Vital signs: Vital Signs Temp 98.8 F 02/12/23 11:08 Pulse 109 H 02/12/23 11:08 Resp 16 02/12/23 11:08 BP 86/58 02/12/23 11:08 Pulse Ox 94 L 02/12/23 11:08 FiO2 Intake & Output 02/11/23 02/12/23 02/12/23 18:59 06:59 18:59 Intake Total 521 240 Balance 521 240 Intake: Oral 240 240 Blood Product 281 Rc Pheresis 2 As3 Unit 281 [id number] Other: Voiding Method Toilet # Voids 4 1 # Bowel Movements 2 1 - Labs CBC & Chem 7: 02/12/23 09:36 02/12/23 09:36 Labs: Abnormal Lab Results - Last 24 Hours (Table) 02/11/23 02/12/23 02/12/23 Range/Units 12:58 09:36 09:36 WBC 15.6 H (3.8-10.6) k/uL RBC 2.72 L (3.80-5.40) m/uL Hgb 7.8 L (11.4-16.0) gm/dL Hct 25.6 L (34.0-46.0) % MCHC 30.5 L (31.0-37.0) g/dL RDW 17.0 H (11.5-15.5) % Neutrophils # (Manual) 11.80 H (1.3-7.7) k/uL Monocytes # (Manual) 1.56 H (0-1.0) k/uL Metamyelocytes # (Man) 0.16 H (0) k/uL Myelocytes # (Manual) 0.16 H (0) k/uL Nucleated RBCs 1 H (0-0) /100 WBC Carbon Dioxide 32 H (22-30) mmol/L Creatinine 1.20 H (0.52-1.04) mg/dL Calcium 7.5 L (8.4-10.2) mg/dL Crossmatch See Detail Microbiology - Last 24 Hours (Table) 07/23/23 23:26 Blood Culture - Preliminary Blood Assessment and Plan (1) Shortness of breath Current Visit: Yes Status: Acute Priority: High Code(s): R06.02 - SHORT NESS OF BREATH SNOMED Code(s): 977212808 (2) Loculated pleural effusion Current Visit: Yes Status: Acute Priority: High Code(s): J90 - PLEURAL EFFUSION, NOT ELSEWHERE CLASSIFIED SNOMED Code(s): 701777375 (3) Adenocarcinoma of lung, stage 4 Current Visit: Yes Status: Chronic Priority: High Code(s): C34.90 - MALIGNANT NEOPLASM OF UNSP PART OF UNSP BRONCHUS OR LUNG SNOMED Code(s): 928813074 Plan: Pleural effusion -Secondary to malignancy -Patient is status post thoracentesis -CTS has seen pt, plan is to place Pleurx next week outpt. Stage IV non-small cell lung cancer -Patient recently met with Dr. Kang. Patient's performance status is poor. She is not a candidate for systemic treatment at this time. Recommendation was for palliative care or hospice. Patient was not interested in either service at that time, cont to not be ready for that decision today when seen. She has decided on visiting nurses for now -Follow-up with Dr. Kang placed in the chart Anemia -Pt Hgb dropped after 1 cycle of treatment, has never fully recovered -Iron studies about 4 weeks ago, anemia of inflammation, ferritin in the 5,000 range -Hemoglobin 7.8 status post 1 unit of blood, 20 mg of Lasix post transfusion. Shortness of breath -Better today than yesterday -Multifactorial including lung cancer, anemia, malignant pleural effusion -Improved s/p thoracentesis. Pleurex drain planned to palliate symptoms, Patient has appointment for the same -1 unit PRBCs for Hgb 6.2, Hemoglobin 7.8 today
--- NOTE | 2023-02-12 16:50 | P.PN ---
Subjective Progress Note Date: 02/12/23 This is a 67 year old female with medical history of atrial fibrillation, hypertension, and stage IV lung cancer with recurrent malignant left pleural effusion status post thoracentesis. Patient presents with complaint of increasing shortness of breath. Patient was scheduled for left sided thoracentesis on Friday however had progressive dyspnea and hypoxia at home came into the ER for evaluation. Since recent diagnosis of lung cancer, patient has had one round of chemotherapy which patient ended up in the ICU after and has not had chemo since. Patient had issues with anemia and also during previous hospital stay patient had an episode of SVT which resulted in ICU stay. Patient has been unable to get in with pulmonary in the office since discharge and was concerned with low oxygen at home. 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 Chest xray on admission reveals suspected loculated left pleural effusion and intervention radiology has been consulted for left sided thoracentesis. Patient has leukocytosis of 16.4 on admission, hemoglobin 7.4. INR 1.3. Potassium low at 3.0 and magnesium 1.7. Troponin is mildly elevated at 0.047 which will be trended. BNP slightly elevated at 1340. Oncology has been consulted recommending CT to see patient for possible Pleurex catheter placement and pulmonary will also be consulted. Patient is started on empiric antibiotics. 02/11/2023 Patient is evaluated today resting in bed. Continues to report fatigue and weakness. Does report improvement in shortness of breath. Hemoglobin today 6.2, patient will receive 1 unit of PRBC. Cardiothoracic has evaluated and recommending outpatient placement of pleurex/pigtail catheter if/when fluid rebuilds on the lung. White count improved to 12.89. Patient has been resumed on oral lasix, sodium was up to 149 today. Procalcitonin mildly elevated 0.32 and patient remains on IV ceftriaxone. 02/12/2023 Patient is evaluated today sitting up in chair continues to report fatigue and weakness. Hemoglobin improved up to 7.4 today no signs of acute bleeding. Review of Systems Constitutional: Denied any fatigue denied any fever. Cardio vascular: denied any chest pain, palpitations Gastrointestinal: denied any nausea, vomiting, diarrhea Pulmonary: Reports shortness of breath with exertion cough Neurologic denied any new focal deficits All inpatient medications were reviewed and appropriate changes in these medications as dictated in the interval history and assessment and plan. PHYSICAL EXAMINATION: GENERAL: The patient is alert and oriented x3, not in any acute distress. Well developed, well nourished. HEENT: Pupils are round and equally reacting to light. EOMI. No scleral icterus. No conjunctival pallor. Normocephalic, atraumatic. No pharyngeal erythema. No thyromegaly. CARDIOVASCULAR: S1 and S2 present. No murmurs, rubs, or gallops. PULMONARY: Chest is clear to auscultation, no wheezing or crackles. ABDOMEN: Soft, nontender, nondistended, normoactive bowel sounds. No palpable organomegaly. MUSCULOSKELETAL: No joint swelling or deformity. EXTREMITIES: No cyanosis, clubbing, or pedal edema. NEUROLOGICAL: Gross neurological examination did not reveal any focal deficits. SKIN: No rashes. 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 Generalized weakness due to malignancy Paroxysmal SVT previous admission Chronic constipation GI prophylaxis Full Code Plan Status post thoracentesis patient to follow up outpatient for Pleurex catheter Monitor blood pressure change metoprolol to 25 mg po BID, amiodarone to decrease to 200 mg daily on Friday. Oncology and pulmonary following Home with homecare on discharge patient will D/C home tomorrow. The impression and plan of care has been dictated by Nurse Artur Peng as directed. Dr. Racquel MD I have performed a history and physical examination and medical decision making of this patient, discussed the same with the dictator, and agree with the dict ators assessment and plan as written, documented as a scribe. Based on total visit time, I have performed more than 50% of this visit. Objective - Vital Signs Vital signs: Vital Signs Temp 98.8 F 02/12/23 11:08 Pulse 120 H 02/12/23 15:40 Resp 16 02/12/23 11:08 BP 107/71 02/12/23 15:40 Pulse Ox 94 L 02/12/23 15:40 FiO2 Intake & Output 07/25/23 07/26/23 07/26/23 18:59 06:59 18:59 Intake Total 521 240 Balance 521 240 Intake: Oral 240 240 Blood Product 281 Rc Pheresis 2 As3 Unit 281 [id number] Other: Voiding Method Toilet # Voids 4 1 # Bowel Movements 2 1 - Labs CBC & Chem 7: 02/12/23 09:36 02/12/23 09:36 Labs: Abnormal Lab Results - Last 24 Hours (Table) 02/11/23 02/12/23 02/12/23 Range/Units 12:58 09:36 09:36 WBC 15.6 H (3.8-10.6) k/uL RBC 2.72 L (3.80-5.40) m/uL Hgb 7.8 L (11.4-16.0) gm/dL Hct 25.6 L (34.0-46.0) % MCHC 30.5 L (31.0-37.0) g/dL RDW 17.0 H (11.5-15.5) % Neutrophils # (Manual) 11.80 H (1.3-7.7) k/uL Monocytes # (Manual) 1.56 H (0-1.0) k/uL Metamyelocytes # (Man) 0.16 H (0) k/uL Myelocytes # (Manual) 0.16 H (0) k/uL Nucleated RBCs 1 H (0-0) /100 WBC Carbon Dioxide 32 H (22-30) mmol/L Creatinine 1.20 H (0.52-1.04) mg/dL Calcium 7.5 L (8.4-10.2) mg/dL Crossmatch See Detail Microbiology - Last 24 Hours (Table) 02/09/23 23:26 Blood Culture - Preliminary Blood Assessment and Plan Time with Patient: Less than 30
[2023-02-12] MEDS: METOPROLOL TARTRATE 25 MG TAB PO SCH (20:28)
[2023-02-12] MEDS: LATANOPROST 0.005% OPHTH DROPS 2.5 ML BTL BOTH EYES SCH (20:29)
[2023-02-13 04:27] LABS: African American GFR (CKD) 52 (>60 ml/min/1.73 sqM); Anion Gap 5 mmol/L; Blood Urea Nitrogen 18 mg/dL (7-17); Calcium 7.5 mg/dL (8.4-10.2); Carbon Dioxide 30 mmol/L (22-30); Chloride 104 mmol/L (98-107); Glucose 94 mg/dL (74-99); Non-African American GFR(CKD) 45 (>60 ml/min/1.73 sqM); Potassium 3.4 mmol/L (3.5-5.1); Sodium 139 mmol/L (137-145)
[2023-02-13] MEDS: HYDROmorphone 2 MG TAB PO PRN ×2 (05:20→22:17)
[2023-02-13] MEDS: AMIODARONE 200 MG TAB PO SCH ×2 (07:53→20:38)
[2023-02-13] MEDS: CHOLECALCIFEROL 25 MCG (1000 IU) TABLET PO SCH (09:05)
[2023-02-13] MEDS: CALCIUM CARBONATE 500 MG CHEWABLE PO SCH (09:05)
[2023-02-13] MEDS: PANTOPRAZOLE 40 MG TABLET PO SCH (09:06)
[2023-02-13] MEDS: METOPROLOL TARTRATE 25 MG TAB PO SCH ×2 (09:06→20:38)
[2023-02-13] MEDS: FOLIC ACID 1 MG TAB PO SCH (09:06)
[2023-02-13 09:07] LABS: Acanthocytes 2+; Basophils # (M) 0.16 X 10*3/uL (0.00-0.10); Elliptocytes 2+; Eosinophils # (M) 0 X 10*3/uL (0.04-0.35); HGB 6.5 d/dL (12.0-15.0); Hypochromasia (M) 2+; Lymphocytes # (M) 1.41 X 10*3/uL (0.90-5.00); MCH 27.7 pg (27.0-32.0); MCHC 29.5 d/dL (32.0-37.0); MCV 93.6 FL (80.0-97.0); Mean Platelet Volume 12.1 FL (9.5-12.2); Metamyelocytes % 1 % (0-0); Microcytosis (M) 2+; Monocytes # (M) 0.63 X 10*3/uL (0.20-1.00); NRBC Per 100 WBC 0.09 X 10*3/uL (0.00-0.01); Neutrophils # (M) 13.29 X 10*3/uL (1.80-7.70); Neutrophils % (M) 85 %; Nucleated Red Blood Cells 1 /100 WBCS; Platelet Count 138 X 10*3/uL (140-440); Polychromasia 2+; RBC 2.35 X 10*6/uL (4.10-5.20); RDW 18.2 % (11.5-14.5); WBC 15.64 X 10*3/uL (4.50-10.00)
[2023-02-13] MEDS ORDERED: POTASSIUM CHLORIDE ER 20 MEQ TAB.ER PO STA (10:23)
--- NOTE | 2023-02-13 11:38 | P.PN ---
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 The patient has had thoracentesis performed a total of 3 times, the most recent today. She has received radiation therapy to the skeletal system, because of metastasis, to T7, L2, posterior left ribs, and sacrum. She's received combination of carboplatin, Alimta, Keytruda. The patient was last evaluated by my partner, in December. At that time, she did undergo another thoracentesis, her second. Also, at that time, he recommended that she see cardiothoracic surgery for placement of a Pleurx catheter. At that time, she decided not to have the Pleurx catheter placed, and unfortunately, she was readmitted to the hospital, with a large left-sided pleural effusion, and was drained. 1060 mL of carline-colored fluid was removed. Currently she is on 2 L of oxygen. Was receiving potassium replacement therapy. White count was 16.1, hemoglobin 7.3, hematocrit 23.7, and a platelet count of 140,000. Sodium 142, potassium 3.1, chlorides 105, CO2 30, BUN 17, and creatinine 1.12. Chest x-ray showed a large left-sided pleural effusion, which was significantly reduced after thoracentesis, without evidence of pneumothorax. Progress note dated 02/11/2023. 67-year-old female with history of stage IV metastatic adenocarcinoma of the lung. The patient has had recurrent left-sided pleural effusion. She has been drained at least 3 times. 2 times, by my partners. This most recent time, by interventional radiology. The patient was offered a Pleurx catheter on her last admission, but refused. She is agreeable now. Yesterday, she had a bit more than 1 L removed from the left pleural space. She is already set up to see Dr. Barrett. No new labs as yet. Currently she is on 2 L of oxygen. No IV fluids. The patient is seen today 02/12/2023 and follow-up on the regular medical floor. She is up ambulating in her room. Awake and alert in no acute distress. No worsening shortness of breath, cough or congestion. She is maintaining O2 saturations up to 100% on 1 L/m per nasal cannula. She did receive 1 unit of packed red blood cells yesterday. Current hemoglobin 7.8. White count 15.6. Platelets 156. Sodium 142. Potassium 3.7. Bicarb 32. BUN 16. Creatinine 1.20. Glucose 90. The patient is seen today 02/13/2023 in follow-up on the regular medical floor. She is sitting up in a chair. Awake and alert in no acute distress. Maintaining O2 saturations in the 90s on room air. No IV fluids. She did receive 1 unit of packed red blood cells so far this admission. Today's hemoglobin again in 6.5. White count 15.6. Platelets 138. Sodium 139. Potassium 3.4. Bicarb 30. BUN 18. Creatinine 1.24. She remains on antibiotics in the form of ceftriaxone. Objective - Vital Signs Vital signs: Vital Signs Temp 97.7 F 02/13/23 07:25 Pulse 97 02/13/23 10:30 Resp 16 02/13/23 10:30 BP 91/60 02/13/23 07:25 Pulse Ox 93 L 02/13/23 08:52 FiO2 Intake & Output 02/12/23 02/13/23 02/13/23 18:59 06:59 18:59 Intake Total 50 600 0 Balance 50 600 0 Intake: Intake, IV Titration 50 Amount cefTRIAXone 1 gm In 50 Sodium Chloride 0.9% 50 ml @ 100 mls/hr IVPB Q24HR [facility] Rx#:[id number] Oral 600 Blood Product 0 Rc Irr As1 Unit 0 [id number] Other: Voiding Method Toilet Toilet # Voids 2 - Exam GENERAL EXAM: Alert, pleasant 67-year-old female, on room air, comfortable in no apparent distress. HEAD: Normocephalic. EYES: Normal reaction of pupils, equal size. NOSE: Clear with pink turbinates. THROAT: No erythema or exudates. NECK: No masses, no JVD. CHEST: No chest wall deformity. LUNGS: Equal air entry with no crackles, wheeze, rhonchi or dullness. Diminished on the left base. CVS: S1 and S2 normal with no audible murmur, regular rhythm. ABDOMEN: No hepatosplenomegaly, normal bowel sounds, no guarding or rigidity. SPINE: No scoliosis or deformity SKIN: No rashes CENTRAL NERVOUS SYSTEM: No focal deficits, tone is normal in all 4 extremities. EXTREMITIES: There is no peripheral edema. No clubbing, no cyanosis. Peripheral pulses are intact. - Labs CBC & Chem 7: 02/13/23 02:56 02/13/23 02:56 Labs: Abnormal Lab Results - Last 24 Hours (Table) 02/11/23 02/11/23 02/12/23 Range/Units 06:46 12:58 09:36 WBC 15.6 H (3.8-10.6) k/uL RBC (4.10-5.20) X 10*6/uL Hgb (12.0-15.0) d/dL Hct (37.2-46.3) % MCHC (32.0-37.0) d/dL RDW (11.5-14.5) % Plt Count (140-440) X 10*3/uL Neutrophils # (Manual) 10.57 H 11.80 H (1.80-7.70) X 10*3/uL Monocytes # (Manual) 1.56 H (0-1.0) k/uL Eosinophils # (Manual) (0.04-0.35) X 10*3/uL Basophils # (Manual) (0.00-0.10) X 10*3/uL Metamyelocytes # (Man) 0.16 H (0) k/uL Myelocytes # (Manual) 0.16 H (0) k/uL Nucleated RBCs 1 H (0-0) /100 WBC NRBC/100 WBC Diff (0.00-0.01) X 10*3/uL Polychromasia Hypochromasia (manual) Microcytosis (manual) Elliptocytes Acanthocytes (Spur) Potassium (3.5-5.1) mmol/L BUN (7-17) mg/dL Creatinine (0.52-1.04) mg/dL Calcium (8.4-10.2) mg/dL Crossmatch See Detail 02/13/23 02/13/23 Range/Units 02:56 02:56 WBC 15.64 H (3.8-10.6) k/uL RBC 2.35 L (4.10-5.20) X 10*6/uL Hgb 6.5 H* (12.0-15.0) d/dL Hct 22.0 L (37.2-46.3) % MCHC 29.5 L (32.0-37.0) d/dL RDW 18.2 H (11.5-14.5) % Plt Count 138 L (140-440) X 10*3/uL Neutrophils # (Manual) 13.29 H (1.80-7.70) X 10*3/uL Monocytes # (Manual) (0-1.0) k/uL Eosinophils # (Manual) 0 L (0.04-0.35) X 10*3/uL Basophils # (Manual) 0.16 H (0.00-0.10) X 10*3/uL Metamyelocytes # (Man) (0) k/uL Myelocytes # (Manual) (0) k/uL Nucleated RBCs (0-0) /100 WBC NRBC/100 WBC Diff 0.09 H (0.00-0.01) X 10*3/uL Polychromasia 2+ A Hypochromasia (manual) 2+ A Microcytosis (manual) 2+ A Elliptocytes 2+ A Acanthocytes (Spur) 2+ A Potassium 3.4 L (3.5-5.1) mmol/L BUN 18 H (7-17) mg/dL Creatinine 1.24 H (0.52-1.04) mg/dL Calcium 7.5 L (8.4-10.2) mg/dL Crossmatch Microbiology - Last 24 Hours (Table) 02/09/23 23:26 Blood Culture - Preliminary Blood Assessment and Plan Assessment: Acute on chronic shortness of breath, secondary to recurrent left-sided maligna nt effusion. Generalized weakness, and fatigue, secondary to anemia, and chemotherapy-induced side effects. Anemia requiring 1 unit of packed red blood cells. Current hemoglobin today 6.5 Recent diagnosis of stage IV adenocarcinoma of suspected pulmonary primary, with skeletal metastasis, S/P radiation. Recurrent left-sided pleural effusion, status post thoracentesis 3. Lifelong nonsmoker. Plan: The patient was seen and evaluated Chest x-ray, medications and labs reviewed Currently stable and on room air Plan is for outpatient PleurX catheter placement per CT services I have personally seen and examined the patient, performed the documentation and the assessment and plan as written. Number of minutes spent on the visit: 10.
--- NOTE | 2023-02-13 12:45 | P.PN ---
Subjective Progress Note Date: 02/13/23 Principal diagnosis: NSCLC, pleural effusion At today's visit patient is resting in bedside chair. She is reporting feeling very fatigued and weak. S/P thoracentesis on Friday. CBC today revealed hemoglobin 6.5. 1 unit PRBCs ordered. Objective - Vital Signs Vital signs: Vital Signs Temp 98.7 F 02/13/23 12:04 Pulse 94 02/13/23 12:04 Resp 16 02/13/23 12:04 BP 91/61 02/13/23 12:04 Pulse Ox 95 02/13/23 12:04 FiO2 Intake & Output 02/12/23 02/13/23 02/13/23 18:59 06:59 18:59 Intake Total 50 600 0 Balance 50 600 0 Intake: Intake, IV Titration 50 Amount cefTRIAXone 1 gm In 50 Sodium Chloride 0.9% 50 ml @ 100 mls/hr IVPB Q24HR [facility] Rx#:[id number] Oral 600 Blood Product 0 Rc Irr As1 Unit 0 [id number] Other: Voiding Method Toilet Toilet # Voids 2 - Constitutional General appearance: Present: average body habitus, no acute distress - EENT Eyes: Present: anicteric sclerae, EOMI ENT: Present: hearing grossly normal - Respiratory Details: breathing even and unlabored - Cardiovascular Details: skin warm and dry - Integumentary Integumentary: Present: pale. Absent: cyanotic - Neurologic Neurologic Comment(s): grossly intact - Musculoskeletal Musculoskeletal: Present: generalized weakness - Psychiatric Psychiatric: Present: A&O x's 3, appropriate affect, intact judgment & insight - Labs CBC & Chem 7: 02/13/23 02:56 02/13/23 02:56 Labs: Abnormal Lab Results - Last 24 Hours (Table) 02/11/23 02/11/23 02/13/23 Range/Units 06:46 12:58 02:56 WBC 15.64 H (4.50-10.00) X 10*3/uL RBC 2.35 L (4.10-5.20) X 10*6/uL Hgb 6.5 H* (12.0-15.0) d/dL Hct 22.0 L (37.2-46.3) % MCHC 29.5 L (32.0-37.0) d/dL RDW 18.2 H (11.5-14.5) % Plt Count 138 L (140-440) X 10*3/uL Neutrophils # (Manual) 10.57 H 13.29 H (1.80-7.70) X 10*3/uL Eosinophils # (Manual) 0 L (0.04-0.35) X 10*3/uL Basophils # (Manual) 0.16 H (0.00-0.10) X 10*3/uL NRBC/100 WBC Diff 0.09 H (0.00-0.01) X 10*3/uL Polychromasia 2+ A Hypochromasia (manual) 2+ A Microcytosis (manual) 2+ A Elliptocytes 2+ A Acanthocytes (Spur) 2+ A Potassium (3.5-5.1) mmol/L BUN (7-17) mg/dL Creatinine (0.52-1.04) mg/dL Calcium (8.4-10.2) mg/dL Crossmatch See Detail 02/13/23 Range/Units 02:56 WBC (4.50-10.00) X 10*3/uL RBC (4.10-5.20) X 10*6/uL Hgb (12.0-15.0) d/dL Hct (37.2-46.3) % MCHC (32.0-37.0) d/dL RDW (11.5-14.5) % Plt Count (140-440) X 10*3/uL Neutrophils # (Manual) (1.80-7.70) X 10*3/uL Eosinophils # (Manual) (0.04-0.35) X 10*3/uL Basophils # (Manual) (0.00-0.10) X 10*3/uL NRBC/100 WBC Diff (0.00-0.01) X 10*3/uL Polychromasia Hypochromasia (manual) Microcytosis (manual) Elliptocytes Acanthocytes (Spur) Potassium 3.4 L (3.5-5.1) mmol/L BUN 18 H (7-17) mg/dL Creatinine 1.24 H (0.52-1.04) mg/dL Calcium 7.5 L (8.4-10.2) mg/dL Crossmatch Microbiology - Last 24 Hours (Table) 02/09/23 23:26 Blood Culture - Preliminary Blood Assessment and Plan (1) Loculated pleural effusion Current Visit: Yes Status: Acute Priority: High Code(s): J90 - PLEURAL EFFUSION, NOT ELSEWHERE CLASSIFIED SNOMED Code(s): 579747041 (2) Shortness of breath Current Visit: Yes Status: Acute Priority: High Code(s): R06.02 - SHORTN ESS OF BREATH SNOMED Code(s): 033439878 (3) Adenocarcinoma of lung, stage 4 Current Visit: Yes Status: Chronic Priority: High Code(s): C34.90 - MALIG NANT NEOPLASM OF UNSP PART OF UNSP BRONCHUS OR LUNG SNOMED Code(s): 308029107 (4) Anemia Current Visit: Yes Status: Acute Priority: High Code(s): D64.9 - ANEMIA, UNSPECIFIED SNOMED Code(s): 120984745 Plan: Pleural effusion -Secondary to malignancy -Patient is status post thoracentesis -CTS has seen pt, plan is to place Pleurx next week outpt. Stage IV non-small cell lung cancer -Patient recently met with Dr. Kang. Patient's performance status is poor. She is not a candidate for systemic treatment at this time. Recommendation was for palliative care or hospice. Patient was not interested in either service at that time, cont to not be ready for that decision today when seen. She has decided on visiting nurses for now -Follow-up with Dr. Kang placed in the chart Anemia -Pt Hgb dropped after 1 cycle of treatment, has never fully recovered -Iron studies about 4 weeks ago, anemia of inflammation, ferritin in the 5,000 range -S/p 1 unit PRBCs. Hemoglobin today 6.5, additional unit of irradiated blood ordered. Shortness of breath -Multifactorial including lung cancer, anemia, malignant pleural effusion -Improved s/p thoracentesis. Pleurex drain planned to palliate symptoms, Patient has appointment for the same
--- NOTE | 2023-02-13 14:09 | XR ---
EXAMINATION TYPE: XR chest 2V DATE OF EXAM: 02/13/2023 10:50 AM COMPARISON: Chest radiographs from 02/10/2023 TECHNIQUE: XR chest 2V Frontal and lateral views of the chest. CLINICAL INDICATION:Female, 67 years old with history of shortness of breath; FINDINGS: Lungs/Pleura: Increasing left large pleural effusion with associated atelectasis. No right pleural ef fusion. There is no evidence of right pleural effusion, focal consolidation, or pneumothorax. Pulmonary vascularity: Unremarkable. Heart/mediastinum: Cardiomediastinal silhouette is unremarkable. Musculoskeletal: No acute osseous pathology. IMPRESSION: Large left pleural effusion which has increased from 02/10/2023.
[2023-02-13] MEDS: SODIUM CHLORIDE 0.9% 1,000 ML IV SCH (15:24)
--- NOTE | 2023-02-13 15:43 | P.PN ---
Subjective Progress Note Date: 02/13/23 This is a 67 year old female with medical history of atrial fibrillation, hypertension, and stage IV lung cancer with recurrent malignant left pleural effusion status post thoracentesis. Patient presents with complaint of increasing shortness of breath. Patient was scheduled for left sided thoracentesis on Friday however had progressive dyspnea and hypoxia at home came into the ER for evaluation. Since recent diagnosis of lung cancer, patient has had one round of chemotherapy which patient ended up in the ICU after and has not had chemo since. Patient had issues with anemia and also during previous hospital stay patient had an episode of SVT which resulted in ICU stay. Patient has been unable to get in with pulmonary in the office since discharge and was concerned with low oxygen at home. Was in to see clerical assigner on Friday and pt reports cardiology felt she was doing well. Chest xray on admission reveals suspected loculated left pleural effusion and intervention radiology has been consulted for left sided thoracentesis. Patient has leukocytosis of 16.4 on admission, hemoglobin 7.4. INR 1.3. Potassium low at 3.0 and magnesium 1.7. Troponin is mildly elevated at 0.047 which will be trended. BNP slightly elevated at 1340. Oncology has been consulted recommending CT to see patient for possible Pleurex catheter placement and pulmonary will also be consulted. Patient is started on empiric antibiotics. 02/11/2023 Patient is evaluated today resting in bed. Continues to report fatigue and weakness. Does report improvement in shortness of breath. Hemoglobin today 6.2, patient will receive 1 unit of PRBC. Cardiothoracic has evaluated and recommending outpatient placement of pleurex/pigtail catheter if/when fluid rebuilds on the lung. White count improved to 12.89. Patient has been resumed on oral lasix, sodium was up to 149 today. Procalcitonin mildly elevated 0.32 and patient remains on IV ceftriaxone. 02/12/2023 Patient is evaluated today sitting up in chair continues to report fatigue and weakness. Hemoglobin improved up to 7.4 today no signs of acute bleeding. 02/13/2023 Patient is evaluated today resting in bed continues to report fatigue. Absolutely reveal a white count of 15.64, hemoglobin of 6.5, sodium 139, potassium 3.4, BUN of 18, creatinine 1.24. Patient did have a chest x-ray today which reveals large left pleural effusion which is increased in size from 02/10/2023. Patient is scheduled to undergo Pleurx catheter placement outpatient consider re evaluation by CT as pleural effusion has increased in size from thoracentesis on admission. Review of Systems Constitutional: Reports fatigue denied any fever. Cardio vascular: denied any chest pain, palpitations Gastrointestinal: denied any nausea, vomiting, diarrhea Pulmonary: Reports shortness of breath with exertion cough Neurologic denied any new focal deficits All inpatient medications were reviewed and appropriate changes in these medications as dictated in the interval history and assessment and plan. PHYSICAL EXAMINATION: GENERAL: The patient is alert and oriented x3, not in any acute distress. Well developed, well nourished. HEENT: Pupils are round and equally reacting to light. EOMI. No scleral icterus. No conjunctival pallor. Normocephalic, atraumatic. No pharyngeal erythema. No thyromegaly. CARDIOVASCULAR: S1 and S2 present. No murmurs, rubs, or gallops. PULMONARY: Chest is clear to auscultation, no wheezing or crackles. ABDOMEN: Soft, nontender, nondistended, normoactive bowel sounds. No palpable organomegaly. MUSCULOSKELETAL: No joint swelling or deformity. EXTREMITIES: No cyanosis, clubbing, or pedal edema. NEUROLOGICAL: Gross neurological examination did not reveal any focal deficits. SKIN: No rashes. Assessment and plan Recurrent left-sided malignant pleural effusion status post thoracentesis Acute hypoxic respiratory failure secondary to above Shortness of breath Recent diagnosis of stage IV adenocarcinoma of pulmonary primary with skeletal metastasis status post radiation Acute kidney injury prerenal Leukocyosis Hypokalemia Anemia of inflammation, hemoglobin dropped after first chemotherapy treatement back in December. Generalized weakness due to malignancy Paroxysmal SVT previous admission Chronic constipation GI prophylaxis Full Code Plan Status post thoracentesis patient to follow up outpatient for Pleurex catheter Monitor blood pressure change metoprolol to 25 mg po BID, amiodarone to decrease to 200 mg daily on Friday. Oncology and pulmonary following Home with homecare on discharge patient will D/C home tomorrow. The impression and plan of care has been dictated by Lali Wang, Nurse Practitioner as directed. Dr. Racquel MD I have performed a history and physical examination and medical decision making of this patient, discussed the same with the dictator, and agree with the dictators assessment and plan as written, documented as a scribe. Based on total visit time, I have performed more than 50% of this visit. Objective - Vital Signs Vital signs: Vital Signs Temp 98.1 F 02/13/23 13:30 Pulse 100 02/13/23 13:30 Resp 24 02/13/23 13:30 BP 102/69 02/13/23 13:30 Pulse Ox 96 02/13/23 13:30 FiO2 Intake & Output 02/12/23 02/13/23 02/13/23 18:59 06:59 18:59 Intake Total 50 600 310 Balance 50 600 310 Intake: Intake, IV Titration 50 Amount cefTRIAXone 1 gm In 50 Sodium Chloride 0.9% 50 ml @ 100 mls/hr IVPB Q24HR [facility] Rx#:[id number] Oral 600 Blood Product 310 Rc Irr As1 Unit 310 [id number] Other: Voiding Method Toilet Toilet # Voids 2 - Labs CBC & Chem 7: 02/13/23 02:56 02/13/23 02:56 Labs: Abnormal Lab Results - Last 24 Hours (Table) 02/11/23 02/11/23 02/13/23 Range/Units 06:46 12:58 02:56 WBC 15.64 H (4.50-10.00) X 10*3/uL RBC 2.35 L (4.10-5.20) X 10*6/uL Hgb 6.5 H* (12.0-15.0) d/dL Hct 22.0 L (37.2-46.3) % MCHC 29.5 L (32.0-37.0) d/dL RDW 18.2 H (11.5-14.5) % Plt Count 138 L (140-440) X 10*3/uL Neutrophils # (Manual) 10.57 H 13.29 H (1.80-7.70) X 10*3/uL Eosinophils # (Manual) 0 L (0.04-0.35) X 10*3/uL Basophils # (Manual) 0.16 H (0.00-0.10) X 10*3/uL NRBC/100 WBC Diff 0.09 H (0.00-0.01) X 10*3/uL Polychromasia 2+ A Hypochromasia (manual) 2+ A Microcytosis (manual) 2+ A Elliptocytes 2+ A Acanthocytes (Spur) 2+ A Potassium (3.5-5.1) mmol/L BUN (7-17) mg/dL Creatinine (0.52-1.04) mg/dL Calcium (8.4-10.2) mg/dL Crossmatch See Detail 02/13/23 Range/Units 02:56 WBC (4.50-10.00) X 10*3/uL RBC (4.10-5.20) X 10*6/uL Hgb (12.0-15.0) d/dL Hct (37.2-46.3) % MCHC (32.0-37.0) d/dL RDW (11.5-14.5) % Plt Count (140-440) X 10*3/uL Neutrophils # (Manual) (1.80-7.70) X 10*3/uL Eosinophils # (Manual) (0.04-0.35) X 10*3/uL Basophils # (Manual) (0.00-0.10) X 10*3/uL NRBC/100 WBC Diff (0.00-0.01) X 10*3/uL Polychromasia Hypochromasia (manual) Microcytosis (manual) Elliptocytes Acanthocytes (Spur) Potassium 3.4 L (3.5-5.1) mmol/L BUN 18 H (7-17) mg/dL Creatinine 1.24 H (0.52-1.04) mg/dL Calcium 7.5 L (8.4-10.2) mg/dL Crossmatch Microbiology - Last 24 Hours (Table) 02/09/23 23:26 Blood Culture - Preliminary Blood Assessment and Plan Time with Patient: Less than 30
[2023-02-13 16:37] LABS: RBC,Urine 1 /hpf (0-5); Squamous Epithelial Cell,Urine <1 /hpf (0-4); WBC,Urine 2 /hpf (0-5)
[2023-02-13 17:42] LABS: Appearance,Urine Clear (Clear); Color,Urine Yellow
[2023-02-13 17:43] LABS: Bilirubin,Urine Negative (Negative); Blood,Urine Trace (Negative); Glucose,Urine (UA) Negative (Negative); Ketones,Urine Negative (Negative); Nitrite,Urine Negative (Negative); PH, Urine 6.5 (5.0-8.0); Protein,Urine TR (Negative); Specific Gravity,Urine <1.005 (1.001-1.035); Urobilinogen,Urine <2.0 mg/dL (<2.0)
[2023-02-13 17:44] LABS: Leukocyte Esterase,Urine Negative (Negative)
[2023-02-13] MEDS: LATANOPROST 0.005% OPHTH DROPS 2.5 ML BTL BOTH EYES SCH (20:43)
[2023-02-14] MEDS: SODIUM CHLORIDE 0.9% 1,000 ML IV SCH (06:01)
[2023-02-14 07:50] LABS: Anisocytosis Slight; Basophils # (A) 0.1 k/uL (0-0.2); Basophils % (A) 1 %; Eosinophils # (A) 0.1 k/uL (0-0.7); Eosinophils % (A) 1 %; HCT 27.5 % (34.0-46.0); HGB 8.5 gm/dL (11.4-16.0); Hypochromasia Marked; Lymphocytes # (A) 1.5 k/uL (1.0-4.8); Lymphocytes % (A) 11 %; MCHC 31.1 g/dL (31.0-37.0); MCV 93.3 fL (80.0-100.0); Mean Platelet Volume 13.3; Monocytes # (A) 1.3 k/uL (0-1.0); Monocytes % (A) 10 %; Neutrophils # (A) 10.7 k/uL (1.3-7.7); Neutrophils % (A) 76 %; Platelet Count 158 k/uL (150-450); Poikilocytosis Marked; RBC 2.95 m/uL (3.80-5.40); RDW 16.5 % (11.5-15.5)
[2023-02-14 08:33] LABS: Band Neutrophils % 7 %; Lymphocytes # (M) 1.54 k/uL (1.0-4.8); Metamyelocytes # (M) 0.28 k/uL (0); Metamyelocytes % 2 %; Monocytes # (M) 0.14 k/uL (0-1.0); Neutrophils % (M) 79 %; Nucleated Red Blood Cells 0 /100 WBC (0-0); Total Cells Counted 100
[2023-02-14 08:34] LABS: Hypochromasia (M) Present; Polychromasia Present
[2023-02-14 08:35] LABS: Ovalocytes Present
[2023-02-14] MEDS: FOLIC ACID 1 MG TAB PO SCH (09:17)
[2023-02-14] MEDS: CHOLECALCIFEROL 25 MCG (1000 IU) TABLET PO SCH (09:17)
[2023-02-14] MEDS: CALCIUM CARBONATE 500 MG CHEWABLE PO SCH (09:18)
[2023-02-14] MEDS: AMIODARONE 200 MG TAB PO SCH (09:18)
[2023-02-14] MEDS: PANTOPRAZOLE 40 MG TABLET PO SCH (09:18)
[2023-02-14] MEDS: METOPROLOL TARTRATE 25 MG TAB PO SCH ×2 (09:18→20:32)
--- NOTE | 2023-02-14 11:44 | P.PN ---
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 The patient has had thoracentesis performed a total of 3 times, the most recent today. She has received radiation therapy to the skeletal system, because of metastasis, to T7, L2, posterior left ribs, and sacrum. She's received combination of carboplatin, Alimta, Keytruda. The patient was last evaluated by my partner, in December. At that time, she did undergo another thoracentesis, her second. Also, at that time, he recommended that she see cardiothoracic surgery for placement of a Pleurx catheter. At that time, she decided not to have the Pleurx catheter placed, and unfortunately, she was readmitted to the hospital, with a large left-sided pleural effusion, and was drained. 1060 mL of carline-colored fluid was removed. Currently she is on 2 L of oxygen. Was receiving potassium replacement therapy. White count was 16.1, hemoglobin 7.3, hematocrit 23.7, and a platelet count of 140,000. Sodium 142, potassium 3.1, chlorides 105, CO2 30, BUN 17, and creatinine 1.12. Chest x-ray showed a large left-sided pleural effusion, which was significantly reduced after thoracentesis, without evidence of pneumothorax. Progress note dated 02/11/2023. 67-year-old female with history of stage IV metastatic adenocarcinoma of the lung. The patient has had recurrent left-sided pleural effusion. She has been drained at least 3 times. 2 times, by my partners. This most recent time, by interventional radiology. The patient was offered a Pleurx catheter on her last admission, but refused. She is agreeable now. Yesterday, she had a bit more than 1 L removed from the left pleural space. She is already set up to see Dr. Barrett. No new labs as yet. Currently she is on 2 L of oxygen. No IV fluids. The patient is seen today 02/12/2023 and follow-up on the regular medical floor. She is up ambulating in her room. Awake and alert in no acute distress. No worsening shortness of breath, cough or congestion. She is maintaining O2 saturations up to 100% on 1 L/m per nasal cannula. She did receive 1 unit of packed red blood cells yesterday. Current hemoglobin 7.8. White count 15.6. Platelets 156. Sodium 142. Potassium 3.7. Bicarb 32. BUN 16. Creatinine 1.20. Glucose 90. The patient is seen today 02/13/2023 in follow-up on the regular medical floor. She is sitting up in a chair. Awake and alert in no acute distress. Maintaining O2 saturations in the 90s on room air. No IV fluids. She did receive 1 unit of packed red blood cells so far this admission. Today's hemoglobin again in 6.5. White count 15.6. Platelets 138. Sodium 139. Potassium 3.4. Bicarb 30. BUN 18. Creatinine 1.24. She remains on antibiotics in the form of ceftriaxone. The patient is seen today 02/14/2023 in follow-up on the regular medical floor. Up in a chair at the bedside. Awake and alert in no acute distress. Feeling a bit stronger today. She did receive a second unit of packed red blood cells yesterday. She is maintaining good O2 saturations in the 90s on room air. Chest x-ray continues to reveal increasing left-sided pleural effusion. Computed tomography scan of the chest is pending. Plan is for Pleurx catheter placement versus another thoracentesis. White count 14.0. Hemoglobin 8.5. Platelets 158. Urinalysis negative. Remains on antibiotics in the form of ceftriaxone. Objective - Vital Signs Vital signs: Vital Signs Temp 96.9 F L 02/14/23 07:45 Pulse 95 02/14/23 11:00 Resp 20 02/14/23 11:00 BP 104/71 02/14/23 07:45 Pulse Ox 99 02/14/23 09:46 FiO2 Intake & Output 02/13/23 02/14/23 02/14/23 18:59 06:59 18:59 Intake Total 560 900 Balance 560 900 Intake: Intake, IV Titration 250 500 Amount Sodium Chloride 0.9% 1, 200 500 000 ml @ 50 mls/hr IV . Q20H [facility] Rx#:[id number] cefTRIAXone 1 gm In 50 Sodium Chloride 0.9% 50 ml @ 100 mls/hr IVPB Q24HR [facility] Rx#:[id number] Oral 400 Blood Product 310 Rc Irr As1 Unit 310 [id number] Other: Voiding Method Toilet Toilet Toilet # Voids 1 - Exam GENERAL EXAM: Alert, oriented 67-year-old female, up in a chair, on room air, comfortable in no apparent distress. HEAD: Normocephalic. EYES: Normal reaction of pupils, equal size. NOSE: Clear with pink turbinates. THROAT: No erythema or exudates. NECK: No masses, no JVD. CHEST: No chest wall deformity. LUNGS: Equal air entry with no crackles, wheeze, rhonchi or dullness. Diminished on the left base. CVS: S1 and S2 normal with no audible murmur, regular rhythm. ABDOMEN: No hepatosplenomegaly, normal bowel sounds, no guarding or rigidity. SPINE: No scoliosis or deformity SKIN: No rashes CENTRAL NERVOUS SYSTEM: No focal deficits, tone is normal in all 4 extremities. EXTREMITIES: There is no peripheral edema. No clubbing, no cyanosis. Peripheral pulses are intact. - Labs CBC & Chem 7: 02/14/23 06:08 02/13/23 02:56 Labs: Abnormal Lab Results - Last 24 Hours (Table) 02/11/23 02/14/23 Range/Units 12:58 06:08 WBC 14.0 H (3.8-10.6) k/uL RBC 2.95 L (3.80-5.40) m/uL Hgb 8.5 L (11.4-16.0) gm/dL Hct 27.5 L (34.0-46.0) % RDW 16.5 H (11.5-15.5) % Neutrophils # 10.7 H (1.3-7.7) k/uL Neutrophils # (Manual) 12.00 H (1.3-7.7) k/uL Monocytes # 1.3 H (0-1.0) k/uL Metamyelocytes # (Man) 0.28 H (0) k/uL Crossmatch See Detail Microbiology - Last 24 Hours (Table) 02/09/23 23:26 Blood Culture - Preliminary Blood Assessment and Plan Assessment: Acute on chronic shortness of breath, secondary to recurrent left-sided malignant effusion. Generalized weakness, and fatigue, secondary to anemia, and chemotherapy-induced side effects. Anemia requiring 2 units of packed red blood cells. Current hemoglobin today 8.5 Recent diagnosis of stage IV adenocarcinoma of suspected pulmonary primary, with skeletal metastasis, S/P radiation. Recurrent left-sided pleural effusion, status post thoracentesis 3. Lifelong nonsmoker. Plan: The patient was seen and evaluated Chest x-ray, medications and labs reviewed CT scan of the chest pending May have Pleurx catheter placed this admission Currently stable and on room air I have personally seen and examined the patient, performed the documentation and the assessment and plan as written. Number of minutes spent on the visit: 10.
--- NOTE | 2023-02-14 11:55 | CT ---
EXAMINATION TYPE: CT chest wo con DATE OF EXAM: 02/14/2023 COMPARISON: 01/13/2023 HISTORY: 67-year-old female Left pleural effusion TECHNIQUE: Contiguous axial scanning of the chest without IV contrast. Coronal and sagittal reconstru ctions performed. CT DLP: 236.7mGycm. Automatic exposure control utilized for a dose reduction. FINDINGS: The heart is normal size with a small 1 cm thick pericardial effusion which is slightly increased fro m prior. Aorta normal caliber with minimal atherosclerotic arch calcifications and conventional transverse of branching anatomy. No thoracic lymphadenopathy by CT size criteria. There is ongoing large effusion filling the left mid and lower lung with areas of collapsed lingula a nd left lower lobe. The previous loculated component along the left lateral upper to midlung has improved. There seems to be some irregular pleural thickening along the medial and posterior aspect of the left upper lung, n ow with nodular areas measuring up to 2.1 cm, increased in the interval. Irregular thickening along t he left side of the mediastinum also appears much thicker now, measuring up to 2.2 cm thick versus 1. 3 cm, previously. Septal lines throughout the visualized left upper lobe. 4 mm anterior right upper lobe pulmonary nodule, axial image 13 appears new. Some mosaic attenuation in the right lower lung probably relates to air trapping. Spleen prominently enlarged, not entirely included in the [id number]. Vague 1.8 cm hypodense les ion redemonstrated lateral upper aspect of the spleen. A few scattered benign hepatic cysts are suggested measuring up to 1.2 cm. However, more indeterminate subtle lesions on noncontrast exam measuring 1.5 cm near the right hepati c dome, 2.2 cm anterior right liver lobe, anterior mid liver measuring 1.4 cm, and posterior right li tye lobe, measuring 1.6 cm, and 1.5 cm at the mid hepatic dome (all not well seen previously). 2 cm gallstone. Bones: Diffusely heterogeneous marrow density with areas of both lucency and sclerosis suggesting oss eous metastatic disease. IMPRESSION: 1. Large left pleural effusion remains with volume loss and collapse of the inferior lingula and left lower lobe. 2. The previous loculated component along the lateral upper to mid left lung has resolved. However, i rregular pleural thickening along the medial and posterior aspect of the left upper lung is increasin g now measuring 2.2 cm thick versus 1.3 cm, previously. New areas of associated nodularity measure up to 2.1 cm. Correlate for progression in pleural disease. Soft tissue now cut off the left upper lobe bronchus. 3. A new 4 mm anterior right upper lobe pulmonary nodule. 4. Suspect underlying hepatic metastases measuring up to 2.2 cm and solitary splenic metastasis measu ring 1.8 cm. 5. Diffusely heterogeneous marrow density suggests osseous metastatic disease.
[2023-02-14 12:31] VITALS: BMI 27.3
--- NOTE | 2023-02-14 13:49 | P.PN ---
Subjective Progress Note Date: 02/14/23 Principal diagnosis: Stage IV metastatic adenocarcinoma of the lung status post 1 round of chemo and immunotherapy as well as radiation to bony metastasis, recurrent left-sided mal ignant pleural effusion, status post thoracentesis, fatigue, malaise, shortness of breath, lifelong nonsmoker The patient was seen and examined sitting up in a recliner on the medical oncology unit with sister present. Appears more alert and less fatigued than previous although does still appear worn out. She is currently on room air in no acute distress. Chest x-ray was obtained this morning and does demonstrate reaccumulation of left-sided pleural fluid. We were asked to see patient again about the possibility of moving up her Pleurx catheter insertion date. Discussed with Dr. Barrett, chest CT ordered confirming large left pleural effusion with compressive atelectasis as well as new 4 mm anterior right upper lobe pulmonary nodule, underlying hepatic metastasis and solitary splenic metastasis with diffusely heterogenous marrow densities suggesting osseous metastatic disease. We will plan for left-sided Pleurx catheter placement February 16 in the morning with Dr. Barrett. This was discussed the patient and her sister at the bedside and they are in agreement, it was made very clear that this is palliative and not curative. Internal medicine and pulmonology were updated as well. Objective - Vital Signs Vital signs: Vital Signs Temp 96.9 F L 02/14/23 07:45 Pulse 95 02/14/23 11:00 Resp 20 02/14/23 11:00 BP 104/71 02/14/23 07:45 Pulse Ox 99 02/14/23 09:46 FiO2 Intake & Output 02/13/23 02/14/23 02/14/23 18:59 06:59 18:59 Intake Total 560 900 Balance 560 900 Weight 70 kg Intake: Intake, IV Titration 250 500 Amount Sodium Chloride 0.9% 1, 200 500 000 ml @ 50 mls/hr IV . Q20H [facility] Rx#:[id number] cefTRIAXone 1 gm In 50 Sodium Chloride 0.9% 50 ml @ 100 mls/hr IVPB Q24HR [facility] Rx#:[id number] Oral 400 Blood Product 310 Rc Irr As1 Unit 310 [id number] Other: Voiding Method Toilet Toilet Toilet # Voids 1 - Exam CONSTITUTIONAL: Appears comfortable, cooperative, no acute distress RESPIRATORY: Lungs sounds diminished on the right. Respirations even, nonlabored. Currently on room air with oxygen saturation 100% CARDIOVASCULAR: S1, S2 present. Regular rate and rhythm. Palpable peripheral pulses bilaterally. No edema present GASTROINTESTINAL: Abdomen soft, nontender, nondistended. Active bowel sounds present 4 quadrants. Tolerating diet. Positive bowel movement. GENITOURINARY: Continues to void INTEGUMENTARY: Skin is warm and dry NEUROLOGIC: Cranial nerves II through XII intact MUSKULOSKELETAL: Able to move all extremities, strength equal bilaterally although very weak PSYCHIATRIC: Alert and oriented to person place and time, flat affect - Allied health notes Allied health notes reviewed: nursing - Labs CBC & Chem 7: 02/14/23 06:08 02/13/23 02:56 Labs: Abnormal Lab Results - Last 24 Hours (Table) 02/11/23 02/14/23 Range/Units 12:58 06:08 WBC 14.0 H (3.8-10.6) k/uL RBC 2.95 L (3.80-5.40) m/uL Hgb 8.5 L (11.4-16.0) gm/dL Hct 27.5 L (34.0-46.0) % RDW 16.5 H (11.5-15.5) % Neutrophils # 10.7 H (1.3-7.7) k/uL Neutrophils # (Manual) 12.00 H (1.3-7.7) k/uL Monocytes # 1.3 H (0-1.0) k/uL Metamyelocytes # (Man) 0.28 H (0) k/uL Crossmatch See Detail Microbiology - Last 24 Hours (Table) 02/09/23 23:26 Blood Culture - Preliminary Blood - Imaging and Cardiology Chest x-ray: report reviewed, image reviewed CT scan - chest: report reviewed, image reviewed Assessment and Plan Assessment: Stage IV metastatic adenocarcinoma of the lung status post 1 round of chemo and immunotherapy as well as radiation to bony metastasis Recurrent left-sided malignant pleural effusion, status post thoracentesis 3 Fatigue, malaise, shortness of breath, secondary to above Lifelong nonsmoker Plan: We will plan for left-sided Pleurx catheter placement on Friday with Dr. Barrett Nothing by mouth after midnight Friday morning Increase activity as tolerated Home care ordered, patient requesting [facility] home care who had been previously authorized for post Pleurx placement From our standpoint patient may be discharged after Pleurx catheter placement Patient has poor prognosis, recommend palliative/hospice Management of other comorbidities per internal medicine, pulmonology, oncology.
[2023-02-14 14:54] LABS: BUN/Creat Ratio 13.25 Ratio (12.00-20.00); Blood Urea Nitrogen 15.9 mg/dL (9.0-27.0); Calcium 7.9 mg/dL (8.7-10.3); Carbon Dioxide 25.9 mmol/L (21.6-31.8); Chloride 110 mmol/L (96-109); Glucose 88 mg/dL (70-110); Potassium 4.1 mmol/L (3.5-5.5); Sodium 147 mmol/L (135-145)
--- NOTE | 2023-02-14 15:39 | P.PN ---
Subjective Progress Note Date: 02/14/23 This is a 67 year old female with medical history of atrial fibrillation, hypertension, and stage IV lung cancer with recurrent malignant left pleural effusion status post thoracentesis. Patient presents with complaint of increasing shortness of breath. Patient was scheduled for left sided thoracentesis on Friday however had progressive dyspnea and hypoxia at home came into the ER for evaluation. Since recent diagnosis of lung cancer, patient has had one round of chemotherapy which patient ended up in the ICU after and has not had chemo since. Patient had issues with anemia and also during previous hospital stay patient had an episode of SVT which resulted in ICU stay. Patient has been unable to get in with pulmonary in the office since discharge and was concerned with low oxygen at home. 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 Chest xray on admission reveals suspected loculated left pleural effusion and intervention radiology has been consulted for left sided thoracentesis. Patient has leukocytosis of 16.4 on admission, hemoglobin 7.4. INR 1.3. Potassium low at 3.0 and magnesium 1.7. Troponin is mildly elevated at 0.047 which will be trended. BNP slightly elevated at 1340. Oncology has been consulted recommending CT to see patient for possible Pleurex catheter placement and pulmonary will also be consulted. Patient is started on empiric antibiotics. 02/11/2023 Patient is evaluated today resting in bed. Continues to report fatigue and weakness. Does report improvement in shortness of breath. Hemoglobin today 6.2, patient will receive 1 unit of PRBC. Cardiothoracic has evaluated and recommending outpatient placement of pleurex/pigtail catheter if/when fluid rebuilds on the lung. White count improved to 12.89. Patient has been resumed on oral lasix, sodium was up to 149 today. Procalcitonin mildly elevated 0.32 and patient remains on IV ceftriaxone. 02/12/2023 Patient is evaluated today sitting up in chair continues to report fatigue and weakness. Hemoglobin improved up to 7.4 today no signs of acute bleeding. 02/13/2023 Patient is evaluated today resting in bed continues to report fatigue. Absolutely reveal a white count of 15.64, hemoglobin of 6.5, sodium 139, potassium 3.4, BUN of 18, creatinine 1.24. Patient did have a chest x-ray today which reveals large left pleural effusion which is increased in size from 02/10/2023. Patient is scheduled to undergo Pleurx catheter placement outpatient consider re evaluation by CT as pleural effusion has cardiothoracic in size from thoracentesis on admission. 02/14/2023 Patient is evaluated again sitting up in chair and continues to report fatigue and shortness of breath and worse with exertion. Hemoglobin has improved to 8.5. White count is down to 14. Creatinine is improving. Sodium 147. Chest xray f/u done now showing a large left pleural effusion and there is concern with discharge home that patient will return with shortness of breath before her appt . on Friday for PleurX catheter. Discussed with cardiothoracic team and Chest CT follow up reveals large left pleural effusion remains with volume loss a collapse of the inferior lingula and left lower lobe. The previous loculated component along the lateral upper to mid left lung has resolved. However irregular pleural thickening along the medial aspect of left upper lung is increasing in thickness. There are new areas of associated nodularity measuring up to 2.1 cm. There is progression in the pleural disease and the soft tissue has now cut off the left upper lobe bronchus. A new 4 mm anterior right upper lobe pulmonary nodule. Suspect underlying hepatic metastasis and solitary spl enic metastasis. Diffusely heterogenesis marrow density suggests osseous metastatic disease. Cardiothoracic planning on placing a Pleurx catheter on Friday. Hematology following. Review of Systems Constitutional: Reports fatigue denied any fever. Cardio vascular: denied any chest pain, palpitations Gastrointestinal: denied any nausea, vomiting, diarrhea Pulmonary: Reports shortness of breath with exertion cough Neurologic denied any new focal deficits reports diffuse generalized weakness. All inpatient medications were reviewed and appropriate changes in these medications as dictated in the interval history and assessment and plan. PHYSICAL EXAMINATION: GENERAL: The patient is alert and oriented x3, not in any acute distress. Well developed, well nourished. HEENT: Pupils are round and equally reacting to light. EOMI. No scleral icterus. No conjunctival pallor. Normocephalic, atraumatic. No pharyngeal erythema. No thyromegaly. CARDIOVASCULAR: S1 and S2 present. No murmurs, rubs, or gallops. PULMONARY: Chest is clear to auscultation, no wheezing or crackles. ABDOMEN: Soft, nontender, nondistended, normoactive bowel sounds. No palpable organomegaly. MUSCULOSKELETAL: No joint swelling or deformity. EXTREMITIES: No cyanosis, clubbing, or pedal edema. NEUROLOGICAL: Gross neurological examination did not reveal any focal deficits. SKIN: No rashes. Assessment and plan -Recurrent left-sided malignant pleural effusion status post thoracentesis and with reaccumulation of the pleural effusion on most recent chest xray. -Acute hypoxic respiratory failure secondary to above -Shortness of breath -Recent diagnosis of 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 Patient ended up in the hospital. Most recent CT shows h epatic and splenic metastasis. -Acute kidney injury prerenal -Leukocyosis -Hypokalemia -Anemia of inflammation, hemoglobin dropped after first chemotherapy treatement back in December. -Generalized weakness due to malignancy -Paroxysmal SVT previous admission -Chronic constipation GI prophylaxis Full Code Plan Status post thoracentesis cardiothoracic has re-evaluated the patient and patient scheduled to undergo PleurX catheter placement on Friday. Monitor blood pressure change metoprolol to 25 mg po BID, amiodarone to decrease to 200 mg daily. Follow up Labs in AM Recommending compression stockings/dylan wrap to bilateral lower extremity Chest CT shows progression in metastatic disease and pulmonary disease. The impression and plan of care has been dictated by Lali Wang, Nurse Practitioner as directed. Dr. Racquel MD I have performed a history and physical examination and medical decision making of this patient, discussed the same with the dictator, and agree with the dictators assessment and plan as written, documented as a scribe. Based on total visit time, I have performed more than 50% of this visit. Objective - Vital Signs Vital signs: Vital Signs Temp 96.9 F L 02/14/23 07:45 Pulse 95 02/14/23 11:00 Resp 20 02/14/23 11:00 BP 104/71 02/14/23 07:45 Pulse Ox 99 02/14/23 09:46 FiO2 Intake & Output 02/13/23 02/14/23 02/14/23 18:59 06:59 18:59 Intake Total 560 900 Balance 560 900 Weight 70 kg Intake: Intake, IV Titration 250 500 Amount Sodium Chloride 0.9% 1, 200 500 000 ml @ 50 mls/hr IV . Q20H [facility] Rx#:[id number] cefTRIAXone 1 gm In 50 Sodium Chloride 0.9% 50 ml @ 100 mls/hr IVPB Q24HR [facility] Rx#:[id number] Oral 400 Blood Product 310 Rc Irr As1 Unit 310 [id number] Other: Voiding Method Toilet Toilet Toilet # Voids 1 - Labs CBC & Chem 7: 02/14/23 06:08 02/14/23 06:08 Labs: Abnormal Lab Results - Last 24 Hours (Table) 02/11/23 02/14/23 02/14/23 Range/Units 12:58 06:08 06:08 WBC 14.0 H (3.8-10.6) k/uL RBC 2.95 L (3.80-5.40) m/uL Hgb 8.5 L (11.4-16.0) gm/dL Hct 27.5 L (34.0-46.0) % RDW 16.5 H (11.5-15.5) % Neutrophils # 10.7 H (1.3-7.7) k/uL Neutrophils # (Manual) 12.00 H (1.3-7.7) k/uL Monocytes # 1.3 H (0-1.0) k/uL Metamyelocytes # (Man) 0.28 H (0) k/uL Sodium 147 H (135-145) mmol/L Chloride 110 H (96-109) mmol/L Est GFR (CKD-EPI) 49 L (>=60) Calcium 7.9 L (8.7-10.3) mg/dL Crossmatch See Detail Microbiology - Last 24 Hours (Table) 02/09/23 23:26 Blood Culture - Preliminary Blood Assessment and Plan Time with Patient: Less than 30
[2023-02-14] MEDS: LATANOPROST 0.005% OPHTH DROPS 2.5 ML BTL BOTH EYES SCH (20:32)
[2023-02-14] MEDS: HYDROmorphone 2 MG TAB PO PRN (21:53)
--- NOTE | 2023-02-15 08:39 | P.PN ---
Subjective Progress Note Date: 02/14/23 Principal diagnosis: NSCLC, pleural effusion At today's visit patient is resting in bedside chair. She is reporting improvement in symptoms today. Still experiencing weakness and fatigue. S/p unit PRBCs yesterday. Hgb improved, 8.5 today. Objective - Vital Signs Vital signs: Vital Signs Temp 96.9 F L 02/14/23 07:45 Pulse 95 02/14/23 11:00 Resp 20 02/14/23 11:00 BP 104/71 02/14/23 07:45 Pulse Ox 99 02/14/23 09:46 FiO2 Intake & Output 02/13/23 02/14/23 02/14/23 18:59 06:59 18:59 Intake Total 560 900 Balance 560 900 Weight 70 kg Intake: Intake, IV Titration 250 500 Amount Sodium Chloride 0.9% 1, 200 500 000 ml @ 50 mls/hr IV . Q20H GURU Rx#:[id number] cefTRIAXone 1 gm In 50 Sodium Chloride 0.9% 50 ml @ 100 mls/hr IVPB Q24HR GURU Rx#:[id number] Oral 400 Blood Product 310 Rc Irr As1 Unit 310 [id number] Other: Voiding Method Toilet Toilet Toilet # Voids 1 - Constitutional General appearance: Present: average body habitus, no acute distress - EENT Eyes: Present: anicteric sclerae, EOMI ENT: Present: hearing grossly normal - Respiratory Details: breathing even and unlabored - Cardiovascular Details: skin warm and dry - Integumentary Integumentary: Absent: cyanotic, jaundiced - Neurologic Neurologic Comment(s): grossly intact - Musculoskeletal Musculoskeletal: Present: generalized weakness - Psychiatric Psychiatric: Present: A&O x's 3, appropriate affect, intact judgment & insight - Labs CBC & Chem 7: 02/14/23 06:08 02/14/23 06:08 Labs: Abnormal Lab Results - Last 24 Hours (Table) 02/11/23 02/14/23 02/14/23 Range/Units 12:58 06:08 06:08 WBC 14.0 H (3.8-10.6) k/uL RBC 2.95 L (3.80-5.40) m/uL Hgb 8.5 L (11.4-16.0) gm/dL Hct 27.5 L (34.0-46.0) % RDW 16.5 H (11.5-15.5) % Neutrophils # 10.7 H (1.3-7.7) k/uL Neutrophils # (Manual) 12.00 H (1.3-7.7) k/uL Monocytes # 1.3 H (0-1.0) k/uL Metamyelocytes # (Man) 0.28 H (0) k/uL Sodium 147 H (135-145) mmol/L Chloride 110 H (96-109) mmol/L Est GFR (CKD-EPI) 49 L (>=60) Calcium 7.9 L (8.7-10.3) mg/dL Crossmatch See Detail Microbiology - Last 24 Hours (Table) 02/09/23 23:26 Blood Culture - Preliminary Blood - Imaging and Cardiology CT scan - chest: report reviewed Assessment and Plan (1) Loculated pleural effusion Current Visit: Yes Status: Acute Priority: High Code(s): J90 - PLEURAL EFFUSION, NOT ELSEWHERE CLASSIFIED SNOMED Code(s): 319473213 (2) Shortness of breath Current Visit: Yes Status: Acute Priority: High Code(s): R06.02 - SHORTNESS OF BREATH SNOMED Code(s): 014788447 (3) Adenocarcinoma of lung, stage 4 Current Visit: Yes Status: Chronic Priority: High Code(s): C34.90 - MALIGNANT NEOPLASM OF UNSP PART OF UNSP BRONCHUS OR LUNG SNOMED Code(s): 029667321 (4) Anemia Current Visit: Yes Status: Acute Priority: High Code(s): D64.9 - ANEMIA, UNSPECIFIED SNOMED Code(s): 210438139 Plan: Pleural effusion -Secondary to malignancy -Patient is status post thoracentesis -CTS has seen pt, plan is to place Pleurx Stage IV non-small cell lung cancer -Cycle 1 alimta/keytruda on 01/06. Patient recently met with Dr. Kang. Patient's performance status is poor. She is not a candidate for systemic treatment at this time. Recommendation was for palliative care or hospice. Patient was not interested in either service at that time, cont to not be ready for that decision. She has decided on visiting nurses for now -CT chest revealed large left pleural effusion with volume loss and collapse of the inferior lingula and left lower lobe. Irregular pleural thickening along the medial and posterior aspect of the left upper lung is increasing now measuring 2.2 cm versus 1.3 cm previously. New areas of associated nodularity measuring up to 2.1 cm. Soft tissue now cut off the left upper lobe bronchus. Suspect underlying hepatic metastasis measuring up to 2.2 cm and solitary splenic metastasis measuring 1.8 cm. Diffusely heterogeneous marrow density suggesting osseous mets metastatic disease. We will speak to radiation oncology to evaluate for palliative RT of the left upper lobe soft tissue mass. -Follow-up with Dr. Kang placed in the chart Anemia -Pt Hgb dropped after 1 cycle of treatment, has never fully recovered -Iron studies about 4 weeks ago, anemia of inflammation, ferritin in the 5,000 range -S/p 2 unit PRBCs. Hemoglobin today improved, 8.5. Shortness of breath -Multifactorial including lung cancer, anemia, malignant pleural effusion -Improved s/p thoracentesis. Pleurex drain planned to palliate symptoms for friday Dr attests: I have performed H&P and developed impression and plan of care for patient, discussed with dictator. I agree with dictated note, documented as a scribe
[2023-02-15] MEDS: AMIODARONE 200 MG TAB PO SCH (09:46)
[2023-02-15] MEDS: FOLIC ACID 1 MG TAB PO SCH (09:46)
[2023-02-15] MEDS: METOPROLOL TARTRATE 25 MG TAB PO SCH ×2 (09:47→20:04)
[2023-02-15] MEDS: CHOLECALCIFEROL 25 MCG (1000 IU) TABLET PO SCH (09:47)
[2023-02-15] MEDS: CALCIUM CARBONATE 500 MG CHEWABLE PO SCH (09:47)
[2023-02-15] MEDS: PANTOPRAZOLE 40 MG TABLET PO SCH (09:47)
[2023-02-15] MEDS: HYDROmorphone 2 MG TAB PO PRN ×2 (11:04→20:06)
--- NOTE | 2023-02-15 12:10 | P.PN ---
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 The patient has had thoracentesis performed a total of 3 times, the most recent today. She has received radiation therapy to the skeletal system, because of metastasis, to T7, L2, posterior left ribs, and sacrum. She's received combination of carboplatin, Alimta, Keytruda. The patient was last evaluated by my partner, in December. At that time, she did undergo another thoracentesis, her second. Also, at that time, he recommended that she see cardiothoracic surgery for placement of a Pleurx catheter. At that time, she decided not to have the Pleurx catheter placed, and unfortunately, she was readmitted to the hospital, with a large left-sided pleural effusion, and was drained. 1060 mL of carline-colored fluid was removed. Currently she is on 2 L of oxygen. Was receiving potassium replacement therapy. White count was 16.1, hemoglobin 7.3, hematocrit 23.7, and a platelet count of 140,000. Sodium 142, potassium 3.1, chlorides 105, CO2 30, BUN 17, and creatinine 1.12. Chest x-ray showed a large left-sided pleural effusion, which was significantly reduced after thoracentesis, without evidence of pneumothorax. Progress note dated 02/11/2023. 67-year-old female with history of stage IV metastatic adenocarcinoma of the lung. The patient has had recurrent left-sided pleural effusion. She has been drained at least 3 times. 2 times, by my partners. This most recent time, by interventional radiology. The patient was offered a Pleurx catheter on her last admission, but refused. She is agreeable now. Yesterday, she had a bit more than 1 L removed from the left pleural space. She is already set up to see Dr. Barrett. No new labs as yet. Currently she is on 2 L of oxygen. No IV fluids. The patient is seen today 02/12/2023 and follow-up on the regular medical floor. She is up ambulating in her room. Awake and alert in no acute distress. No worsening shortness of breath, cough or congestion. She is maintaining O2 saturations up to 100% on 1 L/m per nasal cannula. She did receive 1 unit of packed red blood cells yesterday. Current hemoglobin 7.8. White count 15.6. Platelets 156. Sodium 142. Potassium 3.7. Bicarb 32. BUN 16. Creatinine 1.20. Glucose 90. The patient is seen today 02/13/2023 in follow-up on the regular medical floor. She is sitting up in a chair. Awake and alert in no acute distress. Maintaining O2 saturations in the 90s on room air. No IV fluids. She did receive 1 unit of packed red blood cells so far this admission. Today's hemoglobin again in 6.5. White count 15.6. Platelets 138. Sodium 139. Potassium 3.4. Bicarb 30. BUN 18. Creatinine 1.24. She remains on antibiotics in the form of ceftriaxone. The patient is seen today 02/14/2023 in follow-up on the regular medical floor. Up in a chair at the bedside. Awake and alert in no acute distress. Feeling a bit stronger today. She did receive a second unit of packed red blood cells yesterday. She is maintaining good O2 saturations in the 90s on room air. Chest x-ray continues to reveal increasing left-sided pleural effusion. Computed tomography scan of the chest is pending. Plan is for Pleurx catheter placement versus another thoracentesis. White count 14.0. Hemoglobin 8.5. Platelets 158. Urinalysis negative. Remains on antibiotics in the form of ceftriaxone. The patient is seen today 02/15/2023 in follow-up on the regular medical floor. She remains awake and alert in no acute distress. Sitting up in a chair at the bedside. Maintaining good O2 saturations in the 90s on room air. Computed tomography scan of the chest revealed a large left pleural effusion with volume loss and collapse of the inferior lingula and left lower lobe. Previous loculated component along the lateral upper to mid left lung has resolved. New areas of associated nodularity noted. A new 4 mm anterior right upper lobe pulmonary nodule seen. Suspect underlying hepatic metastatic metastasis measuring up to 2.2 cm and solitary splenic acidosis measuring 1.8 cm. Diffusely heterogenous marrow density suggests osseous metastatic disease. Plan is for Pleurx catheter placement tomorrow. Objective - Vital Signs Vital signs: Vital Signs Temp 97.8 F 02/15/23 08:06 Pulse 104 H 02/15/23 08:06 Resp 18 02/15/23 08:06 BP 112/75 02/15/23 08:06 Pulse Ox 98 02/15/23 08:06 FiO2 Intake & Output 02/14/23 02/15/23 02/15/23 18:59 06:59 18:59 Weight 70 kg Other: Voiding Method Toilet Toilet Toilet # Voids 2 # Bowel Movements 1 - Exam GENERAL EXAM: Alert, oriented, pale 67-year-old female, up in a chair, on room air, comfortable in no apparent distress. HEAD: Normocephalic. EYES: Normal reaction of pupils, equal size. NOSE: Clear with pink turbinates. THROAT: No erythema or exudates. NECK: No masses, no JVD. CHEST: No chest wall deformity. LUNGS: Equal air entry with no crackles, wheeze, rhonchi or dullness. Diminished on the left base. CVS: S1 and S2 normal with no audible murmur, regular rhythm. ABDOMEN: No hepatosplenomegaly, normal bowel sounds, no guarding or rigidity. SPINE: No scoliosis or deformity SKIN: No rashes CENTRAL NERVOUS SYSTEM: No focal deficits, tone is normal in all 4 extremities. EXTREMITIES: There is no peripheral edema. No clubbing, no cyanosis. Perip heral pulses are intact. - Labs CBC & Chem 7: 02/14/23 06:08 02/14/23 06:08 Labs: Abnormal Lab Results - Last 24 Hours (Table) 02/11/23 02/14/23 Range/Units 12:58 06:08 Sodium 147 H (135-145) mmol/L Chloride 110 H (96-109) mmol/L Est GFR (CKD-EPI) 49 L (>=60) Calcium 7.9 L (8.7-10.3) mg/dL Crossmatch See Detail Assessment and Plan Assessment: Acute on chronic shortness of breath, secondary to recurrent left-sided malignant effusion. Computed tomography scan of the chest revealed a large left pleural effusion with volume loss and collapse of the inferior lingula and left lower lobe. Previous loculated component along the lateral upper to mid left lung has resolved. New areas of associated nodularity noted. A new 4 mm anterior right upper lobe pulmonary nodule seen. Suspect underlying hepatic metastatic metastasis measuring up to 2.2 cm and solitary splenic acidosis measuring 1.8 cm. Diffusely heterogenous marrow density suggests osseous metastatic disease. Plan is for Pleurx catheter placement 02/16/2023 Generalized weakness, and fatigue, secondary to anemia, and chemotherapy-induced side effects. Anemia requiring 2 units of packed red blood cells. Current hemoglobin 8.5 Recent diagnosis of stage IV adenocarcinoma of suspected pulmonary primary, with skeletal metastasis, S/P radiation. Recurrent left-sided pleural effusion, status post thoracentesis 3. Lifelong nonsmoker. Plan: The patient was seen and evaluated Medications and labs reviewed CT scan of the chest reviewed Plan is for Pleurx catheter placement tomorrow Currently stable and on room air I have personally seen and examined the patient, performed the documentation and the assessment and plan as written. Number of minutes spent on the visit: 10.
[2023-02-15 12:50] LABS: HCT 24.9 % (37.2-46.3); HGB 7.6 d/dL (12.0-15.0); MCH 28.4 pg (27.0-32.0); MCHC 30.5 d/dL (32.0-37.0); MCV 92.9 FL (80.0-97.0); Mean Platelet Volume 11.2 FL (9.5-12.2); NRBC Per 100 WBC 0.02 X 10*3/uL (0.00-0.01); Platelet Count 144 X 10*3/uL (140-440); RBC 2.68 X 10*6/uL (4.10-5.20); WBC 14.08 X 10*3/uL (4.50-10.00)
[2023-02-15 12:56] LABS: BUN/Creat Ratio 14.91 Ratio (12.00-20.00); Blood Urea Nitrogen 16.4 mg/dL (9.0-27.0); Carbon Dioxide 27.5 mmol/L (21.6-31.8); Chloride 111 mmol/L (96-109); Glucose 88 mg/dL (70-110); Magnesium 1.8 mg/dL (1.5-2.4); Potassium 3.7 mmol/L (3.5-5.5); Sodium 148 mmol/L (135-145)
[2023-02-15 13:24] LABS: Basophils # (M) 0 X 10*3/uL (0.00-0.10); Eosinophils # (M) 0 X 10*3/uL (0.04-0.35); Hypochromasia (M) 2+; Metamyelocytes % 3 % (0-0); Neutrophils # (M) 12.25 X 10*3/uL (1.80-7.70); Neutrophils % (M) 87 %; Nucleated Red Blood Cells 1 /100 WBCS
[2023-02-15] MEDS: FUROSEMIDE 10 MG/ML 4 ML VIAL IV SCH ×2 (18:07→19:44)
[2023-02-15] MEDS: LATANOPROST 0.005% OPHTH DROPS 2.5 ML BTL BOTH EYES SCH (20:05)
[2023-02-16] MEDS ORDERED: LACTATED RINGERS 1,000 ML IV SCH (00:01)
[2023-02-16] MEDS: AMIODARONE 200 MG TAB PO SCH (08:38)
[2023-02-16] MEDS: METOPROLOL TARTRATE 25 MG TAB PO SCH (08:40)
--- NOTE | 2023-02-16 09:29 | P.PN ---
Subjective Progress Note Date: 02/15/23 This is a 67 year old female with medical history of atrial fibrillation, hypertension, and stage IV lung cancer with recurrent malignant left pleural effusion status post thoracentesis. Patient presents with complaint of increasing shortness of breath. Patient was scheduled for left sided thoracentesis on Friday however had progressive dyspnea and hypoxia at home came into the ER for evaluation. Since recent diagnosis of lung cancer, patient has had one round of chemotherapy which patient ended up in the ICU after and has not had chemo since. Patient had issues with anemia and also during previous hospital stay patient had an episode of SVT which resulted in ICU stay. Patient has been unable to get in with pulmonary in the office since discharge and was concerned with low oxygen at home. 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 Chest xray on admission reveals suspected loculated left pleural effusion and intervention radiology has been consulted for left sided thoracentesis. Patient has leukocytosis of 16.4 on admission, hemoglobin 7.4. INR 1.3. Potassium low at 3.0 and magnesium 1.7. Troponin is mildly elevated at 0.047 which will be trended. BNP slightly elevated at 1340. Oncology has been consulted recommending CT to see patient for possible Pleurex catheter placement and pulmonary will also be consulted. Patient is started on empiric antibiotics. 02/11/2023 Patient is evaluated today resting in bed. Continues to report fatigue and weakness. Does report improvement in shortness of breath. Hemoglobin today 6.2, patient will receive 1 unit of PRBC. Cardiothoracic has evaluated and recommending outpatient placement of pleurex/pigtail catheter if/when fluid rebuilds on the lung. White count improved to 12.89. Patient has been resumed on oral lasix, sodium was up to 149 today. Procalcitonin mildly elevated 0.32 and patient remains on IV ceftriaxone. 02/12/2023 Patient is evaluated today sitting up in chair continues to report fatigue and weakness. Hemoglobin improved up to 7.4 today no signs of acute bleeding. 02/13/2023 Patient is evaluated today resting in bed continues to report fatigue. Absolutely reveal a white count of 15.64, hemoglobin of 6.5, sodium 139, potassium 3.4, BUN of 18, creatinine 1.24. Patient did have a chest x-ray today which reveals large left pleural effusion which is increased in size from 02/10/2023. Patient is scheduled to undergo Pleurx catheter placement outpatient consider re evaluation by CT as pleural effusion has cardiothoracic in size from thoracentesis on admission. 02/14/2023 Patient is evaluated again sitting up in chair and continues to report fatigue and shortness of breath and worse with exertion. Hemoglobin has improved to 8.5. White count is down to 14. Creatinine is improving. Sodium 147. Chest xray f/u done now showing a large left pleural effusion and there is concern with discharge home that patient will return with shortness of breath before her appt . on Friday for PleurX catheter. Discussed with cardiothoracic team and Chest CT follow up reveals large left pleural effusion remains with volume loss a collapse of the inferior lingula and left lower lobe. The previous loculated component along the lateral upper to mid left lung has resolved. However irregular pleural thickening along the medial aspect of left upper lung is increasing in thickness. There are new areas of associated nodularity measuring up to 2.1 cm. There is progression in the pleural disease and the soft tissue has now cut off the left upper lobe bronchus. A new 4 mm anterior right upper lobe pulmonary nodule. Suspect underlying hepatic metastasis and solitary spl enic metastasis. Diffusely heterogenesis marrow density suggests osseous metastatic disease. Cardiothoracic planning on placing a Pleurx catheter on Friday. Hematology following. 02/15/2023 Patient is evaluated today sitting up in the chair continues to report fatigue and shortness of breath she is having some lower extremity edema and we will recommend getting a dose of IV Lasix for this. Close monitoring of patient's sodium and kidney function. Sodium level was up to 148 today, P1 16.4, c reatinine 1.1. Pro-calcitonin levels found to be 0.32. Hemoglobin 7.6 today also no signs of active bleeding and we will continue to monitor this and transfuse blood for hgb of less than 7. Cardiothoracic planning on placing a Pleurx catheter tomorrow. She is hoping to go home after. Review of Systems Constitutional: Reports fatigue denied any fever. Cardio vascular: denied any chest pain, palpitations Gastrointestinal: denied any nausea, vomiting, diarrhea Pulmonary: Reports shortness of breath with exertion cough Neurologic denied any new focal deficits reports diffuse generalized weakness. All inpatient medications were reviewed and appropriate changes in these medications as dictated in the interval history and assessment and plan. PHYSICAL EXAMINATION: GENERAL: The patient is alert and oriented x3, not in any acute distress. Well developed, well nourished. HEENT: Pupils are round and equally reacting to light. EOMI. No scleral icterus. No conjunctival pallor. Normocephalic, atraumatic. No pharyngeal erythema. No thyromegaly. CARDIOVASCULAR: S1 and S2 present. No murmurs, rubs, or gallops. PULMONARY: Chest is clear to auscultation, no wheezing or crackles. ABDOMEN: Soft, nontender, nondistended, normoactive bowel sounds. No palpable organomegaly. MUSCULOSKELETAL: No joint swelling or deformity. EXTREMITIES: No cyanosis, clubbing, or pedal edema. NEUROLOGICAL: Gross neurological examination did not reveal any focal deficits. SKIN: No rashes. Assessment and plan -Recurrent left-sided malignant pleural effusion status post thoracentesis and with reaccumulation of the pleural effusion on most recent chest xray. -Acute hypoxic respiratory failure secondary to above -Shortness of breath -Recent diagnosis of 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 Patient ended up in the hospital. Most recent CT shows hepatic and splenic metastasis. -Acute kidney injury prerenal -Leukocyosis -Hypokalemia -Anemia of inflammation, hemoglobin dropped after first chemotherapy treatement back in December. -Generalized weakness due to malignancy -Paroxysmal SVT previous admission -Chronic constipation GI prophylaxis Full Code Plan Status post thoracentesis cardiothoracic has re-evaluated the patient and pat ient scheduled to undergo PleurX catheter placement on Friday. Monitor blood pressure change metoprolol to 25 mg po BID, amiodarone to decrease to 200 mg daily. Recommend course of oral antibiotics on discharge and continue with incentive spirometer patient may have some post obstructive atelectasis based on where the tumor is in her lung and oncology recommending evaluation for possible radiation for this can be done as an outpatient. Recommending compression stockings/dylan wrap to bilateral lower extremity and patient will be given a dose of IV lasix today repeat labs in the AM. Chest CT shows progression in metastatic disease and pulmonary disease patient being followed closely by oncology and needs close follow up outpatient. Patient hoping to DC home tomorrow after Pleurex catheter placement. The impression and plan of care has been dictated by Lali Wang Nurse Practitioner as directed. Dr. Racquel MD I have performed a history and physical examination and medical decision making of this patient, discussed the same with the dictator, and agree with the dictators assessment and plan as written, documented as a scribe. Based on total visit time, I have performed more than 50% of this visit. Objective - Vital Signs Vital signs: Vital Signs Temp 98.3 F 02/15/23 12:37 Pulse 90 02/15/23 12:37 Resp 16 02/15/23 12:37 BP 92/61 02/15/23 12:37 Pulse Ox 95 02/15/23 12:37 FiO2 Intake & Output 02/14/23 02/15/23 02/15/23 18:59 06:59 18:59 Weight 70 kg Other: Voiding Method Toilet Toilet Toilet # Voids 2 # Bowel Movements 1 - Labs CBC & Chem 7: 02/15/23 07:22 02/15/23 07:22 Labs: Abnormal Lab Results - Last 24 Hours (Table) 02/15/23 02/15/23 Range/Units 07:22 07:22 WBC 14.08 H (4.50-10.00) X 10*3/uL RBC 2.68 L (4.10-5.20) X 10*6/uL Hgb 7.6 L (12.0-15.0) d/dL Hct 24.9 L (37.2-46.3) % MCHC 30.5 L (32.0-37.0) d/dL RDW 17.0 H (11.5-14.5) % Lymphocytes # (Manual) 0.70 L (0.90-5.00) X 10*3/uL Eosinophils # (Manual) 0 L (0.04-0.35) X 10*3/uL NRBC/100 WBC Diff 0.02 H (0.00-0.01) X 10*3/uL Hypochromasia (manual) 2+ A Sodium 148 H (135-145) mmol/L Chloride 111 H (96-109) mmol/L Est GFR (CKD-EPI) 55 L (>=60) Calcium 8.0 L (8.7-10.3) mg/dL Microbiology - Last 24 Hours (Table) 02/09/23 23:26 Blood Culture - Final Blood Assessment and Plan Time with Patient: Less than 30
[2023-02-16] MEDS ORDERED: CEFDINIR 300 MG CAP PO SCH (09:30)
[2023-02-16] MEDS ORDERED: IV FLUID CONTINUATION 1,000 ML IV ONE (10:01)
[2023-02-16] MEDS ORDERED: ONDANSETRON 4 MG/2 ML VIAL IVP ONE (10:10)
[2023-02-16] MEDS ORDERED: DEXAMETHASONE SOD PHOSPHATE 4 MG/ML 1 ML VIAL IVP ONE (10:10)
--- NOTE | 2023-02-16 10:20 | P.PN ---
Subjective Progress Note Date: 02/16/23 The patient is clinically stable. She states that her breathing is fairly tolerable, at rest or with small amounts of exertion. No fever or chills. Objective - Vital Signs Vital signs: Vital Signs Temp 98.1 F 02/16/23 01:42 Pulse 106 H 02/16/23 10:00 Resp 18 02/16/23 10:00 BP 120/59 02/16/23 10:00 Pulse Ox 97 02/16/23 10:00 FiO2 Intake & Output 02/15/23 02/16/23 02/16/23 18:59 06:59 18:59 Intake Total 500 Balance 500 Intake: Intake, IV Titration 300 Amount Lactated Ringers 1,000 ml 300 @ 50 mls/hr IV .Q20H [facility] Rx#:[id number] Oral 200 Other: Voiding Method Toilet Toilet # Voids 1 5 - Constitutional General appearance: Present: no acute distress - EENT Eyes: Present: EOMI ENT: Present: hearing grossly normal, normal oropharynx - Respiratory Respiratory: left: diminished - Cardiovascular Rhythm: regular Heart sounds: normal: S1, S2 - Gastrointestinal General gastrointestinal: Present: normal bowel sounds, soft - Integumentary Integumentary: Present: normal - Neurologic Neurologic: Present: CNII-XII intact - Musculoskeletal Musculoskeletal: Present: generalized weakness, strength equal bilaterally - Psychiatric Psychiatric: Present: A&O x's 3, appropriate affect - Labs CBC & Chem 7: 02/15/23 07:22 02/15/23 07:22 Labs: Abnormal Lab Results - Last 24 Hours (Table) 02/15/23 02/15/23 02/15/23 Range/Units 07:22 07:22 07:22 WBC 14.08 H (4.50-10.00) X 10*3/uL RBC 2.68 L (4.10-5.20) X 10*6/uL Hgb 7.6 L (12.0-15.0) d/dL Hct 24.9 L (37.2-46.3) % MCHC 30.5 L (32.0-37.0) d/dL RDW 17.0 H (11.5-14.5) % Lymphocytes # (Manual) 0.70 L (0.90-5.00) X 10*3/uL Eosinophils # (Manual) 0 L (0.04-0.35) X 10*3/uL NRBC/100 WBC Diff 0.02 H (0.00-0.01) X 10*3/uL Hypochromasia (manual) 2+ A Sodium 148 H (135-145) mmol/L Chloride 111 H (96-109) mmol/L Est GFR (CKD-EPI) 55 L (>=60) Calcium 8.0 L (8.7-10.3) mg/dL Procalcitonin 0.32 H (0.02-0.09) ng/mL Microbiology - Last 24 Hours (Table) 02/09/23 23:26 Blood Culture - Final Blood Assessment and Plan (1) Loculated pleural effusion Narrative/Plan: The patient is scheduled for Pleurx catheter placement today. Current Visit: Yes Status: Acute Priority: High Code(s): J90 - PLEURAL EFFUSION, NOT ELSEWHERE CLASSIFIED SNOMED Code(s): 405345164 (2) Shortness of breath Narrative/Plan: This is felt to be due to rapid recurrence of the left-sided pleural effusion. There is also concern for obstruction from metastatic lung tumor. Case discussed in detail with the admitting service. We plan to have radiation oncology evaluate to see if palliative radiation to the lung mass can help relieve obstruction and provide further improvement in her respiratory status. The patient however does not need to stay in the hospital for the same. She can be discharged after the pleural catheter placement felt to be stable. In that case we will contact additional quality, with whom the patient is already established, to evaluate her scan and have her come in for an appointment if they feel that palliative radiation is a possibility and could benefit her. - IM indicated concern for possible early postobstructive pneumonia. We will be evaluating the patient for the same. If the patient does end up staying in the hospital, then inpatient consult for radiation oncology will be placed. In this situation palliative radiation to relieve obstruction would also reduce risk of recurrent obstructive pneumonia. Current Visit: Yes Status: Acute Priority: High Code(s): R06.02 - SHORTNESS OF BREATH SNOMED Code(s): 627543740 (3) Anemia Narrative/Plan: Due to malignancy. Labs pending this a.m. Transfuse to keep hemoglobin greater than 7. Current Visit: Yes Status: Acute Priority: High Code(s): D64.9 - ANEMIA, UNSPECIFIED SNOMED Code(s): 056973742
[2023-02-16] MEDS ORDERED: fentaNYL (PF) 50 MCG/ML 2 ML AMP ONE (10:29)
[2023-02-16] MEDS ORDERED: MIDAZOLAM 2 MG/2 ML VIAL ONE (10:29)
[2023-02-16] MEDS ORDERED: PROPOFOL 10 MG/ML 20 ML VIAL IV ONE (10:29)
[2023-02-16] MEDS ORDERED: LIDOCAINE 1% INJ 10MG/ML (20 ML MDV) SQ ONE ×3 (10:40→10:50)
[2023-02-16] MEDS ORDERED: SODIUM CHLORIDE 0.9% 50 ML with ceFAZolin 1,000 MG IV ONE ×2 (10:47)
--- NOTE | 2023-02-16 11:12 | P.OP ---
Date of Procedure: 02/16/23 Preoperative Diagnosis: Recurrent left malignant pleural effusion Postoperative Diagnosis: Same Procedure(s) Performed: Left Pleurx catheter implantation with fluoroscopic guidance Implants: Pleurx catheter Anesthesia: MAC Surgeon: Joss Barrett Estimated Blood Loss (ml): 1 IV fluids (ml): 300 Pathology: other (Left pleural fluid for cytology) Condition: stable Disposition: PACU Indications for Procedure: 67-year-old female with advanced lung cancer and recurrent left malignant pleural effusion. Pleurx catheter was requested for control of symptomatic pleural effusion. Operative Findings: 1250 mL of serous fluid was drained and sent for cytologic evaluation. Chest x- ray demonstrated improved aeration of the left lung. Description of Procedure: Patient was brought to the operating room placed supine on the table. IV sedation was given. She was appropriately positioned. The left lower chest and upper abdomen were sterilely prepped and draped. 1% lidocaine anesthesia was used. Fluid was localized with a skinny needle in the eighth interspace in the anterior axillary line. Pleural space was then punctured here with an 18-gauge needle and a guidewire threaded into the left pleural space under fluoroscopic guidance. This entry site was then enlarged with an 11 blade and an exit site created in the left upper quadrant. First catheter was tunneled from the exit site to the entry site and the cuff positioned under the skin at the abdominal exit site. Introducer and dilator were placed over the guidewire under fluoroscopic guidance and the Pleurx catheter was threaded into the pleural space through the introducer sheath. Fluoroscopy demonstrated good position of the catheter within the pleural space. Introducer sheath was removed. Pleurx catheter was connected to suction. Was secured at the exit site with a 2-0 silk suture ligature. The entry site was closed with a 4-0 Vicryl stitch. Once the patient started coughing pleural fluid drainage was discontinued. Fluoroscopy demonstrated improved aeration of the left lower lobe. Course catheter was capped in a standard Pleurx dressing applied. Skin glue was applied at the entry site. Patient was transferred to recovery in stable condition.
--- NOTE | 2023-02-16 11:17 | P.PN ---
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 The patient has had thoracentesis performed a total of 3 times, the most recent today. She has received radiation therapy to the skeletal system, because of metastasis, to T7, L2, posterior left ribs, and sacrum. She's received combination of carboplatin, Alimta, Keytruda. The patient was last evaluated by my partner, in December. At that time, she did undergo another thoracentesis, her second. Also, at that time, he recommended that she see cardiothoracic surgery for placement of a Pleurx catheter. At that time, she decided not to have the Pleurx catheter placed, and unfortunately, she was readmitted to the hospital, with a large left-sided pleural effusion, and was drained. 1060 mL of carline-colored fluid was removed. Currently she is on 2 L of oxygen. Was receiving potassium replacement therapy. White count was 16.1, hemoglobin 7.3, hematocrit 23.7, and a platelet count of 140,000. Sodium 142, potassium 3.1, chlorides 105, CO2 30, BUN 17, and creatinine 1.12. Chest x-ray showed a large left-sided pleural effusion, which was significantly reduced after thoracentesis, without evidence of pneumothorax. Progress note dated 02/11/2023. 67-year-old female with history of stage IV metastatic adenocarcinoma of the lung. The patient has had recurrent left-sided pleural effusion. She has been drained at least 3 times. 2 times, by my partners. This most recent time, by interventional radiology. The patient was offered a Pleurx catheter on her last admission, but refused. She is agreeable now. Yesterday, she had a bit more than 1 L removed from the left pleural space. She is already set up to see Dr. Barrett. No new labs as yet. Currently she is on 2 L of oxygen. No IV fluids. The patient is seen today 02/12/2023 and follow-up on the regular medical floor. She is up ambulating in her room. Awake and alert in no acute distress. No worsening shortness of breath, cough or congestion. She is maintaining O2 saturations up to 100% on 1 L/m per nasal cannula. She did receive 1 unit of packed red blood cells yesterday. Current hemoglobin 7.8. White count 15.6. Platelets 156. Sodium 142. Potassium 3.7. Bicarb 32. BUN 16. Creatinine 1.20. Glucose 90. The patient is seen today 02/13/2023 in follow-up on the regular medical floor. She is sitting up in a chair. Awake and alert in no acute distress. Maintaining O2 saturations in the 90s on room air. No IV fluids. She did receive 1 unit of packed red blood cells so far this admission. Today's hemoglobin again in 6.5. White count 15.6. Platelets 138. Sodium 139. Potassium 3.4. Bicarb 30. BUN 18. Creatinine 1.24. She remains on antibiotics in the form of ceftriaxone. The patient is seen today 02/14/2023 in follow-up on the regular medical floor. Up in a chair at the bedside. Awake and alert in no acute distress. Feeling a bit stronger today. She did receive a second unit of packed red blood cells yesterday. She is maintaining good O2 saturations in the 90s on room air. Chest x-ray continues to reveal increasing left-sided pleural effusion. Computed tomography scan of the chest is pending. Plan is for Pleurx catheter placement versus another thoracentesis. White count 14.0. Hemoglobin 8.5. Platelets 158. Urinalysis negative. Remains on antibiotics in the form of ceftriaxone. The patient is seen today 02/15/2023 in follow-up on the regular medical floor. She remains awake and alert in no acute distress. Sitting up in a chair at the bedside. Maintaining good O2 saturations in the 90s on room air. Computed tomography scan of the chest revealed a large left pleural effusion with volume loss and collapse of the inferior lingula and left lower lobe. Previous loculated component along the lateral upper to mid left lung has resolved. New areas of associated nodularity noted. A new 4 mm anterior right upper lobe pulmonary nodule seen. Suspect underlying hepatic metastatic metastasis measuring up to 2.2 cm and solitary splenic acidosis measuring 1.8 cm. Diffusely heterogenous marrow density suggests osseous metastatic disease. Plan is for Pleurx catheter placement tomorrow. The patient is seen today 02/16/2023 in follow-up on the regular medical floor. Currently sitting up in chair. Awake and alert in no acute distress. Continues to maintain good O2 saturations in the 90s on room air. Awaiting Pleurx catheter placement. She is continued on Lasix 40 mg IV every 12 hours. Antibiotics in the form of Omnicef. Objective - Vital Signs Vital signs: Vital Signs Temp 98.1 F 02/16/23 01:42 Pulse 106 H 02/16/23 10:00 Resp 18 02/16/23 10:00 BP 120/59 02/16/23 10:00 Pulse Ox 97 02/16/23 10:00 FiO2 Intake & Output 02/15/23 02/16/23 02/16/23 18:59 06:59 18:59 Intake Total 500 300 Output Total 1 Balance 500 299 Intake: IV 300 Intake, IV Titration 300 Amount Lactated Ringers 1,000 ml 300 @ 50 mls/hr IV .Q20H [facility] Rx#:[id number] Oral 200 Output: Estimated Blood Loss 1 Other: Voiding Method Toilet Toilet # Voids 1 5 - Exam GENERAL EXAM: Alert, oriented, 67-year-old female, on room air, comfortable in no apparent distress HEAD: Normocephalic EYES: Normal reaction of pupils, equal size NOSE: Clear with pink turbinates THROAT: No erythema or exudates NECK: No masses, no JVD CHEST: No chest wall deformity LUNGS: Equal air entry with no crackles, wheeze, rhonchi or dullness. Diminished on the left base CVS: S1 and S2 normal with no audible murmur, regular rhythm ABDOMEN: No hepatosplenomegaly, normal bowel sounds, no guarding or rigidity SPINE: No scoliosis or deformity SKIN: No rashes CENTRAL NERVOUS SYSTEM: No focal deficits, tone is normal in all 4 extremities EXTREMITIES: There is no peripheral edema. No clubbing, no cyanosis. Peripheral pulses are intact - Labs CBC & Chem 7: 02/15/23 07:22 02/15/23 07:22 Labs: Abnormal Lab Results - Last 24 Hours (Table) 02/15/23 02/15/23 02/15/23 Range/Units 07:22 07:22 07:22 WBC 14.08 H (4.50-10.00) X 10*3/uL RBC 2.68 L (4.10-5.20) X 10*6/uL Hgb 7.6 L (12.0-15.0) d/dL Hct 24.9 L (37.2-46.3) % MCHC 30.5 L (32.0-37.0) d/dL RDW 17.0 H (11.5-14.5) % Lymphocytes # (Manual) 0.70 L (0.90-5.00) X 10*3/uL Eosinophils # (Manual) 0 L (0.04-0.35) X 10*3/uL NRBC/100 WBC Diff 0.02 H (0.00-0.01) X 10*3/uL Hypochromasia (manual) 2+ A Sodium 148 H (135-145) mmol/L Chloride 111 H (96-109) mmol/L Est GFR (CKD-EPI) 55 L (>=60) Calcium 8.0 L (8.7-10.3) mg/dL Procalcitonin 0.32 H (0.02-0.09) ng/mL Microbiology - Last 24 Hours (Table) 02/09/23 23:26 Blood Culture - Final Blood Assessment and Plan Assessment: Acute on chronic shortness of breath, secondary to recurrent left-sided maligna nt effusion. Computed tomography scan of the chest revealed a large left pleural effusion with volume loss and collapse of the inferior lingula and left lower lobe. Previous loculated component along the lateral upper to mid left lung has resolved. New areas of associated nodularity noted. A new 4 mm anterior right upper lobe pulmonary nodule seen. Suspect underlying hepatic metastatic metasta sis measuring up to 2.2 cm and solitary splenic acidosis measuring 1.8 cm. Diffusely heterogenous marrow density suggests osseous metastatic disease. Plan is for Pleurx catheter placement 02/16/2023. May be considered for palliative radiation therapy. Generalized weakness, and fatigue, secondary to anemia, and chemotherapy-induced side effects. Anemia requiring 2 units of packed red blood cells. Current hemoglobin 7.6 Recent diagnosis of stage IV adenocarcinoma of suspected pulmonary primary, with skeletal metastasis, S/P radiation. Recurrent left-sided pleural effusion, status post thoracentesis 3. Lifelong nonsmoker. Plan: The patient was seen and evaluated Medications and labs reviewed Plan is for Pleurx catheter placement today Currently stable and on room air To be discharged home after her procedure today I have personally seen and examined the patient, performed the documentation and the assessment and plan as written. Number of minutes spent on the visit: 10.
--- NOTE | 2023-02-16 11:48 | FL ---
Intraoperative/procedural fluoroscopic services were provided. Total fluoroscopy time is 7.8 seconds with a total of 4 submitted images to PACS. Please see the operative/procedural note for further deta ils. DAP: 1.1066 mGym2
--- NOTE | 2023-02-16 11:50 | XR ---
EXAMINATION TYPE: XR chest 1V portable DATE OF EXAM: 02/16/2023 11:28 AM COMPARISON: Chest radiographs from 02/13/2023. TECHNIQUE: XR chest 1V portable Frontal view of the chest. CLINICAL INDICATION:Female, 67 years old with history of post pleurx cath insertion; FINDINGS: Lungs/Pleura: Small left pleural effusion. There is no evidence of right pleural effusion, focal cons olidation, or pneumothorax. Pulmonary vascularity: Unremarkable. Heart/mediastinum: Cardiomediastinal silhouette is unremarkable. Musculoskeletal: No acute osseous pathology. Other findings: None Lines/Tubes: Interval placement of Pleurx catheter with small pneumothorax. Small pleural effusion also present. IMPRESSION: Left Pleurx catheter placement. Small left pneumothorax and small left pleural effusion.
[2023-02-16 12:53] VITALS: BP 96/63; PULSE 105; RESP 19; TEMP 97.8
[2023-02-16] MEDS: FUROSEMIDE 10 MG/ML 4 ML VIAL IV SCH (13:16)
[2023-02-16] MEDS: CHOLECALCIFEROL 25 MCG (1000 IU) TABLET PO SCH (13:36)
[2023-02-16] MEDS: FOLIC ACID 1 MG TAB PO SCH (13:36)
[2023-02-16] MEDS: PANTOPRAZOLE 40 MG TABLET PO SCH (13:36)
[2023-02-16] MEDS: CALCIUM CARBONATE 500 MG CHEWABLE PO SCH (13:36)
[2023-02-16 15:23] LABS: African American GFR (CKD) 63 (>60 ml/min/1.73 sqM); Anion Gap 8 mmol/L; Blood Urea Nitrogen 15 mg/dL (7-17); Calcium 7.8 mg/dL (8.4-10.2); Carbon Dioxide 23 mmol/L (22-30); Chloride 110 mmol/L (98-107); Glucose 168 mg/dL (74-99); Magnesium 1.7 mg/dL (1.6-2.3); Non-African American GFR(CKD) 54 (>60 ml/min/1.73 sqM); Potassium 3.9 mmol/L (3.5-5.1); Sodium 141 mmol/L (137-145)
[2023-02-16 16:02] LABS: Anisocytosis Slight; Basophils # (A) 0.1 k/uL (0-0.2); Basophils % (A) 0 %; Eosinophils # (A) 0.1 k/uL (0-0.7); Eosinophils % (A) 0 %; HCT 29.4 % (34.0-46.0); HGB 9.4 gm/dL (11.4-16.0); Hypochromasia Marked; Lymphocytes # (A) 1.3 k/uL (1.0-4.8); Lymphocytes % (A) 5 %; MCH 29.7 pg (25.0-35.0); MCHC 31.8 g/dL (31.0-37.0); MCV 93.2 fL (80.0-100.0); Monocytes # (A) 1.6 k/uL (0-1.0); Monocytes % (A) 6 %; Neutrophils % (A) 88 %; Platelet Count 202 k/uL (150-450); Poikilocytosis Moderate; RBC 3.16 m/uL (3.80-5.40); RDW 16.8 % (11.5-15.5); WBC 26.2 k/uL (3.8-10.6)
--- NOTE | 2023-02-17 15:18 | P.DS ---
Providers Date of admission: 02/09/23 21:29 Attending physician: Nara Montero MD Consults: 02/09/23 21:29 Consult Physician Routine Consulting Provider: Marty Simon Consult Reason/Comments: Left loculated pleural effusion Do you want consulting provider notified?: Yes, Notify in am Consult Physician Routine Consulting Provider: Анна Kang Consult Reason/Comments: Stage IV lung ca Do you want consulting provider notified?: Yes, Notify in am 02/10/23 10:12 Consult Physician Routine Consulting Provider: Osmin Rothman Consult Reason/Comments: Recurrent left pleural effusion Do you want consulting provider notified?: Yes 02/10/23 13:36 Consult Physician Routine Consulting Provider: Geoff Toro Consult Reason/Comments: Pleurx catheter placement Do you want consulting provider notified?: Already Contacted Primary care physician: Emeli Tanner Hospital Course: Final Diagnosis -Recurrent left-sided malignant pleural effusion status post thoracentesis and subsequent pleurx catheter placement -Acute hypoxic respiratory failure secondary to above improved -Peripheral edema -Shortness of breath -Recent diagnosis of 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 Patient ended up in the hospital. Most recent CT shows hepatic and splenic metastasis. -Acute kidney injury prerenal improved -Leukocyosis -Hypokalemia -Anemia of inflammation, hemoglobin dropped after first chemotherapy treatement back in December. -Generalized weakness due to malignancy -Paroxysmal SVT previous admission -Chronic constipation Full Code Discharge Disposition Patient is stable for discharge home with overall guarded prognosis and patient is considered high risk for readmission due to shortness of breath fatigue and persistent anemia. Patient had pleurx catheter placed by cardiothoracic. Once drainage is less than 50 mL three times in a row, notify the surgery office for possible removal. Additional instructions included on patients discharge information. Patient to not drain more than 1000 mls in 24 hours. Patient is status post 2 units of PRBC most recent hemoglobin 9.5. Patient to follow up with Dr. Sinclair in the office and also Dr Dubon patient is being considered for palliative radiation. Amiodarone has been decreased to 100 mg daily per recommendations of cotton cleaner outpatient at patients most recent appointment. Continue oral antibiotics with oral cefdinir twice a day for the next 3 days. Need to continue with incentive spirometer 10 x an hour while awake. Continue to elevate lower extremities while resting/sitting and recommend to CAMILA wrap or use comression stockings. Lasix has been increased to 20 mg twice a day recommend to take in the AM and take second dose by 4 pm to avoid frequent urination into the late evening. Repeat CBC and BMP in 2 to 3 days and also follow up with your PCP Dr. Emeli Tanner in 1 to 2 days on discharge. Hospital Course This is a 67 year old female with medical history of atrial fibrillation, hypertension, and stage IV lung cancer with recurrent malignant left pleural effusion status post thoracentesis. Patient presents with complaint of increasing shortness of breath. Patient was scheduled for left sided thoracentesis on Friday however had progressive dyspnea and hypoxia at home came into the ER for evaluation. Since recent diagnosis of lung cancer, patient has had one round of chemotherapy which patient ended up in the ICU after and has not had chemo since. Patient had issues with anemia and also during previous hospital stay patient had an episode of SVT which resulted in ICU stay. Patient has been unable to get in with pulmonary in the office since discharge and was concerned with low oxygen at home. Was in to see cotton cleaner on Friday and pt reports cardiology felt she was doing well. Chest xray on admission reveals suspected loculated left pleural effusion, Patient has leukocytosis of 16.4 on admission, hemoglobin 7.4. INR 1.3. Potassium low at 3.0 and magnesium 1.7. Troponin is mildly elevated at 0.047 which will be trended. BNP slightly elevated at 1340. Patient is admitted to the hospital under my service with consult placed to pulmonary and oncology services. Underwent ultrasound-guided thoracentesis by the interventional radiologist with a total of 100 mL of pleural fluid. Patient was considered for discharge home today complaining of extreme fatigue and weakness was noted to have a drop in hemoglobin patient this admission is receiving a total of 2 units of packed red blood cells. Cardiothoracic was consult for evaluation for Pleurx catheter and they were recommending outpatient placement as patient's are undergone thoracentesis and there was minimal to moderate pleural effusion on x-ray. Patient was monitored and received blood and had progressive shortness of breath. A follow-up x-ray was done showing a now large pleural effusion and cardiothoracic did place a Pleurx catheter as this pleural effusion has been reaccumulating quickly. It appears to not be loculated anymore. She did have increasing lower extremity edema and received a dose of IV Lasix 2 with improvement of the peripheral edema. A chest x-ray post Pleurx catheter placement does show a small left pneumothorax and small left pleural effusion patient was cleared for discharge by cardiothoracic regarding this x-ray she was given an extra dose of IV Lasix prior to discharge. Repeat labs showed white count of 26.2 this is likely reactive to the Pleurx catheter placement this was drawn after the procedure. White count prior to that was 14. Additionally sodium levels 141 which is improved down from 148 after receiving IV Lasix, kidney function is stable with purulent 15, creatinine 1.06 which is improved, calcium is 7.8 and magnesium 1.7. Patient did have a mildly elevated procalcitonin level 0.32 received IV ceftriaxone empirically in the hospital and discharged on short course of oral cefdinir. There is likely some underlying atelectasis. Continues to report shortness of breath no chest pain. Does have fatigue and weakness. Denying n/v/d and tolerating some diet. Lungs are clear now, S1 S2 auscultated regular rate and rhythm. Abdomen soft and nontender and focal neurological exam is negative. Patient discharged home with overall guarded prognosis and multiple follow up recommendations made. Please see medication reconciliation for a list of current medication. Thank you for allowing us to participate in the care of this patient. The impression and plan of care has been dictated by Lali Wang Nurse Practitioner as directed. Dr. Racquel MD I have performed a history and physical examination and medical decision making of this patient, discussed the same with the dictator, and agree with the dictators assessment and plan as written, documented as a scribe. Based on total visit time, I have performed more than 50% of this visit. Patient Condition at Discharge: Stable Plan - Discharge Summary Discharge Rx Participant: No New Discharge Prescriptions: New Cefdinir [Omnicef] 300 mg PO BID 3 Days #6 cap Potassium Chloride ER [K-Dur 20] 20 meq PO DAILY #30 tab Magnesium Oxide [Mag-Ox] 400 mg PO DAILY #30 tablet Amiodarone [Cordarone] 200 mg PO DAILY #30 tab Metoprolol Tartrate [Lopressor] 25 mg PO BID #60 tab Famotidine [Pepcid] 20 mg PO DAILY #30 tablet Continue Cholecalciferol [Vitamin D3 (25 Mcg = 1000 Iu)] 25 mcg PO DAILY LORazepam [Ativan] 1 tab PO HS PRN PRN Reason: Anxiety Folic Acid 1 mg PO DAILY Latanoprost/Pf [Latanoprost 0.005% Eye Drop] 1 drop BOTH EYES HS HYDROmorphone [Dilaudid] 2 mg PO TID PRN PRN Reason: Pain Calcium Carbonate [Calcium] 600 mg PO DAILY Changed Furosemide [Lasix] 20 mg PO 0900,1600 #60 tab Discontinued Amiodarone [Cordarone] 200 mg PO BID #60 tab Metoprolol Succinate (ER) [Toprol XL] 50 mg PO DAILY #30 tab Pantoprazole [Protonix] 40 mg PO DAILY Discharge Medication List Cholecalciferol [Vitamin D3 (25 Mcg = 1000 Iu)] 25 mcg PO DAILY 11/21/22 [History] Latanoprost/Pf [Latanoprost 0.005% Eye Drop] 1 drop BOTH EYES HS 11/21/22 [History] Calcium Carbonate [Calcium] 600 mg PO DAILY 01/13/23 [History] Folic Acid 1 mg PO DAILY 01/13/23 [History] HYDROmorphone [Dilaudid] 2 mg PO TID PRN 01/13/23 [History] LORazepam [Ativan] 1 tab PO HS PRN 01/13/23 [History] Amiodarone [Cordarone] 200 mg PO DAILY #30 tab 02/16/23 [Rx] Cefdinir [Omnicef] 300 mg PO BID 3 Days #6 cap 02/16/23 [Rx] Famotidine [Pepcid] 20 mg PO DAILY #30 tablet 02/16/23 [Rx] Furosemide [Lasix] 20 mg PO 0900,1600 #60 tab 02/16/23 [Rx] Magnesium Oxide [Mag-Ox] 400 mg PO DAILY #30 tablet 02/16/23 [Rx] Metoprolol Tartrate [Lopressor] 25 mg PO BID #60 tab 02/16/23 [Rx] Potassium Chloride ER [K-Dur 20] 20 meq PO DAILY #30 tab 02/16/23 [Rx] Follow up Appointment(s)/Referral(s): Joss Barrett MD [STAFF PHYSICIAN] - As Needed (Please call surgery office when drainage from PleurX is less then 50 mL for 3 times in a row for removal of PleurX) Celestino Dubon MD [STAFF PHYSICIAN] - 1 Week Emeli Tanner MD [Primary Care Provider] - 1-2 Days Louie Fields MD [STAFF PHYSICIAN] - 2 Weeks Chip Cruz MD [STAFF PHYSICIAN] - 1 Week [facility], [NON-STAFF] - 1 Week Анна Kang MD [STAFF PHYSICIAN] - 02/21/23 10:15 am Ambulatory/Diagnostic Orders: Basic Metabolic Panel [LAB.AMB] Time Frame: 3 Days, Location: None Selected Complete Blood Count w/diff [LAB.AMB] Time Frame: 3 Days, Location: None Selected Magnesium [LAB.AMB] Time Frame: 3 Days, Location: None Selected Patient Instructions/Handouts: Pleural Effusion (DC), Dyspnea (DC), Anemia (DC), How to Care for Your Chest or Abdominal Catheter (DC), Thoracentesis (DC), Chest Tubes (DC) Activity/Diet/Wound Care/Special Instructions: PLEURX DISCHARGE INSTRUCTIONS: 1. Home Care is ordered, they will obtain new bottles. 2. May shower after 24 hours, no tub baths/hot tubs. 3. Do not drain more than 1 liter or 1000 mL in 24 hours. 4. New drainage bottle needed with each drainage. 5. Drainage frequency dictated by patient symptoms, may be every day, every other day, weekly, or however often the patient is symptomatic. 6. Please notify TELETYPE TELEGRAPHER or office if temperature >101F, excessive pain at insertion site, drainage consistency changes to cloudy or smells bad, catheter falls out, or anything else that concerns you. 7. Contact surgery office with weekly drainage amounts. May fax the amounts. 8. Once drainage is less than 50 mL three times in a row, notify the surgery office for possible removal. Surgery office: , fax Patient to follow up with Dr. Cruz with pulmonary services on discharge in 1 to 2 weeks. Recommend to follow up with your cotton cleaner (Dr Fields) in 1 to 2 weeks, amiodarone has been decreased to 200 mg daily per recommendations of Dr. Fields. Oncology appointment has been made with Dr. Hernandez for 02/21. Oncology recommending follow up with Dr Dubon for possible radiation and this will be discussed at your f/u visit. Continue oral antibiotics with oral cefdinir twice a day for the next 3 days. Need to continue with incentive spirometer 10 x an hour while awake. Continue to elevate lower extremities while resting/sitting and recommend to CAMILA wrap or use comression stockings. Lasix has been increased to 20 mg twice a day recommend to take in the AM and take second dose by 4 pm to avoid frequent urination into the late evening. PleurX catheter has been placed and patient to follow up with cardiothoracic services as the above recommendations regarding concerns or need for drainage removal. Information has been provided for Dr. Barrett's office on discharge. Repeat CBC and BMP in 2 to 3 days and also follow up with your PCP Dr. Emeli Tanner in 1 to 2 days on discharge Discharge/Stand Alone Forms: Community Resources, Help In The Home Discharge Disposition: HOME WITH HOME HEALTH SERVICES
== END 2023-02-16 19:07 | disposition home health service (06) | DRG 180 ==
LOC: EC 19:12 → 5NMEDONC 21:29
PROVIDERS: ADMIT Internal Medicine; ATTEND Internal Medicine
PROC: 0W9B3ZZ Drainage of Left Pleural Cavity, Percutaneous Approach (ICD-10-PCS; 2023-02-10)
PROC: 30233N1 Transfusion of Nonautologous Red Blood Cells into Peripheral Vein, Percutaneous Approach (ICD-10-PCS; 2023-02-11)
PROC: 0W9B30Z Drainage of Left Pleural Cavity with Drainage Device, Percutaneous Approach (ICD-10-PCS; principal; 2023-02-16 10:00)
DX: C34.90 Malignant neoplasm of unspecified part of unspecified bronchus or lung (principal); J96.01 Acute respiratory failure with hypoxia; C79.51 Secondary malignant neoplasm of bone; I47.1 Supraventricular tachycardia; J91.0 Malignant pleural effusion; J98.11 Atelectasis; N17.9 Acute kidney failure, unspecified; C78.89 Secondary malignant neoplasm of other digestive organs; D72.829 Elevated white blood cell count, unspecified; D64.81 Anemia due to antineoplastic chemotherapy; E87.6 Hypokalemia; I10 Essential (primary) hypertension; I48.91 Unspecified atrial fibrillation; K59.09 Other constipation; T45.1X5A Adverse effect of antineoplastic and immunosuppressive drugs, initial encounter; Z79.899 Other long term (current) drug therapy; Z92.3 Personal history of irradiation; Z92.21 Personal history of antineoplastic chemotherapy
CPT/HCPCS: 32555; 36415; 71045; 71046; 71250; 80048; 80053; 81001; 83735; 83880; 84145; 84484; 85025; 85610; 85730; 86850; 86900; 86901; 86920; 87040; 88108; 88305; 93005; 94760; 96374; 96375; 99285

== ENCOUNTER 2023-03-10 10:22 | Inpatient (IN) | payer MEDICARE, OTHER ==
[2023-03-10] MEDS ORDERED: SODIUM CHLORIDE 0.9% 1,000 ML IV STA ×2 (11:26)
[2023-03-10] MEDS ORDERED: VANCOMYCIN IV PER PHARMACY 1 EACH MISC MISCELLANE PRN (11:44)
[2023-03-10] MEDS ORDERED: VANCOMYCIN 1,250 MG in SODIUM CHLORIDE 0.9% 250 ML IVPB STA (11:53)
[2023-03-10] MEDS ORDERED: CEFEPIME 2 GM in SODIUM CHLORIDE 0.9% 100 ML IVPB SCH (12:00)
[2023-03-10] MEDS ORDERED: SODIUM CHLORIDE 0.9% 1,000 ML IV ONE ×2 (12:09→18:30)
[2023-03-10 12:14] LABS: AST 39 U/L (14-36); African American GFR (CKD) 41 (>60 ml/min/1.73 sqM); Alkaline Phosphatase 142 U/L (38-126); Carbon Dioxide 22 mmol/L (22-30); Glucose 99 mg/dL (74-99); Non-African American GFR(CKD) 35 (>60 ml/min/1.73 sqM)
[2023-03-10 12:16] LABS: Anisocytosis Moderate; HGB 10.5 gm/dL (11.4-16.0); Hypochromasia Marked; MCH 29.7 pg (25.0-35.0); MCHC 29.2 g/dL (31.0-37.0); Macrocytosis Marked; Mean Platelet Volume 11.2; Platelet Count 227 k/uL (150-450); Poikilocytosis Moderate; RBC 3.54 m/uL (3.80-5.40); RDW 21.5 % (11.5-15.5)
[2023-03-10 12:18] LABS: ALT 20 U/L (4-34); Albumin 3.5 g/dL (3.5-5.0); Anion Gap 13 mmol/L; Blood Urea Nitrogen 19 mg/dL (7-17); Calcium 8.8 mg/dL (8.4-10.2); Chloride 102 mmol/L (98-107); Magnesium 2.6 mg/dL (1.6-2.3); Potassium 4.8 mmol/L (3.5-5.1); Sodium 137 mmol/L (137-145); Total Bilirubin 1.2 mg/dL (0.2-1.3); Total Protein 6.2 g/dL (6.3-8.2)
[2023-03-10 12:23] LABS: MCV 101.7 fL (80.0-100.0); NT-Pro-B-Type Natriuretic Pept 2130 pg/mL
--- NOTE | 2023-03-10 12:27 | XR ---
EXAMINATION TYPE: XR chest 1V portable DATE OF EXAM: 03/10/2023 COMPARISON: 02/16/2023 HISTORY: Shortness of breath TECHNIQUE: Single frontal view of the chest is obtained. FINDINGS: Chest tube in stable position with a persistent hydropneumothorax measuring approximately 50%. No mediastinal deviation. There is consolidation left lung are also noted. Right lung clear. Dif fuse osteopenia. IMPRESSION: 1. Stable left-sided hydropneumothorax with chest tube noted in position measures approximately 50%.
[2023-03-10 12:32] LABS: INR 1.2 (<1.2); Partial Thromboplastin Time 22.4 sec (22.0-30.0); Prothrombin Time 11.9 sec (9.0-12.0)
[2023-03-10] MEDS: NOREPINEPHRINE 4 MG in SODIUM CHLORIDE 0.9% 250 ML IV ONE ×2 (12:40→20:39)
[2023-03-10 13:18] LABS: ABG Base Excess -6.6 mmol/L; ABG HCO3 18 mmol/L (21-25); ABG Oxygen Saturation 98.8 % (94-97); ABG PCO2 30 mmHg (35-45); ABG PH 7.39 (7.35-7.45); ABG PO2 109 mmHg (83-108); ABG TCO2 19 mmol/L (19-24); Allen Test Performed? Yes
[2023-03-10] MEDS ORDERED: NALOXONE 0.4 MG/ML 1 ML VIAL IV PRN (13:28)
--- NOTE | 2023-03-10 14:01 | ED ---
General Adult HPI - General Chief complaint: Weakness Stated complaint: weakness Time Seen by Provider: 03/10/23 11:26 Source: patient, family, RN notes reviewed, old records reviewed Mode of arrival: wheelchair Limitations: no limitations - History of Present Illness Initial comments: Patient is a 67-year-old female who presents emergency Department for 1-2 days of weakness. Patient is a history of stage IV lung cancer currently on maintenance therapy but no acute chemo or radiation, Paroxysmal atrial fibrillation.. Patient does have a left chest tube catheter which is drained at home by family. States she feels generalized weakness. Had a catheter drained by family member earlier today and he checked her blood pressure and noticed it was low and brought her here for further evaluation. Patient denies shortness of breath. States she feels uncomfortable. States she feels lightheaded. Denies any abdominal pain or chest pain. Has no other acute complaints at this time. Presents for further evaluation at this time. Denies nausea, vomiting, diarrhea, constipation. - Related Data Home Medications Medication Instructions Recorded Confirmed Cholecalciferol [Vitamin D3 (25 25 mcg PO DAILY 11/21/22 03/10/23 Mcg = 1000 Iu)] Latanoprost/Pf [Latanoprost 0.005% 1 drop BOTH EYES HS 11/21/22 03/10/23 Eye Drop] Calcium Carbonate [Calcium] 600 mg PO DAILY 01/13/23 03/10/23 Folic Acid 1 mg PO DAILY 01/13/23 03/10/23 HYDROmorphone [Dilaudid] 2 mg PO TID PRN 01/13/23 03/10/23 LORazepam [Ativan] 1 tab PO HS PRN 01/13/23 03/10/23 Furosemide [Lasix] 20 mg PO BID@0900,1600 03/10/23 03/10/23 Previous Rx's Medication Instructions Recorded Amiodarone [Cordarone] 200 mg PO DAILY #30 tab 02/16/23 Famotidine [Pepcid] 20 mg PO DAILY #30 tablet 02/16/23 Magnesium Oxide [Mag-Ox] 400 mg PO DAILY #30 tablet 02/16/23 Metoprolol Tartrate [Lopressor] 25 mg PO BID #60 tab 02/16/23 Potassium Chloride ER [K-Dur 20] 20 meq PO DAILY #30 tab 02/16/23 Allergies Allergy/AdvReac Type Severity Reaction Status Date / Time No Known Allergies Allergy Verified 03/10/23 12:32 Review of Systems ROS Statement: Those systems with pertinent positive or pertinent negative responses have been documented in the HPI. Review of Systems: CONST: Denies fever EYES: Denies blurry vision ENT: Denies nasal congestion C/V: Denies Chest pain RESP: Denies shortness of breath GI: Denies abdominal pain : Denies dysuria SKIN: Denies rash. MSK: Denies joint pain. NEURO: Denies headache ROS Other: All systems not noted in ROS Statement are negative. Past Medical History Past Medical History: Atrial Fibrillation, Cancer, Hypertension Additional Past Medical History / Comment(s): LEFT CHEST DISCOMFORT RECENTLY., chemo first dose 01/06/23. Radiation started beginning on December 2022. Recurrent malignant left-sided pleural effusion History of Any Multi-Drug Resistant Organisms: None Reported Past Surgical History: Adenoidectomy, Hysterectomy, Tonsillectomy Additional Past Surgical History / Comment(s): D& C. left sided thoracentesis 11/21/2022 with removal of 600 mL malignant effusion, left-sided thoracentesis 01/14/2023 with removal of 1 L fluid Past Anesthesia/Blood Transfusion Reactions: No Reported Reaction Past Psychological History: No Psychological Hx Reported Smoking Status: Never smoker Past Alcohol Use History: Occasional Past Drug Use History: None Reported - Past Family History Father Family Medical History: No Reported History Mother Family Medical History: No Reported History General Exam - General Exam Comments Initial Comments: General: Appears in significant distress, tachycardiac, tachypneic with an unreliable pulse ox and hypotensive. HEAD: Normal with no signs of head trauma. EYES: PERRLA, EOMI, conjunctiva normal, no discharge. ENT: Hearing grossly intact, normal oropharynx. RESPIRATORY: Reduced breath sounds on the left. Does not appear to be hypoxic when there is a good waveform. Increased work of breathing. Left pleural drainage catheter in place. C/V: Tachycardic with a regular rhythm. S1 and S2 auscultated. Peripheral pulses are 1+ in all 4 extremity. Minimal bilateral lower extremity pitting edema. ABD: Abd is soft, nontender, nondistended EXT: Normal range of motion, no obvious deformity SKIN: No rashes or lesions observed on exposed skin. NEURO: Alert and oriented 4. Limitations: no limitations Course Vital Signs 03/10/23 03/10/23 03/10/23 11:15 11:22 11:49 Temperature 97.6 F Pulse Rate 128 H 137 H Respiratory 38 H 28 H Rate Blood Pressure 69/39 88/58 98/64 O2 Sat by Pulse 88 L Oximetry 03/10/23 03/10/23 03/10/23 12:04 12:13 12:29 Temperature Pulse Rate 134 H 131 H 126 H Respiratory 34 H 34 H Rate Blood Pressure 51/33 62/23 72/55 O2 Sat by Pulse Oximetry 03/10/23 03/10/23 03/10/23 12:45 12:50 12:56 Temperature Pulse Rate 129 H 128 H 130 H Respiratory 34 H 36 H Rate Blood Pressure 80/64 82/57 76/66 O2 Sat by Pulse Oximetry 03/10/23 03/10/23 03/10/23 13:20 13:25 13:38 Temperature Pulse Rate 131 H 133 H Respiratory 35 H Rate Blood Pressure 79/64 80/59 79/56 O2 Sat by Pulse Oximetry 03/10/23 03/10/23 03/10/23 13:40 14:21 14:26 Temperature Pulse Rate 133 H 133 H 133 H Respiratory 30 H 30 H 30 H Rate Blood Pressure 98/64 76/30 76/60 O2 Sat by Pulse Oximetry 03/10/23 03/10/23 14:40 15:08 Temperature Pulse Rate 133 H 134 H Respiratory 34 H 26 H Rate Blood Pressure 101/72 97/61 O2 Sat by Pulse Oximetry Procedures - Central Line Placement Right Femoral Consent Obtained: written consent, emergent situation Patient Placed on Monitor/Pulse Ox: Yes MD Prep: mask, gown, gloves Central Line Prep: Chlorhexidine scrub Local Anesthesia Used: Lidocaine 1% Amount of Anesthesia Used (mls): 5 Ultrasound Used for Placement: Yes Central Line Lumen Inserted: triple Bloods Obtained for Lab: No Central Line Position: good blood return, all ports aspirated, flushed, capped, sutured in place with nylon Dressing Applied: Tegaderm Patient Tolerated Procedure: well Complications: none - Sepsis Sepsis Focused Exam #1 Time Sepsis Criteria Met: 11:53 Sepsis Focused Exam Date: 03/10/23 Sepsis Focused Exam Time: 14:40 Sepsis Focused Exam Complete: Yes Vital Signs & RN Notes Reviewed: Yes Capillary Refill: < 2 Seconds: Fingers, Toes Peripheral Pulses: Normal: Radial (R), Radial (L) Skin Color: Normal for Patient Respiratory Exam: decreased breath sounds (decreased over left lung which is chronic) Cardiovascular Exam: normal rhythm, tachycardia Medical Decision Making - Medical Decision Making Was pt. sent in by a medical professional or institution (, PA, PRESS TECHNICIAN, urgent care, hospital, or residential...) When possible be specific @ -No Did you speak to anyone other than the patient for history (EMS, parent, family, police, friend...)? What history was obtained from this source @ -I spoke with the patient's son, Rakan who provided the story for today and corroborated the patient's story. Did you review nursing and triage notes (agree or disagree)? Why? @ -I reviewed and agree with nursing and triage notes Were old charts reviewed (outside hosp., previous admission, EMS record, old EKG, old radiological studies, urgent care reports/EKG's, residential records)? Report findings @ -Old chest x-rays and charts were reviewed from previous visits. Differential Diagnosis (chest pain, altered mental status, abdominal pain women, abdominal pain men, vaginal bleeding, weakness, fever, dyspnea, syncope, headache, dizziness, GI bleed, back pain, seizure, CVA, palpatations, mental health, musculoskeletal)? @ -Differential Weakness: Hypoglycemia, shock, sepsis, hyponatremia, anemia, infection, WA, ETOH, adverse medicine reaction, overdose, stroke, this is not meant to be an all-inclusive list. EKG interpreted by me (3pts min.). @ -As above X-rays interpreted by me (1pt min.). @ -Chest x-ray reveals the chronic left lung mass with left hydropneumothorax appears unchanged. Patient's drainage catheter in place. CT interpreted by me (1pt min.). @ -None done U/S interpreted by me (1pt. min.). @ -None done What testing was considered but not performed or refused? (CT, X-rays, U/S, labs)? Why? @ -Considered CT imaging of the chest for possible PE however suspicion is low his saturations are adequate in the setting of chronic cancer. Her likely infectious in nature of unknown etiology. We'll continue to monitor. What meds were considered but not given or refused? Why? @ -None Did you discuss the management of the patient with other professionals (professionals i.e. Dr., PA, PRESS TECHNICIAN, lab, RT, psych nurse, social worker clinical, educational technician, teacher, ict help desk officer, shelter case manager)? Give summary @ -Discussed with the ICU attending who presented to bedside, Dr. Cruz who is in agreement with the plan accepted the patient the ICU. Spoke with the admitting physician, Dr. Clement of [facility] who accepted the patient to his service. Was smoking cessation discussed for >3mins.? @ -No Was critical care preformed (if so, how long)? @ -Yes, 42 minutes Were there social determinants of health that impacted care today? How? (Homelessness, low income, unemployed, alcoholism, drug addiction, transport ation, low edu. Level, literacy, decrease access to med. care, alf, rehab)? @ -No Was there de-escalation of care discussed even if they declined (Discuss DNR or withdrawal of care, Hospice)? DNR status @ -Yes, discussed with patient's son who is power of collections attorney per son as well as per patient. We discussed as a group between myself, Rakan, and the patient. Patient does not wish to be placed on life support and does not want to be intubated. Therefore also does not want chest compressions. Was in agreement to be made DO NOT RESUSCITATE. Is okay with central line as well as vasopressor medications and other therapies. What co-morbidities impacted this encounter? (DM, HTN, Smoking, COPD, CAD, Cancer, CVA, ARF, Chemo, Hep., AIDS, mental health diagnosis, sleep apnea, morbid obesity)? @ -Stage IV cancer Was patient admitted / discharged? Hospital course, mention meds given and route, prescriptions, significant lab abnormalities, going to OR and other pertinent info. @ -Based on the patient's presentation and physical exam, she presents in shock that is undifferentiated at this time. Cannot rule out septic shock. Patient's hypotensive, tachycardic, tachypneic. She was placed in trauma bay 1. 2 large- bore IVs placed by myself via ultrasound guidance. Patient was given multiple IV fluid boluses. Broad-spectrum antibiotics were started over concern for septic shock. She met criteria at 1153 when he was found she has leukocytosis therefore having 3 SIRS criteria. She is placed on broad-spectrum IV vancomycin and cefepime. She received 2 L IV fluid bolus was placed on 130 mL an hour maintenance fluids. She remains hypotensive at this time. This is when we discuss CODE STATUS as documented above with the patient's power of collections attorney and son Rakan. Patient was also involved with this discussion. We all agreed that the patient will be made DO NOT RESUSCITATE at her request. Okay with vasopressors and central line placement. She requested a central line be placed in groin rather than neck. I believe this is reasonable. She consented to central line placement. She tolerated central line placement well and was started on Levophed. Goal map greater than 65. Chest x-ray showed no acute findings. Labs are remarkable for leukocytosis of 21 which is somewhat chronic for the patient. Chronic anemia with a hemoglobin of 10.5. Patient has a lactic acidosis of 6.9, undetectable troponin, BNP of 2100. Vital signs negative. Stokes catheter was placed and patient has no urinary output suggesting she is having dehydration and appear she has THOMAS with a BUN of 19 and creatinine 1.5 on both above baseline. On reevaluation after being started on vasopressors, as well as broad-spectrum antibiotics, patient is maintaining pressures of a map of 65. She remains tachycardic but appears more comfortable. Still tachypneic likely secondary to her acidosis. ABG was obtained and she is adequately oxygenating with a sat of 98.8. Appears to have a respiratory compensation for metabolic acidosis. I discussed results with the patient, son, as well as the other family members at bedside and they expressed understanding. She will be admitted to the ICU.Patient has had no urine output thus far. UA still pending at this time. I discussed the case with Dr. Cruz of ICU who presented at bedside and was in agreement with the plan. He accepted the patient to the ICU. We did discuss the possibility of a PE for the patient however she is saturating well and we do believe this is likely infectious versus dehydration in nature. He was in agreement with holding off on CT imaging of the chest at this time. He'll continue to monitor. I spoke with the admitting physician, Dr. Clement of [facility] who accepted the patient as well. Patient admitted to the ICU. Undiagnosed new problem with uncertain prognosis? @ -Yes Drug Therapy requiring intensive monitoring for toxicity (Heparin, Nitro, Insulin, Cardizem)? @ -No Were any procedures done? @ -Right femoral vein central line Diagnosis/symptom? @ -Undifferentiated shock, suspect septic shock and dehydration in the setting of stage IV cancer Acute, or Chronic, or Acute on Chronic? @ -Acute Uncomplicated (without systemic symptoms) or Complicated (systemic symptoms)? @ -Complicated Side effects of treatment? @ -Tachycardia Exacerbation, Progression, or Severe Exacerbation? @ -No Poses a threat to life or bodily function? How? (Chest pain, USA, WA, pneumonia, PE, COPD, DKA, ARF, appy, cholecystitis, CVA, Diverticulitis, Homicidal, Suic idal, threat to staff... and all critical care pts) @ -Yes Diagnosis/symptom? @ -Acute kidney injury and dehydration Acute, or Chronic, or Acute on Chronic? @ -Acute Uncomplicated (without systemic symptoms) or Complicated (systemic symptoms)? @ -Complicated Side effects of treatment? @ -none Exacerbation, Progression, or Severe Exacerbation] @ -no Poses a threat to life or bodily function? @ -Yes - Lab Data Result diagrams: 03/10/23 11:38 03/10/23 11:38 Lab Results 03/10/23 03/10/23 03/10/23 Range/Units 11:38 11:38 11:38 WBC 21.4 H (3.8-10.6) k/uL RBC 3.54 L (3.80-5.40) m/uL Hgb 10.5 L (11.4-16.0) gm/dL Hct 36.0 (34.0-46.0) % MCV 101.7 H D (80.0-100.0) fL MCH 29.7 (25.0-35.0) pg MCHC 29.2 L (31.0-37.0) g/dL RDW 21.5 H (11.5-15.5) % Plt Count 227 (150-450) k/uL MPV 11.2 Neutrophils % (Manual) 69 % Band Neuts % (Manual) 1 % Lymphocytes % (Manual) 16 % Monocytes % (Manual) 12 % Eosinophils % (Manual) 1 % Metamyelocytes % 1 % Myelocytes % 2 % Neutrophils # (Manual) 14.90 H (1.3-7.7) k/uL Lymphocytes # (Manual) 3.42 (1.0-4.8) k/uL Monocytes # (Manual) 2.57 H (0-1.0) k/uL Eosinophils # (Manual) 0.21 (0-0.7) k/uL Metamyelocytes # (Man) 0.21 H (0) k/uL Myelocytes # (Manual) 0.43 H (0) k/uL Nucleated RBCs 2 H (0-0) /100 WBC Manual Slide Review Performed Hypochromasia Marked Poikilocytosis Moderate Anisocytosis Moderate Macrocytosis Marked A PT 11.9 (9.0-12.0) sec INR 1.2 H (<1.2) APTT 22.4 (22.0-30.0) sec Sample Site ABG pH (7.35-7.45) ABG pCO2 (35-45) mmHg ABG pO2 (83-108) mmHg ABG HCO3 (21-25) mmol/L ABG Total CO2 (19-24) mmol/L ABG O2 Saturation (94-97) % ABG Base Excess mmol/L Martinez Test FiO2 % Sodium 137 (137-145) mmol/L Potassium 4.8 (3.5-5.1) mmol/L Chloride 102 (98-107) mmol/L Carbon Dioxide 22 (22-30) mmol/L Anion Gap 13 mmol/L BUN 19 H (7-17) mg/dL Creatinine 1.51 H (0.52-1.04) mg/dL Est GFR (CKD-EPI)AfAm 41 (>60 ml/min/1.73 sqM) Est GFR (CKD-EPI)NonAf 35 (>60 ml/min/1.73 sqM) Glucose 99 (74-99) mg/dL Lactic Ac Sepsis Rflx Plasma Lactic Acid Jose (0.7-2.0) mmol/L Calcium 8.8 (8.4-10.2) mg/dL Magnesium 2.6 H (1.6-2.3) mg/dL Total Bilirubin 1.2 (0.2-1.3) mg/dL AST 39 H (14-36) U/L ALT 20 (4-34) U/L Alkaline Phosphatase 142 H (38-126) U/L Troponin I (0.000-0.034) ng/mL NT-Pro-B Natriuret Pep 2130 pg/mL Total Protein 6.2 L (6.3-8.2) g/dL Albumin 3.5 (3.5-5.0) g/dL Influenza Type A (PCR) (Not Detectd) Influenza Type B (PCR) (Not Detectd) RSV (PCR) (Not Detectd) SARS-CoV-2 (PCR) (Not Detectd) Blood Type Blood Type Recheck Bld Type Recheck Status Antibody Screen Spec Expiration Date 03/10/23 03/10/23 03/10/23 Range/Units 11:38 11:38 11:38 WBC (3.8-10.6) k/uL RBC (3.80-5.40) m/uL Hgb (11.4-16.0) gm/dL Hct (34.0-46.0) % MCV (80.0-100.0) fL MCH (25.0-35.0) pg MCHC (31.0-37.0) g/dL RDW (11.5-15.5) % Plt Count (150-450) k/uL MPV Neutrophils % (Manual) % Band Neuts % (Manual) % Lymphocytes % (Manual) % Monocytes % (Manual) % Eosinophils % (Manual) % Metamyelocytes % % Myelocytes % % Neutrophils # (Manual) (1.3-7.7) k/uL Lymphocytes # (Manual) (1.0-4.8) k/uL Monocytes # (Manual) (0-1.0) k/uL Eosinophils # (Manual) (0-0.7) k/uL Metamyelocytes # (Man) (0) k/uL Myelocytes # (Manual) (0) k/uL Nucleated RBCs (0-0) /100 WBC Manual Slide Review Hypochromasia Poikilocytosis Anisocytosis Macrocytosis PT (9.0-12.0) sec INR (<1.2) APTT (22.0-30.0) sec Sample Site ABG pH (7.35-7.45) ABG pCO2 (35-45) mmHg ABG pO2 (83-108) mmHg ABG HCO3 (21-25) mmol/L ABG Total CO2 (19-24) mmol/L ABG O2 Saturation (94-97) % ABG Base Excess mmol/L Martinez Test FiO2 % Sodium (137-145) mmol/L Potassium (3.5-5.1) mmol/L Chloride (98-107) mmol/L Carbon Dioxide (22-30) mmol/L Anion Gap mmol/L BUN (7-17) mg/dL Creatinine (0.52-1.04) mg/dL Est GFR (CKD-EPI)AfAm (>60 ml/min/1.73 sqM) Est GFR (CKD-EPI)NonAf (>60 ml/min/1.73 sqM) Glucose (74-99) mg/dL Lactic Ac Sepsis Rflx Plasma Lactic Acid Jose 6.9 H* (0.7-2.0) mmol/L Calcium (8.4-10.2) mg/dL Magnesium (1.6-2.3) mg/dL Total Bilirubin (0.2-1.3) mg/dL AST (14-36) U/L ALT (4-34) U/L Alkaline Phosphatase (38-126) U/L Troponin I <0.012 (0.000-0.034) ng/mL NT-Pro-B Natriuret Pep pg/mL Total Protein (6.3-8.2) g/dL Albumin (3.5-5.0) g/dL Influenza Type A (PCR) Not Detected (Not Detectd) Influenza Type B (PCR) Not Detected (Not Detectd) RSV (PCR) Not Detected (Not Detectd) SARS-CoV-2 (PCR) Not Detected (Not Detectd) Blood Type Blood Type Recheck Bld Type Recheck Status Antibody Screen Spec Expiration Date 03/10/23 03/10/23 03/10/23 Range/Units 12:10 12:17 13:12 WBC (3.8-10.6) k/uL RBC (3.80-5.40) m/uL Hgb (11.4-16.0) gm/dL Hct (34.0-46.0) % MCV (80.0-100.0) fL MCH (25.0-35.0) pg MCHC (31.0-37.0) g/dL RDW (11.5-15.5) % Plt Count (150-450) k/uL MPV Neutrophils % (Manual) % Band Neuts % (Manual) % Lymphocytes % (Manual) % Monocytes % (Manual) % Eosinophils % (Manual) % Metamyelocytes % % Myelocytes % % Neutrophils # (Manual) (1.3-7.7) k/uL Lymphocytes # (Manual) (1.0-4.8) k/uL Monocytes # (Manual) (0-1.0) k/uL Eosinophils # (Manual) (0-0.7) k/uL Metamyelocytes # (Man) (0) k/uL Myelocytes # (Manual) (0) k/uL Nucleated RBCs (0-0) /100 WBC Manual Slide Review Hypochromasia Poikilocytosis Anisocytosis Macrocytosis PT (9.0-12.0) sec INR (<1.2) APTT (22.0-30.0) sec Sample Site rrad ABG pH 7.39 (7.35-7.45) ABG pCO2 30 L (35-45) mmHg ABG pO2 109 H (83-108) mmHg ABG HCO3 18 L (21-25) mmol/L ABG Total CO2 19 (19-24) mmol/L ABG O2 Saturation 98.8 H (94-97) % ABG Base Excess -6.6 mmol/L Martinez Test Yes FiO2 32 % Sodium (137-145) mmol/L Potassium (3.5-5.1) mmol/L Chloride (98-107) mmol/L Carbon Dioxide (22-30) mmol/L Anion Gap mmol/L BUN (7-17) mg/dL Creatinine (0.52-1.04) mg/dL Est GFR (CKD-EPI)AfAm (>60 ml/min/1.73 sqM) Est GFR (CKD-EPI)NonAf (>60 ml/min/1.73 sqM) Glucose (74-99) mg/dL Lactic Ac Sepsis Rflx Y Plasma Lactic Acid Jose (0.7-2.0) mmol/L Calcium (8.4-10.2) mg/dL Magnesium (1.6-2.3) mg/dL Total Bilirubin (0.2-1.3) mg/dL AST (14-36) U/L ALT (4-34) U/L Alkaline Phosphatase (38-126) U/L Troponin I (0.000-0.034) ng/mL NT-Pro-B Natriuret Pep pg/mL Total Protein (6.3-8.2) g/dL Albumin (3.5-5.0) g/dL Influenza Type A (PCR) (Not Detectd) Influenza Type B (PCR) (Not Detectd) RSV (PCR) (Not Detectd) SARS-CoV-2 (PCR) (Not Detectd) Blood Type O Positive Blood Type Recheck O Pos Bld Type Recheck Status No Antibody Screen NEGATIVE Spec Expiration Date 03/13/20232309 - EKG Data -: EKG Interpreted by Me EKG Comments: 12-lead Electrocardiogram Interpretation Note EKG was reviewed and interpreted by myself. 12-lead ECG performed at 1140 is interpreted by me as revealing sinus tachycardia at a rate of 135 beats per minute. Left axis deviation. Incomplete right bundle fatou block present. PA interval is 166 ms, QRS duration is 94 ms, QTc is 381 ms.. There were no ST or T wave abnormalities to suggest myocardial ischemia or injury. R wave progression across the precordium was satisfactory. By my interpretation this EKG is non-diagnostic for acute ischemia. Patient does have baseline artifact which does make interpretation difficult. This appears to be a sinus tachycardia at this time. We'll continue to monitor.. Critical Care Time Critical Care Time: Yes Total Critical Care Time: 42 Disposition Clinical Impression: Shock, Hypotension, Lung cancer, Sepsis, Dehydration, THOMAS (acute kidney injury) Disposition: ADMITTED IP TO THIS HOSP Condition: Critical Time of Disposition: 13:05
--- NOTE | 2023-03-10 14:46 | P.HPIM ---
History of Present Illness Patient was [id number] female with known history of lung cancer was unable to tolerate chemotherapy because of which it's been on hold since September of this year, came in with generalized weakness found to be severely hypotensive presently requiring 2 pressors vasopressin and norepinephrine, is also found to have highly elevated white count of 21,800, patient is not febrile patient is being admitted for septic shock to ICU. Patient was started on vancomycin and cefepime empirically urine labs are pending urine cultures are pending blood cultures were obtained chest x-ray showing stable hydropneumothorax on the right side patient has a Pleurx catheter on the right side. REVIEW OF SYSTEMS: CONSTITUTIONAL: Severe fatigue and weakness HEENT: No recent visual problems or hearing problems. Denied any sore throat. CARDIOVASCULAR: No chest pain, orthopnea, PND, no palpitations, no syncope. PULMONARY: No shortness of breath, no cough, no hemoptysis. GASTROINTESTINAL: No diarrhea, no nausea, no vomiting, no abdominal pain. NEUROLOGICAL: No headaches, no weakness, no numbness. HEMATOLOGICAL: Denies any bleeding or petechiae. GENITOURINARY: Denies any burning micturition, frequency, or urgency. MUSCULOSKELETAL/RHEUMATOLOGICAL: Denies any joint pain, swelling, or any muscle pain. ENDOCRINE: Denies any polyuria or polydipsia. The rest of the 14-point review of systems is negative. PHYSICAL EXAMINATION: GENERAL: Patient appears to be extremely tired and fatigued HEENT: Pupils are round and equally reacting to light. EOMI. No scleral icterus. No conjunctival pallor. Normocephalic, atraumatic. No pharyngeal erythema. No thyromegaly. CARDIOVASCULAR: S1 and S2 present. No murmurs, rubs, or gallops. PULMONARY: Chest is clear to auscultation, no wheezing or crackles. Pleurx cath on the right side ABDOMEN: Soft, nontender, nondistended, normoactive bowel sounds. No palpable organomegaly. MUSCULOSKELETAL: No joint swelling or deformity. EXTREMITIES: No cyanosis, clubbing, or pedal edema. NEUROLOGICAL: Gross neurological examination did not reveal any focal deficits. SKIN: No rashes. Assessment and plan -Septic shock: Source is not clear at this time patient is on broad-spectrum antibiotics vancomycin and cefepime, awaiting wound cultures awaiting urine labs. Patient is on a norepinephrine and vasopressin -Acute renal failure with baseline creatinine of around 0.8 secondary to acute tubular necrosis present creatinine is 1.5 and patient is on IV fluids normal saline at 1 30 mL per hour which will be continued for now -Lactic acidosis secondary to septic shock -Lung cancer: Patient last received chemotherapy in month of September and able to tolerate chemo in the past. -Hypertension -Proximal atrial fibrillation for which patient is on amiodarone which will be continued but patient is not on any chronic anticoagulation -CODE STATUS DO NOT RESUSCITATE DVT prophylaxis: Subcutaneous heparin Past Medical History Past Medical History: Atrial Fibrillation, Cancer, Hypertension Additional Past Medical History / Comment(s): LEFT CHEST DISCOMFORT RECENTLY., chemo first dose 01/06/23. Radiation started beginning on December 2022. Recurrent malignant left-sided pleural effusion History of Any Multi-Drug Resistant Organisms: None Reported Past Surgical History: Adenoidectomy, Hysterectomy, Tonsillectomy Additional Past Surgical History / Comment(s): D& C. left sided thoracentesis 11/21/2022 with removal of 600 mL malignant effusion, left-sided thoracentesis 01/14/2023 with removal of 1 L fluid Past Anesthesia/Blood Transfusion Reactions: No Reported Reaction Past Psychological History: No Psychological Hx Reported Smoking Status: Never smoker Past Alcohol Use History: Occasional Past Drug Use History: None Reported - Past Family History Father Family Medical History: No Reported History Mother Family Medical History: No Reported History Medications and Allergies Home Medications Medication Instructions Recorded Confirmed Type Cholecalciferol [Vitamin D3 (25 25 mcg PO DAILY 11/21/22 03/10/23 History Mcg = 1000 Iu)] Latanoprost/Pf [Latanoprost 0.005% 1 drop BOTH EYES HS 11/21/22 03/10/23 History Eye Drop] Calcium Carbonate [Calcium] 600 mg PO DAILY 01/13/23 03/10/23 History Folic Acid 1 mg PO DAILY 01/13/23 03/10/23 History HYDROmorphone [Dilaudid] 2 mg PO TID PRN 01/13/23 03/10/23 History LORazepam [Ativan] 1 tab PO HS PRN 01/13/23 03/10/23 History Amiodarone [Cordarone] 200 mg PO DAILY #30 tab 02/16/23 03/10/23 Rx Famotidine [Pepcid] 20 mg PO DAILY #30 tablet 02/16/23 03/10/23 Rx Magnesium Oxide [Mag-Ox] 400 mg PO DAILY #30 tablet 02/16/23 03/10/23 Rx Metoprolol Tartrate [Lopressor] 25 mg PO BID #60 tab 02/16/23 03/10/23 Rx Potassium Chloride ER [K-Dur 20] 20 meq PO DAILY #30 tab 02/16/23 03/10/23 Rx Furosemide [Lasix] 20 mg PO BID@0900,1600 03/10/23 03/10/23 History Allergies Allergy/AdvReac Type Severity Reaction Status Date / Time No Known Allergies Allergy Verified 03/10/23 12:32 Physical Exam Vitals: Vital Signs Temp Pulse Resp BP Pulse Ox 03/10/23 14:40 133 H 34 H 101/72 03/10/23 14:26 133 H 30 H 76/60 03/10/23 14:21 133 H 30 H 76/30 03/10/23 13:40 133 H 30 H 98/64 03/10/23 13:38 133 H 79/56 03/10/23 13:25 80/59 03/10/23 13:20 131 H 35 H 79/64 03/10/23 12:56 130 H 36 H 76/66 03/10/23 12:50 128 H 82/57 03/10/23 12:45 129 H 34 H 80/64 03/10/23 12:29 126 H 34 H 72/55 03/10/23 12:13 131 H 34 H 62/23 03/10/23 12:04 134 H 51/33 03/10/23 11:49 137 H 28 H 98/64 03/10/23 11:22 88/58 03/10/23 11:15 97.6 F 128 H 38 H 69/39 88 L Intake and Output 03/09/23 03/10/23 03/10/23 22:59 06:59 14:59 Intake Total 39.097 Balance 39.097 Intake: Intake, IV Titration 39.097 Amount Norepinephrine 4 mg In 39.097 Sodium Chloride 0.9% 250 ml @ 0.03 MCG/KG/MIN 7. 725 mls/hr IV .Q24H ONE Rx#:[id number] Other: Weight 67.585 kg Results CBC & Chem 7: 03/10/23 11:38 03/10/23 11:38 Labs: Abnormal Lab Results - Last 24 Hours (Table) 03/10/23 03/10/23 03/10/23 Range/Units 11:38 11:38 11:38 WBC 21.8 H (3.8-10.6) k/uL RBC 3.54 L (3.80-5.40) m/uL Hgb 10.5 L (11.4-16.0) gm/dL MCV 101.7 H D (80.0-100.0) fL MCHC 29.2 L (31.0-37.0) g/dL RDW 21.5 H (11.5-15.5) % Macrocytosis Marked A INR 1.2 H (<1.2) ABG pCO2 (35-45) mmHg ABG pO2 (83-108) mmHg ABG HCO3 (21-25) mmol/L ABG O2 Saturation (94-97) % BUN 19 H (7-17) mg/dL Creatinine 1.51 H (0.52-1.04) mg/dL Plasma Lactic Acid Jose (0.7-2.0) mmol/L Magnesium 2.6 H (1.6-2.3) mg/dL AST 39 H (14-36) U/L Alkaline Phosphatase 142 H (38-126) U/L Total Protein 6.2 L (6.3-8.2) g/dL 03/10/23 03/10/23 Range/Units 11:38 13:12 WBC (3.8-10.6) k/uL RBC (3.80-5.40) m/uL Hgb (11.4-16.0) gm/dL MCV (80.0-100.0) fL MCHC (31.0-37.0) g/dL RDW (11.5-15.5) % Macrocytosis INR (<1.2) ABG pCO2 30 L (35-45) mmHg ABG pO2 109 H (83-108) mmHg ABG HCO3 18 L (21-25) mmol/L ABG O2 Saturation 98.8 H (94-97) % BUN (7-17) mg/dL Creatinine (0.52-1.04) mg/dL Plasma Lactic Acid Jose 6.9 H* (0.7-2.0) mmol/L Magnesium (1.6-2.3) mg/dL AST (14-36) U/L Alkaline Phosphatase (38-126) U/L Total Protein (6.3-8.2) g/dL
[2023-03-10 15:07] LABS: Band Neutrophils % 1 %; Metamyelocytes % 1 %; Myelocytes % 2 %; Neutrophils % (M) 69 %; Nucleated Red Blood Cells 2 /100 WBC (0-0); Total Cells Counted 200
[2023-03-10 15:08] LABS: Eosinophils # (M) 0.21 k/uL (0-0.7); Lymphocytes # (M) 3.42 k/uL (1.0-4.8); Metamyelocytes # (M) 0.21 k/uL (0); Monocytes # (M) 2.57 k/uL (0-1.0); Myelocytes # (M) 0.43 k/uL (0); WBC 21.4 k/uL (3.8-10.6)
[2023-03-10 16:11] LABS: Glucose,Whole Blood 125 mg/dL (70-110)
[2023-03-10] MEDS: VASOPRESSIN 60 UNIT in SODIUM CHLORIDE 0.9% 150 ML IV SCH (16:47)
[2023-03-10 16:50] LABS: Appearance,Urine Turbid (Clear); Bilirubin,Urine Negative (Negative); Blood,Urine Small (Negative); Calcium Oxalate Crystals,Urine Occasional /hpf; Glucose,Urine (UA) Negative (Negative); Granular Casts,Urine 6 /lpf (0); Hyaline Casts,Urine 12 /lpf (0-2); Ketones,Urine Negative (Negative); Leukocyte Esterase,Urine Negative (Negative); Mucus,Urine Moderate /hpf; Nitrite,Urine Negative (Negative); Protein,Urine 3+ (Negative); RBC,Urine 6 /hpf (0-5); Specific Gravity,Urine 1.019 (1.001-1.035); Urobilinogen,Urine <2.0 mg/dL (<2.0); WBC,Urine 12 /hpf (0-5)
[2023-03-10 16:51] LABS: Color,Urine Yellow
--- NOTE | 2023-03-10 17:42 | P.CNPUL ---
History of Present Illness Consult date: 03/10/23 Chief complaint: Acute hypotension History of present illness: This is a 67-year-old female patient with metastatic non-small cell lung consistent with adenocarcinoma with a malignant left-sided pleural effusion. During her most recent hospital admission, the patient was given a Pleurx catheter insertion regarding recurrent and persistent left-sided pleural effusion. The patient came into the emergency department profoundly weak, tachycardic,-hypotensive with elevated white second of 21.8. The patient was diagnosed having septic shock, a triple-lumen catheter was inserted in the emergency Department. The patient was started on accommodation of cefepime and vancomycin, cultures were sent, the patient was given a total of 3 L of IV f luids in addition norepinephrine which is running at 0.1 Osmin respiratory kilogram per minutes and the patient will be admitted to the intensive care unit. She underwent a left Pleurx catheter drainage and output from the left pleural effusion was minimal in the chest x-ray shows a stable left-sided hydropneumothorax and the catheter is in a good location. The patient's echoes at 21. She has neutrophilia, hemoglobin is at 10.5 with a platelet count of 227. Normal cognition profile. The blood gas was done on FiO2 of 32%/3 L of oxygen nasal cannula showed a pH of 7.39 with a pCO2 of 30 and pO2 of 109. Her lactic acid level was at 6.9 dropped down to 4.7. Sodium is at 137, BUN is 19 with a creatinine of 1.5 and a serum bicarb is at 22. UA is showing to 12 WBCs, and the UA is also showing +3 protein is. Influenza a and B in addition to Covid 19 and RSV screen were all negative. In regards to her malignancy, the patient has been diagnosed having lung cancer. She initially had a CT Chest which she had done at [facility] 11/14/22. Left pleural effusion with a 3.5 cm left infrahilar mass with postobstructive changes was noted. 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 12/06/22 staging PET showed suspicious uptake in the left lung hilum, mild uptake in the left pleura, susp icious bony lesions at T7, L2, T12 posterior left rib, left sacrum, right pubic ramus. Somatic testing and IHC testing were all negative for any targetable mutations. EGD and colonoscopy were negative, gastric biopsy was likely benign. She had palliative radiation to painful T7 and sacrum. 01/06/23 she started treatment, she was due to be on doublet chemotherapy and one immunotherapy But, resighini agents have been on shortage. Despite receiving only one chemotherapy agent she ended up in the hospital with significant pancytopenia, neutropenic fever, she required transfusions as well as G-CSF. 01/29/[address] Kang and he had a discussion with the patient and her friend. He reiterated that the patient's overall prognosis is poor. She is not a candidate for additional treatment at this time. Comfort care was discussed but patient declined she also declined palliative care. During her most recent hospitalization, the patient had a 1 L of pleural fluid drained via thorace ntesis and subsequently she was given a Pleurx catheter by Dr. Joss Barrett on 02/16/2023 and she was discharged home on the same day. Other comorbid conditions include paroxysmal A. fib, maintained on amiodarone an outpatient basis in addition to metoprolol. Her current EKG showing sinus tachycardia Review of Systems Constitutional: Reports daytime sleepiness, Reports fatigue, Reports lethargy, Reports poor appetite, Reports weight loss Eyes: denies as per HPI, denies blurred vision, denies bulging eye, denies decreased vision, denies diplopia, denies discharge, denies dry eye, denies irritation, denies itching, denies pain, denies photophobia, denies loss of peripheral vision, denies loss of vision, denies tunnel vision/blind spots Ears: deny: decreased hearing, ear discharge, earache, tinnitus Ears, nose, mouth and throat: Reports as per HPI Breasts: absent: as per HPI, change in shape, gynecomastia, masses, nipple discharge, pain, skin changes, swelling Cardiovascular: Reports decreased exercise tolerance, Reports dyspnea on exertion Respiratory: Reports dyspnea Gastrointestinal: Reports as per HPI, Reports loss of appetite Genitourinary: Reports as per HPI Menstruation: Reports as per HPI Musculoskeletal: Reports as per HPI Musculoskeletal: absent: ankle pain, ankle stiffness, ankle swelling Integumentary: Reports as per HPI Neurological: Reports as per HPI Psychiatric: Reports as per HPI Endocrine: Reports as per HPI, Reports excessive thirst Hematologic/Lymphatic: Reports as per HPI Allergic/Immunologic: Reports as per HPI Past Medical History Past Medical History: Atrial Fibrillation, Cancer (Lung cancer, stage IV with a malignant left-sided pleural effusion), Hypertension Additional Past Medical History / Comment(s): LEFT CHEST DISCOMFORT RECENTLY., chemo first dose 01/06/23. Radiation started beginning on December 2022. Recurrent malignant left-sided pleural effusion History of Any Multi-Drug Resistant Organisms: None Reported Past Surgical History: Adenoidectomy, Hysterectomy, Tonsillectomy Additional Past Surgical History / Comment(s): D& C. left sided thoracentesis 11/21/2022 with removal of 600 mL malignant effusion, left-sided thoracentesis 01/14/2023 with removal of 1 L fluid Past Anesthesia/Blood Transfusion Reactions: No Reported Reaction Past Psychological History: No Psychological Hx Reported Smoking Status: Never smoker Past Alcohol Use History: Occasional Past Drug Use History: None Reported - Past Family History Father Family Medical History: No Reported History Mother Family Medical History: No Reported History Medications and Allergies Home Medications Medication Instructions Recorded Confirmed Type Cholecalciferol [Vitamin D3 (25 25 mcg PO DAILY 11/21/22 03/10/23 History Mcg = 1000 Iu)] Latanoprost/Pf [Latanoprost 0.005% 1 drop BOTH EYES HS 11/21/22 03/10/23 History Eye Drop] Calcium Carbonate [Calcium] 600 mg PO DAILY 01/13/23 03/10/23 History Folic Acid 1 mg PO DAILY 01/13/23 03/10/23 History HYDROmorphone [Dilaudid] 2 mg PO TID PRN 01/13/23 03/10/23 History LORazepam [Ativan] 1 tab PO HS PRN 01/13/23 03/10/23 History Amiodarone [Cordarone] 200 mg PO DAILY #30 tab 02/16/23 03/10/23 Rx Famotidine [Pepcid] 20 mg PO DAILY #30 tablet 02/16/23 03/10/23 Rx Magnesium Oxide [Mag-Ox] 400 mg PO DAILY #30 tablet 02/16/23 03/10/23 Rx Metoprolol Tartrate [Lopressor] 25 mg PO BID #60 tab 02/16/23 03/10/23 Rx Potassium Chloride ER [K-Dur 20] 20 meq PO DAILY #30 tab 02/16/23 03/10/23 Rx Furosemide [Lasix] 20 mg PO BID@0900,1600 03/10/23 03/10/23 History Allergies Allergy/AdvReac Type Severity Reaction Status Date / Time No Known Allergies Allergy Verified 03/10/23 12:32 Physical Exam Vitals: Vital Signs Temp Pulse Resp BP Pulse Ox 03/10/23 17:00 103 H 25 H 111/65 99 03/10/23 16:50 105 H 27 H 107/77 99 03/10/23 16:40 133 H 31 H 111/36 100 03/10/23 16:30 134 H 31 H 66/36 99 03/10/23 16:20 138 H 32 H 108/21 99 03/10/23 16:10 133 H 30 H 145/95 99 03/10/23 16:00 97.7 F 134 H 34 H 135/80 03/10/23 15:50 135 H 35 H 116/67 98 03/10/23 15:40 135 H 33 H 83/70 78 L 03/10/23 15:34 0 L 03/10/23 15:08 134 H 26 H 97/61 03/10/23 14:50 133 H 32 H 88/66 03/10/23 14:40 133 H 27 H 88/72 03/10/23 14:30 133 H 43 H 76/60 03/10/23 14:26 133 H 30 H 76/60 03/10/23 14:21 133 H 30 H 76/30 03/10/23 14:20 133 H 34 H 109/42 03/10/23 14:10 133 H 37 H 94/71 03/10/23 14:00 134 H 39 H 94/70 03/10/23 13:50 133 H 28 H 117/87 03/10/23 13:40 133 H 36 H 79/56 03/10/23 13:38 133 H 79/56 03/10/23 13:30 133 H 40 H 92/81 58 L 03/10/23 13:25 80/59 03/10/23 13:20 133 H 52 H 69/51 03/10/23 13:10 131 H 30 H 63/41 03/10/23 13:00 131 H 39 H 76/66 03/10/23 12:56 130 H 36 H 76/66 03/10/23 12:50 128 H 40 H 80/64 71 L 03/10/23 12:45 129 H 34 H 80/64 03/10/23 12:40 129 H 45 H 62 L 03/10/23 12:30 126 H 30 H 72/55 03/10/23 12:29 126 H 34 H 72/55 03/10/23 12:20 133 H 21 95 03/10/23 12:13 131 H 34 H 62/23 03/10/23 12:10 131 H 41 H 75/51 91 L 03/10/23 12:04 134 H 51/33 03/10/23 12:00 137 H 38 H 69/33 03/10/23 11:50 138 H 37 H 98/64 03/10/23 11:49 137 H 28 H 98/64 03/10/23 11:40 135 H 39 H 85/58 03/10/23 11:30 45 H 85/58 03/10/23 11:24 85/58 03/10/23 11:22 88/58 03/10/23 11:15 97.6 F 128 H 38 H 69/39 88 L Intake and Output 03/10/23 03/10/23 03/10/23 06:59 14:59 22:59 Intake Total 39.097 67.465 Balance 39.097 67.465 Intake: Intake, IV Titration 39.097 67.465 Amount Norepinephrine 4 mg In 39.097 67.465 Sodium Chloride 0.9% 250 ml @ 0.03 MCG/KG/MIN 7. 725 mls/hr IV .Q24H ONE Rx#:[id number] Other: Weight 69.33 kg Results GENERAL EXAM: Alert, oriented, 67-year-old female, patient is mild degree of restless is currently on 3 L O2 nasal cannula, body mass index is 21 HEAD: Normocephalic EYES: Normal reaction of pupils, equal size NOSE: Clear with pink turbinates THROAT: No erythema or exudates NECK: No masses, no JVD CHEST: No chest wall deformity LUNGS: Equal air entry with no crackles, wheeze, rhonchi or dullness. Diminished on the left base, the patient is a Pleurx catheter on the left CVS: S1 and S2 normal with no audible murmur, regular rhythm, sinus tachycardia ABDOMEN: No hepatosplenomegaly, normal bowel sounds, no guarding or rigidity SPINE: No scoliosis or deformity SKIN: No rashes CENTRAL NERVOUS SYSTEM: No focal deficits, tone is normal in all 4 extremities EXTREMITIES: There is no peripheral edema. No clubbing, no cyanosis. Peripheral pulses are intact, extremities are cold and clammy and pulses are diminished in all 4 extremities. - Laboratory Findings CBC and BMP: 03/10/23 11:38 03/10/23 11:38 ABG ABG pH 7.39 (7.35-7.45) 03/10/23 13:12 ABG pCO2 30 mmHg (35-45) L 03/10/23 13:12 ABG pO2 109 mmHg (83-108) H 03/10/23 13:12 ABG O2 Saturation 98.8 % (94-97) H 03/10/23 13:12 PT/INR, D-dimer PT 11.9 sec (9.0-12.0) 03/10/23 11:38 INR 1.2 (<1.2) H 03/10/23 11:38 Abnormal lab findings: Abnormal Labs 03/10/23 03/10/23 03/10/23 11:27 11:38 11:38 WBC 21.4 H RBC 3.54 L Hgb 10.5 L MCV 101.7 H D MCHC 29.2 L RDW 21.5 H Neutrophils # (Manual) 14.90 H Monocytes # (Manual) 2.57 H Metamyelocytes # (Man) 0.21 H Myelocytes # (Manual) 0.43 H Nucleated RBCs 2 H Macrocytosis Marked A INR 1.2 H ABG pCO2 ABG pO2 ABG HCO3 ABG O2 Saturation BUN Creatinine POC Glucose (mg/dL) Plasma Lactic Acid Jose Magnesium AST Alkaline Phosphatase Total Protein Urine Appearance Turbid H Urine Protein 3+ H Urine Blood Small H Urine RBC 6 H Urine WBC 12 H Calcium Oxalate Crystal Occasional H Hyaline Casts 12 H Urine Mucus Moderate H 03/10/23 03/10/23 03/10/23 11:38 11:38 13:12 WBC RBC Hgb MCV MCHC RDW Neutrophils # (Manual) Monocytes # (Manual) Metamyelocytes # (Man) Myelocytes # (Manual) Nucleated RBCs Macrocytosis INR ABG pCO2 30 L ABG pO2 109 H ABG HCO3 18 L ABG O2 Saturation 98.8 H BUN 19 H Creatinine 1.51 H POC Glucose (mg/dL) Plasma Lactic Acid Jose 6.9 H* Magnesium 2.6 H AST 39 H Alkaline Phosphatase 142 H Total Protein 6.2 L Urine Appearance Urine Protein Urine Blood Urine RBC Urine WBC Calcium Oxalate Crystal Hyaline Casts Urine Mucus 03/10/23 03/10/23 16:00 16:07 WBC RBC Hgb MCV MCHC RDW Neutrophils # (Manual) Monocytes # (Manual) Metamyelocytes # (Man) Myelocytes # (Manual) Nucleated RBCs Macrocytosis INR ABG pCO2 ABG pO2 ABG HCO3 ABG O2 Saturation BUN Creatinine POC Glucose (mg/dL) 125 H Plasma Lactic Acid Jose 4.7 H* Magnesium AST Alkaline Phosphatase Total Protein Urine Appearance Urine Protein Urine Blood Urine RBC Urine WBC Calcium Oxalate Crystal Hyaline Casts Urine Mucus - Diagnostic Findings Chest x-ray: image reviewed Assessment and Plan Plan: Septic shock on that investigation. The patient presented with profound hypotension, tachycardia, leukocytosis and lactic acidosis and the patient is currently in the intensive care unit being resuscitated with IV fluids and pressors and she was started on broad-spectrum antibiotics with a combination of cefepime and vancomycin. Acute leukocytosis Acute lactic acidosis, improving Acute hypotension currently on fluids and pressors and antibiotics Acute hypoxic respiratory failure secondary to above and currently she is on 4 L Acute kidney injury secondary to above and the patient is currently on IV fluids Metastatic stage IV adenocarcinoma of the lung with a recurrent a malignant left-sided pleural effusion. The patient is post immunotherapy and chemotherapy as well as radiation therapy to her metastatic bony lesions and the patient has a Pleurx catheter placed on the left. The patient has a left infrahilar mass in addition to bony metastases involving T7, L2, T12 and the posterior left rib in addition to left sacrum and the right pubic ramus. She has no action able mutation at this point in time. She has received palliative radiation therapy to her T7 spine lesion and sacrum. Left hydropneumothorax and the patient has a trapped lung with a Pleurx catheter on the left History of chemotherapy-induced neutropenia, recovered and the patient was hospitalized for a neutropenic fever in the past Paroxysmal A. fib, current rhythm is sinus Anemia of chronic disease Plan Continue fluid resuscitation and the patient is currently on normal saline at rate of 130 mL's an hour Continue norepinephrine infusion Titrate norepinephrine to maintain immunosuppression above 60 Add vasopressin if needed Continue cefepime and vancomycin Blood cultures and urine cultures Monitor left-sided pleural effusion Admit the patient to the intensive care unit Triple-lumen catheter was inserted Blood gases been noted Prognosis poor Condition is critical secondary to above DNR/DNI CODE STATUS. We'll continue to follow Time with Patient: Greater than 30
--- NOTE | 2023-03-10 19:10 | P.PCN ---
Date of Procedure: 03/10/23 Preoperative Diagnosis: Septic shock Postoperative Diagnosis: Septic shock Procedure(s) Performed: Arterial line Anesthesia: local Surgeon: Chip Cruz Estimated Blood Loss (ml): 0 Condition: critical Disposition: ICU Operative Findings: Indication: Hemodynamic monitoring. A time-out was completed verifying correct patient, procedure, site, positioning, and implant(s) or special equipment if applicable. Allens test was performed to ensure adequate perfusion. The patient s [ was prepped and draped in sterile fashion. 1% Lidocaine was used to anesthetize the area. An 18G Arrow arterial line was introduced into the left radial artery. The catheter was threaded over the guide wire and the needle was removed with appropriate pulsatile blood return. Blood loss was minimal. The catheter was then sutured in place to the skin and a sterile dressing applied. Perfusion to the extremity distal to the point of catheter insertion was checked and found to be adequate. The patient tolerated the procedure well and there were no complications.
[2023-03-10] MEDS: SODIUM CHLORIDE 0.9% 1,000 ML IV SCH ×2 (19:55→20:46)
[2023-03-10] MEDS: METOPROLOL TARTRATE 25 MG TAB PO SCH (20:45)
[2023-03-10] MEDS: HYDROmorphone 0.5 MG/0.5 ML SYRINGE IVP PRN (20:45)
[2023-03-10] MEDS: CEFEPIME 2 GM in SODIUM CHLORIDE 0.9% 100 ML IVPB SCH (20:46)
[2023-03-10] MEDS: LATANOPROST 0.005% OPHTH DROPS 2.5 ML BTL BOTH EYES SCH (20:46)
[2023-03-11] MEDS: HYDROmorphone 0.5 MG/0.5 ML SYRINGE IVP PRN ×3 (00:30→20:06)
[2023-03-11] MEDS ORDERED: SODIUM CHLORIDE 0.9% 500 ML 500 ML IV ONE (01:06)
[2023-03-11 05:16] LABS: African American GFR (CKD) 55 (>60 ml/min/1.73 sqM); Anion Gap 7 mmol/L; Blood Urea Nitrogen 20 mg/dL (7-17); Calcium 7.1 mg/dL (8.4-10.2); Carbon Dioxide 18 mmol/L (22-30); Chloride 113 mmol/L (98-107); Glucose 96 mg/dL (74-99); Non-African American GFR(CKD) 48 (>60 ml/min/1.73 sqM); Potassium 3.9 mmol/L (3.5-5.1); Sodium 138 mmol/L (137-145)
[2023-03-11] MEDS ORDERED: VANCOMYCIN 1,250 MG in SODIUM CHLORIDE 0.9% 250 ML IVPB ONE (06:00)
[2023-03-11 06:18] LABS: Anisocytosis Moderate; Basophils % (A) 0 %; Eosinophils # (A) 0.1 k/uL (0-0.7); Eosinophils % (A) 1 %; HCT 24.5 % (34.0-46.0); Hypochromasia Marked; Lymphocytes % (A) 9 %; MCH 30.1 pg (25.0-35.0); MCHC 28.6 g/dL (31.0-37.0); MCV 105.4 fL (80.0-100.0); Macrocytosis Marked; Mean Platelet Volume 12.1; Monocytes # (A) 1.2 k/uL (0-1.0); Monocytes % (A) 11 %; Neutrophils % (A) 77 %; Platelet Count 132 k/uL (150-450); Poikilocytosis Moderate; RBC 2.33 m/uL (3.80-5.40); RDW 21.5 % (11.5-15.5); WBC 10.5 k/uL (3.8-10.6)
--- NOTE | 2023-03-11 08:49 | P.PN ---
Subjective Progress Note Date: 03/11/23 This is a 67-year-old female patient with metastatic non-small cell lung consistent with adenocarcinoma with a malignant left-sided pleural effusion. During her most recent hospital admission, the patient was given a Pleurx catheter insertion regarding recurrent and persistent left-sided pleural effusio n. The patient came into the emergency department profoundly weak, tachycardic,-hypotensive with elevated white second of 21.8. The patient was diagnosed having septic shock, a triple-lumen catheter was inserted in the emergency Department. The patient was started on accommodation of cefepime and vancomycin, cultures were sent, the patient was given a total of 3 L of IV fluids in addition norepinephrine which is running at 0.1 [place] respiratory kilogram per minutes and the patient will be admitted to the intensive care unit. She underwent a left Pleurx catheter drainage and output from the left pleural effusion was minimal in the chest x-ray shows a stable left-sided hydropneumothorax and the catheter is in a good location. The patient's echoes at 21. She has neutrophilia, hemoglobin is at 10.5 with a platelet count of 227. Normal cognition profile. The blood gas was done on FiO2 of 32%/3 L of oxygen nasal cannula showed a pH of 7.39 with a pCO2 of 30 and pO2 of 109. Her lactic acid level was at 6.9 dropped down to 4.7. Sodium is at 137, BUN is 19 with a creatinine of 1.5 and a serum bicarb is at 22. UA is showing to 12 WBCs, and the UA is also showing +3 protein is. Influenza a and B in addition to Covid 19 and RSV screen were all negative. In regards to her malignancy, the patient has been diagnosed having lung cancer. She initially had a CT Chest which she had done at [facility] 11/14/22. Left pleural effusion with a 3.5 cm left infrahilar mass with postobstructive changes was noted. 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 12/06/22 staging PET showed suspicious uptake in the left lung hilum, mild uptake in the left pleura, suspicious bony lesions at T7, L2, T12 posterior left rib, left sacrum, right pubic ramus. Somatic testing and IHC testing were all negative for any targetable mutations. EGD and colonoscopy were negative, gastric biopsy was likely benign. She had palliative radiation to painful T7 and sacrum. 01/06/23 she started treatment, she was due to be on doublet chemotherapy and one immunotherapy But, [place] agents have been on shortage. Despite receiving only one chemotherapy agent she ended up in the hospital with significant pancytopenia, neutropenic fever, she required transfusions as well as G-CSF. 01/29/[address] Kang and he had a discussion with the patient and her friend. He reiterated that the patient's overall prognosis is poor. She is not a candidate for additional treatment at this time. Comfort care was discussed but patient declined she also declined palliative care. During her most recent hospitalization, the patient had a 1 L of pleural fluid drained via thoracentesis and subsequently she was given a Pleurx catheter by Dr. Joss Barrett on 02/16/2023 and she was discharged home on the same day. Other comorbid conditions include paroxysmal A. fib, maintained on amiodarone an outpatient basis in addition to metoprolol. Her current EKG showing sinus tachycardia On 03/11/2023, the patient is being seen for a follow-up. Currently she is in intensive care unit. She was aggressively resuscitated with IV fluids and pressors and antibiotics. This morning, the patient is off norepinephrine and she is only on vasopressin. She is maintaining a home blood pressure. Her current BP is 119/53. She has arterial line In the left upper extremity. She also has a triple-lumen catheter in place. Antibiotic coverage is with IV cefepime and vancomycin. Blood cultures are still pending for now. Meanwhile, repeat chest x-ray was done and it shows a large loculated left-sided pneum othorax. In fact the patient has a trapped lung. The patient is a Pleurx catheter in place and the left hemithorax. There may be some residual effusion in the pleural space. Nevertheless, the left lower lobe is completely atelectatic and there is a tumor in the left infrahilar area. The patient is currently on oxygen and she is on 2 L nasal cannula with a pulse ox of 98%. White cell count dropped onto 10.5, hemoglobin down to 7 and a platelet count is at 132. BUN is 20 with a creatinine of 1.1 and his sodium level is at 138 with a potassium level of 3.9. The lactic acid was down trending and the most recent lactate level is down to 4.7. She has chronic issues with pain as the patient has skeletal metastases. She is taken Dilaudid for pain control. Rest of the home medications have been resumed. The patient on amiodarone. The patient is in normal sinus rhythm. The metoprolol will be gradually introduced once the patient's blood pressure stabilizes further. Objective - Vital Signs Vital signs: Vital Signs Temp 98.4 F 03/11/23 04:00 Pulse 82 03/11/23 07:00 Resp 14 03/11/23 07:00 BP 107/58 03/11/23 07:00 Pulse Ox 99 03/11/23 07:00 FiO2 Intake & Output 03/10/23 03/11/23 03/11/23 18:59 06:59 18:59 Intake Total 744.368 9822.016 100 Output Total 30 320 30 Balance 822.971 9397.016 70 Weight 69.33 kg 72.6 kg Intake: IV 2830 100 Cefepime 2 gm In Sodium 100 Chloride 0.9% 100 ml @ 25 mls/hr IVPB Q12HR [facility] Rx #:[id number] Sodium Chloride 0.9% 1, 900 100 000 ml @ 100 mls/hr IV . Q10H [facility] Rx#:[id number] Sodium Chloride 0.9% 1, 330 000 ml @ 130 mls/hr IV . Q7H42M STA Rx#:[id number] Sodium Chloride 0.9% 1, 1000 000 ml @ 999 mls/hr IV . Q1H1M ONE Rx#:[id number] Sodium Chloride 0.9% 500 500 ml 500 ml @ 999 mls/hr IV .Q31M ONE Rx#:[id number] Intake, IV Titration 535.909 286.016 Amount Norepinephrine 4 mg In 117.549 286.016 Sodium Chloride 0.9% 250 ml @ 0.03 MCG/KG/MIN 7. 725 mls/hr IV .Q24H ONE Rx#:[id number] Sodium Chloride 0.9% 1, 400 000 ml @ 100 mls/hr IV . Q10H [facility] Rx#:[id number] Vasopressin 60 unit In 18.36 Sodium Chloride 0.9% 150 ml @ 0.03 UNITS/MIN 4.59 mls/hr IV .Q24H [facility] Rx#: [id number] Oral 360 540 Output: Urine 30 320 30 Other: Voiding Method Indwelling Catheter Indwelling Catheter ABP, PAP, CO, CI - Last Documented Arterial Blood Pressure 133/56 - Exam GENERAL EXAM: Alert, oriented, 67-year-old female, patient is mild degree of restless is currently on 2 L O2 nasal cannula, body mass index is 21 HEAD: Normocephalic EYES: Normal reaction of pupils, equal size NOSE: Clear with pink turbinates THROAT: No erythema or exudates NECK: No masses, no JVD CHEST: No chest wall deformity LUNGS: Equal air entry with no crackles, wheeze, rhonchi or dullness. Diminished on the left base, the patient is a Pleurx catheter on the left CVS: S1 and S2 normal with no audible murmur, regular rhythm, sinus tachycardia ABDOMEN: No hepatosplenomegaly, normal bowel sounds, no guarding or rigidity SPINE: No scoliosis or deformity SKIN: No rashes CENTRAL NERVOUS SYSTEM: No focal deficits, tone is normal in all 4 extremities EXTREMITIES: There is no peripheral edema. No clubbing, no cyanosis. Peripheral pulses are intact, extremities are cold and clammy and pulses are diminished in all 4 extremities. - Labs CBC & Chem 7: 03/11/23 05:54 03/11/23 04:35 Labs: Abnormal Lab Results - Last 24 Hours (Table) 03/10/23 03/10/23 03/10/23 Range/Units 11:27 11:38 11:38 WBC 21.4 H (3.8-10.6) k/uL RBC 3.54 L (3.80-5.40) m/uL Hgb 10.5 L (11.4-16.0) gm/dL Hct (34.0-46.0) % MCV 101.7 H D (80.0-100.0) fL MCHC 29.2 L (31.0-37.0) g/dL RDW 21.5 H (11.5-15.5) % Plt Count (150-450) k/uL Neutrophils # (Manual) 14.90 H (1.3-7.7) k/uL Monocytes # (Manual) 2.57 H (0-1.0) k/uL Metamyelocytes # (Man) 0.21 H (0) k/uL Myelocytes # (Manual) 0.43 H (0) k/uL Nucleated RBCs 2 H (0-0) /100 WBC Macrocytosis Marked A INR 1.2 H (<1.2) ABG pCO2 (35-45) mmHg ABG pO2 (83-108) mmHg ABG HCO3 (21-25) mmol/L ABG O2 Saturation (94-97) % Chloride (98-107) mmol/L Carbon Dioxide (22-30) mmol/L BUN (7-17) mg/dL Creatinine (0.52-1.04) mg/dL POC Glucose (mg/dL) (70-110) mg/dL Plasma Lactic Acid Jose (0.7-2.0) mmol/L Calcium (8.4-10.2) mg/dL Magnesium (1.6-2.3) mg/dL AST (14-36) U/L Alkaline Phosphatase (38-126) U/L Total Protein (6.3-8.2) g/dL Urine Appearance Turbid H (Clear) Urine Protein 3+ H (Negative) Urine Blood Small H (Negative) Urine RBC 6 H (0-5) /hpf Urine WBC 12 H (0-5) /hpf Calcium Oxalate Crystal Occasional H (None) /hpf Hyaline Casts 12 H (0-2) /lpf Urine Mucus Moderate H (None) /hpf 03/10/23 03/10/23 03/10/23 Range/Units 11:38 11:38 13:12 WBC (3.8-10.6) k/uL RBC (3.80-5.40) m/uL Hgb (11.4-16.0) gm/dL Hct (34.0-46.0) % MCV (80.0-100.0) fL MCHC (31.0-37.0) g/dL RDW (11.5-15.5) % Plt Count (150-450) k/uL Neutrophils # (Manual) (1.3-7.7) k/uL Monocytes # (Manual) (0-1.0) k/uL Metamyelocytes # (Man) (0) k/uL Myelocytes # (Manual) (0) k/uL Nucleated RBCs (0-0) /100 WBC Macrocytosis INR (<1.2) ABG pCO2 30 L (35-45) mmHg ABG pO2 109 H (83-108) mmHg ABG HCO3 18 L (21-25) mmol/L ABG O2 Saturation 98.8 H (94-97) % Chloride (98-107) mmol/L Carbon Dioxide (22-30) mmol/L BUN 19 H (7-17) mg/dL Creatinine 1.51 H (0.52-1.04) mg/dL POC Glucose (mg/dL) (70-110) mg/dL Plasma Lactic Acid Jose 6.9 H* (0.7-2.0) mmol/L Calcium (8.4-10.2) mg/dL Magnesium 2.6 H (1.6-2.3) mg/dL AST 39 H (14-36) U/L Alkaline Phosphatase 142 H (38-126) U/L Total Protein 6.2 L (6.3-8.2) g/dL Urine Appearance (Clear) Urine Protein (Negative) Urine Blood (Negative) Urine RBC (0-5) /hpf Urine WBC (0-5) /hpf Calcium Oxalate Crystal (None) /hpf Hyaline Casts (0-2) /lpf Urine Mucus (None) /hpf 03/10/23 03/10/23 03/11/23 Range/Units 16:00 16:07 04:35 WBC (3.8-10.6) k/uL RBC (3.80-5.40) m/uL Hgb (11.4-16.0) gm/dL Hct (34.0-46.0) % MCV (80.0-100.0) fL MCHC (31.0-37.0) g/dL RDW (11.5-15.5) % Plt Count (150-450) k/uL Neutrophils # (Manual) (1.3-7.7) k/uL Monocytes # (Manual) (0-1.0) k/uL Metamyelocytes # (Man) (0) k/uL Myelocytes # (Manual) (0) k/uL Nucleated RBCs (0-0) /100 WBC Macrocytosis INR (<1.2) ABG pCO2 (35-45) mmHg ABG pO2 (83-108) mmHg ABG HCO3 (21-25) mmol/L ABG O2 Saturation (94-97) % Chloride 113 H (98-107) mmol/L Carbon Dioxide 18 L (22-30) mmol/L BUN 20 H (7-17) mg/dL Creatinine 1.18 H (0.52-1.04) mg/dL POC Glucose (mg/dL) 125 H (70-110) mg/dL Plasma Lactic Acid Jose 4.7 H* (0.7-2.0) mmol/L Calcium 7.1 L (8.4-10.2) mg/dL Magnesium (1.6-2.3) mg/dL AST (14-36) U/L Alkaline Phosphatase (38-126) U/L Total Protein (6.3-8.2) g/dL Urine Appearance (Clear) Urine Protein (Negative) Urine Blood (Negative) Urine RBC (0-5) /hpf Urine WBC (0-5) /hpf Calcium Oxalate Crystal (None) /hpf Hyaline Casts (0-2) /lpf Urine Mucus (None) /hpf 03/11/ Range/Units 05:54 WBC (3.8-10.6) k/uL RBC 2.33 L (3.80-5.40) m/uL Hgb 7.0 L D (11.4-16.0) gm/dL Hct 24.5 L (34.0-46.0) % MCV 105.4 H (80.0-100.0) fL MCHC 28.6 L (31.0-37.0) g/dL RDW 21.5 H (11.5-15.5) % Plt Count 132 L (150-450) k/uL Neutrophils # (Manual) (1.3-7.7) k/uL Monocytes # (Manual) (0-1.0) k/uL Metamyelocytes # (Man) (0) k/uL Myelocytes # (Manual) (0) k/uL Nucleated RBCs (0-0) /100 WBC Macrocytosis Marked A INR (<1.2) ABG pCO2 (35-45) mmHg ABG pO2 (83-108) mmHg ABG HCO3 (21-25) mmol/L ABG O2 Saturation (94-97) % Chloride (98-107) mmol/L Carbon Dioxide (22-30) mmol/L BUN (7-17) mg/dL Creatinine (0.52-1.04) mg/dL POC Glucose (mg/dL) (70-110) mg/dL Plasma Lactic Acid Jose (0.7-2.0) mmol/L Calcium (8.4-10.2) mg/dL Magnesium (1.6-2.3) mg/dL AST (14-36) U/L Alkaline Phosphatase (38-126) U/L Total Protein (6.3-8.2) g/dL Urine Appearance (Clear) Urine Protein (Negative) Urine Blood (Negative) Urine RBC (0-5) /hpf Urine WBC (0-5) /hpf Calcium Oxalate Crystal (None) /hpf Hyaline Casts (0-2) /lpf Urine Mucus (None) /hpf Assessment and Plan Plan: Septic shock on that investigation. The patient presented with profound hypotension, tachycardia, leukocytosis and lactic acidosis and the patient is currently in the intensive care unit being resuscitated with IV fluids and pressors and she was started on broad-spectrum antibiotics with a combination of cefepime and vancomycin. Hemodynamically improved compared to yesterday and the blood pressure has stabilized. The patient was in a combination of pressors and currently she is only on physiologic dose of vasopressin which will be weaned off and discontinued. Cultures are still negative and the patient remains on broad-spectrum antibiotics. Acute leukocytosis, improving Acute lactic acidosis, improving Acute hypotension currently on fluids and pressors and antibiotics, improved Acute hypoxic respiratory failure secondary to above and currently she is on 3 L Acute kidney injury secondary to above and the patient is currently on IV fluids, improving and the renal function is improved compared to yesterday Metastatic stage IV adenocarcinoma of the lung with a recurrent a malignant left-sided pleural effusion. The patient is post immunotherapy and chemotherapy as well as radiation therapy to her metastatic bony lesions and the patient has a Pleurx catheter placed on the left. The patient has a left infrahilar mass in addition to bony metastases involving T7, L2, T12 and the posterior left rib in addition to left sacrum and the right pubic ramus. She has no action able mutation at this point in time. She has received palliative radiation therapy to her T7 spine lesion and sacrum. Left hydropneumothorax and the patient has a trapped lung with a Pleurx catheter on the left History of chemotherapy-induced neutropenia, recovered and the patient was hospitalized for a neutropenic fever in the past Paroxysmal A. fib, current rhythm is sinus Anemia of chronic disease Plan Continue fluid resuscitation dropped IV fluids to 75 mL an hour The patient has been taken off the norepinephrine infusion Vasopressin will be weaned off and discontinued May restart metoprolol was blood pressures more stable Continue amiodarone Continue cefepime and vancomycin Blood cultures and urine cultures, still pending Monitor left-sided pleural effusion, tested Pleurx catheter the pleural VAC and suction Keep the patient intensive care unit Prognosis poor Condition is critical secondary to above DNR/DNI CODE STATUS. We'll continue to follow
--- NOTE | 2023-03-11 09:16 | XR ---
EXAMINATION TYPE: XR chest 1V portable DATE OF EXAM: 03/11/2023 COMPARISON: 03/10/2023 HISTORY: Left-sided hydropneumothorax TECHNIQUE: Single frontal view of the chest is obtained. FINDINGS: There is a hydropneumothorax on the left measuring approximately 50-60%. Areas of adjacent pulmonary consolidation likely representing atelectasis. Right lung clear. Heart size normal. No pne umothorax. AC joint arthropathy. IMPRESSION: There is interval increase in size of the left-sided hydropneumothorax now measuring evelyne roximate 60%.
[2023-03-11] MEDS: METOPROLOL TARTRATE 25 MG TAB PO SCH ×2 (09:25→20:07)
[2023-03-11] MEDS: FAMOTIDINE 20 MG TAB PO SCH (09:32)
[2023-03-11] MEDS: FOLIC ACID 1 MG TAB PO SCH (09:32)
[2023-03-11] MEDS: MAGNESIUM OXIDE 400 MG TAB PO SCH (09:32)
[2023-03-11] MEDS: CHOLECALCIFEROL 25 MCG (1000 IU) TABLET PO SCH (09:32)
[2023-03-11] MEDS: AMIODARONE 200 MG TAB PO SCH (09:33)
[2023-03-11] MEDS: CEFEPIME 2 GM in SODIUM CHLORIDE 0.9% 100 ML IVPB SCH ×2 (09:33→20:06)
[2023-03-11] MEDS: CALCIUM CARBONATE 500 MG CHEWABLE PO SCH (09:33)
--- NOTE | 2023-03-11 13:45 | P.PN ---
Progress Note - Text Progress Note Date: 03/11/23 Hospital course: Patient was [id number] female with known history of lung cancer was unable to tolerate chemotherapy because of which it's been on hold since September of this year, came in with generalized weakness found to be severely hypotensive presently requiring 2 pressors vasopressin and norepinephrine, is also found to have highly elevated white count of 21,800, patient is not febrile patient is being admitted for septic shock to ICU. Patient was started on vancomycin and cefepime empirically urine labs are pending urine cultures are pending blood cultures were obtained chest x-ray showing stable hydropneumothorax on the right side patient has a Pleurx catheter on the right side. 03/11/2023: I assumed care of the patient today. ICU. Patient off levo fed. On IV vasopressin. Also getting IV cefepime and vancomycin. Cultures pending. 2 L nasal cannula. Tired. She would answer questions. Decreased appetite. His drinking some Glucerna. Discussed with the patient's sister and a niece at the bedside. Left-sided hydropneumothorax. Active Medications Amiodarone HCl (Amiodarone 200 Mg Tab) 200 mg PO DAILY [facility] Last Admin: 03/11/23 09:33 Dose: 200 mg Calcium Carbonate/Glycine (Calcium Carbonate 500 Mg Chewable) 500 mg PO DAILY [facility] Last Admin: 03/11/23 09:33 Dose: 500 mg Cholecalciferol (Cholecalciferol 25 Mcg (1000 Iu) Tablet) 25 mcg PO DAILY [facility] Last Admin: 03/11/23 09:32 Dose: 25 mcg Famotidine (Famotidine 20 Mg Tab) 20 mg PO DAILY [facility] Last Admin: 03/11/23 09:32 Dose: 20 mg Folic Acid (Folic Acid 1 Mg Tab) 1 mg PO DAILY [facility] Last Admin: 03/11/23 09:32 Dose: 1 mg Hydromorphone HCl (Hydromorphone 0.5 Mg/0.5 Ml Syringe) 0.5 mg IVP Q3HR PRN PRN Reason: Pain Last Admin: 03/11/23 00:30 Dose: 0.5 mg Vasopressin 60 unit/ Sodium (Chloride) 153 mls @ 4.59 mls/hr IV .Q24H [facility]; Protocol Last Admin: 03/10/23 16:47 Dose: 0.03 units/min, 4.59 mls/hr Sodium Chloride (Saline 0.9%) 1,000 mls @ 75 mls/hr IV .[id number] [facility] Last Admin: 03/10/23 20:46 Dose: 100 mls/hr Cefepime HCl 2 gm/ Sodium (Chloride) 100 mls @ 25 mls/hr IVPB Q12HR [facility]; Protocol Last Admin: 03/11/23 09:33 Dose: 25 mls/hr Vancomycin HCl 1,250 mg/ (Sodium Chloride) 250 mls @ 125 mls/hr IVPB Q24H [facility] Latanoprost (Latanoprost 0.005% Ophth Drops 2.5 Ml Btl) 1 drops BOTH EYES HS [facility] Last Admin: 03/10/23 20:46 Dose: 1 drops Magnesium Oxide (Magnesium Oxide 400 Mg Tab) 400 mg PO DAILY [facility] Last Admin: 03/11/23 09:32 Dose: 400 mg Metoprolol Tartrate (Metoprolol Tartrate 25 Mg Tab) 25 mg PO BID [facility] Last Admin: 03/11/23 09:25 Dose: Not Given Naloxone HCl (Naloxone 0.4 Mg/Ml 1 Ml Vial) 0.2 mg IV Q2M PRN PRN Reason: Opioid Reversal On examination: VITAL SIGNS: [As 7.9, 100, 31, 104/40, and 6% on 2 L] GENERAL APPEARANCE: Reclining in bed awake tired HEENT: Normal external appearance of nose and ear. Oral cavity normal EYES: Pupils equal. Conjunctiva normal. NECK: JVD not raised. Mass not palpable. RESPIRATORY: Respiratory effort increased. Lungs decreased breath sounds CARDIOVASCULAR: First and second sounds normal. Some edema ABDOMEN: Soft. Liver and spleen not palpable. No tenderness. No mass palpable. PSYCHIATRY: Alert and oriented x3. Mood and affect tired INVESTIGATIONS, reviewed in the clinical context: March 11: White count 10.5 hemoglobin 7 platelets 132 potassium 3.9 creatinine 1.18 Admission labs: White count 21.4 hemoglobin 10.5 BUN 19 creatinine 1.5 bun lactic acid 6.9 Influenza type A, B, RSV, COVID-19: Not detected Assessment and plan: -Septic shock: Slow to respond broad-spectrum antibiotics vancomycin and cefepime, awaiting wound cultures awaiting urine labs. norepinephrine-discontinued. On vasopressin -Acute renal failure with baseline creatinine of around 0.8 secondary to acute tubular necrosis present creatinine is 1.5 IV fluids normal saline at 1 30 mL per hour -Lactic acidosis secondary to septic shock: Slow to respond -Lung cancer: Metastatic non-small cell lung cancer adenocarcinoma with malignant left-sided pleural effusion. Patient last received chemotherapy in month of September and able to tolerate chemo in the past. -Hypertension Currently off blood pressure medications -Proximal atrial fibrillation for which patient is on amiodarone which will be continued but patient is not on any chronic anticoagulation: sinus rhythm -CODE STATUS DO NOT RESUSCITATE Discussed with the patient's sister and niece at the bedside. Past Medical History Past Medical History: Atrial Fibrillation, Cancer, Hypertension Additional Past Medical History / Comment(s): LEFT CHEST DISCOMFORT RECENTLY., chemo first dose 01/06/23. Radiation started beginning on December 2022. Recurrent malignant left-sided pleural effusion History of Any Multi-Drug Resistant Organisms: None Reported Past Surgical History: Adenoidectomy, Hysterectomy, Tonsillectomy Additional Past Surgical History / Comment(s): D& C. left sided thoracentesis 11/21/2022 with removal of 600 mL malignant effusion, left-sided thoracentesis 01/14/2023 with removal of 1 L fluid Past Anesthesia/Blood Transfusion Reactions: No Reported Reaction Past Psychological History: No Psychological Hx Reported Smoking Status: Never smoker Past Alcohol Use History: Occasional Past Drug Use History: None Reported - Past Family History Father Family Medical History: No Reported History Mother Family Medical History: No Reported History Medications and Allergies Home Medications Medication Instructions Recorded Confirmed Type Cholecalciferol [Vitamin D3 (25 25 mcg PO DAILY 11/21/22 03/10/23 History Mcg = 1000 Iu)] Latanoprost/Pf [Latanoprost 0.005% 1 drop BOTH EYES HS 11/21/22 03/10/23 History Eye Drop] Calcium Carbonate [Calcium] 600 mg PO DAILY 01/13/23 03/10/23 History Folic Acid 1 mg PO DAILY 01/13/23 03/10/23 History HYDROmorphone [Dilaudid] 2 mg PO TID PRN 01/13/23 03/10/23 History LORazepam [Ativan] 1 tab PO HS PRN 01/13/23 03/10/23 History Amiodarone [Cordarone] 200 mg PO DAILY #30 tab 02/16/23 03/10/23 Rx Famotidine [Pepcid] 20 mg PO DAILY #30 tablet 02/16/23 03/10/23 Rx Magnesium Oxide [Mag-Ox] 400 mg PO DAILY #30 tablet 02/16/23 03/10/23 Rx Metoprolol Tartrate [Lopressor] 25 mg PO BID #60 tab 02/16/23 03/10/23 Rx Potassium Chloride ER [K-Dur 20] 20 meq PO DAILY #30 tab 02/16/23 03/10/23 Rx Furosemide [Lasix] 20 mg PO BID@0900,1600 03/10/23 03/10/23 History Allergies Allergy/AdvReac Type Severity Reaction Status Date / Time No Known Allergies Allergy Verified 03/10/23 12:32
--- NOTE | 2023-03-11 16:51 | P.CONS ---
History of Present Illness - Reason for Consult Consult date: 03/11/23 metastatic NSCLC Requesting physician: Rl Hernández - Chief Complaint weakness - History of Present Illness Regina Diaz is a 67-year-old female patient of Dr. Kang initially presented with a progressive cough, dyspnea in October of this year. She had a chest x-ray was referred for CT, 11/14/22 at [facility], revealing left pleural effusion and 3.5 cm left infrahilar mass with postobstructive changes. 11/21/22 diagnostic thoracentesis, cytology positive for upper GI versus pancreatic biliary, less likely rectal origin. 12/06/22 staging PET revealed suspicious uptake in the left lung hilum, mild uptake in the left pleura, suspicious bone lesions. PDL 1, HER-2 were negative, TYRONE, NGS and liquid biopsy negative for targetable mutation. EGD and colonoscopy, biopsies were negative. Patient did receive palliative radiation to painful T7 and sacral bony lesions. 01/06/23 patient received Alimta and keytruda. Patient ended up in the hospital with significant pancytopenia, required multiple transfusions, neutropenic fever requiring G-CSF. Left pleural effusion recurred, she had a Pleurx catheter placed. Patient was requiring Dilaudid for back pain. Patient physical complaints including swelling, lack of appetite, exertional shortness of breath, no stamina , performance status 2-3, has unfortunately prevented her from receiving any additional treatment. Her blood counts though improved remain on the low end, she remains moderately to severely anemic at most times. She is been assessed by Dr. Kang 2 times in the last 2 months. At both visits there was reviewed with patient that she is not a candidate to resume systemic treatment for cancer due to poor PS. She was due to follow-up for reassessment, for third time next week to see if her condition has improved enough to resume therapy. Patient is currently admitted to the intensive care unit, presented to ER with 2 days of weakness, family reports blood pressure at home. Patient denied having fevers, nausea, vomiting, overt chest pain, acute changes in bowel or bladder h abits. She does have musculoskeletal pain from bony lesions, she is requiring assistive device for short distances and family is noticing that she is even struggling getting to the bathroom now. Chest x-ray showing increase in size of right pneumothorax about 60%. WBC 10.5, hemoglobin 7, platelets 132,000. BUN 20, creatinine 1.18. Lactic acid 4.7 on admission. Review of Systems 10 point review of systems is negative except as stated in HPI Past Medical History Past Medical History: Atrial Fibrillation, Cancer (Lung cancer, stage IV with a malignant left-sided pleural effusion), Hypertension Additional Past Medical History / Comment(s): LEFT CHEST DISCOMFORT RECENTLY., chemo first dose 01/06/23. Radiation started beginning on December 2022. Recurrent malignant left-sided pleural effusion History of Any Multi-Drug Resistant Organisms: None Reported Past Surgical History: Adenoidectomy, Hysterectomy, Tonsillectomy Additional Past Surgical History / Comment(s): D& C. left sided thoracentesis 11/21/2022 with removal of 600 mL malignant effusion, left-sided thoracentesis 01/14/2023 with removal of 1 L fluid Past Anesthesia/Blood Transfusion Reactions: No Reported Reaction Past Psychological History: No Psychological Hx Reported Smoking Status: Never smoker Past Alcohol Use History: Occasional Past Drug Use History: None Reported - Past Family History Father Family Medical History: No Reported History Mother Family Medical History: No Reported History Medications and Allergies Home Medications Medication Instructions Recorded Confirmed Type Cholecalciferol [Vitamin D3 (25 25 mcg PO DAILY 11/21/22 03/10/23 History Mcg = 1000 Iu)] Latanoprost/Pf [Latanoprost 0.005% 1 drop BOTH EYES HS 11/21/22 03/10/23 History Eye Drop] Calcium Carbonate [Calcium] 600 mg PO DAILY 01/13/23 03/10/23 History Folic Acid 1 mg PO DAILY 01/13/23 03/10/23 History HYDROmorphone [Dilaudid] 2 mg PO TID PRN 01/13/23 03/10/23 History LORazepam [Ativan] 1 tab PO HS PRN 01/13/23 03/10/23 History Amiodarone [Cordarone] 200 mg PO DAILY #30 tab 02/16/23 03/10/23 Rx Famotidine [Pepcid] 20 mg PO DAILY #30 tablet 02/16/23 03/10/23 Rx Magnesium Oxide [Mag-Ox] 400 mg PO DAILY #30 tablet 02/16/23 03/10/23 Rx Metoprolol Tartrate [Lopressor] 25 mg PO BID #60 tab 02/16/23 03/10/23 Rx Potassium Chloride ER [K-Dur 20] 20 meq PO DAILY #30 tab 02/16/23 03/10/23 Rx Furosemide [Lasix] 20 mg PO BID@0900,1600 03/10/23 03/10/23 History Allergies Allergy/AdvReac Type Severity Reaction Status Date / Time No Known Allergies Allergy Verified 03/10/23 12:32 Physical Exam Vitals: Vital Signs Temp Pulse Pulse Pulse Resp BP Pulse Ox 03/11/23 07:00 82 14 107/58 99 03/11/23 06:45 80 20 98 03/11/23 06:30 80 29 H 115/54 99 03/11/23 06:15 81 27 H 99 03/11/23 06:00 80 28 H 127/63 98 03/11/23 05:45 80 20 99 03/11/23 05:30 79 19 118/59 99 03/11/23 05:15 77 19 99 03/11/23 05:00 77 22 125/62 99 03/11/23 04:45 78 27 H 125/62 100 03/11/23 04:30 77 26 H 120/67 99 03/11/23 04:15 76 99 03/11/23 04:00 98.4 F 76 13 113/77 99 03/11/23 03:45 75 99 03/11/23 03:30 75 118/69 99 03/11/23 03:15 75 11 L 99 03/11/23 03:00 74 23 113/65 99 03/11/23 02:45 77 19 99 03/11/23 02:30 75 26 H 101/73 99 03/11/23 02:15 76 26 H 101/73 98 03/11/23 02:00 73 24 106/59 100 03/11/23 01:45 85 22 99 03/11/23 01:30 83 24 110/70 99 03/11/23 01:15 72 19 99 03/11/23 01:00 71 19 99 03/11/23 00:45 71 25 H 115/100 99 03/11/23 00:30 73 25 H 99 03/11/23 00:15 72 21 126/74 100 03/11/23 00:14 72 21 99 03/11/23 00:00 99.0 F 72 23 129/70 100 03/10/23 23:45 70 22 99 03/10/23 23:30 72 26 H 128/61 99 03/10/23 23:15 75 19 99 03/10/23 23:00 78 33 H 147/81 98 03/10/23 22:45 80 33 H 98 03/10/23 22:30 80 22 98 03/10/23 22:15 80 26 H 132/69 98 03/10/23 22:00 79 28 H 137/73 99 03/10/23 21:40 79 27 H 137/73 99 03/10/23 21:30 79 26 H 137/73 99 03/10/23 21:20 80 27 H 135/70 99 03/10/23 21:10 81 33 H 135/70 98 03/10/23 21:00 80 27 H 99 03/10/23 20:50 83 25 H 98 03/10/23 20:40 84 38 H 98 03/10/23 20:30 85 30 H 98 03/10/23 20:20 81 30 H 99 03/10/23 20:10 82 30 H 99 03/10/23 20:00 98.7 F 84 36 H 99 03/10/23 19:10 99 33 H 109/70 98 03/10/23 19:00 89 35 H 113/62 98 03/10/23 18:50 101 H 31 H 113/62 98 03/10/23 18:40 87 32 H 135/60 99 03/10/23 18:30 89 33 H 94/71 99 03/10/23 18:20 92 16 63/51 99 03/10/23 18:10 94 34 H 129/62 99 03/10/23 18:00 96 22 122/79 98 03/10/23 17:50 93 14 119/62 99 03/10/23 17:40 93 29 H 128/68 100 03/10/23 17:30 95 33 H 126/56 99 03/10/23 17:20 97 23 122/61 100 03/10/23 17:10 98 21 121/50 99 03/10/23 17:00 103 H 25 H 111/65 99 03/10/23 16:50 105 H 27 H 107/77 99 03/10/23 16:40 133 H 31 H 111/36 100 03/10/23 16:30 134 H 31 H 66/36 99 03/10/23 16:20 138 H 32 H 108/21 99 03/10/23 16:10 133 H 30 H 145/95 99 03/10/23 16:00 97.7 F 134 H 92 92 34 H 135/80 03/10/23 15:50 135 H 35 H 116/67 98 03/10/23 15:40 135 H 33 H 83/70 78 L 03/10/23 15:34 0 L 03/10/23 15:08 134 H 26 H 97/61 03/10/23 14:50 133 H 32 H 88/66 03/10/23 14:40 133 H 27 H 88/72 03/10/23 14:30 133 H 43 H 76/60 03/10/23 14:26 133 H 30 H 76/60 03/10/23 14:21 133 H 30 H 76/30 03/10/23 14:20 133 H 34 H 109/42 03/10/23 14:10 133 H 37 H 94/71 03/10/23 14:00 134 H 39 H 94/70 03/10/23 13:50 133 H 28 H 117/87 03/10/23 13:40 133 H 36 H 79/56 03/10/23 13:38 133 H 79/56 03/10/23 13:30 133 H 40 H 92/81 58 L 03/10/23 13:25 80/59 03/10/23 13:20 133 H 52 H 69/51 03/10/23 13:10 131 H 30 H 63/41 03/10/23 13:00 131 H 39 H 76/66 03/10/23 12:56 130 H 36 H 76/66 03/10/23 12:50 128 H 40 H 80/64 71 L 03/10/23 12:45 129 H 34 H 80/64 03/10/23 12:40 129 H 45 H 62 L 03/10/23 12:30 126 H 30 H 72/55 03/10/23 12:29 126 H 34 H 72/55 03/10/23 12:20 133 H 21 95 03/10/23 12:13 131 H 34 H 62/23 03/10/23 12:10 131 H 41 H 75/51 91 L 03/10/23 12:04 134 H 51/33 03/10/23 12:00 137 H 38 H 6903/10/23 11:50 138 H 37 H 9803/10/23 11:49 137 H 28 H 03/10/23 11:40 135 H 39 H 03/10/23 11:30 45 H 03/10/23 11:24 03/10/23 11:22 88/58 03/10/23 11:15 97.6 F 128 H 38 H 6939 88 L Intake and Output 03/10/23 03/11/23 03/11/23 22:59 06:59 14:59 Intake Total 3139.226 1373.602 100 Output Total 150 200 30 Balance 2989.226 1173.602 70 Intake: IV 1530 1300 100 Cefepime 2 gm In Sodium 100 Chloride 0.9% 100 ml @ 25 mls/hr IVPB Q12HR GURU Rx #:[id number] Sodium Chloride 0.9% 1, 100 800 100 000 ml @ 100 mls/hr IV . Q10H GURU Rx#:[id number] Sodium Chloride 0.9% 1, 330 000 ml @ 130 mls/hr IV . Q7H42M STA Rx#:[id number] Sodium Chloride 0.9% 1, 1000 000 ml @ 999 mls/hr IV . Q1H1M ONE Rx#:[id number] Sodium Chloride 0.9% 500 500 ml 500 ml @ 999 mls/hr IV .Q31M ONE Rx#:[id number] Intake, IV Titration 709.226 73.602 Amount Norepinephrine 4 mg In 290.866 73.602 Sodium Chloride 0.9% 250 ml @ 0.03 MCG/KG/MIN 7. 725 mls/hr IV .Q24H ONE Rx#:[id number] Sodium Chloride 0.9% 1, 400 000 ml @ 100 mls/hr IV . Q10H GURU Rx#:[id number] Vasopressin 60 unit In 18.36 Sodium Chloride 0.9% 150 ml @ 0.03 UNITS/MIN 4.59 mls/hr IV .Q24H GURU Rx#: [id number] Oral 900 Output: Urine 150 200 30 Other: Voiding Method Indwelling Catheter Indwelling Catheter Weight 72.6 kg ABP, PAP, CO, CI - Last 8 Hours Arterial Blood Pressure 133/56 Arterial Blood Pressure 125/53 Arterial Blood Pressure 116/51 Arterial Blood Pressure 121/56 Arterial Blood Pressure 122/53 Arterial Blood Pressure 126/56 Arterial Blood Pressure 130/56 Arterial Blood Pressure 130/56 Arterial Blood Pressure 122/56 Arterial Blood Pressure 120/55 Arterial Blood Pressure 123/57 Arterial Blood Pressure 123/58 Arterial Blood Pressure 130/59 Arterial Blood Pressure 132/58 Arterial Blood Pressure 133/61 Arterial Blood Pressure 124/59 Arterial Blood Pressure 126/59 Arterial Blood Pressure 118/57 Arterial Blood Pressure 125/58 Arterial Blood Pressure 131/65 Arterial Blood Pressure 114/50 Arterial Blood Pressure 120/55 Arterial Blood Pressure 120/53 Arterial Blood Pressure 115/52 Arterial Blood Pressure 112/52 Arterial Blood Pressure 109/50 - Constitutional General appearance: average body habitus, cooperative, no acute distress - EENT Eyes: anicteric sclerae, EOMI ENT: hearing grossly normal, normal oropharynx - Neck Neck: no lymphadenopathy - Respiratory Respiratory: left: diminished, bilateral: rales, other (Audible crackles) - Cardiovascular Rhythm: regular Heart sounds: normal: S1, S2 Abnormal Heart Sounds: no systolic murmur, no diastolic murmur, no rub, no S3 Gallop, no S4 Gallop, no click, no other foot Peripheral Edema: bilateral: 2+, Other (Anasarca, mild) - Gastrointestinal General gastrointestinal: no absent bowel sounds, no decreased bowel sounds, no distended, no hepatomegaly, no hyperactive bowel sounds, normal bowel sounds, no organomegaly, no rigid, no scaphoid, soft, no splenomegaly, no tenderness, no umbilical hernia, no ventral hernia - Integumentary Integumentary: pale - Neurologic Neurologic: CNII-XII intact - Musculoskeletal Musculoskeletal: generalized weakness - Psychiatric Psychiatric: A&O x's 3, appropriate affect, intact judgment & insight Results CBC & Chem 7: 03/11/23 05:54 03/11/23 04:35 Labs: Abnormal Lab Results - Last 24 Hours (Table) 03/10/23 03/10/23 03/10/23 Range/Units 11:27 11:38 11:38 WBC 21.4 H (3.8-10.6) k/uL RBC 3.54 L (3.80-5.40) m/uL Hgb 10.5 L (11.4-16.0) gm/dL Hct (34.0-46.0) % MCV 101.7 H D (80.0-100.0) fL MCHC 29.2 L (31.0-37.0) g/dL RDW 21.5 H (11.5-15.5) % Plt Count (150-450) k/uL Neutrophils # (Manual) 14.90 H (1.3-7.7) k/uL Monocytes # (Manual) 2.57 H (0-1.0) k/uL Metamyelocytes # (Man) 0.21 H (0) k/uL Myelocytes # (Manual) 0.43 H (0) k/uL Nucleated RBCs 2 H (0-0) /100 WBC Macrocytosis Marked A INR 1.2 H (<1.2) ABG pCO2 (35-45) mmHg ABG pO2 (83-108) mmHg ABG HCO3 (21-25) mmol/L ABG O2 Saturation (94-97) % Chloride (98-107) mmol/L Carbon Dioxide (22-30) mmol/L BUN (7-17) mg/dL Creatinine (0.52-1.04) mg/dL POC Glucose (mg/dL) (70-110) mg/dL Plasma Lactic Acid Jose (0.7-2.0) mmol/L Calcium (8.4-10.2) mg/dL Magnesium (1.6-2.3) mg/dL AST (14-36) U/L Alkaline Phosphatase (38-126) U/L Total Protein (6.3-8.2) g/dL Urine Appearance Turbid H (Clear) Urine Protein 3+ H (Negative) Urine Blood Small H (Negative) Urine RBC 6 H (0-5) /hpf Urine WBC 12 H (0-5) /hpf Calcium Oxalate Crystal Occasional H (None) /hpf Hyaline Casts 12 H (0-2) /lpf Urine Mucus Moderate H (None) /hpf 03/10/23 03/10/23 03/10/23 Range/Units 11:38 11:38 13:12 WBC (3.8-10.6) k/uL RBC (3.80-5.40) m/uL Hgb (11.4-16.0) gm/dL Hct (34.0-46.0) % MCV (80.0-100.0) fL MCHC (31.0-37.0) g/dL RDW (11.5-15.5) % Plt Count (150-450) k/uL Neutrophils # (Manual) (1.3-7.7) k/uL Monocytes # (Manual) (0-1.0) k/uL Metamyelocytes # (Man) (0) k/uL Myelocytes # (Manual) (0) k/uL Nucleated RBCs (0-0) /100 WBC Macrocytosis INR (<1.2) ABG pCO2 30 L (35-45) mmHg ABG pO2 109 H (83-108) mmHg ABG HCO3 18 L (21-25) mmol/L ABG O2 Saturation 98.8 H (94-97) % Chloride (98-107) mmol/L Carbon Dioxide (22-30) mmol/L BUN 19 H (7-17) mg/dL Creatinine 1.51 H (0.52-1.04) mg/dL POC Glucose (mg/dL) (70-110) mg/dL Plasma Lactic Acid Jose 6.9 H* (0.7-2.0) mmol/L Calcium (8.4-10.2) mg/dL Magnesium 2.6 H (1.6-2.3) mg/dL AST 39 H (14-36) U/L Alkaline Phosphatase 142 H (38-126) U/L Total Protein 6.2 L (6.3-8.2) g/dL Urine Appearance (Clear) Urine Protein (Negative) Urine Blood (Negative) Urine RBC (0-5) /hpf Urine WBC (0-5) /hpf Calcium Oxalate Crystal (None) /hpf Hyaline Casts (0-2) /lpf Urine Mucus (None) /hpf 03/10/23 03/10/23 03/11/23 Range/Units 16:00 16:07 04:35 WBC (3.8-10.6) k/uL RBC (3.80-5.40) m/uL Hgb (11.4-16.0) gm/dL Hct (34.0-46.0) % MCV (80.0-100.0) fL MCHC (31.0-37.0) g/dL RDW (11.5-15.5) % Plt Count (150-450) k/uL Neutrophils # (Manual) (1.3-7.7) k/uL Monocytes # (Manual) (0-1.0) k/uL Metamyelocytes # (Man) (0) k/uL Myelocytes # (Manual) (0) k/uL Nucleated RBCs (0-0) /100 WBC Macrocytosis INR (<1.2) ABG pCO2 (35-45) mmHg ABG pO2 (83-108) mmHg ABG HCO3 (21-25) mmol/L ABG O2 Saturation (94-97) % Chloride 113 H (98-107) mmol/L Carbon Dioxide 18 L (22-30) mmol/L BUN 20 H (7-17) mg/dL Creatinine 1.18 H (0.52-1.04) mg/dL POC Glucose (mg/dL) 125 H (70-110) mg/dL Plasma Lactic Acid Jose 4.7 H* (0.7-2.0) mmol/L Calcium 7.1 L (8.4-10.2) mg/dL Magnesium (1.6-2.3) mg/dL AST (14-36) U/L Alkaline Phosphatase (38-126) U/L Total Protein (6.3-8.2) g/dL Urine Appearance (Clear) Urine Protein (Negative) Urine Blood (Negative) Urine RBC (0-5) /hpf Urine WBC (0-5) /hpf Calcium Oxalate Crystal (None) /hpf Hyaline Casts (0-2) /lpf Urine Mucus (None) /hpf 03/11/23 Range/Units 05:54 WBC (3.8-10.6) k/uL RBC 2.33 L (3.80-5.40) m/uL Hgb 7.0 L D (11.4-16.0) gm/dL Hct 24.5 L (34.0-46.0) % MCV 105.4 H (80.0-100.0) fL MCHC 28.6 L (31.0-37.0) g/dL RDW 21.5 H (11.5-15.5) % Plt Count 132 L (150-450) k/uL Neutrophils # (Manual) (1.3-7.7) k/uL Monocytes # (Manual) (0-1.0) k/uL Metamyelocytes # (Man) (0) k/uL Myelocytes # (Manual) (0) k/uL Nucleated RBCs (0-0) /100 WBC Macrocytosis Marked A INR (<1.2) ABG pCO2 (35-45) mmHg ABG pO2 (83-108) mmHg ABG HCO3 (21-25) mmol/L ABG O2 Saturation (94-97) % Chloride (98-107) mmol/L Carbon Dioxide (22-30) mmol/L BUN (7-17) mg/dL Creatinine (0.52-1.04) mg/dL POC Glucose (mg/dL) (70-110) mg/dL Plasma Lactic Acid Jose (0.7-2.0) mmol/L Calcium (8.4-10.2) mg/dL Magnesium (1.6-2.3) mg/dL AST (14-36) U/L Alkaline Phosphatase (38-126) U/L Total Protein (6.3-8.2) g/dL Urine Appearance (Clear) Urine Protein (Negative) Urine Blood (Negative) Urine RBC (0-5) /hpf Urine WBC (0-5) /hpf Calcium Oxalate Crystal (None) /hpf Hyaline Casts (0-2) /lpf Urine Mucus (None) /hpf Chest x-ray: report reviewed Assessment and Plan (1) Sepsis Current Visit: Yes Status: Acute Code(s): A41.9 - SEPSIS, UNSPECIFIED ORGANISM SNOMED Code(s): 88346670 (2) Malaise and fatigue Current Visit: Yes Status: Acute Priority: High Code(s): R53.81 - OTHER MALAISE; R53.83 - OTHER FATIGUE SNOMED Code(s): 943328783 (3) Adenocarcinoma of lung, stage 4 Current Visit: Yes Status: Chronic Priority: High Code(s): C34.90 - MALIGNANT NEOPLASM OF UNSP PART OF UNSP BRONCHUS OR LUNG SNOMED Code(s): 873205417 Plan: Sepsis -Patient is in the intensive care unit -Critical care team following closely -Pancultures pending -Antibiotics prescribed Malaise and fatigue -Secondary to sepsis as well as malignancy -Persistent and progressive over time Metastatic non-small cell lung cancer -Unfortunately patient struggled both hematologically as well as physically with chemotherapy/IO therapy-She also only received 1 of 2 chemotherapy drugs it is typically administered with this regimen. -Patient has been trying since December to improve her performance status to see if she would be a candidate for any additional chemotherapy. Her condition has not improved. -Patient asked me "why does this keep happening to me". I explained to patient that having malignancy puts her at high risk for complications of any kind including complications secondary to the disease itself (recurrent pl effusions, pain from mets) or complications indirectly such as infections because of poor blood counts, poor nutrition which have been indirectly caused by malignancy/treatment of malignancy. Her physical condition is progressively declining as a result of malignancy. -We discussed palliative care hospice care philosophies. Hospice care at home versus at a facility. Patient would like me to meet with her son tomorrow and answer questions so that they may come to a decision as to appropriate placement on discharge. I do not recommend the patient going home by herself, even if people are coming by several times a day. I Think patient will be at a high risk for injury if she is alone for a significant period of time, has to provide care for herself such as toileting or even making a meal/getting something to drink. -All questions and concerns were answered to the best of my ability at this time. -Family meeting scheduled for tomorrow. Time with Patient: Greater than 30
[2023-03-11] MEDS: SODIUM CHLORIDE 0.9% 1,000 ML IV SCH (19:30)
[2023-03-11] MEDS: VASOPRESSIN 60 UNIT in SODIUM CHLORIDE 0.9% 150 ML IV SCH (19:30)
[2023-03-11] MEDS: LATANOPROST 0.005% OPHTH DROPS 2.5 ML BTL BOTH EYES SCH (20:08)
[2023-03-12] MEDS: SODIUM CHLORIDE 0.9% 1,000 ML IV SCH (01:34)
[2023-03-12] MEDS ORDERED: ALPRAZolam 0.25 MG TAB PO STA (05:24)
[2023-03-12 05:37] LABS: Anisocytosis Moderate; Basophils % (A) 0 %; Eosinophils % (A) 0 %; HCT 26.4 % (34.0-46.0); HGB 7.7 gm/dL (11.4-16.0); Hypochromasia Marked; Lymphocytes # (A) 0.6 k/uL (1.0-4.8); Lymphocytes % (A) 6 %; MCHC 29.1 g/dL (31.0-37.0); MCV 103.3 fL (80.0-100.0); Macrocytosis Marked; Mean Platelet Volume 11.3; Monocytes % (A) 9 %; Neutrophils # (A) 8.4 k/uL (1.3-7.7); Neutrophils % (A) 82 %; Platelet Count 138 k/uL (150-450); Poikilocytosis Moderate; RBC 2.56 m/uL (3.80-5.40); RDW 21.3 % (11.5-15.5); WBC 10.2 k/uL (3.8-10.6)
[2023-03-12 05:48] LABS: African American GFR (CKD) 63 (>60 ml/min/1.73 sqM); Anion Gap 4 mmol/L; Blood Urea Nitrogen 15 mg/dL (7-17); Calcium 7.7 mg/dL (8.4-10.2); Carbon Dioxide 19 mmol/L (22-30); Chloride 118 mmol/L (98-107); Glucose 85 mg/dL (74-99); Non-African American GFR(CKD) 55 (>60 ml/min/1.73 sqM); Potassium 3.6 mmol/L (3.5-5.1); Sodium 141 mmol/L (137-145)
[2023-03-12] MEDS ORDERED: VANCOMYCIN 1,250 MG in SODIUM CHLORIDE 0.9% 250 ML IVPB SCH (06:00)
--- NOTE | 2023-03-12 08:38 | P.PN ---
Subjective Progress Note Date: 03/12/23 This is a 67-year-old female patient with metastatic non-small cell lung consistent with adenocarcinoma with a malignant left-sided pleural effusion. During her most recent hospital admission, the patient was given a Pleurx catheter insertion regarding recurrent and persistent left-sided pleural effusio n. The patient came into the emergency department profoundly weak, tachycardic,-hypotensive with elevated white second of 21.8. The patient was diagnosed having septic shock, a triple-lumen catheter was inserted in the emergency Department. The patient was started on accommodation of cefepime and vancomycin, cultures were sent, the patient was given a total of 3 L of IV fluids in addition norepinephrine which is running at 0.1 [place] respiratory kilogram per minutes and the patient will be admitted to the intensive care unit. She underwent a left Pleurx catheter drainage and output from the left pleural effusion was minimal in the chest x-ray shows a stable left-sided hydropneumothorax and the catheter is in a good location. The patient's echoes at 21. She has neutrophilia, hemoglobin is at 10.5 with a platelet count of 227. Normal cognition profile. The blood gas was done on FiO2 of 32%/3 L of oxygen nasal cannula showed a pH of 7.39 with a pCO2 of 30 and pO2 of 109. Her lactic acid level was at 6.9 dropped down to 4.7. Sodium is at 137, BUN is 19 with a creatinine of 1.5 and a serum bicarb is at 22. UA is showing to 12 WBCs, and the UA is also showing +3 protein is. Influenza a and B in addition to Covid 19 and RSV screen were all negative. In regards to her malignancy, the patient has been diagnosed having lung cancer. She initially had a CT Chest which she had done at [facility] 11/14/22. Left pleural effusion with a 3.5 cm left infrahilar mass with postobstructive changes was noted. 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 12/06/22 staging PET showed suspicious uptake in the left lung hilum, mild uptake in the left pleura, suspicious bony lesions at T7, L2, T12 posterior left rib, left sacrum, right pubic ramus. Somatic testing and IHC testing were all negative for any targetable mutations. EGD and colonoscopy were negative, gastric biopsy was likely benign. She had palliative radiation to painful T7 and sacrum. 01/06/23 she started treatment, she was due to be on doublet chemotherapy and one immunotherapy But, [place] agents have been on shortage. Despite receiving only one chemotherapy agent she ended up in the hospital with significant pancytopenia, neutropenic fever, she required transfusions as well as G-CSF. 01/29/[address] Kang and he had a discussion with the patient and her friend. He reiterated that the patient's overall prognosis is poor. She is not a candidate for additional treatment at this time. Comfort care was discussed but patient declined she also declined palliative care. During her most recent hospitalization, the patient had a 1 L of pleural fluid drained via thoracentesis and subsequently she was given a Pleurx catheter by Dr. Joss Barrett on 02/16/2023 and she was discharged home on the same day. Other comorbid conditions include paroxysmal A. fib, maintained on amiodarone an outpatient basis in addition to metoprolol. Her current EKG showing sinus tachycardia On 03/11/2023, the patient is being seen for a follow-up. Currently she is in intensive care unit. She was aggressively resuscitated with IV fluids and pressors and antibiotics. This morning, the patient is off norepinephrine and she is only on vasopressin. She is maintaining a home blood pressure. Her current BP is 119/53. She has arterial line In the left upper extremity. She also has a triple-lumen catheter in place. Antibiotic coverage is with IV cefepime and vancomycin. Blood cultures are still pending for now. Meanwhile, repeat chest x-ray was done and it shows a large loculated left-sided pneum othorax. In fact the patient has a trapped lung. The patient is a Pleurx catheter in place and the left hemithorax. There may be some residual effusion in the pleural space. Nevertheless, the left lower lobe is completely atelectatic and there is a tumor in the left infrahilar area. The patient is currently on oxygen and she is on 2 L nasal cannula with a pulse ox of 98%. White cell count dropped onto 10.5, hemoglobin down to 7 and a platelet count is at 132. BUN is 20 with a creatinine of 1.1 and his sodium level is at 138 with a potassium level of 3.9. The lactic acid was down trending and the most recent lactate level is down to 4.7. She has chronic issues with pain as the patient has skeletal metastases. She is taken Dilaudid for pain control. Rest of the home medications have been resumed. The patient on amiodarone. The patient is in normal sinus rhythm. The metoprolol will be gradually introduced once the patient's blood pressure stabilizes further. On 03/12/2023, the patient remains in intensive care unit. Hemodynamically stable on no pressors. Afebrile. She is still feeling lethargic and weak and she has chronic body aches. However, hemodynamically she is improved. The Pleurx catheter was connected to the pleural VAC yesterday and a total of 1 L of fluid was aspirated. The chest x-ray from today shows a stable left-sided hydropneumothorax. The patient currently is on oxygen and she is on 2 L. On her blood work, she has a white cell count of 10.2 with hemoglobin of 7.7 and the platelet count of 138. BUN is 15 with a creatinine of 1 and sodium level is at 141. The blood cultures are negative thus far. No other significant events overnight. She is taking limited oral intake including Glucerna and her oral intake is somewhat suboptimal. She is back on metoprolol 25 mg by mouth twice a day. Her cardiac rhythm is sinus. She is also on amiodarone. Objective - Vital Signs Vital signs: Vital Signs Temp 97.9 F 03/12/23 08:00 Pulse 111 H 03/12/23 08:00 Resp 39 H 03/12/23 08:00 BP 126/69 03/12/23 08:00 Pulse Ox 97 03/12/23 08:00 FiO2 Intake & Output 03/11/23 03/12/23 03/12/23 18:59 06:59 18:59 Intake Total 2021.385 1225 160 Output Total 1350 1590 205 Balance 672.385 -365 -45 Weight 72.6 kg 74 kg Intake: IV 725 1225 160 0.9 @ KVO 50 10 Cefepime 2 gm In Sodium 100 100 Chloride 0.9% 100 ml @ 25 mls/hr IVPB Q12HR [facility] Rx #:[id number] Sodium Chloride 0.9% 1, 625 825 150 000 ml @ 75 mls/hr IV . [id number] [facility] Rx#:[id number] Vancomycin 1,250 mg In 250 Sodium Chloride 0.9% 250 ml @ 125 mls/hr IVPB ONCE ONE Rx#:[id number] Intake, IV Titration 97.385 Amount Vasopressin 60 unit In 97.385 Sodium Chloride 0.9% 150 ml @ 0.03 UNITS/MIN 4.59 mls/hr IV .Q24H [facility] Rx#: [id number] Oral 1200 0 0 Output: Chest Tube Drainage 650 370 70 Pleural Catheter Left 650 370 70 Anterior Chest Urine 700 1220 135 Other: Voiding Method Indwelling Catheter Indwelling Catheter # Bowel Movements 1 ABP, PAP, CO, CI - Last Documented Arterial Blood Pressure 165/68 - Exam GENERAL EXAM: Alert, oriented, 67-year-old female, patient is mild degree of restless is currently on 2 L O2 nasal cannula, body mass index is 21 HEAD: Normocephalic EYES: Normal reaction of pupils, equal size NOSE: Clear with pink turbinates THROAT: No erythema or exudates NECK: No masses, no JVD CHEST: No chest wall deformity LUNGS: Equal air entry with no crackles, wheeze, rhonchi or dullness. Diminished on the left base, the patient is a Pleurx catheter on the left, this is connected to the pleural VAC with a total output of 1 L, no evidence of any air leak. CVS: S1 and S2 normal with no audible murmur, regular rhythm, sinus tachycardia ABDOMEN: No hepatosplenomegaly, normal bowel sounds, no guarding or rigidity SPINE: No scoliosis or deformity SKIN: No rashes CENTRAL NERVOUS SYSTEM: No focal deficits, tone is normal in all 4 extremities EXTREMITIES: There is no peripheral edema. No clubbing, no cyanosis. Peripheral pulses are intact, extremities are cold and clammy and pulses are diminished in all 4 extremities. - Labs CBC & Chem 7: 03/12/23 04:57 03/12/23 04:57 Labs: Abnormal Lab Results - Last 24 Hours (Table) 03/11/23 03/12/23 03/12/23 Range/Units 05:54 04:57 04:57 RBC 2.56 L (3.80-5.40) m/uL Hgb 7.7 L (11.4-16.0) gm/dL Hct 26.4 L (34.0-46.0) % MCV 103.3 H (80.0-100.0) fL MCHC 29.1 L (31.0-37.0) g/dL RDW 21.3 H (11.5-15.5) % Plt Count 138 L (150-450) k/uL Neutrophils # 8.0 H 8.4 H (1.3-7.7) k/uL Lymphocytes # 0.6 L (1.0-4.8) k/uL Monocytes # 1.2 H (0-1.0) k/uL Macrocytosis Marked A Chloride 118 H (98-107) mmol/L Carbon Dioxide 19 L (22-30) mmol/L Creatinine 1.05 H (0.52-1.04) mg/dL Calcium 7.7 L (8.4-10.2) mg/dL Microbiology - Last 24 Hours (Table) 03/10/23 11:25 Blood Culture - Preliminary Blood Assessment and Plan Plan: Septic shock on that investigation. The patient presented with profound hypotension, tachycardia, leukocytosis and lactic acidosis and the patient is currently in the intensive care unit being resuscitated with IV fluids and pressors and she was started on broad-spectrum antibiotics with a combination of cefepime and vancomycin. Hemodynamically stable and the cultures are negative. The white cell count is down to 10.2 from as high as 21 and she is afebrile. Acute leukocytosis, improving Acute lactic acidosis, improving Acute hypotension currently on fluids and pressors and antibiotics, improved Acute hypoxic respiratory failure secondary to above and currently she is on 3 L Acute kidney injury secondary to above and the patient is currently on IV fluids , renal function has normalized Metastatic stage IV adenocarcinoma of the lung with a recurrent a malignant left-sided pleural effusion. The patient is post immunotherapy and chemotherapy as well as radiation therapy to her metastatic bony lesions and the patient has a Pleurx catheter placed on the left. The patient has a left infrahilar mass in addition to bony metastases involving T7, L2, T12 and the posterior left rib in addition to left sacrum and the right pubic ramus. She has no action able mutation at this point in time. She has received palliative radiation therapy to her T7 spine lesion and sacrum. Left hydropneumothorax and the patient has a trapped lung with a Pleurx catheter on the left, a total of 1 L of fluid was evacuated through suctioning, the patient is a pleural VAC in place. History of chemotherapy-induced neutropenia, recovered and the patient was hospitalized for a neutropenic fever in the past Paroxysmal A. fib, current rhythm is sinus Anemia of chronic disease Plan Continue fluid to KVO Patient is on no pressors Discontinue vancomycin Continue metoprolol and amiodarone Continue cefepime Monitor the output from the left-sided Pleurx catheter and keep the pleural VAC attached Discontinue the arterial line May possibly transferred to the units today. DNR/DNI CODE STATUS. We'll continue to follow
[2023-03-12] MEDS: CEFEPIME 2 GM in SODIUM CHLORIDE 0.9% 100 ML IVPB SCH ×2 (09:04→20:20)
[2023-03-12] MEDS: AMIODARONE 200 MG TAB PO SCH (09:05)
[2023-03-12] MEDS: CHOLECALCIFEROL 25 MCG (1000 IU) TABLET PO SCH (09:05)
[2023-03-12] MEDS: FOLIC ACID 1 MG TAB PO SCH (09:05)
[2023-03-12] MEDS: CALCIUM CARBONATE 500 MG CHEWABLE PO SCH (09:05)
[2023-03-12] MEDS: FAMOTIDINE 20 MG TAB PO SCH (09:05)
[2023-03-12] MEDS: MAGNESIUM OXIDE 400 MG TAB PO SCH (09:05)
[2023-03-12] MEDS: METOPROLOL TARTRATE 25 MG TAB PO SCH ×2 (09:08→20:19)
--- NOTE | 2023-03-12 09:10 | XR ---
EXAMINATION TYPE: XR chest 1V portable DATE OF EXAM: 03/12/2023 COMPARISON: 03/11/2023 HISTORY: Left lung cancer TECHNIQUE: Single frontal view of the chest is obtained. FINDINGS: There again appears to be a left-sided hydropneumothorax which is improved today now appro ximately 30-40%. Consolidation in the left lung may represent upper lobe collapse. Visualized portion s of the right lung stable. Heart unchanged. Atherosclerotic change aorta. No pneumothorax. Arthropat hy of the AC joint. IMPRESSION: Improving left-sided hydropneumothorax now measuring approximately 30-40%.
[2023-03-12] MEDS: VASOPRESSIN 60 UNIT in SODIUM CHLORIDE 0.9% 150 ML IV SCH (16:34)
--- NOTE | 2023-03-12 18:40 | P.PN ---
Progress Note - Text Progress Note Date: 03/12/23 Hospital course: Patient was [id number] female with known history of lung cancer was unable to tolerate chemotherapy because of which it's been on hold since September of this year, came in with generalized weakness found to be severely hypotensive presently requiring 2 pressors vasopressin and norepinephrine, is also found to have highly elevated white count of 21,800, patient is not febrile patient is being admitted for septic shock to ICU. Patient was started on vancomycin and cefepime empirically urine labs are pending urine cultures are pending blood cultures were obtained chest x-ray showing stable hydropneumothorax on the right side patient has a Pleurx catheter on the right side. 03/11/2023: I assumed care of the patient today. ICU. Patient off levo fed. On IV vasopressin. Also getting IV cefepime and vancomycin. Cultures pending. 2 L nasal cannula. Tired. She would answer questions. Decreased appetite. His drinking some Glucerna. Discussed with the patient's sister and a niece at the bedside. Left-sided hydropneumothorax. 03/12/2023: ICU. Patient is off pressors. Short of breath. Eating some ensure. Cultures negative to rule out. IV cefepime. Had a Pleurx catheter placed yesterday. 1 L fluid was aspirated. Left-sided hydropneumothorax. 2 L nasal cannula. Sinus rhythm. Spoke to the patient's sister at the bedside. Active Medications Alprazolam (Alprazolam 0.25 Mg Tab) 0.25 mg PO TID PRN PRN Reason: Anxiety Amiodarone HCl (Amiodarone 200 Mg Tab) 200 mg PO DAILY [facility] Last Admin: 03/12/23 09:05 Dose: 200 mg Calcium Carbonate/Glycine (Calcium Carbonate 500 Mg Chewable) 500 mg PO DAILY [facility] Last Admin: 03/12/23 09:05 Dose: 500 mg Cholecalciferol (Cholecalciferol 25 Mcg (1000 Iu) Tablet) 25 mcg PO DAILY [facility] Last Admin: 03/12/23 09:05 Dose: 25 mcg Famotidine (Famotidine 20 Mg Tab) 20 mg PO DAILY [facility] Last Admin: 03/12/23 09:05 Dose: 20 mg Folic Acid (Folic Acid 1 Mg Tab) 1 mg PO DAILY [facility] Last Admin: 03/12/23 09:05 Dose: 1 mg Hydromorphone HCl (Hydromorphone 0.5 Mg/0.5 Ml Syringe) 0.5 mg IVP Q3HR PRN PRN Reason: Pain Last Admin: 03/11/23 20:06 Dose: 0.5 mg Vasopressin 60 unit/ Sodium (Chloride) 153 mls @ 4.59 mls/hr IV .Q24H [facility]; Protocol Last Admin: 03/12/23 16:34 Dose: Not Given Sodium Chloride (Saline 0.9%) 1,000 mls @ 20 mls/hr IV .Q24H [facility] Last Admin: 03/12/23 01:34 Dose: 75 mls/hr Cefepime HCl 2 gm/ Sodium (Chloride) 100 mls @ 25 mls/hr IVPB Q12HR [facility]; Protocol Last Admin: 03/12/23 09:04 Dose: 25 mls/hr Latanoprost (Latanoprost 0.005% Ophth Drops 2.5 Ml Btl) 1 drops BOTH EYES HS [facility] Last Admin: 03/11/23 20:08 Dose: 1 drops Magnesium Oxide (Magnesium Oxide 400 Mg Tab) 400 mg PO DAILY [facility] Last Admin: 03/12/23 09:05 Dose: 400 mg Metoprolol Tartrate (Metoprolol Tartrate 25 Mg Tab) 25 mg PO BID [facility] Last Admin: 03/12/23 09:08 Dose: 25 mg Naloxone HCl (Naloxone 0.4 Mg/Ml 1 Ml Vial) 0.2 mg IV Q2M PRN PRN Reason: Opioid Reversal On examination: VITAL SIGNS: 97.9, 98, 32, 1:30/74, 98% on 2 L GENERAL APPEARANCE: Reclining in bed awake short of breath HEENT: Normal external appearance of nose and ear. Oral cavity normal EYES: Pupils equal. Conjunctiva normal. NECK: JVD not raised. Mass not palpable. RESPIRATORY: Respiratory effort increased. Lungs decreased breath sounds. Left- sided Pleurx catheter to to drain CARDIOVASCULAR: First and second sounds normal. Some edema ABDOMEN: Soft. Liver and spleen not palpable. No tenderness. No mass palpable. PSYCHIATRY: Alert and oriented x3. Mood and affect tired INVESTIGATIONS, reviewed in the clinical context: March 12: White count 10.2 hemoglobin 7.7 platelets 138 potassium 3.6 BUN 15 creatinine 1.05 [place] 22: White count 10.5 hemoglobin 7 platelets 132 potassium 3.9 creatinine 1.18 Admission labs: White count 21.4 hemoglobin 10.5 BUN 19 creatinine 1.5 bun lactic acid 6.9 Influenza type A, B, RSV, COVID-19: Not detected Assessment and plan: -Septic shock: Slow to respond broad-spectrum antibiotics vancomycin and cefepime, awaiting cultures . norepinephrine-discontinued. On vasopressin -Acute hypoxic respiratory failure secondary to malignancy and pleural effusion 2 L and his cannula -Left-sided Pleurx catheters were drain placed on March 11. Initially 1 L removed. Likely malignant fluid. -Acute renal failure with baseline creatinine of around 0.8 secondary to acute tubular necrosis present creatinine is 1.5 IV fluids normal saline at 1 30 mL per hour -Lactic acidosis secondary to septic shock: Slow to respond -Lung cancer: Metastatic non-small cell lung cancer adenocarcinoma with malignant left-sided pleural effusion. Patient last received chemotherapy in month of September and able to tolerate chemo in the past. -Essential Hypertension Currently off blood pressure medications -Proximal atrial fibrillation for which patient is on amiodarone which will be continued but patient is not on any chronic anticoagulation: sinus rhythm -DO NOT RESUSCITATE Discussed with the patient's sister the bedside. Past Medical History Past Medical History: Atrial Fibrillation, Cancer, Hypertension Additional Past Medical History / Comment(s): LEFT CHEST DISCOMFORT RECENTLY., c hemo first dose 01/06/23. Radiation started beginning on December 2022. Recurrent malignant left-sided pleural effusion History of Any Multi-Drug Resistant Organisms: None Reported Past Surgical History: Adenoidectomy, Hysterectomy, Tonsillectomy Additional Past Surgical History / Comment(s): D& C. left sided thoracentesis 11/21/2022 with removal of 600 mL malignant effusion, left-sided thoracentesis 01/14/2023 with removal of 1 L fluid Past Anesthesia/Blood Transfusion Reactions: No Reported Reaction Past Psychological History: No Psychological Hx Reported Smoking Status: Never smoker Past Alcohol Use History: Occasional Past Drug Use History: None Reported - Past Family History Father Family Medical History: No Reported History Mother Family Medical History: No Reported History Medications and Allergies Home Medications Medication Instructions Recorded Confirmed Type Cholecalciferol [Vitamin D3 (25 25 mcg PO DAILY 11/21/22 03/10/23 History Mcg = 1000 Iu)] Latanoprost/Pf [Latanoprost 0.005% 1 drop BOTH EYES HS 11/21/22 03/10/23 History Eye Drop] Calcium Carbonate [Calcium] 600 mg PO DAILY 01/13/23 03/10/23 History Folic Acid 1 mg PO DAILY 01/13/23 03/10/23 History HYDROmorphone [Dilaudid] 2 mg PO TID PRN 01/13/23 03/10/23 History LORazepam [Ativan] 1 tab PO HS PRN 01/13/23 03/10/23 History Amiodarone [Cordarone] 200 mg PO DAILY #30 tab 02/16/23 03/10/23 Rx Famotidine [Pepcid] 20 mg PO DAILY #30 tablet 02/16/23 03/10/23 Rx Magnesium Oxide [Mag-Ox] 400 mg PO DAILY #30 tablet 02/16/23 03/10/23 Rx Metoprolol Tartrate [Lopressor] 25 mg PO BID #60 tab 02/16/23 03/10/23 Rx Potassium Chloride ER [K-Dur 20] 20 meq PO DAILY #30 tab 02/16/23 03/10/23 Rx Furosemide [Lasix] 20 mg PO BID@0900,1600 03/10/23 03/10/23 History Allergies Allergy/AdvReac Type Severity Reaction Status Date / Time No Known Allergies Allergy Verified 03/10/23 12:32
[2023-03-12] MEDS: LATANOPROST 0.005% OPHTH DROPS 2.5 ML BTL BOTH EYES SCH (20:21)
[2023-03-12] MEDS: SODIUM BICARBONATE TAB 650 MG TAB PO SCH (21:01)
[2023-03-12] MEDS: ALPRAZolam 0.25 MG TAB PO PRN (21:02)
[2023-03-13] MEDS: HYDROmorphone 0.5 MG/0.5 ML SYRINGE IVP PRN ×2 (01:48→13:00)
[2023-03-13] MEDS: SODIUM CHLORIDE 0.9% 1,000 ML IV SCH ×2 (05:19→22:26)
[2023-03-13 07:47] LABS: Anisocytosis Moderate; HCT 27.9 % (34.0-46.0); HGB 8.3 gm/dL (11.4-16.0); Hypochromasia Marked; MCH 30.9 pg (25.0-35.0); MCHC 29.8 g/dL (31.0-37.0); MCV 103.8 fL (80.0-100.0); Macrocytosis Marked; Mean Platelet Volume 12.7; Platelet Count 130 k/uL (150-450); Poikilocytosis Moderate; RBC 2.69 m/uL (3.80-5.40); RDW 21.1 % (11.5-15.5); WBC 10.5 k/uL (3.8-10.6)
[2023-03-13 07:49] LABS: African American GFR (CKD) 63 (>60 ml/min/1.73 sqM); Anion Gap 6 mmol/L; Blood Urea Nitrogen 14 mg/dL (7-17); Calcium 8.1 mg/dL (8.4-10.2); Carbon Dioxide 19 mmol/L (22-30); Chloride 123 mmol/L (98-107); Glucose 80 mg/dL (74-99); Non-African American GFR(CKD) 55 (>60 ml/min/1.73 sqM); Sodium 148 mmol/L (137-145)
[2023-03-13 08:17] LABS: Potassium 4.1 mmol/L (3.5-5.1)
--- NOTE | 2023-03-13 08:27 | XR ---
EXAMINATION TYPE: XR chest 1V portable DATE OF EXAM: 03/13/2023 COMPARISON: 03/12/2023 HISTORY: Pneumothorax TECHNIQUE: Single frontal view of the chest is obtained. FINDINGS: There again appears to be a left-sided hydropneumothorax which is stable measuring approxi mately 30-40%. Consolidation in the left lung may represent upper lobe collapse. Visualized portions of the right lung stable. Heart unchanged. Atherosclerotic change aorta. No pneumothorax. Arthropathy of the AC joint. IMPRESSION: Stable left-sided hydropneumothorax measuring approximately 40%.
--- NOTE | 2023-03-13 08:32 | P.PN ---
Subjective Progress Note Date: 03/13/23 This is a 67-year-old female patient with metastatic non-small cell lung consistent with adenocarcinoma with a malignant left-sided pleural effusion. During her most recent hospital admission, the patient was given a Pleurx catheter insertion regarding recurrent and persistent left-sided pleural effusio n. The patient came into the emergency department profoundly weak, tachycardic,-hypotensive with elevated white second of 21.8. The patient was diagnosed having septic shock, a triple-lumen catheter was inserted in the emergency Department. The patient was started on accommodation of cefepime and vancomycin, cultures were sent, the patient was given a total of 3 L of IV fluids in addition norepinephrine which is running at 0.1 [place] respiratory kilogram per minutes and the patient will be admitted to the intensive care unit. She underwent a left Pleurx catheter drainage and output from the left pleural effusion was minimal in the chest x-ray shows a stable left-sided hydropneumothorax and the catheter is in a good location. The patient's echoes at 21. She has neutrophilia, hemoglobin is at 10.5 with a platelet count of 227. Normal cognition profile. The blood gas was done on FiO2 of 32%/3 L of oxygen nasal cannula showed a pH of 7.39 with a pCO2 of 30 and pO2 of 109. Her lactic acid level was at 6.9 dropped down to 4.7. Sodium is at 137, BUN is 19 with a creatinine of 1.5 and a serum bicarb is at 22. UA is showing to 12 WBCs, and the UA is also showing +3 protein is. Influenza a and B in addition to Covid 19 and RSV screen were all negative. In regards to her malignancy, the patient has been diagnosed having lung cancer. She initially had a CT Chest which she had done at [facility] 11/14/22. Left pleural effusion with a 3.5 cm left infrahilar mass with postobstructive changes was noted. 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 12/06/22 staging PET showed suspicious uptake in the left lung hilum, mild uptake in the left pleura, suspicious bony lesions at T7, L2, T12 posterior left rib, left sacrum, right pubic ramus. Somatic testing and IHC testing were all negative for any targetable mutations. EGD and colonoscopy were negative, gastric biopsy was likely benign. She had palliative radiation to painful T7 and sacrum. 01/06/23 she started treatment, she was due to be on doublet chemotherapy and one immunotherapy But, port lions agents have been on shortage. Despite receiving only one chemotherapy agent she ended up in the hospital with significant pancytopenia, neutropenic fever, she required transfusions as well as G-CSF. 01/29/[address] Kang and he had a discussion with the patient and her friend. He reiterated that the patient's overall prognosis is poor. She is not a candidate for additional treatment at this time. Comfort care was discussed but patient declined she also declined palliative care. During her most recent hospitalization, the patient had a 1 L of pleural fluid drained via thoracentesis and subsequently she was given a Pleurx catheter by Dr. Joss Barrett on 02/16/2023 and she was discharged home on the same day. Other comorbid conditions include paroxysmal A. fib, maintained on amiodarone an outpatient basis in addition to metoprolol. Her current EKG showing sinus tachycardia On 03/11/2023, the patient is being seen for a follow-up. Currently she is in intensive care unit. She was aggressively resuscitated with IV fluids and pressors and antibiotics. This morning, the patient is off norepinephrine and she is only on vasopressin. She is maintaining a home blood pressure. Her current BP is 119/53. She has arterial line In the left upper extremity. She also has a triple-lumen catheter in place. Antibiotic coverage is with IV cefepime and vancomycin. Blood cultures are still pending for now. Meanwhile, repeat chest x-ray was done and it shows a large loculated left-sided pneum othorax. In fact the patient has a trapped lung. The patient is a Pleurx catheter in place and the left hemithorax. There may be some residual effusion in the pleural space. Nevertheless, the left lower lobe is completely atelectatic and there is a tumor in the left infrahilar area. The patient is currently on oxygen and she is on 2 L nasal cannula with a pulse ox of 98%. White cell count dropped onto 10.5, hemoglobin down to 7 and a platelet count is at 132. BUN is 20 with a creatinine of 1.1 and his sodium level is at 138 with a potassium level of 3.9. The lactic acid was down trending and the most recent lactate level is down to 4.7. She has chronic issues with pain as the patient has skeletal metastases. She is taken Dilaudid for pain control. Rest of the home medications have been resumed. The patient on amiodarone. The patient is in normal sinus rhythm. The metoprolol will be gradually introduced once the patient's blood pressure stabilizes further. On 03/12/2023, the patient remains in intensive care unit. Hemodynamically stable on no pressors. Afebrile. She is still feeling lethargic and weak and she has chronic body aches. However, hemodynamically she is improved. The Pleurx catheter was connected to the pleural VAC yesterday and a total of 1 L of fluid was aspirated. The chest x-ray from today shows a stable left-sided hydropneumothorax. The patient currently is on oxygen and she is on 2 L. On her blood work, she has a white cell count of 10.2 with hemoglobin of 7.7 and the platelet count of 138. BUN is 15 with a creatinine of 1 and sodium level is at 141. The blood cultures are negative thus far. No other significant events overnight. She is taking limited oral intake including Glucerna and her oral intake is somewhat suboptimal. She is back on metoprolol 25 mg by mouth twice a day. Her cardiac rhythm is sinus. She is also on amiodarone. 03/13/2023, the patient remains extremely debilitated, and weak. She is awake and she is communicating. Oral intake is quite diminished. The chest x-ray remains unchanged and the patient has a stable left-sided hydropneumothorax. Output from the chest tube has been recorded and the patient has drained approximately 350 mL over the past 24 hours. She remains on oxygen at 2 L/m nasal cannula. Cardiac rhythm is sinus. The CBC from today is pending. The electrolytes show a sodium level of 148, Peter is at 14 with a creatinine of 1.05. The patient is on IV fluids at 0.9 at 30 mL an hour. Unfortunately, her condition is terminal with metastatic lung cancer. She has issues with chronic pain and she is receiving Dilaudid. I'm going to transfer the patient to a oncology floor. She is to have further discussion about goals of treatment. She is a no code for now. May need to consider hospice patient and the patient is quite debilitated and she is not in a good performance of functional status where she can handle any further therapy. I will leave the final decision up on pathology. For now, the Pleurx catheter can be And the patient can be mobilize out of the intensive care unit. Objective - Vital Signs Vital signs: Vital Signs Temp 98.4 F 03/13/23 02:00 Pulse 95 03/13/23 02:00 Resp 20 03/13/23 02:00 BP 100/63 03/13/23 02:00 Pulse Ox 94 L 03/12/23 21:00 FiO2 Intake & Output 03/12/23 03/13/23 03/13/23 18:59 06:59 18:59 Intake Total 1520 700 Output Total 1040 1415 Balance 480 -715 Intake: IV 560 460 0.9 @ KVO 170 120 Cefepime 2 gm In Sodium 100 100 Chloride 0.9% 100 ml @ 25 mls/hr IVPB Q12HR [facility] Rx #:[id number] Sodium Chloride 0.9% 1, 290 240 000 ml @ 20 mls/hr IV . Q24H [facility] Rx#:[id number] Oral 960 240 Output: Chest Tube Drainage 250 395 Pleural Catheter Left 250 395 Anterior Chest Urine 790 1020 Other: Voiding Method Indwelling Catheter Indwelling Catheter ABP, PAP, CO, CI - Last Documented Arterial Blood Pressure 105/47 - Exam GENERAL EXAM: Alert, oriented, 67-year-old female, patient is mild degree of restless is currently on 2 L O2 nasal cannula, body mass index is 21 HEAD: Normocephalic EYES: Normal reaction of pupils, equal size NOSE: Clear with pink turbinates THROAT: No erythema or exudates NECK: No masses, no JVD CHEST: No chest wall deformity LUNGS: Equal air entry with no crackles, wheeze, rhonchi or dullness. Diminished on the left base, the patient is a Pleurx catheter on the left, this is connected to the pleural VAC with a total output of 3 50 mL over the past 24 hours, no evidence of any air leak. CVS: S1 and S2 normal with no audible murmur, regular rhythm, sinus tachycardia ABDOMEN: No hepatosplenomegaly, normal bowel sounds, no guarding or rigidity SPINE: No scoliosis or deformity SKIN: No rashes CENTRAL NERVOUS SYSTEM: No focal deficits, tone is normal in all 4 extremities EXTREMITIES: There is no peripheral edema. No clubbing, no cyanosis. Peripheral pulses are intact, extremities are cold and clammy and pulses are diminished in all 4 extremities. - Labs CBC & Chem 7: 03/12/23 04:57 03/13/23 06:16 Labs: Abnormal Lab Results - Last 24 Hours (Table) 03/13/23 Range/Units 06:16 Sodium 148 H (137-145) mmol/L Chloride 123 H (98-107) mmol/L Carbon Dioxide 19 L (22-30) mmol/L Creatinine 1.05 H (0.52-1.04) mg/dL Calcium 8.1 L (8.4-10.2) mg/dL Microbiology - Last 24 Hours (Table) 03/10/23 11:25 Blood Culture - Preliminary Blood 03/10/23 11:40 Blood Culture - Preliminary Blood Assessment and Plan Plan: Septic shock on that investigation. The patient presented with profound hypotension, tachycardia, leukocytosis and lactic acidosis and the patient is currently in the intensive care unit being resuscitated and the cultures were negative, IV fluids having To KVO and the Patient Has Been Treated with Broad- Spectrum Antibiotics and Currently she is on IV cefepime. She is off pressors. Acute leukocytosis, improving Acute lactic acidosis, improving Acute hypotension currently on fluids and pressors and antibiotics, improved, currently normotensive Acute hypoxic respiratory failure secondary to above and currently she is on 2 L nasal cannula Acute kidney injury my improved Metastatic stage IV adenocarcinoma of the lung with a recurrent a malignant left -sided pleural effusion. The patient is post immunotherapy and chemotherapy as well as radiation therapy to her metastatic bony lesions and the patient has a Pleurx catheter placed on the left. The patient has a left infrahilar mass in addition to bony metastases involving T7, L2, T12 and the posterior left rib in addition to left sacrum and the right pubic ramus. She has no action able mutation at this point in time. She has received palliative radiation therapy to her T7 spine lesion and sacrum. Left hydropneumothorax and the patient has a trapped lung with a Pleurx catheter on the left, and the patient continues to have a stable left-sided hydropneumothorax neutropenic fever in the past Paroxysmal A. fib, current rhythm is sinus Anemia of chronic disease Plan Continue fluid to KVO, encourage oral intake Patient is on no pressors We'll The Pleurx catheter and do once a day daily drainage Continue metoprolol and amiodarone Continue cefepime May possibly transferred to the units today. DNR/DNI CODE STATUS. We'll continue to follow Will need further discussion with oncology regarding goals of treatment. Unfortunately, she has a very poor performance and functional status. She needs to consider hospice care.
--- NOTE | 2023-03-13 08:36 | P.PN ---
Subjective Progress Note Date: 03/12/23 Principal diagnosis: sepsis, metastatic NSCLC Pt seen with son at bedside for family meeting about diagnosis, prognosis, hospice and palliative care philosophy. Pt had no acute c/o. No fever or pain. Objective - Vital Signs Vital signs: Vital Signs Temp 97.9 F 03/12/23 08:00 Pulse 96 03/12/23 14:00 Resp 20 03/12/23 14:00 BP 115/87 03/12/23 14:00 Pulse Ox 98 03/12/23 14:00 FiO2 Intake & Output 03/11/23 03/12/23 03/12/23 18:59 06:59 18:59 Intake Total 2022.385 1225 920 Output Total 1350 1590 600 Balance 672.385 -365 320 Weight 72.6 kg 74 kg Intake: IV 725 1225 440 0.9 @ KVO 50 70 Cefepime 2 gm In Sodium 100 100 100 Chloride 0.9% 100 ml @ 25 mls/hr IVPB Q12HR [facility] Rx #:[id number] Sodium Chloride 0.9% 1, 625 825 270 000 ml @ 20 mls/hr IV . Q24H [facility] Rx#:[id number] Vancomycin 1,250 mg In 250 Sodium Chloride 0.9% 250 ml @ 125 mls/hr IVPB ONCE ONE Rx#:[id number] Intake, IV Titration 97.385 Amount Vasopressin 60 unit In 97.385 Sodium Chloride 0.9% 150 ml @ 0.03 UNITS/MIN 4.59 mls/hr IV .Q24H [facility] Rx#: [id number] Oral 1200 0 480 Output: Chest Tube Drainage 650 370 150 Pleural Catheter Left 650 370 150 Anterior Chest Urine 700 1220 450 Other: Voiding Method Indwelling Catheter Indwelling Catheter Indwelling Catheter # Bowel Movements 1 ABP, PAP, CO, CI - Last Documented Arterial Blood Pressure 105/47 - Constitutional General appearance: Present: average body habitus, cooperative, no acute distress - EENT Eyes: Present: anicteric sclerae, EOMI ENT: Present: hearing grossly normal - Respiratory Details: resp shallow - Cardiovascular Details: skin warm and dry to touch - Musculoskeletal Musculoskeletal: Present: generalized weakness - Psychiatric Psychiatric: Present: A&O x's 3, appropriate affect, intact judgment & insight - Labs CBC & Chem 7: 03/13/23 06:16 03/13/23 06:16 Labs: Abnormal Lab Results - Last 24 Hours (Table) 03/12/23 03/12/23 Range/Units 04:57 04:57 RBC 2.56 L (3.80-5.40) m/uL Hgb 7.7 L (11.4-16.0) gm/dL Hct 26.4 L (34.0-46.0) % MCV 103.3 H (80.0-100.0) fL MCHC 29.1 L (31.0-37.0) g/dL RDW 21.3 H (11.5-15.5) % Plt Count 138 L (150-450) k/uL Neutrophils # 8.4 H (1.3-7.7) k/uL Lymphocytes # 0.6 L (1.0-4.8) k/uL Macrocytosis Marked A Chloride 118 H (98-107) mmol/L Carbon Dioxide 19 L (22-30) mmol/L Creatinine 1.05 H (0.52-1.04) mg/dL Calcium 7.7 L (8.4-10.2) mg/dL Microbiology - Last 24 Hours (Table) 03/10/23 11:40 Blood Culture - Preliminary Blood 03/10/23 11:25 Blood Culture - Preliminary Blood - Imaging and Cardiology Chest x-ray: report reviewed Assessment and Plan (1) Sepsis Current Visit: Yes Status: Acute Code(s): A41.9 - SEPSIS, UNSPECIFIED ORGANISM SNOMED Code(s): 28766566 (2) Malaise and fatigue Current Visit: Yes Status: Acute Priority: High Code(s): R53.81 - OTHER MALAISE; R53.83 - OTHER FATIGUE SNOMED Code(s): 998844940 (3) Adenocarcinoma of lung, stage 4 Current Visit: Yes Status: Chronic Priority: High Code(s): C34.90 - MALIGNANT NEOPLASM OF UNSP PART OF UNSP BRONCHUS OR LUNG SNOMED Code(s): 266944265 Plan: Sepsis -Patient is in the intensive care unit -Critical care team following closely -Pancultures pending -Antibiotics prescribed Malaise and fatigue -Secondary to sepsis as well as malignancy -Persistent and progressive over time Metastatic non-small cell lung cancer -Unfortunately patient struggled both hematologically as well as physically with chemotherapy/IO therapy-She also only received 1 of 2 chemotherapy drugs it is typically administered with this regimen. -Patient has been trying since December to improve her performance status to see if she would be a candidate for any additional chemotherapy. Her condition has not improved. -90 min was spent reviewing pt case with son and answering questions. We discussed palliative care hospice care philosophies. Hospice care at home versus at a facility. -All questions and concerns were answered to the best of my ability at this time. -they would like to see how pt does once she goes to the floor, meet with hospice and they will make decisions from there
[2023-03-13 10:38] LABS: Lymphocytes # (M) 0.84 k/uL (1.0-4.8); Metamyelocytes # (M) 0.21 k/uL (0); Metamyelocytes % 2 %; Monocytes # (M) 0.95 k/uL (0-1.0); Myelocytes # (M) 0.21 k/uL (0); Myelocytes % 2 %; Neutrophils # (M) 8.51 k/uL (1.3-7.7); Neutrophils % (M) 81 %; Nucleated Red Blood Cells 0 /100 WBC (0-0); Total Cells Counted 200
[2023-03-13 10:39] LABS: Polychromasia Present
[2023-03-13] MEDS: SODIUM BICARBONATE TAB 650 MG TAB PO SCH ×3 (10:55→22:14)
[2023-03-13] MEDS: CALCIUM CARBONATE 500 MG CHEWABLE PO SCH (10:55)
[2023-03-13] MEDS: AMIODARONE 200 MG TAB PO SCH (10:55)
[2023-03-13] MEDS: FOLIC ACID 1 MG TAB PO SCH (10:55)
[2023-03-13] MEDS: CEFEPIME 2 GM in SODIUM CHLORIDE 0.9% 100 ML IVPB SCH ×2 (10:55→22:15)
[2023-03-13] MEDS: MAGNESIUM OXIDE 400 MG TAB PO SCH (10:56)
[2023-03-13] MEDS: CHOLECALCIFEROL 25 MCG (1000 IU) TABLET PO SCH (10:56)
[2023-03-13] MEDS: FAMOTIDINE 20 MG TAB PO SCH (10:56)
[2023-03-13] MEDS: METOPROLOL TARTRATE 25 MG TAB PO SCH ×2 (10:58→22:20)
--- NOTE | 2023-03-13 15:06 | P.PN ---
Subjective Progress Note Date: 03/13/23 Principal diagnosis: sepsis, metastatic NSCLC In f/u pt looks a little worse then she did yesterday. She had her meds brought to her, her sister came in and she had her pleurex drain dressing changed and she is wore out from "all the activity". Denies significant SOB at rest, no current pain. Objective - Vital Signs Vital signs: Vital Signs Temp 98.4 F 03/13/23 02:00 Pulse 95 03/13/23 02:00 Resp 20 03/13/23 02:00 BP 100/63 03/13/23 02:00 Pulse Ox 94 L 03/12/23 21:00 FiO2 Intake & Output 03/12/23 03/13/23 03/13/23 18:59 06:59 18:59 Intake Total 1520 700 Output Total 1040 1415 Balance 480 -715 Intake: IV 560 460 0.9 @ KVO 170 120 Cefepime 2 gm In Sodium 100 100 Chloride 0.9% 100 ml @ 25 mls/hr IVPB Q12HR [facility] Rx #:[id number] Sodium Chloride 0.9% 1, 290 240 000 ml @ 20 mls/hr IV . Q24H [facility] Rx#:[id number] Oral 960 240 Output: Chest Tube Drainage 250 395 Pleural Catheter Left 250 395 Anterior Chest Urine 790 1020 Other: Voiding Method Indwelling Catheter Indwelling Catheter Indwelling Catheter ABP, PAP, CO, CI - Last Documented Arterial Blood Pressure 105/47 - Constitutional General appearance: Present: average body habitus, cooperative, no acute distress - EENT Eyes: Present: anicteric sclerae, EOMI ENT: Present: hearing grossly normal - Respiratory Respiratory: left: diminished, bilateral: other (shallow resp, increased RR) - Cardiovascular Rhythm: regular - Peripheral edema leg Peripheral Edema: bilateral: 2+, Pitting - Gastrointestinal General gastrointestinal: Present: soft - Neurologic Neurologic: Present: CNII-XII intact - Musculoskeletal Musculoskeletal: Present: generalized weakness - Psychiatric Psychiatric: Present: A&O x's 3, appropriate affect, intact judgment & insight - Labs CBC & Chem 7: 03/13/23 06:16 03/13/23 06:16 Labs: Abnormal Lab Results - Last 24 Hours (Table) 03/13/23 03/13/23 Range/Units 06:16 06:16 RBC 2.69 L (3.80-5.40) m/uL Hgb 8.3 L (11.4-16.0) gm/dL Hct 27.9 L (34.0-46.0) % MCV 103.8 H (80.0-100.0) fL MCHC 29.8 L (31.0-37.0) g/dL RDW 21.1 H (11.5-15.5) % Plt Count 130 L (150-450) k/uL Neutrophils # (Manual) 8.51 H (1.3-7.7) k/uL Lymphocytes # (Manual) 0.84 L (1.0-4.8) k/uL Metamyelocytes # (Man) 0.21 H (0) k/uL Myelocytes # (Manual) 0.21 H (0) k/uL Macrocytosis Marked A Sodium 148 H (137-145) mmol/L Chloride 123 H (98-107) mmol/L Carbon Dioxide 19 L (22-30) mmol/L Creatinine 1.05 H (0.52-1.04) mg/dL Calcium 8.1 L (8.4-10.2) mg/dL Microbiology - Last 24 Hours (Table) 03/10/23 11:25 Blood Culture - Preliminary Blood 03/10/23 11:40 Blood Culture - Preliminary Blood - Imaging and Cardiology Chest x-ray: report reviewed (stable pneumo 40%) Assessment and Plan (1) Sepsis Current Visit: Yes Status: Acute Code(s): A41.9 - SEPSIS, UNSPECIFIED ORGANISM SNOMED Code(s): 78963196 (2) Malaise and fatigue Current Visit: Yes Status: Acute Priority: High Code(s): R53.81 - OTHER MALAISE; R53.83 - OTHER FATIGUE SNOMED Code(s): 276309030 (3) Adenocarcinoma of lung, stage 4 Current Visit: Yes Status: Chronic Priority: High Code(s): C34.90 - MALIGNANT NEOPLASM OF UNSP PART OF UNSP BRONCHUS OR LUNG SNOMED Code(s): 553788863 Plan: Sepsis-resolved -cultures so far are neg -Antibiotics cont Malaise and fatigue -Secondary to sepsis as well as malignancy -Persistent and progressive over time. Pt has good days then bad days Metastatic non-small cell lung cancer -Unfortunately patient struggled both hematologically as well as physically with chemotherapy/IO therapy-She also only received 1 of 2 chemotherapy drugs it is typically administered with this regimen. -Patient has been trying since December to improve her performance status to see if she would be a candidate for any additional chemotherapy. Her condition has not improved. She continues to NOT be a candidate for any treatment -reviewed hospice and palliative philosophy with pt sister, all her questions were answered to her satisfaction -Spoke with Hospice compliance representative dealer, reviewed case with her. Gave her son's contact info so that a family meeting can be scheduled. -Did change appt with Dr. Kang per pt request, this has been moved out several weeks, documented in DC plan Time with Patient: Greater than 30 (counseling and coordinating care, end of life discussion)
--- NOTE | 2023-03-13 17:01 | P.PN ---
Progress Note - Text Progress Note Date: 03/13/23 Hospital course: Patient was [id number] female with known history of lung cancer was unable to tolerate chemotherapy because of which it's been on hold since September of this year, came in with generalized weakness found to be severely hypotensive presently requiring 2 pressors vasopressin and norepinephrine, is also found to have highly elevated white count of 21,800, patient is not febrile patient is being admitted for septic shock to ICU. Patient was started on vancomycin and cefepime empirically urine labs are pending urine cultures are pending blood cultures were obtained chest x-ray showing stable hydropneumothorax on the right side patient has a Pleurx catheter on the right side. 03/11/2023: I assumed care of the patient today. ICU. Patient off levo fed. On IV vasopressin. Also getting IV cefepime and vancomycin. Cultures pending. 2 L nasal cannula. Tired. She would answer questions. Decreased appetite. His drinking some Glucerna. Discussed with the patient's sister and a niece at the bedside. Left-sided hydropneumothorax. 03/12/2023: ICU. Patient is off pressors. Short of breath. Eating some ensure. Cultures negative to rule out. IV cefepime. Had a Pleurx catheter placed yesterday. 1 L fluid was aspirated. Left-sided hydropneumothorax. 2 L nasal cannula. Sinus rhythm. Spoke to the patient's sister at the bedside. 03/13/2023: ICU. Tolerating small amounts of diet. Drinking Ensure. Patient is legs catheter has been capped. Left hydropneumothorax persist. 2 L nasal cannula. Sinus rhythm. Active Medications Alprazolam (Alprazolam 0.25 Mg Tab) 0.25 mg PO TID PRN PRN Reason: Anxiety Last Admin: 03/12/23 21:02 Dose: 0.25 mg Amiodarone HCl (Amiodarone 200 Mg Tab) 200 mg PO DAILY [facility] Last Admin: 03/13/23 10:55 Dose: 200 mg Calcium Carbonate/Glycine (Calcium Carbonate 500 Mg Chewable) 500 mg PO DAILY [facility] Last Admin: 03/13/23 10:55 Dose: 500 mg Cholecalciferol (Cholecalciferol 25 Mcg (1000 Iu) Tablet) 25 mcg PO DAILY [facility] Last Admin: 03/13/23 10:56 Dose: 25 mcg Dronabinol (Dronabinol 2.5 Mg Cap) 2.5 mg PO HS [facility] Famotidine (Famotidine 20 Mg Tab) 20 mg PO DAILY [facility] Last Admin: 03/13/23 10:56 Dose: 20 mg Folic Acid (Folic Acid 1 Mg Tab) 1 mg PO DAILY [facility] Last Admin: 03/13/23 10:55 Dose: 1 mg Hydromorphone HCl (Hydromorphone 0.5 Mg/0.5 Ml Syringe) 0.5 mg IVP Q3HR PRN PRN Reason: Pain Last Admin: 03/13/23 13:00 Dose: 0.5 mg Sodium Chloride (Saline 0.9%) 1,000 mls @ 20 mls/hr IV .Q24H [facility] Last Admin: 03/13/23 05:19 Dose: 20 mls/hr Cefepime HCl 2 gm/ Sodium (Chloride) 100 mls @ 25 mls/hr IVPB Q12HR [facility]; Protocol Last Admin: 03/13/23 10:55 Dose: 25 mls/hr Latanoprost (Latanoprost 0.005% Ophth Drops 2.5 Ml Btl) 1 drops BOTH EYES HS [facility] Last Admin: 03/12/23 20:21 Dose: 1 drops Magnesium Oxide (Magnesium Oxide 400 Mg Tab) 400 mg PO DAILY [facility] Last Admin: 03/13/23 10:56 Dose: 400 mg Metoprolol Tartrate (Metoprolol Tartrate 25 Mg Tab) 25 mg PO BID [facility] Last Admin: 03/13/23 10:58 Dose: 25 mg Naloxone HCl (Naloxone 0.4 Mg/Ml 1 Ml Vial) 0.2 mg IV Q2M PRN PRN Reason: Opioid Reversal Sodium Bicarbonate (Sodium Bicarbonate Tab 650 Mg Tab) 650 mg PO TID [facility] Last Admin: 03/13/23 10:55 Dose: 650 mg On examination: VITAL SIGNS: 98.2, 92, 20, 10 2 x 70, 92% room air GENERAL APPEARANCE: Reclining in bed awake short of breath HEENT: Normal external appearance of nose and ear. Oral cavity normal EYES: Pupils equal. Conjunctiva normal. NECK: JVD not raised. Mass not palpable. RESPIRATORY: Respiratory effort increased. Lungs decreased breath sounds. Left- sided Pleurx catheter -capped CARDIOVASCULAR: First and second sounds normal. Some edema ABDOMEN: Soft. Liver and spleen not palpable. No tenderness. No mass palpable. PSYCHIATRY: Alert and oriented x3. Mood and affect tired INVESTIGATIONS, reviewed in the clinical context: March 13: White count 10.5 hemoglobin 8.3 platelets 1:30 sodium 148 potassium 4.1 BUN 14 creatinine 1.05 March 12: White count 10.2 hemoglobin 7.7 platelets 138 potassium 3.6 BUN 15 creatinine 1.05 March 11: White count 10.5 hemoglobin 7 platelets 132 potassium 3.9 creatinine 1.18 Admission labs: White count 21.4 hemoglobin 10.5 BUN 19 creatinine 1.5 bun lactic acid 6.9 Influenza type A, B, RSV, COVID-19: Not detected Assessment and plan: -Septic shock: Better broad-spectrum antibiotics vancomycin and cefepime, awaiting cultures . norepinephrine and vasopressin-discontinued. -Acute hypoxic respiratory failure secondary to malignancy and pleural effusion 2 L and his cannula -Left-sided Pleurx catheters were drain placed on March 11. Initially 1 L removed. Likely malignant fluid. Pleurx catheter was Today. 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 The patient is post immunotherapy and chemotherapy as well as radiation therapy to her metastatic bony lesions and the patient has a Pleurx catheter placed on the left. The patient has a left infrahilar mass in addition to bony metastases involving T7, L2, T12 and the posterior left rib in addition to left sacrum and the right pubic ramus. She has no action able mutation at this point in time. She has received palliative radiation therapy to her T7 spine lesion and sacrum. -Essential Hypertension Currently off blood pressure medications -Left hydropneumothorax. Patient has a trapped lung with the Pleurx catheter. -Proximal atrial fibrillation for which patient is on amiodarone which will be continued but patient is not on any chronic anticoagulation: sinus rhythm -DO NOT RESUSCITATE Discussed with the patient's sister the bedside. Close catheter Today. IV cefepime. Encourage oral intake. Past Medical History Past Medical History: Atrial Fibrillation, Cancer, Hypertension Additional Past Medical History / Comment(s): LEFT CHEST DISCOMFORT RECENTLY., chemo first dose 01/06/23. Radiation started beginning on December 2022. Recurrent malignant left-sided pleural effusion History of Any Multi-Drug Resistant Organisms: None Reported Past Surgical History: Adenoidectomy, Hysterectomy, Tonsillectomy Additional Past Surgical History / Comment(s): D& C. left sided thoracentesis 11/21/2022 with removal of 600 mL malignant effusion, left-sided thoracentesis 01/14/2023 with removal of 1 L fluid Past Anesthesia/Blood Transfusion Reactions: No Reported Reaction Past Psychological History: No Psychological Hx Reported Smoking Status: Never smoker Past Alcohol Use History: Occasional Past Drug Use History: None Reported - Past Family History Father Family Medical History: No Reported History Mother Family Medical History: No Reported History Medications and Allergies Home Medications Medication Instructions Recorded Confirmed Type Cholecalciferol [Vitamin D3 (25 25 mcg PO DAILY 11/21/22 03/10/23 History Mcg = 1000 Iu)] Latanoprost/Pf [Latanoprost 0.005% 1 drop BOTH EYES HS 11/21/22 03/10/23 History Eye Drop] Calcium Carbonate [Calcium] 600 mg PO DAILY 01/13/23 03/10/23 History Folic Acid 1 mg PO DAILY 01/13/23 03/10/23 History HYDROmorphone [Dilaudid] 2 mg PO TID PRN 01/13/23 03/10/23 History LORazepam [Ativan] 1 tab PO HS PRN 01/13/23 03/10/23 History Amiodarone [Cordarone] 200 mg PO DAILY #30 tab 02/16/23 03/10/23 Rx Famotidine [Pepcid] 20 mg PO DAILY #30 tablet 02/16/23 03/10/23 Rx Magnesium Oxide [Mag-Ox] 400 mg PO DAILY #30 tablet 02/16/23 03/10/23 Rx Metoprolol Tartrate [Lopressor] 25 mg PO BID #60 tab 02/16/23 03/10/23 Rx Potassium Chloride ER [K-Dur 20] 20 meq PO DAILY #30 tab 02/16/23 03/10/23 Rx Furosemide [Lasix] 20 mg PO BID@0900,1600 03/10/23 03/10/23 History Allergies Allergy/AdvReac Type Severity Reaction Status Date / Time No Known Allergies Allergy Verified 03/10/23 12:32
[2023-03-13] MEDS ORDERED: droNABinol 2.5 MG CAP PO SCH (21:00)
[2023-03-13] MEDS: LATANOPROST 0.005% OPHTH DROPS 2.5 ML BTL BOTH EYES SCH (22:16)
[2023-03-13] MEDS: ALPRAZolam 0.25 MG TAB PO PRN (22:21)
[2023-03-14] MEDS: HYDROmorphone 0.5 MG/0.5 ML SYRINGE IVP PRN ×2 (03:33→15:25)
[2023-03-14] MEDS: FOLIC ACID 1 MG TAB PO SCH (08:51)
[2023-03-14] MEDS: METOPROLOL TARTRATE 25 MG TAB PO SCH (08:51)
[2023-03-14] MEDS: CALCIUM CARBONATE 500 MG CHEWABLE PO SCH (08:51)
[2023-03-14] MEDS: CHOLECALCIFEROL 25 MCG (1000 IU) TABLET PO SCH (08:51)
[2023-03-14] MEDS: AMIODARONE 200 MG TAB PO SCH (08:51)
[2023-03-14] MEDS: MAGNESIUM OXIDE 400 MG TAB PO SCH (08:51)
[2023-03-14] MEDS: CEFEPIME 2 GM in SODIUM CHLORIDE 0.9% 100 ML IVPB SCH (08:51)
[2023-03-14] MEDS: SODIUM BICARBONATE TAB 650 MG TAB PO SCH (08:51)
[2023-03-14] MEDS: FAMOTIDINE 20 MG TAB PO SCH (08:51)
[2023-03-14 08:57] VITALS: BP 117/74; PULSE 100; RESP 20; TEMP 97.7
[2023-03-14 14:34] VITALS: BMI 28.9
--- NOTE | 2023-03-14 14:50 | P.PN ---
Subjective Progress Note Date: 03/14/23 This is a 67-year-old female patient with metastatic non-small cell lung consistent with adenocarcinoma with a malignant left-sided pleural effusion. During her most recent hospital admission, the patient was given a Pleurx catheter insertion regarding recurrent and persistent left-sided pleural effusio n. The patient came into the emergency department profoundly weak, tachycardic,-hypotensive with elevated white second of 21.8. The patient was diagnosed having septic shock, a triple-lumen catheter was inserted in the emergency Department. The patient was started on accommodation of cefepime and vancomycin, cultures were sent, the patient was given a total of 3 L of IV fluids in addition norepinephrine which is running at 0.1 [place] respiratory kilogram per minutes and the patient will be admitted to the intensive care unit. She underwent a left Pleurx catheter drainage and output from the left pleural effusion was minimal in the chest x-ray shows a stable left-sided hydropneumothorax and the catheter is in a good location. The patient's echoes at 21. She has neutrophilia, hemoglobin is at 10.5 with a platelet count of 227. Normal cognition profile. The blood gas was done on FiO2 of 32%/3 L of oxygen nasal cannula showed a pH of 7.39 with a pCO2 of 30 and pO2 of 109. Her lactic acid level was at 6.9 dropped down to 4.7. Sodium is at 137, BUN is 19 with a creatinine of 1.5 and a serum bicarb is at 22. UA is showing to 12 WBCs, and the UA is also showing +3 protein is. Influenza a and B in addition to Covid 19 and RSV screen were all negative. In regards to her malignancy, the patient has been diagnosed having lung cancer. She initially had a CT Chest which she had done at [facility] 11/14/22. Left pleural effusion with a 3.5 cm left infrahilar mass with postobstructive changes was noted. 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 12/06/22 staging PET showed suspicious uptake in the left lung hilum, mild uptake in the left pleura, suspicious bony lesions at T7, L2, T12 posterior left rib, left sacrum, right pubic ramus. Somatic testing and IHC testing were all negative for any targetable mutations. EGD and colonoscopy were negative, gastric biopsy was likely benign. She had palliative radiation to painful T7 and sacrum. 01/06/23 she started treatment, she was due to be on doublet chemotherapy and one immunotherapy But, k[place] agents have been on shortage. Despite receiving only one chemotherapy agent she ended up in the hospital with significant pancytopenia, neutropenic fever, she required transfusions as well as G-CSF. 01/29/[address] Kang and he had a discussion with the patient and her friend. He reiterated that the patient's overall prognosis is poor. She is not a candidate for additional treatment at this time. Comfort care was discussed but patient declined she also declined palliative care. During her most recent hospitalization, the patient had a 1 L of pleural fluid drained via thoracentesis and subsequently she was given a Pleurx catheter by Dr. Joss Barrett on 02/16/2023 and she was discharged home on the same day. Other comorbid conditions include paroxysmal A. fib, maintained on amiodarone an outpatient basis in addition to metoprolol. Her current EKG showing sinus tachycardia On 03/11/2023, the patient is being seen for a follow-up. Currently she is in intensive care unit. She was aggressively resuscitated with IV fluids and pressors and antibiotics. This morning, the patient is off norepinephrine and she is only on vasopressin. She is maintaining a home blood pressure. Her current BP is 119/53. She has arterial line In the left upper extremity. She also has a triple-lumen catheter in place. Antibiotic coverage is with IV cefepime and vancomycin. Blood cultures are still pending for now. Meanwhile, repeat chest x-ray was done and it shows a large loculated left-sided pneum othorax. In fact the patient has a trapped lung. The patient is a Pleurx catheter in place and the left hemithorax. There may be some residual effusion in the pleural space. Nevertheless, the left lower lobe is completely atelectatic and there is a tumor in the left infrahilar area. The patient is currently on oxygen and she is on 2 L nasal cannula with a pulse ox of 98%. White cell count dropped onto 10.5, hemoglobin down to 7 and a platelet count is at 132. BUN is 20 with a creatinine of 1.1 and his sodium level is at 138 with a potassium level of 3.9. The lactic acid was down trending and the most recent lactate level is down to 4.7. She has chronic issues with pain as the patient has skeletal metastases. She is taken Dilaudid for pain control. Rest of the home medications have been resumed. The patient on amiodarone. The patient is in normal sinus rhythm. The metoprolol will be gradually introduced once the patient's blood pressure stabilizes further. On 03/12/2023, the patient remains in intensive care unit. Hemodynamically stable on no pressors. Afebrile. She is still feeling lethargic and weak and she has chronic body aches. However, hemodynamically she is improved. The Pleurx catheter was connected to the pleural VAC yesterday and a total of 1 L of fluid was aspirated. The chest x-ray from today shows a stable left-sided hydropneumothorax. The patient currently is on oxygen and she is on 2 L. On her blood work, she has a white cell count of 10.2 with hemoglobin of 7.7 and the platelet count of 138. BUN is 15 with a creatinine of 1 and sodium level is at 141. The blood cultures are negative thus far. No other significant events overnight. She is taking limited oral intake including Glucerna and her oral intake is somewhat suboptimal. She is back on metoprolol 25 mg by mouth twice a day. Her cardiac rhythm is sinus. She is also on amiodarone. 03/13/2023, the patient remains extremely debilitated, and weak. She is awake and she is communicating. Oral intake is quite diminished. The chest x-ray remains unchanged and the patient has a stable left-sided hydropneumothorax. Output from the chest tube has been recorded and the patient has drained approximately 350 mL over the past 24 hours. She remains on oxygen at 2 L/m nasal cannula. Cardiac rhythm is sinus. The CBC from today is pending. The electrolytes show a sodium level of 148, Peter is at 14 with a creatinine of 1.05. The patient is on IV fluids at 0.9 at 30 mL an hour. Unfortunately, her condition is terminal with metastatic lung cancer. She has issues with chronic pain and she is receiving Dilaudid. I'm going to transfer the patient to a oncology floor. She is to have further discussion about goals of treatment. She is a no code for now. May need to consider hospice patient and the patient is quite debilitated and she is not in a good performance of functional status where she can handle any further therapy. I will leave the final decision up on pathology. For now, the Pleurx catheter can be And the patient can be mobilize out of the intensive care unit. 03/14/2023, condition is essentially unchanged. She remains short of breath, on 2 L of oxygen by nasal cannula, remains quite debilitated and the patient is having a hospice meeting today. Pleurx catheter is still in place. The patient is having periodic drainage. White cell count is at 10.7 hemoglobin of 8.3 from yesterday. No new labs are available from today. She is on Dilaudid for pain control. Unfortunately, the patient has not done any progress or functional improvement to consider any further therapy. Objective - Vital Signs Vital signs: Vital Signs Temp 97.7 F 03/14/23 08:00 Pulse 100 03/14/23 08:00 Resp 20 03/14/23 08:00 BP 117/74 03/14/23 08:00 Pulse Ox 89 L 03/14/23 12:32 FiO2 21 03/14/23 06:56 Intake & Output 03/13/23 03/14/23 03/14/23 18:59 06:59 18:59 Output Total 830 0 Balance -830 0 Weight 74 kg Output: Urine 830 Stool 0 Other: Voiding Method Indwelling Catheter Indwelling Catheter Toilet # Bowel Movements 1 0 ABP, PAP, CO, CI - Last Documented Arterial Blood Pressure 105/47 - Exam GENERAL EXAM: Alert, oriented, 67-year-old female, patient is mild degree of restless is currently on 2 L O2 nasal cannula, body mass index is 21 HEAD: Normocephalic EYES: Normal reaction of pupils, equal size NOSE: Clear with pink turbinates THROAT: No erythema or exudates NECK: No masses, no JVD CHEST: No chest wall deformity LUNGS: Equal air entry with no crackles, wheeze, rhonchi or dullness. Diminished on the left base, the patient is a Pleurx catheter on the left, this is connected to the pleural VAC with a total output of 3 50 mL over the past 24 hours, no evidence of any air leak. CVS: S1 and S2 normal with no audible murmur, regular rhythm, sinus tachycardia ABDOMEN: No hepatosplenomegaly, normal bowel sounds, no guarding or rigidity SPINE: No scoliosis or deformity SKIN: No rashes CENTRAL NERVOUS SYSTEM: No focal deficits, tone is normal in all 4 extremities EXTREMITIES: There is no peripheral edema. No clubbing, no cyanosis. Peripheral pulses are intact, extremities are cold and clammy and pulses are diminished in all 4 extremities. - Labs CBC & Chem 7: 03/13/23 06:16 03/13/23 06:16 Labs: Microbiology - Last 24 Hours (Table) 03/10/23 11:40 Blood Culture - Preliminary Blood 03/10/23 11:25 Blood Culture - Preliminary Blood Assessment and Plan Plan: Septic shock on that investigation. The patient presented with profound hypotension, tachycardia, leukocytosis and lactic acidosis and the patient is currently in the intensive care unit being resuscitated and the cultures were negative, IV fluids having To KVO and the Patient Has Been Treated with Broad- Spectrum Antibiotics and Currently she is on IV cefepime. She is off pressors. Acute leukocytosis, improving Acute lactic acidosis, improving Acute hypotension currently on fluids and pressors and antibiotics, improved, currently normotensive Acute hypoxic respiratory failure secondary to above and currently she is on 2 L nasal cannula Acute kidney injury my improved Metastatic stage IV adenocarcinoma of the lung with a recurrent a malignant left-sided pleural effusion. The patient is post immunotherapy and chemotherapy as well as radiation therapy to her metastatic bony lesions and the patient has a Pleurx catheter placed on the left. The patient has a left infrahilar mass in addition to bony metastases involving T7, L2, T12 and the posterior left rib in addition to left sacrum and the right pubic ramus. She has no action able mutation at this point in time. She has received palliative radiation therapy to her T7 spine lesion and sacrum. Left hydropneumothorax and the patient has a trapped lung with a Pleurx catheter on the left, and the patient continues to have a stable left-sided hydropneumothorax neutropenic fever in the past Paroxysmal A. fib, current rhythm is sinus Anemia of chronic disease Plan CONTINUE SUPPORTIVE CARE Hospice consultation was initiated Continue fluid to KVO, encourage oral intake We'll The Pleurx catheter and do once a day daily drainage Continue metoprolol and amiodarone Continue cefepime May possibly transferred to the units today. DNR/DNI CODE STATUS. We'll continue to follow Will need further discussion with oncology regarding goals of treatment. Unfortunately, she has a very poor performance and functional status. Hospice consultation
[2023-03-14] MEDS: ALPRAZolam 0.25 MG TAB PO PRN (17:12)
--- NOTE | 2023-03-15 17:34 | P.DS ---
Providers Date of admission: 03/10/23 13:28 Expected date of discharge: 03/14/23 Attending physician: Domingo Chapa Consults: 03/10/23 13:18 Consult Physician Urgent Consulting Provider: Chip Cruz Consult Reason/Comments: undifferentiated shock, suspect sepsis. stage 4 lung cancer Do you want consulting provider notified?: Already Contacted 03/10/23 13:31 Consult Physician Routine Consulting Provider: Анна Kang Consult Reason/Comments: lung cancer Do you want consulting provider notified?: Yes Primary care physician: Emeli Tanner Hospital Course: Hospital course: Patient was [id number] female with known history of lung cancer was unable to tolerate chemotherapy because of which it's been on hold since September of this year, came in with generalized weakness found to be severely hypotensive presently requiring 2 pressors vasopressin and norepinephrine, is also found to have highly elevated white count of 21,800, patient is not febrile patient is being admitted for septic shock to ICU. Patient was started on vancomycin and cefepime empirically urine labs are pending urine cultures are pending blood cultures were obtained chest x-ray showing stable hydropneumothorax on the right side patient has a Pleurx catheter on the right side. 03/11/2023: I assumed care of the patient today. ICU. Patient off levo fed. On IV vasopressin. Also getting IV cefepime and vancomycin. Cultures pending. 2 L nasal cannula. Tired. She would answer questions. Decreased appetite. His drinking some Glucerna. Discussed with the patient's sister and a niece at the bedside. Left-sided hydropneumothorax. 03/12/2023: ICU. Patient is off pressors. Short of breath. Eating some ensure. Cultures negative to rule out. IV cefepime. Had a Pleurx catheter placed yesterday. 1 L fluid was aspirated. Left-sided hydropneumothorax. 2 L nasal cannula. Sinus rhythm. Spoke to the patient's sister at the bedside. 03/13/2023: ICU. Tolerating small amounts of diet. Drinking Ensure. Patient is legs catheter has been capped. Left hydropneumothorax persist. 2 L nasal cannula. Sinus rhythm. 03/14/2023: Patient seen in the medical floor. Breathing a bit better. Discussed with the patient this morning. Patient due to meet with hospice later today. Patient and family met with hospice. Nurse called me back that patient will not sign up for hospice currently. Would like to get discharged home. On examination: VITAL SIGNS: 97.7, 100, 20, 117/74, 85% on with activity GENERAL APPEARANCE: Reclining in bed awake short of breath HEENT: Normal external appearance of nose and ear. Oral cavity normal EYES: Pupils equal. Conjunctiva normal. NECK: JVD not raised. Mass not palpable. RESPIRATORY: Respiratory effort increased. Lungs decreased breath sounds. Left- sided Pleurx catheter -capped CARDIOVASCULAR: First and second sounds normal. Some edema ABDOMEN: Soft. Liver and spleen not palpable. No tenderness. No mass palpable. PSYCHIATRY: Alert and oriented x3. Mood and affect tired INVESTIGATIONS, reviewed in the clinical context: March 13: White count 10.5 hemoglobin 8.3 platelets 1:30 sodium 148 potassium 4.1 BUN 14 creatinine 1.05 March 12: White count 10.2 hemoglobin 7.7 platelets 138 potassium 3.6 BUN 15 creatinine 1.05 March 11: White count 10.5 hemoglobin 7 platelets 132 potassium 3.9 creatinine 1.18 Admission labs: White count 21.4 hemoglobin 10.5 BUN 19 creatinine 1.5 bun lactic acid 6.9 Influenza type A, B, RSV, COVID-19: Not detected Assessment and plan: -Septic shock: Better broad-spectrum antibiotics vancomycin and cefepime, awaiting cultures . norepinephrine and vasopressin-discontinued. -Acute hypoxic respiratory failure secondary to malignancy and pleural effusion 2 L and his cannula -Left-sided Pleurx catheters were drain placed on March 11. Initially 1 L removed. Likely malignant fluid. Pleurx catheter was Today. 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 The patient is post immunotherapy and chemotherapy as well as radiation therapy to her metastatic bony lesions and the patient has a Pleurx catheter placed on the left. The patient has a left infrahilar mass in addition to bony metastases involving T7, L2, T12 and the posterior left rib in addition to left sacrum and the right pubic ramus. She has no action able mutation at this point in time. She has received palliative radiation therapy to her T7 spine lesion and sacrum. -Essential Hypertension Currently off blood pressure medications -Left hydropneumothorax. Patient has a trapped lung with the Pleurx catheter. -Proximal atrial fibrillation for which patient is on amiodarone which will be continued but patient is not on any chronic anticoagulation: sinus rhythm -DO NOT RESUSCITATE Patient keen to go home. She did meet with hospice. 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 Prognosis poor. At this point patient not signing up with hospice. Past Medical History Past Medical History: Atrial Fibrillation, Cancer, Hypertension Additional Past Medical History / Comment(s): LEFT CHEST DISCOMFORT RECENTLY., chemo first dose 01/06/23. Radiation started beginning on December 2022. Recurrent malignant left-sided pleural effusion History of Any Multi-Drug Resistant Organisms: None Reported Past Surgical History: Adenoidectomy, Hysterectomy, Tonsillectomy Additional Past Surgical History / Comment(s): D& C. left sided thoracentesis 11/21/2022 with removal of 600 mL malignant effusion, left-sided thoracentesis 01/14/2023 with removal of 1 L fluid Past Anesthesia/Blood Transfusion Reactions: No Reported Reaction Past Psychological History: No Psychological Hx Reported Smoking Status: Never smoker Past Alcohol Use History: Occasional Past Drug Use History: None Reported - Past Family History Father Family Medical History: No Reported History Mother Family Medical History: No Reported History Medications and Allergies Home Medications Medication Instructions Recorded Confirmed Type Cholecalciferol [Vitamin D3 (25 25 mcg PO DAILY 11/21/22 03/10/23 History Mcg = 1000 Iu)] Latanoprost/Pf [Latanoprost 0.005% 1 drop BOTH EYES HS 11/21/22 03/10/23 History Eye Drop] Calcium Carbonate [Calcium] 600 mg PO DAILY 01/13/23 03/10/23 History Folic Acid 1 mg PO DAILY 01/13/23 03/10/23 History HYDROmorphone [Dilaudid] 2 mg PO TID PRN 01/13/23 03/10/23 History LORazepam [Ativan] 1 tab PO HS PRN 01/13/23 03/10/23 History Amiodarone [Cordarone] 200 mg PO DAILY #30 tab 02/16/23 03/10/23 Rx Famotidine [Pepcid] 20 mg PO DAILY #30 tablet 02/16/23 03/10/23 Rx Magnesium Oxide [Mag-Ox] 400 mg PO DAILY #30 tablet 02/16/23 03/10/23 Rx Metoprolol Tartrate [Lopressor] 25 mg PO BID #60 tab 02/16/23 03/10/23 Rx Potassium Chloride ER [K-Dur 20] 20 meq PO DAILY #30 tab 02/16/23 03/10/23 Rx Furosemide [Lasix] 20 mg PO BID@0900,1600 03/10/23 03/10/23 History Allergies Allergy/AdvReac Type Severity Reaction Status Date / Time No Known Allergies Allergy Verified 03/10/23 12:32 Plan - Discharge Summary Discharge Rx Participant: No New Discharge Prescriptions: New Cefdinir [Omnicef] 300 mg PO Q12HR #10 capsule Sodium Bicarbonate Tab 650 mg PO TID #30 tab Continue Cholecalciferol [Vitamin D3 (25 Mcg = 1000 Iu)] 25 mcg PO DAILY LORazepam [Ativan] 1 tab PO HS PRN PRN Reason: Anxiety Folic Acid 1 mg PO DAILY Potassium Chloride ER [K-Dur 20] 20 meq PO DAILY #30 tab Magnesium Oxide [Mag-Ox] 400 mg PO DAILY #30 tablet Latanoprost/Pf [Latanoprost 0.005% Eye Drop] 1 drop BOTH EYES HS HYDROmorphone [Dilaudid] 2 mg PO TID PRN PRN Reason: Pain Amiodarone [Cordarone] 200 mg PO DAILY #30 tab Metoprolol Tartrate [Lopressor] 25 mg PO BID #60 tab Famotidine [Pepcid] 20 mg PO DAILY #30 tablet Furosemide [Lasix] 20 mg PO BID@0900,1600 Discontinued Calcium Carbonate [Calcium] 600 mg PO DAILY Discharge Medication List Cholecalciferol [Vitamin D3 (25 Mcg = 1000 Iu)] 25 mcg PO DAILY 11/21/22 [History] Latanoprost/Pf [Latanoprost 0.005% Eye Drop] 1 drop BOTH EYES HS 11/21/22 [History] Folic Acid 1 mg PO DAILY 01/13/23 [History] HYDROmorphone [Dilaudid] 2 mg PO TID PRN 01/13/23 [History] LORazepam [Ativan] 1 tab PO HS PRN 01/13/23 [History] Amiodarone [Cordarone] 200 mg PO DAILY #30 tab 02/16/23 [Rx] Famotidine [Pepcid] 20 mg PO DAILY #30 tablet 02/16/23 [Rx] Magnesium Oxide [Mag-Ox] 400 mg PO DAILY #30 tablet 02/16/23 [Rx] Metoprolol Tartrate [Lopressor] 25 mg PO BID #60 tab 02/16/23 [Rx] Potassium Chloride ER [K-Dur 20] 20 meq PO DAILY #30 tab 02/16/23 [Rx] Furosemide [Lasix] 20 mg PO BID@0900,1600 03/10/23 [History] Cefdinir [Omnicef] 300 mg PO Q12HR #10 capsule 03/14/23 [Rx] Sodium Bicarbonate Tab 650 mg PO TID #30 tab 03/14/23 [Rx] Follow up Appointment(s)/Referral(s): Emeli Tanner MD [Primary Care Provider] - 1-2 days Chip Cruz MD [STAFF PHYSICIAN] - 1 Week [facility], [NON-STAFF] - 1 Week Анна Kang MD [STAFF PHYSICIAN] - 4 Weeks Patient Instructions/Handouts: Cefdinir (By mouth), Sodium Bicarbonate (By mouth) Activity/Diet/Wound Care/Special Instructions: PleurX discharge instructions: 1. Home Care is ordered, they will obtain new bottles. 2. May shower after 24 hours, no tub baths/hot tubs. 3. Do not drain more than 1 liter or 1000 mL in 24 hours. 4. New drainage bottle needed with each drainage. 5. Drainage frequency dictated by patient symptoms, may be every day, every other day, weekly, or however often the patient is symptomatic. 6. Please notify UNEMPLOYMENT INSPECTOR or office if temperature >101F, excessive pain at insertion site, drainage consistency changes to cloudy or smells bad, catheter falls out, or anything else that concerns you. 7. Contact surgery office with weekly drainage amounts. May fax the amounts. 8. Once drainage is less than 50 mL three times in a row, notify the surgery office for possible removal. Surgery office: , fax Discharge Disposition: HOME WITH HOME HEALTH SERVICES
== END 2023-03-14 17:27 | disposition home health service (06) | DRG 871 ==
LOC: EC 10:22 → 2SICU 13:28 → 5NMEDONC 03-13 16:56
PROVIDERS: ADMIT Hospitalist; ATTEND Hospitalist
PROC: 03HY32Z Insertion of Monitoring Device into Upper Artery, Percutaneous Approach (ICD-10-PCS; principal; 2023-03-10)
PROC: 4A133B1 Monitoring of Arterial Pressure, Peripheral, Percutaneous Approach (ICD-10-PCS; principal; 2023-03-10)
PROC: 4A133J1 Monitoring of Arterial Pulse, Peripheral, Percutaneous Approach (ICD-10-PCS; principal; 2023-03-10)
PROC: 3E043XZ Introduction of Vasopressor into Central Vein, Percutaneous Approach (ICD-10-PCS; 2023-03-10)
PROC: 02HV33Z Insertion of Infusion Device into Superior Vena Cava, Percutaneous Approach (ICD-10-PCS; 2023-03-10)
DX: A41.9 Sepsis, unspecified organism (principal); J96.01 Acute respiratory failure with hypoxia; N17.0 Acute kidney failure with tubular necrosis; R65.21 Severe sepsis with septic shock; C34.02 Malignant neoplasm of left main bronchus; C79.51 Secondary malignant neoplasm of bone; E87.1 Hypo-osmolality and hyponatremia; J91.0 Malignant pleural effusion; J93.9 Pneumothorax, unspecified; E86.0 Dehydration; I48.0 Paroxysmal atrial fibrillation; I10 Essential (primary) hypertension; Z92.3 Personal history of irradiation; Z66 Do not resuscitate; F41.9 Anxiety disorder, unspecified; G89.29 Other chronic pain; Z79.899 Other long term (current) drug therapy; Z92.21 Personal history of antineoplastic chemotherapy; Z20.822 Contact with and (suspected) exposure to COVID-19
CPT/HCPCS: 36415; 36556; 36600; 71045; 80048; 80053; 81001; 82805; 83605; 83735; 83880; 84484; 85025; 85610; 85730; 86850; 86900; 86901; 87040; 87636; 93005; 94760; 96365; 96366; 99291